=== PATIENT | male | born 1940 | race Caucasian/White ===

== ENCOUNTER 2016-06-24 10:16 | Inpatient (IN) | payer OTHER ==
[~2016-06-24] VITALS: Ht 182.9 cm; Wt 71.4 kg
--- NOTE | 2016-06-24 12:18 | ED ORDER SUMMARY ---
..... Patient: BELEM ALONSO OrderSheet [facility] VisitID: [id number] [place] [address] 75y, M Registration Date/Time: 06/24/2016 ORDER SHEET Weight: 72.5 kg (stated) Allergies: None GENERAL ORDERS: CBC w Diff Urgent (10:06/24/2016 Guadalupe SCHWARTZ) (Ack 10:32 Harriet) (10:42 KWilliams R.N.) CMP Urgent (:06/24/2016 Guadalupe SCHWARTZ) (Ack 10:32 Harriet) (10:42 KWilliams R.N.) UA-Culture if indicated Urgent (:06/24/2016 Guadalupe SCHWARTZ) (Ack 10:32 Harriet) Amylase Urgent (:06/24/2016 Guadalupe SCHWARTZ) (Ack 10:32 Harriet) (10:42 KWilliams R.N.) Lipase Urgent (:06/24/2016 Guadalupe SCHWARTZ) (Ack 10:32 Harriet) (10:42 KWilliams R.N.) Urine Drug Screen Urgent (:06/24/2016 Guadalupe SCHWARTZ) (Ack 10:32 Harriet) Ethyl Alcohol Urgent (:06/24/2016 Guadalupe SCHWARTZ) (Ack 10:32 Harriet) (10:42 KWilliams R.N.) MEDICATION ORDERS: IV FLUIDS: Multivitamin IVF with Normal Saline 1 Liter, Folic Acid 1 mg/mL, Multivitamin Concentrate Intravenous 1 amp/L, Thiamine HCl 100 mg/L: initial bolus 500 mL (1000 mL/hr), then 125 mL/hr (NOW); Urgent (10:06/24/2016 Guadalupe SCHWARTZ) (10:59 MWinterer R.N.) Ativan IV 1 mg (HIGH ALERT MEDICATION, NOW) (11:26 06/24/2016 Guadalupe SCHWARTZ) (11:33 DBeyer R.N.) Ativan IV 0.5 mg (HIGH ALERT MEDICATION, NOW) (12:15 06/24/2016 DBeyer R.N. verbal order read back to Guadalupe SCHWARTZ) (12:28 DBeyer R.N.) Ativan IV 0.5 mg (HIGH ALERT MEDICATION, NOW) (13:43 06/24/2016 Yovanny Franco verbal order read back to Guadalupe SCHWARTZ) (13:44 Yovanny Franco) ORDER SHEET NOTES: [Electronically signed by Keegan Siddiqui MD (20:39 06/24/2016)] [Electronically signed by January Brar R.N. (08:53 06/25/2016)] [Electronically locked/signed by January Brar R.N. (08:53 06/25/2016)]
--- NOTE | 2016-06-24 12:18 | ED CLINICAL REPORT ---
Clinical Report - Physicians/Mid Levels [facility] [address] [place] [address] 06/24/2016 10:16 Patient: BELEM ALONSO Time Seen: 10:25. Arrived- By ambulance. Historian- patient and EMS personnel. History limited by vague historian. HISTORY OF PRESENT ILLNESS Chief Complaint: "GOT THE SHAKES" and TREMORS. Substances abused: (several days ago). The patient has had tremors and been depressed. No suicidal thoughts. The symptoms are described as severe. Location of injuries- right shoulder. REVIEW OF SYSTEMS The patient has had depression. He has not had suicidal ideation. All systems otherwise negative, except as recorded above. SOCIAL HISTORY Current every day light tobacco smoker (cigarette)- less than 1/2 a pack per day. Regular alcohol use; consumes a large amount of beer daily. FAMILY HISTORY Denies family medical history. ADDITIONAL NOTES The nursing notes have been reviewed. PHYSICAL EXAM Vital Signs: 06/24/2016 10:20 BP: 172/88. HR: 128. RR: 18. O2 saturation: 98%. Temp: 98.2 F. Have been reviewed. Appearance: Alert. He appears uncomfortable, is restless and appears depressed. He appears frail, elderly and unkempt. Eyes: Pupils equal, round and reactive to light. ENT: Airway intact. Pharynx normal. Neck: Normal inspection. Neck supple. CVS: Normal heart rate and rhythm. Heart sounds normal. Respiratory: No respiratory distress. Decreased air movement. Abdomen: Soft and nontender. No organomegaly. Back: Normal inspection. Skin: Skin warm and dry. No rash. He has a medium-sized bruise (several days old - starting to heal - on the R shoulder). Extremities: Extremities exhibit normal ROM. No calf tenderness. No lower extremity edema. Neuro: Alert. Cranial nerves normal (as tested). (tremulous). LABS, X-RAYS, AND EKG Laboratory Tests: UA-Culture if indicated: (CHAVA: 06/24/2016 11:56) ( MsgRcvd 06/24/2016 12:01) IP Test Result Flag Units (Reference) URINE COLOR YELLOW URINE APPEARANCE CLEAR URINE GLUCOSE NEGATIVE (NEGATIVE) URINE BILIRUBIN NEGATIVE (NEGATIVE) URINE KETONE 2+ (NEGATIVE) URINE SPECIFIC GRAVITY 1.025 (1.010-1.030) URINE PH 6.0 (5.0-8.0) URINE PROTEIN 1+ (NEGATIVE) URINE UROBILINOGEN 0.2 EU/dL (0.2-1.0) URINE NITRITE NEGATIVE (NEGATIVE) URINE BLOOD 2+ (NEGATIVE) URINE LEUK ESTERASE NEGATIVE (NEGATIVE) CBC w Diff: (CHAVA: 06/24/2016 10:26) ( [facility] [place] 11:28) Final results Test Result Flag Units (Reference) WHITE BLOOD COUNT 9.9 K/uL (4.5-11.5) RED BLOOD COUNT 4.58 M/uL (4.50-5.90) HEMOGLOBIN 12.1 L gm/dL (13.5-17.5) HEMATOCRIT 37.1 L % (41.0-53.0) MEAN CELL VOLUME 81 fL (80-100) MEAN CORPUSCULAR HGB 26 pg (26-34) MEAN CORPUSCULAR HGB CONC 33 g/dL (31-37) RED CELL DISTRIBUTION WIDTH 20.5 H % (11.6-14.8) PLATELET COUNT 171 K/uL (150-400) NEUTROPHIL % 88.0 H % (50-75) LYMPH % 3.9 L % (25-40) MONO % 8.1 % (3-14) EOSINOPHIL % 0 % (0-4) BASOPHIL % 0 % (0-2) RBC MORPHOLOGY 3+ ANISOCYTOSIS~~1+ SCHISTOCYTES~~PLTS ADQ CMP: (CHAVA: 06/24/2016 10:26) ( [facility] [place] 06/24/[place] 10:55) Final results Test Result Flag Units (Reference) GLUCOSE 119 H mg/dL (70-110) BUN 18 mg/dL (7-18) CREATININE 1.1 mg/dL (0.6-1.3) Estimated GFR >60 mL/min Estimated GFR- >60 mL/min Note: Persistent reduction over 3 months in eGFR<60 mL/min/1.73 m2 defines CKD. Patients with eGFR values>=60 mL/min/1.73 m2 may also have CKD if evidence ofpersistent proteinuria. Additional information may be foundat [email or web address]. SODIUM 139 mmol/L (136-145) POTASSIUM 4.4 mmol/L (3.5-5.1) CHLORIDE 102 mmol/L (98-107) CARBON DIOXIDE 23 mmol/L (21-32) CALCIUM 8.9 mg/dL (8.5-10.1) TOTAL PROTEIN 7.3 g/dL (6.4-8.2) ALBUMIN 3.6 g/dL (3.3-5.0) BILIRUBIN, TOTAL 1.0 mg/dL (0.0-1.0) ALKALINE PHOSPHATASE 138 H U/L (46-116) AST (SGOT) 97 H U/L (15-37) ALT (SGPT) 96 H U/L (12-78) LIPASE 1390 H U/L (73-393) AMYLASE 167 H U/L (25-115) ETHYL ALCOHOL 3 mg/dL (3-10) . PROGRESS AND PROCEDURES Course of Care: Patient is stable. Discussed case with hospitalist, (Victorino). Reviewed test results and need for additional work-up. Agreed upon decision to admit. Health care provider will see patient in ED. Patient/family counseled. Old medical records ordered. Disposition: Admitted. CLINICAL IMPRESSION Pancreatitis. Alcohol withdrawal. Depression. (Electronically signed by Keegan Siddiqui MD 06/24/2016 20:39)
--- NOTE | 2016-06-24 12:18 | ED NURSING NOTES ---
Clinical Report - Nurses [facility] [address] [place] [address] 06/24/2016 10:16 Patient: BELEM ALONSO TRIAGE Triage time 10:20 Jun 24 2016. Acuity: LEVEL 3. Chief Complaint: WEAKNESS. ASHISH COMA SCORE: [place] Coma Scale. (15). --10:25 Jose Angel Parmar R.N. 10:20 06/24/16. BP: 172/88. HR: 128. RR: 18. O2 saturation: 98%. Temp: 98.2 F. Pain level now 0/10. --10:25 Jose Angel Parmar R.N. Weight: 72.5 kg stated. Height/Length: 70 inches Per Patient. BMI: 22.9. --10:23 Jose Angel Parmar R.N. Allergies None. --10:21 Jose Angel Parmar R.N. History Arrived by EMS. ( Pt reports tremor for two weeks worse today.). SOCIAL HX: Never smoker. Alcohol use. (2 drinks a day last drink 3 days ago). No drug use. --10:25 Jose Angel Parmar R.N. PROBLEMS: Asthma. --10:21 Jose Angel Parmar R.N. Interventions ID band on patient. To treatment room. --10:25 Jose Angel Parmar R.N. PHYSICAL ASSESSMENT GENERAL / NEURO / PSYCH: Alert. Oriented X 4. Appears anxious. HEENT: Pupils equal, round and reactive to light. No facial asymmetry noted. Mucous membranes are pink. RESPIRATORY: Respirations not labored. Chest nontender. Breath sounds within normal limits. --10:31 Jose Angel Parmar R.N. NURSING PROGRESS NOTES teletypesetter monitor and pulse oximeter placed on patient; monitor alarms on. Patient gowned. Call light placed in reach. Side rails up x 2. Bed placed in lowest position. Patient placed in chair. --10:33 Jose Angel Parmar R.N. 10:33 06/24/2016 Site #1 started via IV in the left antecubital space with an 20g angiocath, with aseptic technique and good blood return; one attempt. Blood drawn: rainbow set. Labeled in the presence of the patient and sent to the lab. Saline lock flushed with saline. --10:33 Jose Angel Parmar R.N. 10:59 06/24/2016 Started bag #1 1000 mL IV Fluids MULTIVITAMIN (Saline); at 500 mL/hr over 2 hour(s) via site #1 via IV pump. Allergies verified and confirmed 5 rights. IV patency established. IV site checked: no pain, redness, or swelling. IV flushed thoroughly pre- and post-medication administration. --10:59 Rosanna Thompson R.N. 11:33 06/24/2016 Ativan (LORazepam) IVP 1 mg given over 2 minute(s) via site #1. Allergies verified, confirmed 5 rights and sedative warning given. IV patency established. IV site checked: no pain, redness, or swelling. IV flushed thoroughly pre- and post-medication administration. IVP given by RN. --11:33 Jose Angel Parmar R.N. 11:53 06/24/16. HR: 125. RR: 20. O2 saturation: 96%. Pain level now 0/10. --11:54 Jose Angel Parmar R.N. 12:08 06/24/16. BP: 166/105. HR: 130. RR: 18. O2 saturation: 94%. Temp: 98.8 F. Pain level now: 0/10. --12:09 Jose Angel Parmar R.N. ( Pt scores an 8 on alcohol withdrawal guideline). --12:10 Jose Angel Parmar R.N. 12:28 06/24/2016 Ativan (LORazepam) IVP 0.5 mg given over 2 minute(s) via site #1. Allergies verified, confirmed 5 rights and sedative warning given to the patient. IV patency established. IV site checked: no pain, redness, or swelling. IV flushed thoroughly pre- and post-medication administration. IVP given by RN. --12:28 Jose Angel Parmar R.N. 12:28 06/24/16. BP: 155/81. HR: 113. RR: 18. O2 saturation: 97%. Pain level now 0/10. --12:31 Jose Angel Parmar R.N. 12:40 06/24/16. BP: 159/80. HR: 106. RR: 18. O2 saturation: 97%. Pain level now 0/10. --12:41 Jose Angel Parmar R.N. ( Pt states " I can think again." tremor has decreased in severity). --12:41 Jose Angel Parmar R.N. 13:19 06/24/2016 Site #2 started via IV in the right wrist with an 18g angiocath; two attempts. Saline lock flushed with saline (Placed by ANANYA Frank). --13:44 Jose Angel Parmar R.N. 13:20 06/24/2016 IV Fluids MULTIVITAMIN Discontinued: bag #1 infused upon admission. Total amount infused: 1000 mL. IV patency established. IV site checked: no pain, redness, or swelling. IV flushed thoroughly. --13:20 Jose Angel Parmar R.N. 13:44 06/24/2016 Ativan (LORazepam) IVP 0.5 mg given over 2 minute(s) via site #1. Allergies verified, confirmed 5 rights and sedative warning given to the patient. IV patency established. IV site checked: no pain, redness, or swelling. IV flushed thoroughly pre- and post-medication administration. IVP given by RN. --13:44 Jose Angel Parmar R.N. DISPOSITION / DISCHARGE 14:01 06/24/16. BP: 149/72. HR: 96. RR: 18. O2 saturation: 97%. Temp: 98.3 F. Pain level now 0/10. --14:01 Jose Angel Parmar R.N. Patient's personal items include: shirt, pants and wallet; items were placed in belongings bag and given to the patient. --14:02 Jose Angel Parmar R.N. ( attempted to call report RN not available). --14:07 Jose Angel Parmar R.N. Departure time: 1440. --14:42 Jose Angel Parmar R.N. Locked/Released at 06/25/2016 8:53 by January Brar R.N.
--- NOTE | 2016-06-24 12:18 | ED CLINICAL REPORT ---
Clinical Report - Physicians/Mid Levels [facility] [address] [place] [address] 06/24/2016 10:16 Patient: BELEM ALONSO Time Seen: 10:25. Arrived- By ambulance. Historian- patient and EMS personnel. History limited by vague historian. HISTORY OF PRESENT ILLNESS Chief Complaint: "GOT THE SHAKES" and TREMORS. Substances abused: (several days ago). The patient has had tremors and been depressed. No suicidal thoughts. The symptoms are described as severe. Location of injuries- right shoulder. REVIEW OF SYSTEMS The patient has had depression. He has not had suicidal ideation. All systems otherwise negative, except as recorded above. SOCIAL HISTORY Current every day light tobacco smoker (cigarette)- less than 1/2 a pack per day. Regular alcohol use; consumes a large amount of beer daily. FAMILY HISTORY Denies family medical history. ADDITIONAL NOTES The nursing notes have been reviewed. PHYSICAL EXAM Vital Signs: 06/24/2016 10:20 BP: 172/88. HR: 128. RR: 18. O2 saturation: 98%. Temp: 98.2 F. Have been reviewed. Appearance: Alert. He appears uncomfortable, is restless and appears depressed. He appears frail, elderly and unkempt. Eyes: Pupils equal, round and reactive to light. ENT: Airway intact. Pharynx normal. Neck: Normal inspection. Neck supple. CVS: Normal heart rate and rhythm. Heart sounds normal. Respiratory: No respiratory distress. Decreased air movement. Abdomen: Soft and nontender. No organomegaly. Back: Normal inspection. Skin: Skin warm and dry. No rash. He has a medium-sized bruise (several days old - starting to heal - on the R shoulder). Extremities: Extremities exhibit normal ROM. No calf tenderness. No lower extremity edema. Neuro: Alert. Cranial nerves normal (as tested). (tremulous). LABS, X-RAYS, AND EKG Laboratory Tests: UA-Culture if indicated: (CHAVA: 06/24/2016 11:56) ( MsgRcvd 06/24/2016 12:01) IP Test Result Flag Units (Reference) URINE COLOR YELLOW URINE APPEARANCE CLEAR URINE GLUCOSE NEGATIVE (NEGATIVE) URINE BILIRUBIN NEGATIVE (NEGATIVE) URINE KETONE 2+ (NEGATIVE) URINE SPECIFIC GRAVITY 1.025 (1.010-1.030) URINE PH 6.0 (5.0-8.0) URINE PROTEIN 1+ (NEGATIVE) URINE UROBILINOGEN 0.2 EU/dL (0.2-1.0) URINE NITRITE NEGATIVE (NEGATIVE) URINE BLOOD 2+ (NEGATIVE) URINE LEUK ESTERASE NEGATIVE (NEGATIVE) CBC w Diff: (CHAVA: 06/24/2016 10:26) ( [facility] [place] 06/[place] 11:28) Final results Test Result Flag Units (Reference) WHITE BLOOD COUNT 9.9 K/uL (4.5-11.5) RED BLOOD COUNT 4.58 M/uL (4.50-5.90) HEMOGLOBIN 12.1 L gm/dL (13.5-17.5) HEMATOCRIT 37.1 L % (41.0-53.0) MEAN CELL VOLUME 81 fL (80-100) MEAN CORPUSCULAR HGB 26 pg (26-34) MEAN CORPUSCULAR HGB CONC 33 g/dL (31-37) RED CELL DISTRIBUTION WIDTH 20.5 H % (11.6-14.8) PLATELET COUNT 171 K/uL (150-400) NEUTROPHIL % 88.0 H % (50-75) LYMPH % 3.9 L % (25-40) MONO % 8.1 % (3-14) EOSINOPHIL % 0 % (0-4) BASOPHIL % 0 % (0-2) RBC MORPHOLOGY 3+ ANISOCYTOSIS~~1+ SCHISTOCYTES~~PLTS ADQ CMP: (CHAVA: 06/24/2016 10:26) ( [facility] [place] 06/24/2016 10:55) Final results Test Result Flag Units (Reference) GLUCOSE 119 H mg/dL (70-110) BUN 18 mg/dL (7-18) CREATININE 1.1 mg/dL (0.6-1.3) Estimated GFR >60 mL/min Estimated GFR- >60 mL/min Note: Persistent reduction over 3 months in eGFR<60 mL/min/1.73 m2 defines CKD. Patients with eGFR values>=60 mL/min/1.73 m2 may also have CKD if evidence ofpersistent proteinuria. Additional information may be foundat [email or web address].org. SODIUM 139 mmol/L (136-145) POTASSIUM 4.4 mmol/L (3.5-5.1) CHLORIDE 102 mmol/L (98-107) CARBON DIOXIDE 23 mmol/L (21-32) CALCIUM 8.9 mg/dL (8.5-10.1) TOTAL PROTEIN 7.3 g/dL (6.4-8.2) ALBUMIN 3.6 g/dL (3.3-5.0) BILIRUBIN, TOTAL 1.0 mg/dL (0.0-1.0) ALKALINE PHOSPHATASE 138 H U/L (46-116) AST (SGOT) 97 H U/L (15-37) ALT (SGPT) 96 H U/L (12-78) LIPASE 1390 H U/L (73-393) AMYLASE 167 H U/L (25-115) ETHYL ALCOHOL 3 mg/dL (3-10) . PROGRESS AND PROCEDURES Course of Care: Patient is stable. Discussed case with hospitalist, (Victorino). Reviewed test results and need for additional work-up. Agreed upon decision to admit. Health care provider will see patient in ED. Patient/family counseled. Old medical records ordered. Disposition: Admitted. CLINICAL IMPRESSION Pancreatitis. Alcohol withdrawal. Depression. (Electronically signed by Keegan Siddiqui MD 06/24/2016 20:39)
--- NOTE | 2016-06-24 12:18 | ED ORDER SUMMARY ---
..... Patient: BELEM ALONSO OrderSheet [facility] VisitID: [id number] [place] [address] 75y, M Registration Date/Time: 06/24/2016 ORDER SHEET Weight: 72.5 kg (stated) Allergies: None GENERAL ORDERS: CBC w Diff Urgent (10:06/24/2016 Guadalupe SCHWARTZ) (Ack 10:32 Harriet) (10:42 KWilliams R.N.) CMP Urgent (:06/24/2016 Guadalupe SCHWARTZ) (Ack 10:32 Harriet) (10:42 KWilliams R.N.) UA-Culture if indicated Urgent (:06/24/2016 Guadalupe SCHWARTZ) (Ack 10:32 Harriet) Amylase Urgent (:06/24/2016 Guadalupe SCHWARTZ) (Ack 10:32 Harriet) (10:42 KWilliams R.N.) Lipase Urgent (:06/24/2016 Guadalupe SCHWARTZ) (Ack 10:32 Harriet) (10:42 KWilliams R.N.) Urine Drug Screen Urgent (:06/24/2016 Guadalupe SCHWARTZ) (Ack 10:32 Harriet) Ethyl Alcohol Urgent (:06/24/2016 Guadalupe SCHWARTZ) (Ack 10:32 Harriet) (10:42 KWilliams R.N.) MEDICATION ORDERS: IV FLUIDS: Multivitamin IVF with Normal Saline 1 Liter, Folic Acid 1 mg/mL, Multivitamin Concentrate Intravenous 1 amp/L, Thiamine HCl 100 mg/L: initial bolus 500 mL (1000 mL/hr), then 125 mL/hr (NOW); Urgent (10:06/24/2016 Guadalupe SCHWARTZ) (10:59 MWinterer R.N.) Ativan IV 1 mg (HIGH ALERT MEDICATION, NOW) (11:26 06/24/2016 Guadalupe SCHWARTZ) (11:33 DBeyer R.N.) Ativan IV 0.5 mg (HIGH ALERT MEDICATION, NOW) (12:15 06/24/2016 DBeyer R.N. verbal order read back to Guadalupe SCHWARTZ) (12:28 DBeyer R.N.) Ativan IV 0.5 mg (HIGH ALERT MEDICATION, NOW) (13:43 06/24/2016 Yovanny Franco verbal order read back to Guadalupe SCHWARTZ) (13:44 Yovanny Franco) ORDER SHEET NOTES: [Electronically signed by Keegan Siddiqui MD (20:39 06/24/2016)] [Electronically signed by January Brar R.N. (08:53 06/25/2016)] [Electronically locked/signed by January Brar R.N. (08:53 06/25/2016)]
--- NOTE | 2016-06-24 12:18 | ED NURSING NOTES ---
Clinical Report - Nurses [facility] [address] [place] [address] 06/24/2016 10:16 Patient: BELEM ALONSO TRIAGE Triage time 10:20 Jun 24 2016. Acuity: LEVEL 3. Chief Complaint: WEAKNESS. ASHISH COMA SCORE: [place] Coma Scale. (15). --10:25 Jose Angel Parmar R.N. 10:20 06/24/16. BP: 172/88. HR: 128. RR: 18. O2 saturation: 98%. Temp: 98.2 F. Pain level now 0/10. --10:25 Jose Angel Parmar R.N. Weight: 72.5 kg stated. Height/Length: 70 inches Per Patient. BMI: 22.9. --10:23 Jose Angel Parmar R.N. Allergies None. --10:21 Jose Angel Parmar R.N. History Arrived by EMS. ( Pt reports tremor for two weeks worse today.). SOCIAL HX: Never smoker. Alcohol use. (2 drinks a day last drink 3 days ago). No drug use. --10:25 Jose Angel Parmar R.N. PROBLEMS: Asthma. --10:21 Jose Angel Parmar R.N. Interventions ID band on patient. To treatment room. --10:25 Jose Angel Parmar R.N. PHYSICAL ASSESSMENT GENERAL / NEURO / PSYCH: Alert. Oriented X 4. Appears anxious. HEENT: Pupils equal, round and reactive to light. No facial asymmetry noted. Mucous membranes are pink. RESPIRATORY: Respirations not labored. Chest nontender. Breath sounds within normal limits. --10:31 Jose Angel Parmar R.N. NURSING PROGRESS NOTES traffic monitor specialist and pulse oximeter placed on patient; monitor alarms on. Patient gowned. Call light placed in reach. Side rails up x 2. Bed placed in lowest position. Patient placed in chair. --10:33 Jose Angel Parmar R.N. 10:33 06/24/2016 Site #1 started via IV in the left antecubital space with an 20g angiocath, with aseptic technique and good blood return; one attempt. Blood drawn: rainbow set. Labeled in the presence of the patient and sent to the lab. Saline lock flushed with saline. --10:33 Jose Angel Parmar R.N. 10:59 06/24/2016 Started bag #1 1000 mL IV Fluids MULTIVITAMIN (Saline); at 500 mL/hr over 2 hour(s) via site #1 via IV pump. Allergies verified and confirmed 5 rights. IV patency established. IV site checked: no pain, redness, or swelling. IV flushed thoroughly pre- and post-medication administration. --10:59 Rosanna Thompson R.N. 11:33 06/24/2016 Ativan (LORazepam) IVP 1 mg given over 2 minute(s) via site #1. Allergies verified, confirmed 5 rights and sedative warning given. IV patency established. IV site checked: no pain, redness, or swelling. IV flushed thoroughly pre- and post-medication administration. IVP given by RN. --11:33 Jose Angel Parmar R.N. 11:53 06/24/16. HR: 125. RR: 20. O2 saturation: 96%. Pain level now 0/10. --11:54 Jose Angel Parmar R.N. 12:08 06/24/16. BP: 166/105. HR: 130. RR: 18. O2 saturation: 94%. Temp: 98.8 F. Pain level now: 0/10. --12:09 Jose Angel Parmar R.N. ( Pt scores an 8 on alcohol withdrawal guideline). --12:10 Jose Angel Parmar R.N. 12:28 06/24/2016 Ativan (LORazepam) IVP 0.5 mg given over 2 minute(s) via site #1. Allergies verified, confirmed 5 rights and sedative warning given to the patient. IV patency established. IV site checked: no pain, redness, or swelling. IV flushed thoroughly pre- and post-medication administration. IVP given by RN. --12:28 Jose Angel Parmar R.N. 12:28 06/24/16. BP: 155/81. HR: 113. RR: 18. O2 saturation: 97%. Pain level now 0/10. --12:31 Jose Angel Parmar R.N. 12:40 06/24/16. BP: 159/80. HR: 106. RR: 18. O2 saturation: 97%. Pain level now 0/10. --12:41 Jose Angel Parmar R.N. ( Pt states " I can think again." tremor has decreased in severity). --12:41 Jose Angel Parmar R.N. 13:19 06/24/2016 Site #2 started via IV in the right wrist with an 18g angiocath; two attempts. Saline lock flushed with saline (Placed by ANANYA Frank). --13:44 Jose Angel Parmar R.N. 13:20 06/24/2016 IV Fluids MULTIVITAMIN Discontinued: bag #1 infused upon admission. Total amount infused: 1000 mL. IV patency established. IV site checked: no pain, redness, or swelling. IV flushed thoroughly. --13:20 Jose Angel Parmar R.N. 13:44 06/24/2016 Ativan (LORazepam) IVP 0.5 mg given over 2 minute(s) via site #1. Allergies verified, confirmed 5 rights and sedative warning given to the patient. IV patency established. IV site checked: no pain, redness, or swelling. IV flushed thoroughly pre- and post-medication administration. IVP given by RN. --13:44 Jose Angel Parmar R.N. DISPOSITION / DISCHARGE 14:01 06/24/16. BP: 149/72. HR: 96. RR: 18. O2 saturation: 97%. Temp: 98.3 F. Pain level now 0/10. --14:01 Jose Angel Parmar R.N. Patient's personal items include: shirt, pants and wallet; items were placed in belongings bag and given to the patient. --14:02 Jose Angel Parmar R.N. ( attempted to call report RN not available). --14:07 Jose Angel Parmar R.N. Departure time: 1440. --14:42 Jose Angel Parmar R.N. Locked/Released at 06/25/2016 8:53 by January Brra R.N.
--- NOTE | 2016-06-24 13:13 | History & Physical Report ---
Admission Admit Date 06/24/16 Information Source Information Source: Self, ED Record History Chief Complaint Shaking History of Present Illness 75yoM w/ hx of etoh dependence, asthma, who presented because he "does not well. " He states that he stopped drinking about 3 days ago, and would not answer my question directly about why. He says that he became shaky about 2 days ago but it has worsened to the point where he couldn't even hold a cup. He denies fevers, chills, SOB, chest pain, abdominal pain, nausea, vomiting, diarrhea. He denies any history of alcohol withdrawal, and has never had seizures. He says that he drinks every day, but is adamant that it is only 2 "cans of lager" each day. He drinks with buddies who drink a "ton" more than him. Patient History 1. Alcohol dependence 2. Asthma Social History Etoh as above, smokes "occasionally" and denies illicit drug use. Medications and Allergies Medications Current Medications Sig/Diana Start time Last Medication Dose Route Stop Time Status Admin Enoxaparin Sodium 40 MG QAM 06/25 899 UNV SC Folic Acid 1 MG DAILY 06/25 0900 UNV PO Multivit/ 1 TAB DAILY 06/25 09 UNV Folic Acid/Iron PO Thiamine HCl 100 MG DAILY 06/25 0900 UNV PO Al Hydrox/Mg Hydrox/ 15 ML Q1H PRN 06/24 1300 UNV Simethicone PO Albuterol/Ipratropium 3 ML RTQ6H PRN 06/24 1300 UNV IN Clonidine HCl 0.1 MG BID PRN 06/24 1300 UNV PO Diazepam 5 MG PRN PRN 06/24 1300 UNV IV Docusate Sodium 250 MG BID PRN 06/24 1300 UNV PO Haloperidol Lactate 2 MG Q1H PRN 06/24 1300 UNV IV Lactated Ringer's 1,000 ML ASDIRECTED 06/24 1300 UNV IV Magnesium Hydroxide 10 ML DAILY PRN 06/24 1300 UNV PO Morphine Sulfate 1 MG Q30MIN PRN 06/24 1300 UNV IV Ondansetron HCl 4 MG Q6H PRN 06/24 1300 UNV IV Allergies Coded Allergies: NKA (06/24/16) Review of Systems Other As per HPI, rest of 10-point ROS unremarkable. Physical Exam General Appearance Alert, Oriented X3, Cooperative, Generally tremulous HEENT Atraumatic, Moist mucous membranes Lungs End expiratory squeak heard throughout. Neck Supple Cardiovascular Normal S1 and S2, No murmurs, gallops, rubs, Tachycardic Abdomen Normal bowel sounds, Soft, No tenderness Extremities No cyanosis, No clubbing, No edema Skin No Rashes Neurological Sensation intact, Cranial nerves intact, Strength 5/5 x4 ext's, No lateralizing signs Psych/Mental Status Mental status normal LAB Results Laboratory Tests 06/24 06/24 1156 1026 Chemistry Plasma Sodium (136 - 145 mmol/L) 139 Plasma Potassium (3.5 - 5.1 mmol/L) 4.4 Plasma Chloride (98 - 107 mmol/L) 102 CO2 (Enzymatic) (21 - 32 mmol/L) 23 BUN (7 - 18 mg/dL) 18 Creatinine (0.6 - 1.3 mg/dL) 1.1 Est GFR ( Amer) (mL/min) >60 Est GFR (Non-Af Amer) (mL/min) >60 Glucose (70 - 110 mg/dL) 119 Plasma Calcium (8.5 - 10.1 mg/dL) 8.9 Total Bilirubin (0.0 - 1.0 mg/dL) 1.0 AST (15 - 37 U/L) 97 ALT (12 - 78 U/L) 96 Alkaline Phosphatase (46 - 116 U/L) 138 Total Protein (6.4 - 8.2 g/dL) 7.3 Albumin (3.3 - 5.0 g/dL) 3.6 Amylase (25 - 115 U/L) 167 Lipase (73 - 393 U/L) 1390 Hematology WBC (4.5 - 11.5 K/uL) 9.9 RBC (4.50 - 5.90 M/uL) 4.58 Hgb (13.5 - 17.5 gm/dL) 12.1 Hct (41.0 - 53.0 %) 37.1 MCV (80 - 100 fL) 81 MCH (26 - 34 pg) 26 RDW (11.6 - 14.8 %) 20.5 Neut % (Auto) (50 - 75 %) 88.0 Lymph % (Auto) (25 - 40 %) 3.9 [place] % (Auto) (3 - 14 %) 8.1 Eos % (Auto) (0 - 4 %) 0 Baso % (Auto) (0 - 2 %) 0 Plt Count, EDTA (150 - 400 K/uL) 171 RBC Morphology (3574 A) PLTS ADQ PUBS MCHC (31 - 37 g/dL) 33 Toxicology Urine Opiates Screen (NEGATIVE) NEGATIVE Urine Methadone Screen (NEGATIVE) NEGATIVE Ur Barbiturates Screen (NEGATIVE) NEGATIVE U Amphetamin/Meth Scrn (NEGATIVE) NEGATIVE MDMA (Ecstasy) Screen (NEGATIVE) NEGATIVE U Benzodiazepines Scrn (NEGATIVE) NEGATIVE Urine Cocaine Screen (NEGATIVE) NEGATIVE U Cannabinoids Screen (NEGATIVE) NEGATIVE Plasma/Serum Ethyl Alc (3 - 10 mg/dL) 3 Urines Urine Color YELLOW Urine Appearance CLEAR Urine pH (5.0 - 8.0) 6.0 Ur Specific [place] (1.010 - 1.030) 1.025 Urine Protein (NEGATIVE) 1+ Urine Ketones (NEGATIVE) 2+ Urine Blood (NEGATIVE) 2+ Urine Nitrite (NEGATIVE) NEGATIVE Urine Bilirubin (NEGATIVE) NEGATIVE Urine Urobilinogen (0.2 - 1.0 EU/dL) 0.2 Ur Leukocyte Esterase (NEGATIVE) NEGATIVE Urine RBC (0 - 1 rbc/hpf) 3-5 Urine WBC (0 - 1 wbc/hpf) 3-5 Ur Epithelial Cells (0 - 5 EPI/hpf) 0-1 Urine Bacteria (NONE SEEN) NONE SEEN Urine Glucose (NEGATIVE) NEGATIVE Urine Comment CULT NOT INDICATED Assessment and Plan Problem List 1. Alcohol withdrawal Plan Appears to be in active withdrawal. Will place on withdrawal protocol, as well as monitor for seizures. His HR and BP are elevated, but likely from the withdrawal itself. Will place an order for prn clonidine for BP>180/100. Given a banana bag in ED, and will continue on thiamine, folic, and mvi. He has a mild transaminitis and elevated lipase, but his abdominal exam is benign and he has no symptoms of pancreatitis. Will trend labs for now, and continue on IVF. 2. Asthma Plan Not in acute exacerbation. Will put on prn neb. FEN: clears, ADAT PPx: lovenox Code: DNR/DNI, as per discussion w/ patient in ED Dispo: Inpatient for close monitoring during withdrawal, as will likely require >2MN hospital stay. E&M Codes Admission: Inpt-Moderate/94921
[2016-06-24 14:43] VITALS: BP 164/81
[2016-06-24] MEDS ORDERED: PROAIR HFA IN (16:24)
[2016-06-24] MEDS ORDERED: FLOVENT HFA110 MCG IN (16:24)
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
[2016-06-24 18:41] VITALS: BP 137/65
[2016-06-24 22:42] VITALS: BP 131/72
[2016-06-25 02:23] VITALS: BP 132/75
[2016-06-25 06:55] VITALS: BP 142/61
--- NOTE | 2016-06-25 08:53 | ED DISCHARGE INSTRUCTIONS ---
Patient: BELEM ALONSO General Instructions [facility] VisitID: [id number] [address] [place] [address] 75y, M Registration Date/Time: 06/24/2016 Pancreatitis. Alcohol withdrawal. Depression. (Electronically signed by Keegan Siddiqui MD 06/24/2016 20:39)
--- NOTE | 2016-06-25 08:53 | ED DISCHARGE INSTRUCTIONS ---
Patient: BELEM ALONSO General Instructions [facility] VisitID: [id number] [address] [place] [address] 75y, M Registration Date/Time: 06/24/2016 Pancreatitis. Alcohol withdrawal. Depression. (Electronically signed by Keegan Siddiqui MD 06/24/2016 20:39)
--- NOTE | 2016-06-25 08:53 | ED MED RECONCILIATION SUMMARY ---
Patient: BELEM ALONSO Medication Reconciliation Report [facility] VisitID: [id number] [address] [place] [address] 75y, M Registration Date/Time: 06/24/2016 Weight: 72.5 kg Height/Length: 70 in. BMI: 22.9 ALLERGIES: None The patient's Home Medications are listed below: Not obtained. The source(s) of the original Home Medication information: Not obtained. The following Medications were given to the patient in the Emergency Department: MULTIVITAMIN [IVF] IV Fluids bolus 0, then 500 mL/hr, administered: 06/24/2016 10:59:00 AM Ativan [IVP] IVP 1 mg, administered: 06/24/2016 11:33:00 AM Ativan [IVP] IVP 0.5 mg, administered: 06/24/2016 12:28:00 PM Ativan [IVP] IVP 0.5 mg, administered: 06/24/2016 1:44:00 PM The following Medications were prescribed to the patient: None.
--- NOTE | 2016-06-25 08:53 | ED MAR SUMMARY ---
..... Medication Administration Record [facility] [address] [facility] [place] [address] Patient: BELEM ALONSO Visit ID: [id number] 75y, M Weight: 72.5 kg Height/Length: 70 in BMI: 22.9 ALLERGIES: None Start 10:59 06/24/2016 Rosanna hTompson R.N., Stop 13:20 06/24/2016 Jose Angel Parmar R.N. Medication Administered: MULTIVITAMIN [IVF] (SALINE), Dose: IV Fluids over 2 hour(s), Rate: 500 mL/hr, Dispensed: 1000 mL bag, Site: #1 left AC. Medication Ordered: Multivitamin IVF with Normal Saline 1 Liter, Folic Acid 1 mg/mL, Multivitamin Concentrate Intravenous 1 amp/L, Thiamine HCl 100 mg/L: initial bolus 500 mL (1000 mL/hr), then 125 mL/hr (NOW); Urgent. Given 11:33 06/24/2016 Jose Angel Parmar R.N. Medication Administered: ATIVAN [IVP] (LORAZEPAM), Dose: 1 mg IVP over 2 minute(s), Site: #1 left AC. Medication Ordered: Ativan IV 1 mg (HIGH ALERT MEDICATION, NOW). Given 12:28 06/24/2016 Jose Angel Parmar R.N. Medication Administered: ATIVAN [IVP] (LORAZEPAM), Dose: 0.5 mg IVP over 2 minute(s), Site: #1 left AC. Medication Ordered: Ativan IV 0.5 mg (HIGH ALERT MEDICATION, NOW). Given 13:44 06/24/2016 Jose Angel Parmar R.N. Medication Administered: ATIVAN [IVP] (LORAZEPAM), Dose: 0.5 mg IVP over 2 minute(s), Site: #1 left AC. Medication Ordered: Ativan IV 0.5 mg (HIGH ALERT MEDICATION, NOW).
--- NOTE | 2016-06-25 08:53 | ED MED RECONCILIATION SUMMARY ---
Patient: BELEM ALONSO Medication Reconciliation Report [facility] VisitID: [id number] [address] [place] [address] 75y, M Registration Date/Time: 06/24/2016 Weight: 72.5 kg Height/Length: 70 in. BMI: 22.9 ALLERGIES: None The patient's Home Medications are listed below: Not obtained. The source(s) of the original Home Medication information: Not obtained. The following Medications were given to the patient in the Emergency Department: MULTIVITAMIN [IVF] IV Fluids bolus 0, then 500 mL/hr, administered: 06/24/2016 10:59:00 AM Ativan [IVP] IVP 1 mg, administered: 06/24/2016 11:33:00 AM Ativan [IVP] IVP 0.5 mg, administered: 06/24/2016 12:28:00 PM Ativan [IVP] IVP 0.5 mg, administered: 06/24/2016 1:44:00 PM The following Medications were prescribed to the patient: None.
--- NOTE | 2016-06-25 08:53 | ED MAR SUMMARY ---
..... Medication Administration Record [facility] [address] [facility] [address] Patient: BELEM ALONSO Visit ID: [id number] 75y, M Weight: 72.5 kg Height/Length: 70 in BMI: 22.9 ALLERGIES: None Start 10:59 06/24/2016 Rosanna Thompson R.N., Stop 13:20 06/24/2016 Jose Angel Parmar R.N. Medication Administered: MULTIVITAMIN [IVF] (SALINE), Dose: IV Fluids over 2 hour(s), Rate: 500 mL/hr, Dispensed: 1000 mL bag, Site: #1 left AC. Medication Ordered: Multivitamin IVF with Normal Saline 1 Liter, Folic Acid 1 mg/mL, Multivitamin Concentrate Intravenous 1 amp/L, Thiamine HCl 100 mg/L: initial bolus 500 mL (1000 mL/hr), then 125 mL/hr (NOW); Urgent. Given 11:33 06/24/2016 Jose Angel Parmar R.N. Medication Administered: ATIVAN [IVP] (LORAZEPAM), Dose: 1 mg IVP over 2 minute(s), Site: #1 left AC. Medication Ordered: Ativan IV 1 mg (HIGH ALERT MEDICATION, NOW). Given 12:28 06/24/2016 Jose Angel Parmar R.N. Medication Administered: ATIVAN [IVP] (LORAZEPAM), Dose: 0.5 mg IVP over 2 minute(s), Site: #1 left AC. Medication Ordered: Ativan IV 0.5 mg (HIGH ALERT MEDICATION, NOW). Given 13:44 06/24/2016 Jose Angel Parmar R.N. Medication Administered: ATIVAN [IVP] (LORAZEPAM), Dose: 0.5 mg IVP over 2 minute(s), Site: #1 left AC. Medication Ordered: Ativan IV 0.5 mg (HIGH ALERT MEDICATION, NOW).
--- NOTE | 2016-06-25 09:03 | Progress Note ---
Subjective General Note Date: June 25, 2016 Admission Date: June 24, 2016 Hospital Day: 2 PCP: Bernabe Nagy M.D. Status: Inpatient Advanced Directive: NO CODE Room: 305 Brief History: The patient is a 75-year-old white male with a significant past medical history of alcohol abuse/dependence, asthma/COPD who presented to [facility] emergency department on the day of admission secondary to not feeling well, "shakes". [facility] ER evaluation was consistent with alcohol withdrawal syndrome/alcohol abuse- dependence, asthma/COPD, pancreatitis, and elevated LFTs. Secondary to the above, the patient was admitted by Raquel Gleason M.D. for further evaluation and treatment. For other history present illness, past medical history, family history, social history, review of systems, and admission physical examination please see the patient's history and physical examination and ER visit note in the patient's medical record. Subjective: The patient remains confused at this time. Less agitated over the past 24 hours. Oriented only to self. Patient requests: None Medications and Allergies Medications Current Medications Sig/Diana Start time Last Medication Dose Route Stop Time Status Admin Lorazepam 1 MG Q6H 06/27 1600 AC PO 06/28 1100 Lorazepam 1 MG Q6H 06/27 1600 AC IV 06/28 1100 Lorazepam 1 MG Q6H 06/26 1600 AC PO 06/27 1100 Lorazepam 1 MG Q6H 06/26 1600 AC IV 06/27 1100 Lorazepam 1 MG Q4H 06/25 1600 AC PO 06/26 1300 Lorazepam 1 MG Q4H 06/25 1600 AC IV 06/26 1300 Enoxaparin Sodium 40 MG QAM 06/25 0900 AC SC Folic Acid 1 MG DAILY 06/25 0900 AC PO Multivit/ 1 TAB DAILY 06/25 0900 AC Folic Acid/Iron PO Thiamine HCl 100 MG DAILY 06/25 0900 AC PO Lorazepam 2 MG Q6H 06/24 1600 AC PO 06/25 1100 Lorazepam 2 MG Q6H 06/24 1600 AC 06/25 IV 06/25 1100 0454 Lorazepam 0.5 MG Q30MIN PRN 06/24 1600 AC PO Lorazepam 0.5 MG Q30MIN PRN 06/24 1600 AC 06/24 IV 1959 Nicotine 14 MG QAM 06/24 1600 AC 06/24 TOP 1615 Al Hydrox/Mg Hydrox/ 15 ML Q1H PRN 06/24 1300 AC Simethicone PO Albuterol/Ipratropium 3 ML Q6H PRN 06/24 1300 AC IN Clonidine HCl 0.1 MG BID PRN 06/24 1300 AC PO Diazepam 5 MG PRN PRN 06/24 1300 AC IV Docusate Sodium 250 MG BID PRN 06/24 1300 AC PO Haloperidol Lactate 2 MG Q1H PRN 06/24 1300 AC IV Lactated Ringer's 1,000 ML ASDIRECTED 06/24 1300 AC 06/25 IV 0054 Magnesium Hydroxide 10 ML DAILY PRN 06/24 1300 AC PO Morphine Sulfate 1 MG Q30MIN PRN 06/24 1300 AC IV Ondansetron HCl 4 MG Q6H PRN 06/24 1300 AC IV Allergies Coded Allergies: NKA (06/24/16) Physical Exam Vital Signs / I&Os Vital Signs Date Time Temp Pulse Resp B/P Pulse O2 O2 Flow FiO2 Ox Delivery Rate 06/25 0800 Room Air 06/25 0655 96.6 86 18 142/61 99 Room Air 06/25 0223 97.7 85 21 132/75 97 Room Air 06/24 2242 97.9 80 21 131/72 99 Room Air 06/24 2000 Room Air 06/24 1841 98.6 93 23 137/65 98 Room Air 06/24 1443 98.2 114 27 164/81 97 Room Air I&O 06/25 0000 06/24 1600 06/24 0800 Intake Total 120 Output Total 526 Balance -406 General Appearance Alert, Cooperative, No acute distress Lungs Scattered rhonchi. No wheezes. No rales. Cardiovascular Regular rate and rhythm, Normal S1 and S2 Abdomen Normal bowel sounds, Soft, No tenderness Extremities No cyanosis, No clubbing Neurological Cranial nerves intact, No lateralizing signs, confused Psych/Mental Status Confused LAB Results Laboratory Tests 06/25 06/24 0515 1156 Chemistry Plasma Sodium (136 - 145 mmol/L) 139 Plasma Potassium (3.5 - 5.1 mmol/L) 3.4 Plasma Chloride (98 - 107 mmol/L) 103 CO2 (Enzymatic) (21 - 32 mmol/L) 27 BUN (7 - 18 mg/dL) 14 Creatinine (0.6 - 1.3 mg/dL) 0.8 Est GFR ( Amer) (mL/min) >60 Est GFR (Non-Af Amer) (mL/min) >60 Glucose (70 - 110 mg/dL) 83 Plasma Calcium (8.5 - 10.1 mg/dL) 7.7 Plasma Magnesium (1.8 - 2.4 mg/dL) 1.6 Total Bilirubin (0.0 - 1.0 mg/dL) 1.3 AST (15 - 37 U/L) 68 ALT (12 - 78 U/L) 64 Alkaline Phosphatase (46 - 116 U/L) 101 Total Protein (6.4 - 8.2 g/dL) 4.9 Albumin (3.3 - 5.0 g/dL) 2.6 Lipase (73 - 393 U/L) 1271 Hematology WBC (4.5 - 11.5 K/uL) 6.2 RBC (4.50 - 5.90 M/uL) 3.83 Hgb (13.5 - 17.5 gm/dL) 10.0 Hct (41.0 - 53.0 %) 30.9 MCV (80 - 100 fL) 81 MCH (26 - 34 pg) 26 RDW (11.6 - 14.8 %) 20.2 Neut % (Auto) (50 - 75 %) 70.2 Lymph % (Auto) (25 - 40 %) 16.8 [place] % (Auto) (3 - 14 %) 10.9 Eos % (Auto) (0 - 4 %) 2.0 Baso % (Auto) (0 - 2 %) 0.1 Plt Count, EDTA (150 - 400 K/uL) 130 RBC Morphology (97565 A) 1+ HYPOCHROMIA PUBS MCHC (31 - 37 g/dL) 32 Toxicology Urine Opiates Screen (NEGATIVE) NEGATIVE Urine Methadone Screen (NEGATIVE) NEGATIVE Ur Barbiturates Screen (NEGATIVE) NEGATIVE U Amphetamin/Meth Scrn (NEGATIVE) NEGATIVE MDMA (Ecstasy) Screen (NEGATIVE) NEGATIVE U Benzodiazepines Scrn (NEGATIVE) NEGATIVE Urine Cocaine Screen (NEGATIVE) NEGATIVE U Cannabinoids Screen (NEGATIVE) NEGATIVE Urines Urine Color YELLOW Urine Appearance CLEAR Urine pH (5.0 - 8.0) 6.0 Ur Specific [place] (1.010 - 1.030) 1.025 Urine Protein (NEGATIVE) 1+ Urine Ketones (NEGATIVE) 2+ Urine Blood (NEGATIVE) 2+ Urine Nitrite (NEGATIVE) NEGATIVE Urine Bilirubin (NEGATIVE) NEGATIVE Urine Urobilinogen (0.2 - 1.0 EU/dL) 0.2 Ur Leukocyte Esterase (NEGATIVE) NEGATIVE Urine RBC (0 - 1 rbc/hpf) 3-5 Urine WBC (0 - 1 wbc/hpf) 3-5 Ur Epithelial Cells (0 - 5 EPI/hpf) 0-1 Urine Bacteria (NONE SEEN) NONE SEEN Urine Glucose (NEGATIVE) NEGATIVE Urine Comment CULT NOT INDICATED 06/24 1026 Chemistry Plasma Sodium (136 - 145 mmol/L) 139 Plasma Potassium (3.5 - 5.1 mmol/L) 4.4 Plasma Chloride (98 - 107 mmol/L) 102 CO2 (Enzymatic) (21 - 32 mmol/L) 23 BUN (7 - 18 mg/dL) 18 Creatinine (0.6 - 1.3 mg/dL) 1.1 Est GFR ( Amer) (mL/min) >60 Est GFR (Non-Af Amer) (mL/min) >60 Glucose (70 - 110 mg/dL) 119 Plasma Calcium (8.5 - 10.1 mg/dL) 8.9 Total Bilirubin (0.0 - 1.0 mg/dL) 1.0 AST (15 - 37 U/L) 97 ALT (12 - 78 U/L) 96 Alkaline Phosphatase (46 - 116 U/L) 138 Total Protein (6.4 - 8.2 g/dL) 7.3 Albumin (3.3 - 5.0 g/dL) 3.6 Amylase (25 - 115 U/L) 167 Lipase (73 - 393 U/L) 1390 Hematology WBC (4.5 - 11.5 K/uL) 9.9 RBC (4.50 - 5.90 M/uL) 4.58 Hgb (13.5 - 17.5 gm/dL) 12.1 Hct (41.0 - 53.0 %) 37.1 MCV (80 - 100 fL) 81 MCH (26 - 34 pg) 26 RDW (11.6 - 14.8 %) 20.5 Neut % (Auto) (50 - 75 %) 88.0 Lymph % (Auto) (25 - 40 %) 3.9 [place] % (Auto) (3 - 14 %) 8.1 Eos % (Auto) (0 - 4 %) 0 Baso % (Auto) (0 - 2 %) 0 Plt Count, EDTA (150 - 400 K/uL) 171 RBC Morphology (3574 A) PLTS ADQ PUBS MCHC (31 - 37 g/dL) 33 Toxicology Plasma/Serum Ethyl Alc (3 - 10 mg/dL) 3 Microbiology Date/Time Procedure - Status Source Growth 06/24 1700 MRSA Screen - RECD NOSE Imaging Abdominal Ultrasound IMPRESSION: 1. Cholelithiasis with borderline gallbladder wall thickening and negative Figueroa's sign suggestive of chronic changes. No evidence of biliary obstruction. 2. Pancreas is grossly normal 3. Results discussed with Dr. Hopkins Dictated by: ARGELIA AGUIRRE MD D: WILLIAM;06/25/16 1231 Assessment and Plan Problem List 1. Alcohol dependence Plan -Patient presents with findings of alcohol dependence/abuse -Encourage alcohol abstinence post discharge -Encourage enrollment in alcohol treatment program post discharge 2. Alcohol withdrawal Plan -Patient manifests alcohol withdrawal syndrome -Status slightly improved today -Alcohol withdrawal protocol -Monitor -Mental status changes associated with alcohol withdrawal syndrome 3. Pancreatitis, acute Status Acute Onset Date Unknown Plan -Patient with findings of pancreatitis -Elevation of lipase/amylase -No significant abdominal pain but patient's mental status abnormal -Nothing by mouth at this time -Monitor -Ultrasound unremarkable other than gallstones 4. Cholelithiasis Status Chronic Onset Date Unknown Plan -See above -Pancreatitis most likely secondary to alcohol abuse -Monitor -No evidence of cholecystitis/biliary obstruction at this time 5. Hypomagnesemia Status Acute Onset Date Unknown Plan -Patient with findings of hypomagnesemia -Magnesium level I.6 -IV supplementation -Monitor 6. Hypokalemia Status Acute Onset Date Unknown Plan -Patient with findings of mild hypokalemia -IV supplementation -Monitor 7. Asthma Plan -Not problematic at this time. -Monitor -DuoNeb/albuterol when necessary Current status: Unstable fair Anticipated discharge date: Anticipated discharge in 2-3 days Anticipated discharge placement: Home Patient care time: Time spent in chart review, patient interview, physical exam, CPOE, and care documentation: 35 minutes Visit to patient today: 2 Complexity of care: Moderate-high E&M Codes Rounding: Inpt-High/[id number]
[2016-06-25 10:53] VITALS: BP 139/78
--- NOTE | 2016-06-25 12:32 | DIAGNOSTIC IMAGING REPORT ---
PROCEDURE: US ABDOMEN ULTRASOUND-COMPLETE INDICATION: PANCREATITIS, LFT ABNORMAL TECHNIQUE: Neal scale and color Doppler sonographic images of the abdomen were obtained. COMPARISON: None. FINDINGS: Multiple mobile gallstones, largest 9 mm. The gallbladder wall measures 3 mm, upper limits of normal. Normal CBD measures 5.4 mm. Negative Figueroa's sign. Liver measures 13.7 cm with normal echo structure. Pancreas is grossly normal as visualized. Normal spleen. Visualized aorta and IVC are unremarkable. Normal hepatopetal flow. Normal kidneys. Right kidney measures 9.9 cm and left kidney 10.2 cm. IMPRESSION: 1. Cholelithiasis with borderline gallbladder wall thickening and negative Figueroa's sign suggestive of chronic changes. No evidence of biliary obstruction. 2. Pancreas is grossly normal 3. Results discussed with Dr. Hopkins
[2016-06-25 14:58] VITALS: BP 155/81
[2016-06-25 18:56] VITALS: BP 144/64
[2016-06-25 22:26] VITALS: BP 152/79
[2016-06-26 02:37] VITALS: BP 147/80
[2016-06-26 06:18] VITALS: BP 153/83
[2016-06-26 10:25] VITALS: BP 152/79
[2016-06-26 14:42] VITALS: BP 146/69
[2016-06-26 18:23] VITALS: BP 128/68
--- NOTE | 2016-06-26 18:34 | Progress Note ---
Subjective General Note Date: June 26, 2016 Admission Date: June 24, 2016 Hospital Day: 3 PCP: Bernabe Nagy M.D. Status: Inpatient Advanced Directive: NO CODE Room: 305 Brief History: The patient is a 75-year-old white male with a significant past medical history of alcohol abuse/dependence, asthma/COPD who presented to [facility] emergency department on the day of admission secondary to not feeling well, "shakes". [facility] ER evaluation was consistent with alcohol withdrawal syndrome/alcohol abuse- dependence, asthma/COPD, pancreatitis, and elevated LFTs. Secondary to the above, the patient was admitted by Raquel Gleason M.D. for further evaluation and treatment. For other history present illness, past medical history, family history, social history, review of systems, and admission physical examination please see the patient's history and physical examination and ER visit note in the patient's medical record. Subjective: The patient remains confused at this time. Mental status appears slightly improved since yesterday. Less agitated over the past 24 hours. Oriented only to self. Patient requests: None Medications and Allergies Medications Current Medications Sig/Diana Start time Last Medication Dose Route Stop Time Status Admin Lorazepam 1 MG Q6H 06/27 1600 AC PO 06/28 1100 Lorazepam 1 MG Q6H 06/27 1600 AC IV 06/28 1100 Metoprolol Tartrate 25 MG Q8HR 06/26 1800 AC PO Lorazepam 1 MG Q6H 06/26 1600 AC 06/26 PO 06/27 1100 1614 Lorazepam 1 MG Q6H 06/26 1600 AC IV 06/27 1100 Clarify Med Order See Dose ASDIRECTED 06/25 1545 AC Insts (1) PO Enoxaparin Sodium 40 MG QAM 06/25 0900 AC 06/26 SC 1050 Folic Acid 1 MG DAILY 06/25 0900 AC 06/26 PO 1119 Multivit/ 1 TAB DAILY 06/25 09 AC 06/26 Folic Acid/Iron PO 1119 Thiamine HCl 100 MG DAILY 06/25 09 AC 06/26 PO 1119 Lorazepam 0.5 MG Q30MIN PRN 06/24 1600 AC PO Lorazepam 0.5 MG Q30MIN PRN 06/24 1600 AC 06/25 IV 1515 Nicotine 14 MG QAM 06/24 1600 AC 06/26 TOP 1050 Al Hydrox/Mg Hydrox/ 15 ML Q1H PRN 06/24 1300 AC Simethicone PO Albuterol/Ipratropium 3 ML Q6H PRN 06/24 1300 AC IN Clonidine HCl 0.1 MG BID PRN 06/24 1300 AC PO Diazepam 5 MG PRN PRN 06/24 1300 AC IV Docusate Sodium 250 MG BID PRN 06/24 1300 AC PO Haloperidol Lactate 2 MG Q1H PRN 06/24 1300 AC IV Magnesium Hydroxide 10 ML DAILY PRN 06/24 1300 AC PO Morphine Sulfate 1 MG Q30MIN PRN 06/24 1300 AC IV Ondansetron HCl 4 MG Q6H PRN 06/24 1300 AC IV Dose Instructions: (1)Clarify Med Order: PT MEDS IN PHARMACY Allergies Coded Allergies: NKA (06/24/16) Physical Exam Vital Signs / I&Os Vital Signs Date Time Temp Pulse Resp B/P Pulse O2 O2 Flow FiO2 Ox Delivery Rate 06/26 182 98.6 102 25 128/68 99 06/26 1442 97.7 101 17 146/69 99 06/26 1025 98.4 92 18 152/79 99 Room Air 06/26 0618 98.8 92 20 153/83 97 Room Air 06/26 0237 98.4 95 16 147/80 96 Room Air 06/25 2226 97.5 86 18 152/79 100 Room Air 06/25 2043 Room Air 06/25 1856 98.4 94 21 144/64 97 Nasal Cannula I&O 06/26 0000 06/25 1600 06/25 0800 Intake Total 0 2387 Output Total 1667 2149 640 Balance -1667 -2149 1747 General Appearance Alert, Cooperative, No acute distress Lungs Scattered rhonchi otherwise clear to auscultation Cardiovascular Regular rate and rhythm, Normal S1 and S2, mild tachycardia. Abdomen Normal bowel sounds, Soft, No tenderness Extremities No cyanosis, No clubbing Neurological Cranial nerves intact, No lateralizing signs Psych/Mental Status Mood normal, Confused, slight lethargy LAB Results Laboratory Tests 06/26 0510 Chemistry Plasma Sodium (136 - 145 mmol/L) 141 Plasma Potassium (3.5 - 5.1 mmol/L) 3.8 Plasma Chloride (98 - 107 mmol/L) 104 CO2 (Enzymatic) (21 - 32 mmol/L) 26 BUN (7 - 18 mg/dL) 14 Creatinine (0.6 - 1.3 mg/dL) 0.8 Est GFR ( Amer) (mL/min) >60 Est GFR (Non-Af Amer) (mL/min) >60 Glucose (70 - 110 mg/dL) 59 Plasma Calcium (8.5 - 10.1 mg/dL) 7.5 Plasma Magnesium (1.8 - 2.4 mg/dL) 1.8 Total Bilirubin (0.0 - 1.0 mg/dL) 1.1 AST (15 - 37 U/L) 69 ALT (12 - 78 U/L) 55 Alkaline Phosphatase (46 - 116 U/L) 109 Total Protein (6.4 - 8.2 g/dL) 4.8 Albumin (3.3 - 5.0 g/dL) 2.6 Amylase (25 - 115 U/L) 70 Hematology WBC (4.5 - 11.5 K/uL) 6.1 RBC (4.50 - 5.90 M/uL) 4.26 Hgb (13.5 - 17.5 gm/dL) 11.1 Hct (41.0 - 53.0 %) 35.2 MCV (80 - 100 fL) 83 MCH (26 - 34 pg) 26 RDW (11.6 - 14.8 %) 20.7 Neut % (Auto) (50 - 75 %) 73.6 Lymph % (Auto) (25 - 40 %) 11.3 [place] % (Auto) (3 - 14 %) 11.6 Eos % (Auto) (0 - 4 %) 3.0 Baso % (Auto) (0 - 2 %) 0.5 Plt Count, EDTA (150 - 400 K/uL) 158 RBC Morphology 1+ ANISOCYTOSIS PUBS MCHC (31 - 37 g/dL) 32 Assessment and Plan Problem List 1. Alcohol withdrawal Plan -Status improved -Remains confused with altered mental status. Overall symptoms improving. -Continue alcohol withdrawal protocol. -Encourage enrollment in alcohol treatment program post discharge 2. Hypokalemia Status Acute Onset Date Unknown Plan -Resolved -Potassium 3.8 -Recheck in a.m. 3. Hypomagnesemia Status Acute Onset Date Unknown Plan -Resolved -Magnesium 1.8 -Recheck in a.m. 4. Asthma Plan -Stable -Albuterol/DuoNeb when necessary -Monitor 5. Hypoglycemia Status Acute Plan -Patient with hypoglycemia this a.m. -No associated symptoms -IV fluids with dextrose -Monitor 6. Tachycardia Status Acute Onset Date Unknown Plan -Patient with mild tachycardia -Check thyroid function tests in a.m. -Lopressor 25 mg by mouth every 8 hours -Monitor 7. Pancreatitis, acute Status Acute Onset Date Unknown Plan -Resolved -Amylase normalized -No abdominal pain -Begin oral feeds Current status: Fair, improved, persistent altered mental status with alcohol withdrawal syndrome Anticipated discharge date: Anticipated discharge in 2-3 days Anticipated discharge placement: Home Patient care time: Time spent in chart review, patient interview, physical exam, CPOE, and care documentation: 35 minutes Visit to patient today: 2 Complexity of care: Moderate-High E&M Codes Rounding: Inpt-High/[id number]
[2016-06-26 22:37] VITALS: BP 126/100
[2016-06-27 02:18] VITALS: BP 142/72
[2016-06-27 06:26] VITALS: BP 149/81
[2016-06-27 10:20] VITALS: BP 114/61
[2016-06-27 14:28] VITALS: BP 121/66
[2016-06-27 18:08] VITALS: BP 136/64
--- NOTE | 2016-06-27 18:26 | Progress Note ---
Subjective General Note Date: June 27, 2016 Admission Date: June 24, 2016 Hospital Day: 4 PCP: Bernabe Nagy M.D. Status: Inpatient Advanced Directive: NO CODE Room: 305 Brief History: The patient is a 75-year-old white male with a significant past medical history of alcohol abuse/dependence, asthma/COPD who presented to [facility] emergency department on the day of admission secondary to not feeling well, "shakes". [facility] ER evaluation was consistent with alcohol withdrawal syndrome/alcohol abuse- dependence, asthma/COPD, pancreatitis, and elevated LFTs. Secondary to the above, the patient was admitted by Raquel Gleason M.D. for further evaluation and treatment. For other history present illness, past medical history, family history, social history, review of systems, and admission physical examination please see the patient's history and physical examination and ER visit note in the patient's medical record. Subjective: The patient remains confused at this time. Mental status slightly improved since yesterday. Less agitated over the past 24 hours. Remains weak. Difficulty feeding self. Ambulating with walker only. Patient requests: None Medications and Allergies Medications Current Medications Sig/Diana Start time Last Medication Dose Route Stop Time Status Admin Lorazepam 1 MG Q6H 06/27 1600 AC PO 06/28 1100 Lorazepam 1 MG Q6H 06/27 1600 AC IV 06/28 1100 Metoprolol Tartrate 25 MG Q8HR 06/26 1800 AC 06/27 PO 1436 Clarify Med Order See Dose ASDIRECTED 06/25 1545 AC Insts (1) PO Enoxaparin Sodium 40 MG QAM 06/25 0900 AC 06/27 SC 0811 Folic Acid 1 MG DAILY 06/25 0900 AC 06/27 PO 0811 Multivit/ 1 TAB DAILY 06/25 0900 AC 06/27 Folic Acid/Iron PO 0811 Thiamine HCl 100 MG DAILY 06/25 0900 AC 06/27 PO 0811 Lorazepam 0.5 MG Q30MIN PRN 06/24 1600 AC 06/26 PO 1949 Lorazepam 0.5 MG Q30MIN PRN 06/24 1600 AC 06/27 IV 0103 Nicotine 14 MG QAM 06/24 1600 AC 06/27 TOP 0811 Al Hydrox/Mg Hydrox/ 15 ML Q1H PRN 06/24 1300 AC Simethicone PO Albuterol/Ipratropium 3 ML Q6H PRN 06/24 1300 AC IN Clonidine HCl 0.1 MG BID PRN 06/24 1300 AC PO Diazepam 5 MG PRN PRN 06/24 1300 AC IV Docusate Sodium 250 MG BID PRN 06/24 1300 AC PO Haloperidol Lactate 2 MG Q1H PRN 06/24 1300 AC IV Magnesium Hydroxide 10 ML DAILY PRN 06/24 1300 AC PO Morphine Sulfate 1 MG Q30MIN PRN 06/24 1300 AC IV Ondansetron HCl 4 MG Q6H PRN 06/24 1300 AC IV Dose Instructions: (1)Clarify Med Order: PT MEDS IN PHARMACY Allergies Coded Allergies: NKA (06/24/16) Physical Exam Vital Signs / I&Os Vital Signs Date Time Temp Pulse Resp B/P Pulse O2 O2 Flow FiO2 Ox Delivery Rate 06/27 1808 97.5 88 19 136/64 100 Room Air 06/27 1428 98.8 77 18 121/66 97 Room Air 06/27 1020 98.1 63 20 114/61 97 Room Air 06/27 0626 97.9 95 22 149/81 98 Room Air 06/27 0218 97.9 91 17 142/72 98 Room Air 06/26 2237 98.1 81 18 126/100 100 Room Air I&O 06/27 0000 06/26 1600 06/26 0800 Intake Total 1714 2147 1919 Output Total 1722 1347 576 Balance -8 800 1343 General Appearance Alert, Cooperative, No acute distress Lungs Scattered rhonchi. No wheezes. Cardiovascular Regular rate and rhythm, Normal S1 and S2, No murmurs, gallops, rubs Abdomen Normal bowel sounds, Soft, No tenderness Extremities No cyanosis, No clubbing Neurological Cranial nerves intact, No lateralizing signs Psych/Mental Status Mood normal, Confused LAB Results Laboratory Tests 06/27 414 Chemistry Plasma Sodium (136 - 145 mmol/L) 141 Plasma Potassium (3.5 - 5.1 mmol/L) 3.6 Plasma Chloride (98 - 107 mmol/L) 103 CO2 (Enzymatic) (21 - 32 mmol/L) 30 BUN (7 - 18 mg/dL) 8 Creatinine (0.6 - 1.3 mg/dL) 0.9 Est GFR ( Amer) (mL/min) >60 Est GFR (Non-Af Amer) (mL/min) >60 Glucose (70 - 110 mg/dL) 185 Plasma Calcium (8.5 - 10.1 mg/dL) 8.1 Total Bilirubin (0.0 - 1.0 mg/dL) 1.1 AST (15 - 37 U/L) 62 ALT (12 - 78 U/L) 57 Alkaline Phosphatase (46 - 116 U/L) 125 Total Protein (6.4 - 8.2 g/dL) 5.7 Albumin (3.3 - 5.0 g/dL) 3.0 Amylase (25 - 115 U/L) 65 Hematology WBC (4.5 - 11.5 K/uL) 6.4 RBC (4.50 - 5.90 M/uL) 4.73 Hgb (13.5 - 17.5 gm/dL) 12.3 Hct (41.0 - 53.0 %) 39.0 MCV (80 - 100 fL) 83 MCH (26 - 34 pg) 26 RDW (11.6 - 14.8 %) 21.5 Neut % (Auto) (50 - 75 %) 77 Lymph % (Auto) (25 - 40 %) 11 [place] % (Auto) (3 - 14 %) 5 Eos % (Auto) (0 - 4 %) 5 Baso % (Auto) (0 - 2 %) 0 Band Neutrophils % (0 - 8 %) 2 Metamyelocytes % (0 - 1 %) 0 Myelocytes (0 - 1 %) 0 Other Cell Type 0 Plt Count, EDTA (150 - 400 K/uL) 191 PUBS MCHC (31 - 37 g/dL) 32 Assessment and Plan Problem List 1. Alcohol withdrawal Plan -patient with findings of all call withdrawal syndrome -Status improved today -Mental status remains abnormal but improved, less agitation -Patient ambulating with assistance -Possible discharge 1-2 days with continued improvement, will most likely require [facility] placement. 2. Alcohol dependence Plan -see above -Patient with history of alcohol abuse/dependence -Recommend follow-up in alcohol treatment program posthospitalization 3. Asthma Plan -stable -No significant bronchospasm -When necessary bronchodilators 4. Hypokalemia Status Acute Onset Date Unknown Plan -resolved -Monitor 5. Hypoglycemia Status Acute Plan -resolved -Monitor 6. Tachycardia Status Acute Onset Date Unknown Plan -improved -Continue Lopressor 25 mg by mouth 3 times a day 7. Hypomagnesemia Status Acute Onset Date Unknown Plan -resolved -Monitor 8. Pancreatitis, acute Status Acute Onset Date Unknown Plan -Resolved -Amylase within normal limits -Asymptomatic, no abdominal pain -Taken orally well without problems Current status: Fair, improved. Ongoing mental status changes Anticipated discharge date: Anticipated discharge in 1-2 days to [facility] Anticipated discharge placement: [facility] facility Patient care time: Time spent in chart review, patient interview, physical exam, CPOE, and care documentation: 25 minutes Visit to patient today: 1 Complexity of care: Moderate
[2016-06-27 22:21] VITALS: BP 139/67
[2016-06-28 01:55] VITALS: BP 130/60
[2016-06-28 07:23] VITALS: BP 123/70
--- NOTE | 2016-06-28 07:57 | Progress Note ---
Subjective General Note Date: June 28, 2016 Admission Date: June 24, 2016 Hospital Day: 5 PCP: Bernabe Nagy M.D. Status: Inpatient Advanced Directive: NO CODE Room: 305 Brief History: The patient is a 75-year-old white male with a significant past medical history of alcohol abuse/dependence, asthma/COPD who presented to [facility] emergency department on the day of admission secondary to not feeling well, "shakes". [facility] ER evaluation was consistent with alcohol withdrawal syndrome/alcohol abuse- dependence, asthma/COPD, pancreatitis, and elevated LFTs. Secondary to the above, the patient was admitted by Raquel Gleason M.D. for further evaluation and treatment. For other history present illness, past medical history, family history, social history, review of systems, and admission physical examination please see the patient's history and physical examination and ER visit note in the patient's medical record. Subjective: The patient status continues to improve. He remains confused. Significant difficulty with ambulation. Unable to perform majority of ADLs. Patient requests: None Medications and Allergies Medications Current Medications Sig/Diana Start time Last Medication Dose Route Stop Time Status Admin Nicotine 7 MG QAM 06/28 09 AC TOP Lorazepam 1 MG Q6H 06/27 1600 AC 06/28 PO 06/28 1100 0530 Lorazepam 1 MG Q6H 06/27 1600 AC 06/27 IV 06/28 1100 2140 Metoprolol Tartrate 25 MG Q8HR 06/26 1800 AC 06/28 PO 0530 Clarify Med Order See Dose ASDIRECTED 06/25 1545 AC Insts (1) PO Enoxaparin Sodium 40 MG QAM 06/25 0900 AC 06/27 SC 0811 Folic Acid 1 MG DAILY 06/25 0900 AC 06/27 PO 0811 Multivit/ 1 TAB DAILY 06/25 0900 AC 06/27 Folic Acid/Iron PO 0811 Thiamine HCl 100 MG DAILY 06/25 0900 AC 06/27 PO 0811 Lorazepam 0.5 MG Q30MIN PRN 06/24 1600 AC 06/26 PO 1949 Lorazepam 0.5 MG Q30MIN PRN 06/24 1600 AC 06/28 IV 0150 Al Hydrox/Mg Hydrox/ 15 ML Q1H PRN 06/24 1300 AC Simethicone PO Albuterol/Ipratropium 3 ML Q6H PRN 06/24 1300 AC 06/28 IN 0610 Clonidine HCl 0.1 MG BID PRN 06/24 1300 AC PO Diazepam 5 MG PRN PRN 06/24 1300 AC IV Docusate Sodium 250 MG BID PRN 06/24 1300 AC PO Haloperidol Lactate 2 MG Q1H PRN 06/24 1300 AC IV Magnesium Hydroxide 10 ML DAILY PRN 06/24 1300 AC PO Morphine Sulfate 1 MG Q30MIN PRN 06/24 1300 AC IV Ondansetron HCl 4 MG Q6H PRN 06/24 1300 AC IV Dose Instructions: (1)Clarify Med Order: PT MEDS IN PHARMACY Allergies Coded Allergies: NKA (06/24/16) Physical Exam Vital Signs / I&Os Vital Signs Date Time Temp Pulse Resp B/P Pulse O2 O2 Flow FiO2 Ox Delivery Rate 06/28 0723 98.1 64 19 123/70 100 Room Air 06/28 0155 98.1 74 17 130/60 100 Room Air 06/27 2221 98.2 82 18 139/67 99 Room Air 06/27 1808 97.5 88 19 136/64 100 Room Air 06/27 1428 98.8 77 18 121/66 97 Room Air 06/27 1020 98.1 63 20 114/61 97 Room Air I&O 06/28 0000 06/27 1600 06/27 0800 Intake Total 360 1440 1410 Output Total 648 401 4820 Balance 160 503 -223 General Appearance Alert, Cooperative, No acute distress Lungs Clear to auscultation, Normal air movement Cardiovascular Regular rate and rhythm, Normal S1 and S2 Abdomen Normal bowel sounds, Soft, No tenderness Extremities No cyanosis, No clubbing, No edema Neurological Cranial nerves intact, No lateralizing signs Psych/Mental Status Mood normal, Confused Assessment and Plan Problem List 1. Alcohol withdrawal Plan -Alcohol withdrawal symptoms improved -Possible discharge to [facility] facility in a.m. 2. Alcohol dependence Plan -Patient with history of alcohol abuse/dependence -Patient status post alcohol withdrawal syndrome -Patient encouraged to follow up with alcohol treatment post hospitalization. 3. Asthma Plan -not problematic during hospitalization -Monitor 4. Hypomagnesemia Status Acute Onset Date Unknown Plan -Patient with findings of hypomagnesemia -Recheck this a.m. -By mouth [id number] one by mouth 3 times a day 5. Hypokalemia Status Acute Onset Date Unknown Plan -Resolved -Recheck this a.m. -Monitor 6. Tachycardia Status Acute Onset Date Unknown Plan -Resolved -Change to Lopressor 25 mg by mouth twice a day -Monitor 7. Hyperglycemia Status Acute Onset Date Unknown Plan -Patient with mild hyperglycemia -Check hemoglobin A1c -Accu-Chek before meals and at bedtime -Therapy based on above findings 8. Pancreatitis, acute Status Acute Onset Date Unknown Plan -Resolved -Monitor 9. Cholelithiasis Status Chronic Onset Date Unknown Plan -Asymptomatic -Outpatient follow-up Current status: Fair, improved Anticipated discharge date: Anticipated discharge in a.m. [facility] Patient care time: Time spent in chart review, patient interview, physical exam, CPOE, and care documentation: 25 minutes Visit to patient today: 1 Complexity of care: Moderate E&M Codes Rounding: Inpt-Moderate/18996
--- NOTE | 2016-06-28 07:57 | Progress Note ---
Subjective General Note Date: June 28, 2016 Admission Date: June 24, 2016 Hospital Day: 5 PCP: Bernabe Nagy M.D. Status: Inpatient Advanced Directive: NO CODE Room: 305 Brief History: The patient is a 75-year-old white male with a significant past medical history of alcohol abuse/dependence, asthma/COPD who presented to [facility] emergency department on the day of admission secondary to not feeling well, "shakes". [facility] ER evaluation was consistent with alcohol withdrawal syndrome/alcohol abuse- dependence, asthma/COPD, pancreatitis, and elevated LFTs. Secondary to the above, the patient was admitted by Raquel Gleason M.D. for further evaluation and treatment. For other history present illness, past medical history, family history, social history, review of systems, and admission physical examination please see the patient's history and physical examination and ER visit note in the patient's medical record. Subjective: The patient status continues to improve. He remains confused. Significant difficulty with ambulation. Unable to perform majority of ADLs. Patient requests: None Medications and Allergies Medications Current Medications Sig/Diana Start time Last Medication Dose Route Stop Time Status Admin Nicotine 7 MG QAM 06/28 09 AC TOP Lorazepam 1 MG Q6H 06/27 1600 AC 06/28 PO 06/28 1100 0530 Lorazepam 1 MG Q6H 06/27 1600 AC 06/27 IV 06/28 1100 2140 Metoprolol Tartrate 25 MG Q8HR 06/26 1800 AC 06/28 PO 0530 Clarify Med Order See Dose ASDIRECTED 06/25 1545 AC Insts (1) PO Enoxaparin Sodium 40 MG QAM 06/25 0900 AC 06/27 SC 0811 Folic Acid 1 MG DAILY 06/25 0900 AC 06/27 PO 0811 Multivit/ 1 TAB DAILY 06/25 0900 AC 06/27 Folic Acid/Iron PO 0811 Thiamine HCl 100 MG DAILY 06/25 0900 AC 06/27 PO 0811 Lorazepam 0.5 MG Q30MIN PRN 06/24 1600 AC 06/26 PO 1949 Lorazepam 0.5 MG Q30MIN PRN 06/24 1600 AC 06/28 IV 0150 Al Hydrox/Mg Hydrox/ 15 ML Q1H PRN 06/24 1300 AC Simethicone PO Albuterol/Ipratropium 3 ML Q6H PRN 06/24 1300 AC 06/28 IN 0610 Clonidine HCl 0.1 MG BID PRN 06/24 1300 AC PO Diazepam 5 MG PRN PRN 06/24 1300 AC IV Docusate Sodium 250 MG BID PRN 06/24 1300 AC PO Haloperidol Lactate 2 MG Q1H PRN 06/24 1300 AC IV Magnesium Hydroxide 10 ML DAILY PRN 06/24 1300 AC PO Morphine Sulfate 1 MG Q30MIN PRN 06/24 1300 AC IV Ondansetron HCl 4 MG Q6H PRN 06/24 1300 AC IV Dose Instructions: (1)Clarify Med Order: PT MEDS IN PHARMACY Allergies Coded Allergies: NKA (06/24/16) Physical Exam Vital Signs / I&Os Vital Signs Date Time Temp Pulse Resp B/P Pulse O2 O2 Flow FiO2 Ox Delivery Rate 06/28 0723 98.1 64 19 123/70 100 Room Air 06/28 0155 98.1 74 17 130/60 100 Room Air 06/27 2221 98.2 82 18 139/67 99 Room Air 06/27 1808 97.5 88 19 136/64 100 Room Air 06/27 1428 98.8 77 18 121/66 97 Room Air 06/27 1020 98.1 63 20 114/61 97 Room Air I&O 06/28 0000 06/27 1600 06/27 0800 Intake Total 360 1440 1410 Output Total 944 721 0121 Balance 160 503 -223 General Appearance Alert, Cooperative, No acute distress Lungs Clear to auscultation, Normal air movement Cardiovascular Regular rate and rhythm, Normal S1 and S2 Abdomen Normal bowel sounds, Soft, No tenderness Extremities No cyanosis, No clubbing, No edema Neurological Cranial nerves intact, No lateralizing signs Psych/Mental Status Mood normal, Confused Assessment and Plan Problem List 1. Alcohol withdrawal Plan -Alcohol withdrawal symptoms improved -Possible discharge to [facility] facility in a.m. 2. Alcohol dependence Plan -Patient with history of alcohol abuse/dependence -Patient status post alcohol withdrawal syndrome -Patient encouraged to follow up with alcohol treatment post hospitalization. 3. Asthma Plan -not problematic during hospitalization -Monitor 4. Hypomagnesemia Status Acute Onset Date Unknown Plan -Patient with findings of hypomagnesemia -Recheck this a.m. -By mouth [id number] one by mouth 3 times a day 5. Hypokalemia Status Acute Onset Date Unknown Plan -Resolved -Recheck this a.m. -Monitor 6. Tachycardia Status Acute Onset Date Unknown Plan -Resolved -Change to Lopressor 25 mg by mouth twice a day -Monitor 7. Hyperglycemia Status Acute Onset Date Unknown Plan -Patient with mild hyperglycemia -Check hemoglobin A1c -Accu-Chek before meals and at bedtime -Therapy based on above findings 8. Pancreatitis, acute Status Acute Onset Date Unknown Plan -Resolved -Monitor 9. Cholelithiasis Status Chronic Onset Date Unknown Plan -Asymptomatic -Outpatient follow-up Current status: Fair, improved Anticipated discharge date: Anticipated discharge in a.m. Anticipated discharge placement: [facility] facility Patient care time: Time spent in chart review, patient interview, physical exam, CPOE, and care documentation: 25 minutes Visit to patient today: 1 Complexity of care: Moderate E&M Codes Rounding: Inpt-Moderate/[id number]
[2016-06-28 11:14] VITALS: BP 149/85
[2016-06-28 14:17] VITALS: BP 124/59
[2016-06-28 18:22] VITALS: BP 114/62
[2016-06-28 22:07] VITALS: BP 156/73
[2016-06-29 02:31] VITALS: BP 126/70
[2016-06-29 07:35] VITALS: BP 151/81
--- NOTE | 2016-06-29 08:46 | Progress Note ---
Subjective General Note Date: June 29, 2016 Admission Date: June 24, 2016 Hospital Day: 6 PCP: Bernabe Nagy M.D. Status: Inpatient Advanced Directive: NO CODE Room: 305 Brief History: The patient is a 75-year-old white male with a significant past medical history of alcohol abuse/dependence, asthma/COPD who presented to [facility] emergency department on the day of admission secondary to not feeling well, "shakes". [facility] ER evaluation was consistent with alcohol withdrawal syndrome/alcohol abuse- dependence, asthma/COPD, pancreatitis, and elevated LFTs. Secondary to the above, the patient was admitted by Raquel Gleason M.D. for further evaluation and treatment. For other history present illness, past medical history, family history, social history, review of systems, and admission physical examination please see the patient's history and physical examination and ER visit note in the patient's medical record. Subjective: The patient states he is doing well today. No specific complaints. Eating well. Slow in responses. Continues to require help with ambulation Patient requests: None Medications and Allergies Medications Current Medications Sig/Diana Start time Last Medication Dose Route Stop Time Status Admin Metoprolol Tartrate 25 MG BID 06/28 2100 AC 06/29 PO 0828 Magnesium Chloride 535 MG TID 06/28 1400 AC 06/29 PO 1428 Nicotine 7 MG QAM 06/28 09 AC 06/29 TOP 0828 Clarify Med Order See Dose ASDIRECTED 06/25 1545 AC Insts (1) PO Enoxaparin Sodium 40 MG QAM 06/25 0900 AC 06/29 SC 0828 Folic Acid 1 MG DAILY 06/25 09 AC 06/29 PO 0828 Multivit/ 1 TAB DAILY 06/25 0900 AC 06/29 Folic Acid/Iron PO 0828 Thiamine HCl 100 MG DAILY 06/25 0900 AC 06/29 PO 0828 Lorazepam 0.5 MG Q30MIN PRN 06/24 1600 AC 06/29 PO 0555 Lorazepam 0.5 MG Q30MIN PRN 06/24 1600 AC 06/29 IV 0152 Al Hydrox/Mg Hydrox/ 15 ML Q1H PRN 06/24 1300 AC Simethicone PO Albuterol/Ipratropium 3 ML Q6H PRN 06/24 1300 AC 06/29 IN 0240 Diazepam 5 MG PRN PRN 06/24 1300 AC IV Docusate Sodium 250 MG BID PRN 06/24 1300 AC PO Haloperidol Lactate 2 MG Q1H PRN 06/24 1300 AC IV Magnesium Hydroxide 10 ML DAILY PRN 06/24 1300 AC PO Morphine Sulfate 1 MG Q30MIN PRN 06/24 1300 AC IV Ondansetron HCl 4 MG Q6H PRN 06/24 1300 AC IV Dose Instructions: (1)Clarify Med Order: PT MEDS IN PHARMACY Allergies Coded Allergies: NKA (06/24/16) Physical Exam Vital Signs / I&Os Vital Signs Date Time Temp Pulse Resp B/P Pulse O2 O2 Flow FiO2 Ox Delivery Rate 06/29 0809 Room Air 06/29 0735 98.0 80 21 151/81 98 Room Air 06/29 0231 97.9 76 17 126/70 97 Room Air 06/28 2207 98.2 95 20 156/73 97 Room Air 06/28 1822 97.3 76 26 114/62 99 Room Air 06/28 1417 97.3 70 20 124/59 98 Room Air 06/28 1114 98.1 64 17 149/85 98 Room Air I&O 06/29 0000 06/28 1600 06/28 0800 Intake Total 820 2020 700 Output Total 816 470 615 Balance 4 1550 85 General Appearance Alert, Cooperative, No acute distress Lungs Clear to auscultation Cardiovascular Regular rate and rhythm, Normal S1 and S2 Abdomen Normal bowel sounds, Soft, No tenderness Extremities No cyanosis, No clubbing Neurological Cranial nerves intact, No lateralizing signs Psych/Mental Status Mood normal, Confused Assessment and Plan Problem List 1. Alcohol withdrawal Plan -Resolved -Encourage alcohol abstinence post discharge 2. Alcohol dependence Plan -Patient with history of alcohol dependence/abuse -Status post alcohol withdrawal syndrome -Encourage enrollment in alcohol treatment program post discharge -Plan placement in penitentiary facility 3. Asthma Plan -Stable -No bronchospasm -No requirement of oxygen -Monitor 4. Pancreatitis, acute Status Acute Onset Date Unknown Plan -Resolved -[place] secondary to alcohol abuse, alcoholic pancreatitis 5. Cholelithiasis Status Chronic Onset Date Unknown Plan -Findings of cholelithiasis -No further intervention at this time. -Asymptomatic -Outpatient follow-up with PCP 6. Hypomagnesemia Status Acute Onset Date Unknown Plan -Resolved -Magnesium this a.m. 1.8 -Monitor 7. Hypokalemia Status Acute Onset Date Unknown Plan -Resolved -Magnesium this a.m. 3.6 -Monitor 8. Tachycardia Status Acute Onset Date Unknown Plan -Resolved -Continue beta addi Lopressor 25 mg by mouth twice a day -Monitor 9. Iron deficiency anemia Status Acute Onset Date Unknown Plan -Patient with findings of iron deficiency anemia -Iron percent saturation-8% -Ferrous sulfate 325 mg by mouth twice a day -Outpatient GI workup with colonoscopy if not performed in last 10 years 10. Tobacco abuse Status Chronic Onset Date Unknown Plan -Patient with history of nicotine dependence-smoking/tobacco abuse -Smoking cessation education -NicoDerm patch -Encourage smoking abstinence post discharge 11. Hyperglycemia Status Acute Onset Date Unknown Plan -Improved. Mild persistent hyperglycemia -Hemoglobin A1c within normal limits -Monitor -Outpatient follow up with PCP Current status: Fair, improved Anticipated discharge date: Patient ready for discharge awaiting placement by discharge planning Anticipated discharge placement: snf facility Patient care time: Time spent in chart review, patient interview, physical exam, CPOE, and care documentation: 25 minutes Visit to patient today: 1 Complexity of care: Moderate E&M Codes Rounding: Inpt-Moderate/37015
--- NOTE | 2016-06-29 08:46 | Progress Note ---
Subjective General Note Date: June 29, 2016 Admission Date: June 24, 2016 Hospital Day: 6 PCP: Bernabe Nagy M.D. Status: Inpatient Advanced Directive: NO CODE Room: 305 Brief History: The patient is a 75-year-old white male with a significant past medical history of alcohol abuse/dependence, asthma/COPD who presented to [facility] emergency department on the day of admission secondary to not feeling well, "shakes". [facility] ER evaluation was consistent with alcohol withdrawal syndrome/alcohol abuse- dependence, asthma/COPD, pancreatitis, and elevated LFTs. Secondary to the above, the patient was admitted by Raquel Gleason M.D. for further evaluation and treatment. For other history present illness, past medical history, family history, social history, review of systems, and admission physical examination please see the patient's history and physical examination and ER visit note in the patient's medical record. Subjective: The patient states he is doing well today. No specific complaints. Eating well. Slow in responses. Continues to require help with ambulation Patient requests: None Medications and Allergies Medications Current Medications Sig/Diana Start time Last Medication Dose Route Stop Time Status Admin Metoprolol Tartrate 25 MG BID 06/28 2100 AC 06/29 PO 0828 Magnesium Chloride 535 MG TID 06/28 1400 AC 06/29 PO 1428 Nicotine 7 MG QAM 06/28 09 AC 06/29 TOP 0828 Clarify Med Order See Dose ASDIRECTED 06/25 1545 AC Insts (1) PO Enoxaparin Sodium 40 MG QAM 06/25 0900 AC 06/29 SC 0828 Folic Acid 1 MG DAILY 06/25 09 AC 06/29 PO 0828 Multivit/ 1 TAB DAILY 06/25 0900 AC 06/29 Folic Acid/Iron PO 0828 Thiamine HCl 100 MG DAILY 06/25 0900 AC 06/29 PO 0828 Lorazepam 0.5 MG Q30MIN PRN 06/24 1600 AC 06/29 PO 0555 Lorazepam 0.5 MG Q30MIN PRN 06/24 1600 AC 06/29 IV 0152 Al Hydrox/Mg Hydrox/ 15 ML Q1H PRN 06/24 1300 AC Simethicone PO Albuterol/Ipratropium 3 ML Q6H PRN 06/24 1300 AC 06/29 IN 0240 Diazepam 5 MG PRN PRN 06/24 1300 AC IV Docusate Sodium 250 MG BID PRN 06/24 1300 AC PO Haloperidol Lactate 2 MG Q1H PRN 06/24 1300 AC IV Magnesium Hydroxide 10 ML DAILY PRN 06/24 1300 AC PO Morphine Sulfate 1 MG Q30MIN PRN 06/24 1300 AC IV Ondansetron HCl 4 MG Q6H PRN 06/24 1300 AC IV Dose Instructions: (1)Clarify Med Order: PT MEDS IN PHARMACY Allergies Coded Allergies: NKA (06/24/16) Physical Exam Vital Signs / I&Os Vital Signs Date Time Temp Pulse Resp B/P Pulse O2 O2 Flow FiO2 Ox Delivery Rate 06/29 0809 Room Air 06/29 0735 98.0 80 21 151/81 98 Room Air 06/29 0231 97.9 76 17 126/70 97 Room Air 06/28 2207 98.2 95 20 156/73 97 Room Air 06/28 1822 97.3 76 26 114/62 99 Room Air 06/28 1417 97.3 70 20 124/59 98 Room Air 06/28 1114 98.1 64 17 149/85 98 Room Air I&O 06/29 0000 06/28 1600 06/28 0800 Intake Total 820 2020 700 Output Total 816 470 615 Balance 4 1550 85 General Appearance Alert, Cooperative, No acute distress Lungs Clear to auscultation Cardiovascular Regular rate and rhythm, Normal S1 and S2 Abdomen Normal bowel sounds, Soft, No tenderness Extremities No cyanosis, No clubbing Neurological Cranial nerves intact, No lateralizing signs Psych/Mental Status Mood normal, Confused Assessment and Plan Problem List 1. Alcohol withdrawal Plan -Resolved -Encourage alcohol abstinence post discharge 2. Alcohol dependence Plan -Patient with history of alcohol dependence/abuse -Status post alcohol withdrawal syndrome -Encourage enrollment in alcohol treatment program post discharge -Plan placement in care home facility 3. Asthma Plan -Stable -No bronchospasm -No requirement of oxygen -Monitor 4. Pancreatitis, acute Status Acute Onset Date Unknown Plan -Resolved -[place] secondary to alcohol abuse, alcoholic pancreatitis 5. Cholelithiasis Status Chronic Onset Date Unknown Plan -Findings of cholelithiasis -No further intervention at this time. -Asymptomatic -Outpatient follow-up with PCP 6. Hypomagnesemia Status Acute Onset Date Unknown Plan -Resolved -Magnesium this a.m. 1.8 -Monitor 7. Hypokalemia Status Acute Onset Date Unknown Plan -Resolved -Magnesium this a.m. 3.6 -Monitor 8. Tachycardia Status Acute Onset Date Unknown Plan -Resolved -Continue beta addi Lopressor 25 mg by mouth twice a day -Monitor 9. Iron deficiency anemia Status Acute Onset Date Unknown Plan -Patient with findings of iron deficiency anemia -Iron percent saturation-8% -Ferrous sulfate 325 mg by mouth twice a day -Outpatient GI workup with colonoscopy if not performed in last 10 years 10. Tobacco abuse Status Chronic Onset Date Unknown Plan -Patient with history of nicotine dependence-smoking/tobacco abuse -Smoking cessation education -NicoDerm patch -Encourage smoking abstinence post discharge 11. Hyperglycemia Status Acute Onset Date Unknown Plan -Improved. Mild persistent hyperglycemia -Hemoglobin A1c within normal limits -Monitor -Outpatient follow up with PCP Current status: Fair, improved Anticipated discharge date: Patient ready for discharge awaiting placement by discharge planning Anticipated discharge placement: intermediate facility Patient care time: Time spent in chart review, patient interview, physical exam, CPOE, and care documentation: 25 minutes Visit to patient today: 1 Complexity of care: Moderate E&M Codes Rounding: Inpt-Moderate/78045
[2016-06-29 11:48] VITALS: BP 141/69
[2016-06-29 15:04] VITALS: BP 135/74
[2016-06-29 18:15] VITALS: BP 122/60
[2016-06-29 22:32] VITALS: BP 154/78
[2016-06-30 01:56] VITALS: BP 102/86
[2016-06-30 06:25] VITALS: BP 150/66
[2016-06-30 12:34] VITALS: BP 142/65
--- NOTE | 2016-06-30 12:48 | Progress Note ---
Subjective General Note Date: June 30, 2016 Admission Date: June 24, 2016 Hospital Day: 7 PCP: Bernabe Nagy M.D. Status: Inpatient Advanced Directive: NO CODE Room: 305 Brief History: The patient is a 75-year-old white male with a significant past medical history of alcohol abuse/dependence, asthma/COPD who presented to [facility] emergency department on the day of admission secondary to not feeling well, "shakes". [facility] ER evaluation was consistent with alcohol withdrawal syndrome/alcohol abuse- dependence, asthma/COPD, pancreatitis, and elevated LFTs. Secondary to the above, the patient was admitted by Raquel Gleason M.D. for further evaluation and treatment. For other history present illness, past medical history, family history, social history, review of systems, and admission physical examination please see the patient's history and physical examination and ER visit note in the patient's medical record. Subjective: The patient states he is doing well today. No specific complaints. Eating well. Slow in responses. Continues to require help with ambulation. Patient's friends feel he is unsafe for discharge at this time to home. Recommend halfway facility/rehabilitation Patient requests: None Medications and Allergies Medications Current Medications Sig/Diana Start time Last Medication Dose Route Stop Time Status Admin Metoprolol Tartrate 25 MG BID 06/28 2100 AC 06/30 PO 0814 Magnesium Chloride 535 MG TID 06/28 1400 AC 06/30 PO 0814 Nicotine 7 MG QAM 06/28 0900 AC 06/30 TOP 0814 Clarify Med Order See Dose ASDIRECTED 06/25 1545 AC Insts (1) PO Enoxaparin Sodium 40 MG QAM 06/25 0900 AC 06/30 SC 0814 Folic Acid 1 MG DAILY 06/25 0900 AC 06/30 PO 0814 Multivit/ 1 TAB DAILY 06/25 09 AC 06/29 Folic Acid/Iron PO 0828 Thiamine HCl 100 MG DAILY 06/25 0900 AC 06/30 PO 0814 Lorazepam 0.5 MG Q30MIN PRN 06/24 1600 AC 06/29 PO 2251 Lorazepam 0.5 MG Q30MIN PRN 06/24 1600 AC 06/29 IV 0152 Al Hydrox/Mg Hydrox/ 15 ML Q1H PRN 06/24 1300 AC Simethicone PO Albuterol/Ipratropium 3 ML Q6H PRN 06/24 1300 AC 06/29 IN 0240 Diazepam 5 MG PRN PRN 06/24 1300 AC IV Docusate Sodium 250 MG BID PRN 06/24 1300 AC 06/30 PO 0814 Haloperidol Lactate 2 MG Q1H PRN 06/24 1300 AC 06/30 IV 0106 Magnesium Hydroxide 10 ML DAILY PRN 06/24 1300 AC PO Morphine Sulfate 1 MG Q30MIN PRN 06/24 1300 AC IV Ondansetron HCl 4 MG Q6H PRN 06/24 1300 AC IV Dose Instructions: (1)Clarify Med Order: PT MEDS IN PHARMACY Allergies Coded Allergies: NKA (06/24/16) Physical Exam Vital Signs / I&Os Vital Signs Date Time Temp Pulse Resp B/P Pulse O2 O2 Flow FiO2 Ox Delivery Rate 06/30 0625 98.1 88 21 150/66 96 Room Air 06/30 0156 98.4 79 17 102/86 98 / 2232 98.6 86 17 154/78 99 Room Air / 1815 98.6 88 16 122/60 98 Room Air / 1504 98.1 / 1504 74 16 135/74 98 Room Air / 1148 98.1 81 21 141/69 98 Room Air I&O 03/05 0000 03/04 1600 03/04 0800 Intake Total 1750 540 400 Output Total 550 568 301 Balance 1200 -28 99 General Appearance Alert, Cooperative, No acute distress, oriented only to person Lungs Clear to auscultation Cardiovascular Regular rate and rhythm, Normal S1 and S2 Abdomen Normal bowel sounds, Soft, No tenderness, No guarding Extremities No cyanosis, No clubbing Neurological Cranial nerves intact, No lateralizing signs Psych/Mental Status Mood normal, Confused Assessment and Plan Problem List 1. Alcohol withdrawal Plan -Resolved -Mental status remains somewhat abnormal -Admission CT unremarkable -Stop all psychoactive drugs, DC Ativan and Haldol -Patient ready for discharge but unsafe for home placement at this time -Discharge planning consulted for placement in halfway facility/ rehabilitation center -Discharge delayed 2 days 2. Alcohol dependence Plan -Patient with history of alcohol dependence/abuse -Status post alcohol withdrawal syndrome -Encourage enrollment in AA post discharge -Patient aware of need to pursue a alcohol abstinence program post discharge 3. Asthma Plan -Not problematic -DuoNeb when necessary every 6 hours -Encourage smoking abstinence program -No oxygen requirements or bronchospasm noted. 4. Pancreatitis, acute Status Acute Onset Date Unknown Plan -Resolved -[place] secondary to alcohol consumption -Outpatient follow-up 5. Cholelithiasis Status Chronic Onset Date Unknown Plan -Stable -Asymptomatic -Outpatient follow-up 6. Hypomagnesemia Status Acute Onset Date Unknown Plan -Resolved -Continue Slow-Mag one by mouth 3 times a day 7. Hypokalemia Status Acute Onset Date Unknown Plan -Resolved 8. Tachycardia Status Acute Onset Date Unknown Plan -Patient with history of mild tachycardia, heart rate 88 this a.m. -Toprol-XL 25 mg by mouth daily -Check TSH -Monitor 9. Hyperglycemia Status Acute Onset Date Unknown Plan -Glucose mildly elevated -Hemoglobin A1c within normal limits -Monitor -Outpatient follow-up with PCP, no medical therapy at this time 10. Iron deficiency anemia Status Acute Onset Date Unknown Plan -Patient with findings of iron deficiency anemia -H&H 10.8/33.7 -Ferrous sulfate 325 mg by mouth twice a day -Monitor -Outpatient follow-up with GI evaluation due to iron deficiency anemia -Schedule colonoscopy prior to discharge with Dr. Cedillo/Jeovanny 11. Tobacco abuse Status Chronic Onset Date Unknown Plan -Patient with history of tobacco abuse/smoking -Smoking cessation education -Nicotine patch on discharge -Encourage smoking abstinence post discharge Current status: Fair, improved Anticipated discharge date: Patient ready for discharge, awaiting placement by discharge planning Anticipated [facility] placement: prison facility Patient care time: Time spent in chart review, patient interview, physical exam, CPOE, and care documentation: 25 minutes Visit to patient today: 1 Complexity of care: Moderate Delayed discharge days: 2
--- NOTE | 2016-06-30 12:48 | Progress Note ---
Subjective General Note Date: June 30, 2016 Admission Date: June 24, 2016 Hospital Day: 7 PCP: Bernabe Nagy M.D. Status: Inpatient Advanced Directive: NO CODE Room: 305 Brief History: The patient is a 75-year-old white male with a significant past medical history of alcohol abuse/dependence, asthma/COPD who presented to [facility] emergency department on the day of admission secondary to not feeling well, "shakes". [facility] ER evaluation was consistent with alcohol withdrawal syndrome/alcohol abuse- dependence, asthma/COPD, pancreatitis, and elevated LFTs. Secondary to the above, the patient was admitted by Raquel Gleason M.D. for further evaluation and treatment. For other history present illness, past medical history, family history, social history, review of systems, and admission physical examination please see the patient's history and physical examination and ER visit note in the patient's medical record. Subjective: The patient states he is doing well today. No specific complaints. Eating well. Slow in responses. Continues to require help with ambulation. Patient's friends feel he is unsafe for discharge at this time to home. Recommend senior living facility/rehabilitation Patient requests: None Medications and Allergies Medications Current Medications Sig/Diana Start time Last Medication Dose Route Stop Time Status Admin Metoprolol Tartrate 25 MG BID 06/28 2100 AC 06/30 PO 0814 Magnesium Chloride 535 MG TID 06/28 1400 AC 06/30 PO 0814 Nicotine 7 MG QAM 06/28 0900 AC 06/30 TOP 0814 Clarify Med Order See Dose ASDIRECTED 06/25 1545 AC Insts (1) PO Enoxaparin Sodium 40 MG QAM 06/25 0900 AC 06/30 SC 0814 Folic Acid 1 MG DAILY 06/25 0900 AC 06/30 PO 0814 Multivit/ 1 TAB DAILY 06/25 09 AC 06/29 Folic Acid/Iron PO 0828 Thiamine HCl 100 MG DAILY 06/25 0900 AC 06/30 PO 0814 Lorazepam 0.5 MG Q30MIN PRN 06/24 1600 AC 06/29 PO 2251 Lorazepam 0.5 MG Q30MIN PRN 06/24 1600 AC 06/29 IV 0152 Al Hydrox/Mg Hydrox/ 15 ML Q1H PRN 06/24 1300 AC Simethicone PO Albuterol/Ipratropium 3 ML Q6H PRN 06/24 1300 AC 06/29 IN 0240 Diazepam 5 MG PRN PRN 06/24 1300 AC IV Docusate Sodium 250 MG BID PRN 06/24 1300 AC 06/30 PO 0814 Haloperidol Lactate 2 MG Q1H PRN 06/24 1300 AC 06/30 IV 0106 Magnesium Hydroxide 10 ML DAILY PRN 06/24 1300 AC PO Morphine Sulfate 1 MG Q30MIN PRN 06/24 1300 AC IV Ondansetron HCl 4 MG Q6H PRN 06/24 1300 AC IV Dose Instructions: (1)Clarify Med Order: PT MEDS IN PHARMACY Allergies Coded Allergies: NKA (06/24/16) Physical Exam Vital Signs / I&Os Vital Signs Date Time Temp Pulse Resp B/P Pulse O2 O2 Flow FiO2 Ox Delivery Rate 06/30 0625 98.1 88 21 150/66 96 Room Air 06/30 0156 98.4 79 17 102/86 98 / 2232 98.6 86 17 154/78 99 Room Air / 1815 98.6 88 16 122/60 98 Room Air / 1504 98.1 / 1504 74 16 135/74 98 Room Air / 1148 98.1 81 21 141/69 98 Room Air I&O 03/05 0000 03/04 1600 03/04 0800 Intake Total 1750 540 400 Output Total 550 568 301 Balance 1200 -28 99 General Appearance Alert, Cooperative, No acute distress, oriented only to person Lungs Clear to auscultation Cardiovascular Regular rate and rhythm, Normal S1 and S2 Abdomen Normal bowel sounds, Soft, No tenderness, No guarding Extremities No cyanosis, No clubbing Neurological Cranial nerves intact, No lateralizing signs Psych/Mental Status Mood normal, Confused Assessment and Plan Problem List 1. Alcohol withdrawal Plan -Resolved -Mental status remains somewhat abnormal -Admission CT unremarkable -Stop all psychoactive drugs, DC Ativan and Haldol -Patient ready for discharge but unsafe for home placement at this time -Discharge planning consulted for placement in senior living facility/ rehabilitation center -Discharge delayed 2 days 2. Alcohol dependence Plan -Patient with history of alcohol dependence/abuse -Status post alcohol withdrawal syndrome -Encourage enrollment in AA post discharge -Patient aware of need to pursue a alcohol abstinence program post discharge 3. Asthma Plan -Not problematic -DuoNeb when necessary every 6 hours -Encourage smoking abstinence program -No oxygen requirements or bronchospasm noted. 4. Pancreatitis, acute Status Acute Onset Date Unknown Plan -Resolved -[place] secondary to alcohol consumption -Outpatient follow-up 5. Cholelithiasis Status Chronic Onset Date Unknown Plan -Stable -Asymptomatic -Outpatient follow-up 6. Hypomagnesemia Status Acute Onset Date Unknown Plan -Resolved -Continue Slow-Mag one by mouth 3 times a day 7. Hypokalemia Status Acute Onset Date Unknown Plan -Resolved 8. Tachycardia Status Acute Onset Date Unknown Plan -Patient with history of mild tachycardia, heart rate 88 this a.m. -Toprol-XL 25 mg by mouth daily -Check TSH -Monitor 9. Hyperglycemia Status Acute Onset Date Unknown Plan -Glucose mildly elevated -Hemoglobin A1c within normal limits -Monitor -Outpatient follow-up with PCP, no medical therapy at this time 10. Iron deficiency anemia Status Acute Onset Date Unknown Plan -Patient with findings of iron deficiency anemia -H&H 10.8/33.7 -Ferrous sulfate 325 mg by mouth twice a day -Monitor -Outpatient follow-up with GI evaluation due to iron deficiency anemia -Schedule colonoscopy prior to discharge with Dr. Cedillo/Jeovanny 11. Tobacco abuse Status Chronic Onset Date Unknown Plan -Patient with history of tobacco abuse/smoking -Smoking cessation education -Nicotine patch on discharge -Encourage smoking abstinence post discharge Current status: Fair, improved Anticipated discharge date: Patient ready for discharge, awaiting placement by discharge planning Anticipated discharge placement: correction facility Patient care time: Time spent in chart review, patient interview, physical exam, CPOE, and care documentation: 25 minutes Visit to patient today: 1 Complexity of care: Moderate Delayed discharge days: 2
[2016-06-30 17:30] VITALS: BP 162/72
[2016-06-30 22:05] VITALS: BP 129/82
[2016-07-01 02:29] VITALS: BP 162/67
[2016-07-01 06:18] VITALS: BP 93/63
[2016-07-01 10:02] VITALS: BP 138/69
[2016-07-01 14:15] VITALS: BP 150/89
[2016-07-01 18:50] VITALS: BP 152/87
--- NOTE | 2016-07-01 19:00 | Progress Note ---
Subjective General Note Date: July 01, 2016 Admission Date: June 24, 2016 Hospital Day: 8 PCP: Bernabe Nagy M.D. Status: Inpatient Advanced Directive: NO CODE Room: 305 The patient is a 75-year-old white male with a significant past medical history of alcohol abuse/dependence, asthma/COPD who presented to [facility] emergency department on the day of admission secondary to not feeling well, "shakes". [facility] ER evaluation was consistent with alcohol withdrawal syndrome/alcohol abuse- dependence, asthma/COPD, pancreatitis, and elevated LFTs. Secondary to the above, the patient was admitted by Raquel Gleason M.D. for further evaluation and treatment. The patient states he is doing well today. No specific complaints. Eating well. Slow in responses. Continues to require help with ambulation. As per patients representatives patient would rather than go to an assisted living facility. Will have PT evaluate the patient tomorrow. . Constitutional Denies: Fever, Chills, Sweats, Weakness, Malaise, Other. Eyes Denies: Pain, Vision Change, Conjunctival Inflammation, Eyelid Inflammation, Redness, Other. ENT Denies: Ear Pain, Ear Discharge, Nose Pain, Nasal Discharge, Nasal Congestion, Mouth Pain, Mouth Swelling, Throat Pain, Throat Swelling, Other. Respiratory Denies: Cough, Dry, SOB w/exertion, Wheezing, Hemoptysis, Pleuritic Pain, Sputum , Other. Cardiovascular Denies: Chest Pain, Palpitations, Orthopnea, PND, Edema, Light-headedness, Other. Gastrointestinal Denies: Nausea, Vomiting, Abdominal Pain, Diarrhea, Constipation, Melena, Hematochezia, Other. Genitourinary Denies: Dysuria, Frequency, Incontinence, Hematuria, Retention, Other. Musculoskeletal Denies: Neck Pain, Shoulder Pain, Arm Pain, Back Pain, Hand Pain, Leg Pain, Foot Pain, Other. Skin Denies: Rash, Lesions, Jaundice, Bruising, Other. Neurological Other (anxious ). Physical Exam Vital Signs / I&Os Vital Signs Date Time Temp Pulse Resp B/P Pulse O2 O2 Flow FiO2 Ox Delivery Rate 07/01 1850 98.1 95 18 152/87 96 Room Air 07/01 1546 Room Air 07/01 1415 98.2 95 20 150/89 98 Room Air 07/01 1002 98.1 90 18 138/69 96 Room Air 07/01 0733 Room Air 07/01 0618 98.2 110 16 93/63 98 Room Air 07/01 0229 98.2 79 17 162/67 99 Room Air 06/30 2205 98.1 84 17 129/82 98 Room Air I&O 06/30 0800 06/30 1600 03/06 0000 Intake Total 750 360 480 Output Total 300 Balance 750 60 480 General Appearance Alert, Oriented X3, No acute distress HEENT PERRLA, EOMI, Moist mucous membranes Lungs Clear to auscultation, Normal air movement Cardiovascular Regular rate and rhythm, Normal S1 and S2, No murmurs, gallops, rubs Abdomen Soft, No tenderness, No guarding, No rebound Extremities No cyanosis, No clubbing, Normal pulses, No tenderness, Strength = upper ext's, Strength = lower ext's Skin No Rashes, No Breakdown, No Significant Lesions Neurological Normal speech, Normal tone, Sensation intact, Reflexes 2+ and equal , Cranial nerves intact, Strength 5/5 x4 ext's, No lateralizing signs Psych/Mental Status Mental status normal, Mood normal Assessment and Plan Problem List 1. Alcohol withdrawal Plan - mental status is improved - pt is able to ambulate without difficulty - looking to discharge patient tomorrow 2. Pancreatitis, acute Status Acute Onset Date Unknown Plan -stable - resolved 3. Cholelithiasis Status Chronic Onset Date Unknown Plan - stable resolved 4. Tachycardia Status Acute Onset Date Unknown Plan - pt has been having normal sinus rhytm - no further tele monitoring 5. Hyperglycemia Status Acute Onset Date Unknown Plan - stable
--- NOTE | 2016-07-01 19:00 | Progress Note ---
Subjective General Note Date: July 01, 2016 Admission Date: June 24, 2016 Hospital Day: 8 PCP: Bernabe Nagy M.D. Status: Inpatient Advanced Directive: NO CODE Room: 305 The patient is a 75-year-old white male with a significant past medical history of alcohol abuse/dependence, asthma/COPD who presented to [facility] emergency department on the day of admission secondary to not feeling well, "shakes". [facility] ER evaluation was consistent with alcohol withdrawal syndrome/alcohol abuse- dependence, asthma/COPD, pancreatitis, and elevated LFTs. Secondary to the above, the patient was admitted by Raquel Gleason M.D. for further evaluation and treatment. The patient states he is doing well today. No specific complaints. Eating well. Slow in responses. Continues to require help with ambulation. As per patients representatives patient would rather than go to an assisted living facility. Will have PT evaluate the patient tomorrow. . Constitutional Denies: Fever, Chills, Sweats, Weakness, Malaise, Other. Eyes Denies: Pain, Vision Change, Conjunctival Inflammation, Eyelid Inflammation, Redness, Other. ENT Denies: Ear Pain, Ear Discharge, Nose Pain, Nasal Discharge, Nasal Congestion, Mouth Pain, Mouth Swelling, Throat Pain, Throat Swelling, Other. Respiratory Denies: Cough, Dry, SOB w/exertion, Wheezing, Hemoptysis, Pleuritic Pain, Sputum , Other. Cardiovascular Denies: Chest Pain, Palpitations, Orthopnea, PND, Edema, Light-headedness, Other. Gastrointestinal Denies: Nausea, Vomiting, Abdominal Pain, Diarrhea, Constipation, Melena, Hematochezia, Other. Genitourinary Denies: Dysuria, Frequency, Incontinence, Hematuria, Retention, Other. Musculoskeletal Denies: Neck Pain, Shoulder Pain, Arm Pain, Back Pain, Hand Pain, Leg Pain, Foot Pain, Other. Skin Denies: Rash, Lesions, Jaundice, Bruising, Other. Neurological Other (anxious ). Physical Exam Vital Signs / I&Os Vital Signs Date Time Temp Pulse Resp B/P Pulse O2 O2 Flow FiO2 Ox Delivery Rate 07/01 1850 98.1 95 18 152/87 96 Room Air 07/01 1546 Room Air 07/01 1415 98.2 95 20 150/89 98 Room Air 07/01 1002 98.1 90 18 138/69 96 Room Air 07/01 0733 Room Air 07/01 0618 98.2 110 16 93/63 98 Room Air 07/01 0229 98.2 79 17 162/67 99 Room Air 06/30 2205 98.1 84 17 129/82 98 Room Air I&O 06/30 0800 06/30 1600 03/06 0000 Intake Total 750 360 480 Output Total 300 Balance 750 60 480 General Appearance Alert, Oriented X3, No acute distress HEENT PERRLA, EOMI, Moist mucous membranes Lungs Clear to auscultation, Normal air movement Cardiovascular Regular rate and rhythm, Normal S1 and S2, No murmurs, gallops, rubs Abdomen Soft, No tenderness, No guarding, No rebound Extremities No cyanosis, No clubbing, Normal pulses, No tenderness, Strength = upper ext's, Strength = lower ext's Skin No Rashes, No Breakdown, No Significant Lesions Neurological Normal speech, Normal tone, Sensation intact, Reflexes 2+ and equal , Cranial nerves intact, Strength 5/5 x4 ext's, No lateralizing signs Psych/Mental Status Mental status normal, Mood normal Assessment and Plan Problem List 1. Alcohol withdrawal Plan - mental status is improved - pt is able to ambulate without difficulty - looking to discharge patient tomorrow 2. Pancreatitis, acute Status Acute Onset Date Unknown Plan -stable - resolved 3. Cholelithiasis Status Chronic Onset Date Unknown Plan - stable resolved 4. Tachycardia Status Acute Onset Date Unknown Plan - pt has been having normal sinus rhytm - no further tele monitoring 5. Hyperglycemia Status Acute Onset Date Unknown Plan - stable
[2016-07-01 22:36] VITALS: BP 151/82
[2016-07-02 01:47] VITALS: BP 150/69
[2016-07-02 06:11] VITALS: BP 158/77
[2016-07-02 11:17] VITALS: BP 118/72
[2016-07-02] MEDS ORDERED: LORAZEPAM1 MG PO (16:09)
--- NOTE | 2016-07-02 16:11 | Provider's Discharge Care Plan ---
Problem, Goal, Plan Problem List 1. Alcohol withdrawal Instructions: - avoid alcohol - take medications as prescribed 2. Asthma Instructions: Take meds as directed 3. Tobacco abuse Instructions: Stop smoking 4. Anxiety Instructions: - you will need to follow up with a psychiatrist as an out patient, please follow up with your pmd first
--- NOTE | 2016-07-02 18:09 | Discharge Summary ---
Discharge Summary Report Admit Date 06/24/16 Discharge Date 07/02/16 Admission Diagnosis alcohol withdrawal Discharge Diagnosis alcohol withdrawal, anxiety, pancreatitis Brief History The patient is a 75-year-old white male with a significant past medical history of alcohol abuse/dependence, asthma/COPD who presented to [facility] emergency department on the day of admission secondary to not feeling well, "shakes". [facility] ER evaluation was consistent with alcohol withdrawal syndrome/alcohol abuse- dependence, asthma/COPD, pancreatitis, and elevated LFTs. Secondary to the above, the patient was admitted by Raquel Gleason M.D. for further evaluation and treatment. Hospital Course Patient was admitted for altered mental status secondary to alcohol withdrawal and pancreatitis. Patient was treated for alcohol withdrawal, found to have mild pancreatitis. Patient was subsequently treated and he retured to baseline in terms of his mental status and mobilty. At first the patient was so tremulous and unsteady on his feet. Patient was seen by physical therapy to evaluat whether he would be able to move around freely while at home. Patient was deemed stable by physical therapy and appropriate for home discharge. Lastly patient was seen to be continually anxious during his hospital admission. Patient was told that he would need to follow up with his pmd and to recieve psychiatric counseling for his anxiety. Patient was amenable to the decision and claimed he would do so. General Appearance Alert, Cooperative, No acute distress HEENT EOMI Lungs Clear to auscultation, Normal air movement Cardiovascular Normal S1, Normal S2, Gallops Abdomen Soft, No tenderness Neurological Normal speech, Normal tone, Sensation intact, Cranial nerves 3-12 NL Discharge Instructions/Meds - follow up with pmd - take medications as prescribed - avoid alcohol
--- NOTE | 2016-07-02 18:09 | Discharge Summary ---
Discharge Summary Report Admit Date 06/24/16 Discharge Date 07/02/16 Admission Diagnosis alcohol withdrawal Discharge Diagnosis alcohol withdrawal, anxiety, pancreatitis Brief History The patient is a 75-year-old white male with a significant past medical history of alcohol abuse/dependence, asthma/COPD who presented to [facility] emergency department on the day of admission secondary to not feeling well, "shakes". [facility] ER evaluation was consistent with alcohol withdrawal syndrome/alcohol abuse- dependence, asthma/COPD, pancreatitis, and elevated LFTs. Secondary to the above, the patient was admitted by Raquel Gleason M.D. for further evaluation and treatment. Hospital Course Patient was admitted for altered mental status secondary to alcohol withdrawal and pancreatitis. Patient was treated for alcohol withdrawal, found to have mild pancreatitis. Patient was subsequently treated and he retured to baseline in terms of his mental status and mobilty. At first the patient was so tremulous and unsteady on his feet. Patient was seen by physical therapy to evaluat whether he would be able to move around freely while at home. Patient was deemed stable by physical therapy and appropriate for home discharge. Lastly patient was seen to be continually anxious during his hospital admission. Patient was told that he would need to follow up with his pmd and to recieve psychiatric counseling for his anxiety. Patient was amenable to the decision and claimed he would do so. General Appearance Alert, Cooperative, No acute distress HEENT EOMI Lungs Clear to auscultation, Normal air movement Cardiovascular Normal S1, Normal S2, Gallops Abdomen Soft, No tenderness Neurological Normal speech, Normal tone, Sensation intact, Cranial nerves 3-12 NL Discharge Instructions/Meds - follow up with pmd - take medications as prescribed - avoid alcohol
== END 2016-07-02 17:00 | disposition home or self-care (01) | DRG 896 ==
LOC: ED SRH 10:16 → TRANS SRH 12:45 → CC SRH 12:57
PROVIDERS: ADMIT Emergency Medicine
DX: F10.230 Alcohol dependence with withdrawal, uncomplicated (principal); K85.20 Alcohol induced acute pancreatitis without necrosis or infection; K80.20 Calculus of gallbladder without cholecystitis without obstruction; E83.42 Hypomagnesemia; E87.6 Hypokalemia; E16.2 Hypoglycemia, unspecified; F41.9 Anxiety disorder, unspecified; J44.9 Chronic obstructive pulmonary disease, unspecified; F17.200 Nicotine dependence, unspecified, uncomplicated
CPT/HCPCS: 83921; 85241; 90004; 90074; 90098; 90100; 91286; 91295; 91504; 91505; 91643; 92010; 92132; 92235; 92530; 92668; 92670; 92690; 92720; 92760; 92761; 92762; 92763; 92764; 92765; 92766; 92767; 93140; 95059; 95061

== ENCOUNTER 2016-07-28 09:31 | Emergency (ER) | payer OTHER ==
[~2016-07-28 09:31] MED LIST: FLOVENT HFA110 MCG IN; LORAZEPAM1 MG PO; PROAIR HFA IN
--- NOTE | 2016-07-28 12:10 | ED NURSING NOTES ---
Clinical Report - Nurses [facility] [address] [place] [address] 07/28/2016 9:33 Patient: BELEM ALONSO TRIAGE Triage time 09:48 Jul 28 2016. Acuity: LEVEL 4. Chief Complaint: (Patient shaky and SOB, went to clinic last night but after a beer last night he still hasnt gotten better, she ususally drinks 3-5 drinks). SEPSIS SCREEN: Sepsis Screen. Negative (no infection suspected/documented). ASHISH COMA SCORE: Dickens Coma Scale: 15- eyes open spontaneously (4); best verbal response- oriented x 4 (5); best motor response- obeys commands (6). --09:59 Loreto Duke R.N. 09:49 07/28/16. BP: 146/73 (regular adult cuff) taken on the left arm, while sitting. HR: 95. RR: 18. O2 saturation: 99% on room air. Temp: 98.3 F (temporal). Pain level now: 0/10. --09:59 Loreto Duke R.N. Weight: 72.5 kg stated. Height/Length: 71 inches Per Patient. BMI: 22.3. --09:58 Loreto Duke R.N. Medications None. --09:51 Loreto Duke R.N. Allergies None. --09:51 Loreto Duke R.N. History Arrived by private vehicle. Historian: friend and patient. Accompanied by family. Primary physician ([facility], [facility]). Onset. (last night 16oz beer). He has had difficulty breathing. ( Patient SOB right now with wheezes). Treatment [employer]: (beer last night). PAST MEDICAL HX: ( Alcoholism, asthma). SURGERY HX: No history of previous surgery. SOCIAL HX: Current every day heavy tobacco smoker- less than 1 pack per day. Heavy alcohol use; consumes beer. Patient smells of ETOH in the emergency department. No infectious disease exposure. ABUSE ASSESSMENT: No report of abuse. --09:59 Loreto Duke R.N. PROBLEMS: Depression. Pancreatitis. Alcohol Withdrawal. Asthma. --09:51 Loreto Duke R.N. ADDITIONAL SURGERIES: no known surgeries. Interventions ID band on patient. To treatment room. --09:59 Loreto Duke R.N. PHYSICAL ASSESSMENT Ambulatory to room. GENERAL / NEURO / PSYCH: Alert. Oriented X 4. HEENT: Pupils equal, round and reactive to light. No facial asymmetry noted. Mucous membranes are pink. RESPIRATORY: The patient can speak in full sentences. Chest nontender. Wheezing present. CVS: Capillary refill less than 2 seconds. Pulses within normal limits. GI / : Abdomen soft and nontender and normal bowel sounds. SKIN: Skin intact. Skin is warm. --10:00 Loreto Duke R.N. NURSING PROGRESS NOTES The plan of care for this patient has been created. Head of bed elevated. Reassurance given. Two patient identifiers checked. Call light placed in reach. Side rails up x 1. Bed placed in lowest position. Brakes of bed on. Patient ready for evaluation- chart flagged and ED physician notified. --10:00 Loreto Duke R.N. 10:18 07/28/2016 Site #1 started via IV in the right antecubital space with an 20g angiocath, with aseptic technique and good blood return; one attempt. Blood drawn: rainbow set. Labeled in the presence of the patient and sent to the lab. Saline lock flushed with 10 mL saline. --10:18 Loreto Duke R.N. 10:18 07/28/2016 Valium (Diazepam) IVP 5 mg given over 2 minute(s) via site #1. Allergies verified, confirmed 5 rights and sedative warning given to the patient. IV patency established. IV site checked: no pain, redness, or swelling. IV flushed thoroughly pre- and post-medication administration. IVP given by RN. --10:18 Loreto Duke R.N. 10:22 07/28/2016 Duoneb (Ipratropium-Albuterol) Neb TX Nebulizer 1 unit dose given. --10: Benjamín Gibson 10:52 07/28/2016 Started bag #1 1000 mL IV Fluids IV NS (Saline); at 1000 mL/hr over 1 hour(s) via site #1 via IV pump. Allergies verified and confirmed 5 rights. IV patency established. IV site checked: no pain, redness, or swelling. IV flushed thoroughly pre- and post-medication administration. --10:52 Loreto Duke R.N. 10:51 07/28/16. BP: 130/71 (regular adult cuff) taken on the left arm, while sitting. HR: 87. RR: 18 (regular). O2 saturation: 98% on room air. Pain level now: 010. --10:52 Loreto Duke R.N. ( patient visiting with friend who is at bedside keeping [employer] company). --10:52 Loreto Duke R.N. 10:54 07/28/2016 Valium IVP Response: no adverse reaction pain is improving. Symptoms have improved the patient feels better. --11:09 Loreto Duke R.N. 10:55 07/28/2016 Duoneb Neb TX Response: no adverse reaction pain is improving. Symptoms have improved the patient feels better. --11:10 Loreto Duke R.N. 11:08 07/28/16. Patient ID band checked for patient name and birthdate: patient confirmed. Clean catch urine collected; sample sent to lab. Specimen labeled in the presence of the patient. --11:08 Jazmín Pitts R.N. 11:45 07/28/16. BP: 152/85 (regular adult cuff) taken on the left arm, while sitting. HR: 80. RR: 18. O2 saturation: 99% on room air. Pain level now: 0/10. --11:46 Loreto Duke R.N. ( Patient up to use the restroom). --11:46 Loreto Duke R.N. 11:59 07/28/16. BP: 143/80 (regular adult cuff) taken on the left arm, while sitting. HR: 98. RR: 20 (regular). O2 saturation: 100% on room air. Pain level now: 0/10. --11:59 Loreto Duke R.N. 12:03 07/28/2016 IV Fluids IV NS Discontinued: bag #1 completed. Total amount infused: 1000 mL. IV patency established. IV site checked: no pain, redness, or swelling. IV flushed thoroughly. --12:03 Loreto Duke R.N. 12:22 07/28/2016 Prednisone PO Tablets 60 mg given. Allergies verified and confirmed 5 rights. --12:22 Loreto Duke R.N. DISPOSITION / DISCHARGE 12:31 07/28/2016 Site #1 removed upon discharge. Bandaid applied. --12:31 Loreto Duke R.N. Departure time: 12:35 Jul 28 2016. Condition at departure: improved. No learning barriers present. Discharge instructions provided and reviewed with the patient. Reviewed medication(s) side effects, precautions and dosing information. Prescription(s) given to the patient. Patient verbalized understanding. Written instructions provided in Hebrew. The patient was discharged by the physician. He was discharged home and accompanied by friend. He left the Emergency Department ambulatory and via private vehicle. Driving (friend). ( Patient has no further questions, he will be WC'd out because he still has some side effects from the Valium). --12:35 Loreto Duke R.N. 12:30 07/28/16. BP: 147/78 (regular adult cuff) taken on the right arm, while sitting. HR: 85. RR: 20 (regular). O2 saturation: 98% on room air. Temp: 98.2 F (temporal). Pain level now: 0/10. --12:35 Loreto Duke R.N. Locked/Released at 07/28/2016 18:43 by Loreto Duke R.N.
--- NOTE | 2016-07-28 12:10 | ED CLINICAL REPORT ---
Clinical Report - Physicians/Mid Levels [facility] [address] [place] [place] [address] 07/28/2016 9:33 Patient: BELEM ALONSO Time Seen: 0950. Arrived- By private vehicle. Historian- patient (neighbor). HISTORY OF PRESENT ILLNESS Chief Complaint: "GOT THE SHAKES". Symptoms started today. Duration of substance abuse- years. Substances abused: Alcohol. (yesterday). No vomiting, diarrhea, hallucinations or suicidal thoughts. Not confused. Has not been depressed. The symptoms are described as moderate. No injuries noted. Similar symptoms previously: Many times. Recent medical care: The patient was seen recently and hospitalized. ( for pancreatitis). REVIEW OF SYSTEMS No skin abscess. All systems otherwise negative, except as recorded above. PAST HISTORY See nurses notes. SOCIAL HISTORY Never smoker. Alcohol use. No drug use. Has social support. Has place to stay. ADDITIONAL NOTES The nursing notes have been reviewed. PHYSICAL EXAM Vital Signs: 07/28/2016 09:49 BP: 146/73. HR: 95. RR: 18. O2 saturation: 99%. Temp: 98.3 F. Pain level now: 0/10. Blood pressure normal. Oxygen saturation normal. Appearance: Alert. Oriented X3. No acute distress. Head: Head atraumatic. Eyes: Pupils equal, round and reactive to light. ENT: Normal ENT inspection. Airway intact. Moist mucous membranes. Pharynx normal. Neck: Normal inspection. Neck supple. No meningeal signs. CVS: Normal heart rate and rhythm. Heart sounds normal. Pulses normal. Respiratory: No respiratory distress. Expiratory mild bilateral wheezes diffusely. Abdomen: Soft and nontender. No organomegaly. Back: Normal inspection. Skin: Skin warm and dry. Normal skin color. No rash. Normal skin turgor. Extremities: Extremities exhibit normal ROM. No lower extremity edema. Neuro: Alert. Oriented X 3. Mood/affect normal. Speech normal. Cranial nerves normal (as tested). No cerebellar findings. No motor deficit. No sensory deficit. Reflexes normal. (mild resting tremor. no tongue fasiculations. is NOT pill rolling. No cogwheel rigidity.). LABS, X-RAYS, AND EKG Laboratory Tests: UA-Culture if indicated: (CHAVA: 07/28/2016 11:04) ( Mscvd 07/28/2016 11:27) Final results Test Result Flag Units (Reference) URINE COLOR YELLOW URINE APPEARANCE CLEAR URINE GLUCOSE NEGATIVE (NEGATIVE) URINE BILIRUBIN NEGATIVE (NEGATIVE) URINE KETONE NEGATIVE (NEGATIVE) URINE SPECIFIC GRAVITY <= 1.005 L (1.010-1.030) URINE PH 6.5 (5.0-8.0) URINE PROTEIN NEGATIVE (NEGATIVE) URINE UROBILINOGEN 0.2 EU/dL (0.2-1.0) URINE NITRITE NEGATIVE (NEGATIVE) URINE BLOOD NEGATIVE (NEGATIVE) URINE LEUK ESTERASE NEGATIVE (NEGATIVE) URINE RBC NONE SEEN rbc/hpf (0-1) URINE WBC RARE wbc/hpf (0-1) URINE EPITHELIAL CELLS RARE EPI/hpf (0-5) URINE BACTERIA NONE SEEN (NONE SEEN) URINE COMMENT CULT NOT INDICATED URINE CULTURES ARE SET-UP BASED ON THE FOLLOWING CRITERIA:POSITIVE NITRITEPOSITIVE LEUKOCYTE ESTERASEGREATER THAN 10 WHITE BLOOD CELLSMODERATE (2+) OR GREATER BACTERIA CBC w Diff: (CHAVA: 07/28/2016 10:20) ( Mscvd 07/28/2016 10:46) Final results Test Result Flag Units (Reference) WHITE BLOOD COUNT 6.9 K/uL (4.5-11.5) RED BLOOD COUNT 5.02 M/uL (4.50-5.90) HEMOGLOBIN 13.3 L gm/dL (13.5-17.5) HEMATOCRIT 41.7 % (41.0-53.0) MEAN CELL VOLUME 83 fL (80-100) MEAN CORPUSCULAR HGB 26 pg (26-34) MEAN CORPUSCULAR HGB CONC 32 g/dL (31-37) RED CELL DISTRIBUTION WIDTH 22.3 H % (11.6-14.8) PLATELET COUNT 305 K/uL (150-400) NEUTROPHIL % 75.0 % (50-75) LYMPH % 11.3 L % (25-40) MONO % 9.3 % (3-14) EOSINOPHIL % 4.4 H % (0-4) BASOPHIL % 0 % (0-2) RBC MORPHOLOGY 2+ ANISOCYTOSIS CMP: (CHAVA: 07/28/2016 10:20) ( MsgRcvd 07/28/2016 10:48) Final results Test Result Flag Units (Reference) GLUCOSE 145 H mg/dL (70-110) BUN 7 mg/dL (7-18) CREATININE 1.0 mg/dL (0.6-1.3) Estimated GFR >60 mL/min Estimated GFR- >60 mL/min Note: Persistent reduction over 3 months in eGFR<60 mL/min/1.73 m2 defines CKD. Patients with eGFR values>=60 mL/min/1.73 m2 may also have CKD if evidence ofpersistent proteinuria. Additional information may be foundat www.kidney.org. SODIUM 138 mmol/L (136-145) POTASSIUM 4.3 mmol/L (3.5-5.1) CHLORIDE 99 mmol/L (98-107) CARBON DIOXIDE 30 mmol/L (21-32) CALCIUM 9.2 mg/dL (8.5-10.1) TOTAL PROTEIN 6.8 g/dL (6.4-8.2) ALBUMIN 3.6 g/dL (3.3-5.0) BILIRUBIN, TOTAL 0.6 mg/dL (0.0-1.0) ALKALINE PHOSPHATASE 99 U/L (46-116) AST (SGOT) 18 U/L (15-37) ALT (SGPT) 23 U/L (12-78) LIPASE 461 H U/L (73-393) . PROGRESS AND PROCEDURES Course of Care: The patient is a pleasant 75-year-old male with past medical history significant for alcohol abuse, recent admission for pancreatic pedis, and asthma presenting for evaluation of tremors. The patient appears to have slight symptoms Obetrol. Patient will be treated with Valium. Also order laboratory studies for any metabolic derangements as a result of the patient's alcohol withdrawal and alcohol abuse. Patient is also noted to be wheezing on examination which appears to be unrelated. Patient be given a breathing treatment and reevaluated. Breathing treatment was provided. Patient reports significant improvement with his symptoms. No wheezing wards. Patient also had resolution of his tremors with the single dose of Valium. Patient's laboratory studies are noted to be unremarkable. Patient reports feeling significantly improved. Because the patient's negative workup here in the emergency department and improved lipase levels from his previous admission, do not feel patient needs be admitted to the hospital require further emergency department workup/evaluation. Patient is not having any pain on examination or reportedly today. Do not feel patient needs to be admitted for acute pancreatitis at this time. Patient is able to tolerate by mouth here in the emergency department. Patient is a good outpatient candidate. Recommended patient to become clean and sober. Medication refill for the patient's albuterol also provided. Discussed the patient is workup here in the emergency department including home care, follow-up, diagnosis,and return precautions. All questions have been answered. The patient expressed understanding of these instructions and was agreeable to them. CLINICAL IMPRESSION 07/28/2016 09:49 BP: 146/73. HR: 95. RR: 18. O2 saturation: 99%. Temp: 98.3 F. Pain level now: 0/10. Blood pressure normal. Oxygen saturation normal. Mild persistent asthma with an acute exacerbation (acute). Pancreatitis (subacute, resolving). Substance abuse- alcohol with anxiety (withdrawal). (Medication refill for history of asthma). INSTRUCTIONS Warnings: GENERAL WARNINGS: Return or contact your physician immediately if your condition worsens or changes unexpectedly, if not improving as expected, or if other problems arise. Specifically return if pain, vomiting, bleeding, breathing difficulty or fever. Your Current Medications: CONTINUE TAKING THE FOLLOWING MEDICATIONS: None*. Prescription Medications: Albuterol HFA oral inhaler: inhale 1-2 puffs via spacer every 4 hours as needed for wheezing, difficulty breathing or shortness of breath. No refill. Albuterol 0.083% Inhalation Solution: inhale 1 unit dose (3 mL) via nebulizer every 4 hours as needed for wheezing, difficulty breathing or shortness of breath. Dispense fifty (50) units. No refill. Prednisone 50 mg: take 1 orally every day. Dispense five (5). No refills. Follow-up: Return to the emergency department as needed. Follow up with your doctor in three days. Reason for referral: recheck today's concerns. Summary of care provided to patient via paper. Screening today revealed the patient's blood pressure to be in the normal range. The patient should follow up with a primary care provider for blood pressure management. Understanding of the discharge instructions verbalized by patient. (Electronically signed by Belem Estes Dr. 07/30/2016 11:58)
--- NOTE | 2016-07-28 12:10 | ED NURSING NOTES ---
Clinical Report - Nurses [facility] [address] [place] [address] 07/28/2016 9:33 Patient: BELEM ALONSO TRIAGE Triage time 09:48 Jul 28 2016. Acuity: LEVEL 4. Chief Complaint: (Patient shaky and SOB, went to clinic last night but after a beer last night he still hasnt gotten better, she ususally drinks 3-5 drinks). SEPSIS SCREEN: Sepsis Screen. Negative (no infection suspected/documented). ASHISH COMA SCORE: Furman Coma Scale: 15- eyes open spontaneously (4); best verbal response- oriented x 4 (5); best motor response- obeys commands (6). --09:59 Loreto Duke R.N. 09:49 07/28/16. BP: 146/73 (regular adult cuff) taken on the left arm, while sitting. HR: 95. RR: 18. O2 saturation: 99% on room air. Temp: 98.3 F (temporal). Pain level now: 0/10. --09:59 Loreto Duke R.N. Weight: 72.5 kg stated. Height/Length: 71 inches Per Patient. BMI: 22.3. --09:58 Loreto Duke R.N. Medications None. --09:51 Loreto Duke R.N. Allergies None. --09:51 Loreto Duke R.N. History Arrived by private vehicle. Historian: friend and patient. Accompanied by family. Primary physician ([facility]). Onset. (last night 16oz beer). He has had difficulty breathing. ( Patient SOB right now with wheezes). 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 PAST MEDICAL HX: ( Alcoholism, asthma). SURGERY HX: No history of previous surgery. SOCIAL HX: Current every day heavy tobacco smoker- less than 1 pack per day. Heavy alcohol use; consumes beer. Patient smells of ETOH in the emergency department. No infectious disease exposure. ABUSE ASSESSMENT: No report of abuse. --09:59 Loreto Duke R.N. PROBLEMS: Depression. Pancreatitis. Alcohol Withdrawal. Asthma. --09:51 Loreto Duke R.N. ADDITIONAL SURGERIES: no known surgeries. Interventions ID band on patient. To treatment room. --09:59 Loreto Duke R.N. PHYSICAL ASSESSMENT Ambulatory to room. GENERAL / NEURO / PSYCH: Alert. Oriented X 4. HEENT: Pupils equal, round and reactive to light. No facial asymmetry noted. Mucous membranes are pink. RESPIRATORY: The patient can speak in full sentences. Chest nontender. Wheezing present. CVS: Capillary refill less than 2 seconds. Pulses within normal limits. GI / : Abdomen soft and nontender and normal bowel sounds. SKIN: Skin intact. Skin is warm. --10:00 Loreto Duke R.N. NURSING PROGRESS NOTES The plan of care for this patient has been created. Head of bed elevated. Reassurance given. Two patient identifiers checked. Call light placed in reach. Side rails up x 1. Bed placed in lowest position. Brakes of bed on. Patient ready for evaluation- chart flagged and ED physician notified. --10:00 Loreto Duke R.N. 10:18 07/28/2016 Site #1 started via IV in the right antecubital space with an 20g angiocath, with aseptic technique and good blood return; one attempt. Blood drawn: rainbow set. Labeled in the presence of the patient and sent to the lab. Saline lock flushed with 10 mL saline. --10:18 Loreto Duke R.N. 10:18 07/28/2016 Valium (Diazepam) IVP 5 mg given over 2 minute(s) via site #1. Allergies verified, confirmed 5 rights and sedative warning given to the patient. IV patency established. IV site checked: no pain, redness, or swelling. IV flushed thoroughly pre- and post-medication administration. IVP given by RN. --10:18 Loreto Duke R.N. 10:22 07/28/2016 Duoneb (Ipratropium-Albuterol) Neb TX Nebulizer 1 unit dose given. --10: Benjamín Gibson 10:52 07/28/2016 Started bag #1 1000 mL IV Fluids IV NS (Saline); at 1000 mL/hr over 1 hour(s) via site #1 via IV pump. Allergies verified and confirmed 5 rights. IV patency established. IV site checked: no pain, redness, or swelling. IV flushed thoroughly pre- and post-medication administration. --10:52 Loreto Duke R.N. 10:51 07/28/16. BP: 130/71 (regular adult cuff) taken on the left arm, while sitting. HR: 87. RR: 18 (regular). O2 saturation: 98% on room air. Pain level now: 010. --10:52 Loreto Duke R.N. ( patient visiting with friend who is at bedside keeping uchoose company). --10:52 Loreto Duke R.N. 10:54 07/28/2016 Valium IVP Response: no adverse reaction pain is improving. Symptoms have improved the patient feels better. --11:09 Loreto Duke R.N. 10:55 07/28/2016 Duoneb Neb TX Response: no adverse reaction pain is improving. Symptoms have improved the patient feels better. --11:10 Loreto Duke R.N. 11:08 07/28/16. Patient ID band checked for patient name and birthdate: patient confirmed. Clean catch urine collected; sample sent to lab. Specimen labeled in the presence of the patient. --11:08 Jazmín Pitts R.N. 11:45 07/28/16. BP: 152/85 (regular adult cuff) taken on the left arm, while sitting. HR: 80. RR: 18. O2 saturation: 99% on room air. Pain level now: 0/10. --11:46 Loreto Duke R.N. ( Patient up to use the restroom). --11:46 Loreto Duke R.N. 11:59 07/28/16. BP: 143/80 (regular adult cuff) taken on the left arm, while sitting. HR: 98. RR: 20 (regular). O2 saturation: 100% on room air. Pain level now: 0/10. --11:59 Loreto Duke R.N. 12:03 07/28/2016 IV Fluids IV NS Discontinued: bag #1 completed. Total amount infused: 1000 mL. IV patency established. IV site checked: no pain, redness, or swelling. IV flushed thoroughly. --12:03 Loreto Duke R.N. 12:22 07/28/2016 Prednisone PO Tablets 60 mg given. Allergies verified and confirmed 5 rights. --12:22 Loreto Duke R.N. DISPOSITION / DISCHARGE 12:31 07/28/2016 Site #1 removed upon discharge. Bandaid applied. --12:31 Loreto Duke R.N. Departure time: 12:35 Jul 28 2016. Condition at departure: improved. No learning barriers present. Discharge instructions provided and reviewed with the patient. Reviewed medication(s) side effects, precautions and dosing information. Prescription(s) given to the patient. Patient verbalized understanding. Written instructions provided in Slovenian. The patient was discharged by the physician. He was discharged home and accompanied by friend. He left the Emergency Department ambulatory and via private vehicle. Driving (friend). ( Patient has no further questions, he will be WC'd out because he still has some side effects from the Valium). --12:35 Loreto Duke R.N. 12:30 07/28/16. BP: 147/78 (regular adult cuff) taken on the right arm, while sitting. HR: 85. RR: 20 (regular). O2 saturation: 98% on room air. Temp: 98.2 F (temporal). Pain level now: 0/10. --12:35 Loreto Duke R.N. Locked/Released at 07/28/2016 18:43 by Loreto Duke R.N.
--- NOTE | 2016-07-28 12:10 | ED ORDER SUMMARY ---
..... 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) (09:59 07/28/2016 Laura Bolden) (Ack 10:03 KHoerner) (10:04 KHoerner) CBC w Diff Urgent (10:07/28/2016 Laura Bolden) (Ack 10:03 KHoerner) (10:20 JSanders R.N.) CMP Urgent (10:07/28/2016 Laura Bolden) (Ack 10:03 URBANOoerner) (10:20 JSanders R.N.) UA-Culture if indicated Urgent (10:07/28/2016 Laura Bolden) (Ack 10:03 URBANOoerner) (11:05 KHoerner) Lipase Urgent (10:07/28/2016 Laura Bolden) (Ack 10:03 URBANOoerner) (10:20 JSanders R.N.) Pulse oximeter (10:07/28/2016 Laura Bolden) (Ack 10:03 URBANOoerner) (10:04 KHoerner) MEDICATION ORDERS: DuoNeb Neb Tx 1 unit dose (NOW) (10:07/28/2016 Laura Bolden) (10:22 MNance) Prednisone PO 60 mg (NOW) (12:09 07/28/2016 Laura Bolden) (12:22 Beas R.N.) IV FLUIDS: Valium IV 5 mg (HIGH ALERT MEDICATION, NOW) (10:07/28/2016 Laura Bolden) (10:18 JSanders R.N.) IV NS with Multivitamin Concentrate Intravenous 1 amp/L: initial bolus 1000 mL (1000 mL/hr), then none - for X1 (NOW) (10:07/28/2016 Laura Bolden) (10:52 YRISanders R.N.) ORDER SHEET NOTES: [Electronically signed by Loreto Duke R.N. (18:43 07/28/2016)] [Electronically signed by Belem Estes Dr. (11:58 07/30/2016)] [Electronically locked/signed by Loreto Duke R.N. (18:43 07/28/2016)]
--- NOTE | 2016-07-28 12:10 | ED ORDER SUMMARY ---
..... 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) (09:59 07/28/2016 Laura Bolden) (Ack 10:03 KHoerner) (10:04 KHoerner) CBC w Diff Urgent (10:07/28/2016 Laura Bolden) (Ack 10:03 KHoerner) (10:20 JSanders R.N.) CMP Urgent (10:07/28/2016 Laura Bolden) (Ack 10:03 URBANOoerner) (10:20 JSanders R.N.) UA-Culture if indicated Urgent (10:07/28/2016 Laura Bolden) (Ack 10:03 URBANOoerner) (11:05 KHoerner) Lipase Urgent (10:07/28/2016 Laura Bolden) (Ack 10:03 URBANOoerner) (10:20 JSanders R.N.) Pulse oximeter (10:07/28/2016 Laura Bolden) (Ack 10:03 URBANOoerner) (10:04 KHoerner) MEDICATION ORDERS: DuoNeb Neb Tx 1 unit dose (NOW) (10:07/28/2016 Laura Bolden) (10:22 MNance) Prednisone PO 60 mg (NOW) (12:09 07/28/2016 Laura Bolden) (12:22 Beas R.N.) IV FLUIDS: Valium IV 5 mg (HIGH ALERT MEDICATION, NOW) (10:07/28/2016 Laura Bolden) (10:18 JSanders R.N.) IV NS with Multivitamin Concentrate Intravenous 1 amp/L: initial bolus 1000 mL (1000 mL/hr), then none - for X1 (NOW) (10:07/28/2016 Laura Bolden) (10:52 YRISanders R.N.) ORDER SHEET NOTES: [Electronically signed by Loreto Duke R.N. (18:43 07/28/2016)] [Electronically signed by Belem Estes Dr. (11:58 07/30/2016)] [Electronically locked/signed by Loreto Duke R.N. (18:43 07/28/2016)]
--- NOTE | 2016-07-30 11:58 | ED MED RECONCILIATION SUMMARY ---
Patient: BELEM ALONSO Medication Reconciliation Report [facility] VisitID: [id number] [place] [address] 75y, M Registration Date/Time: 07/28/2016 Weight: 72.5 kg Height/Length: 71 in. BMI: 22.3 ALLERGIES: None The patient's Home Medications are listed below: NONE. The source(s) of the original Home Medication information: Not obtained. The following Medications were given to the patient in the Emergency Department: Valium [IVP] IVP 5 mg, administered: 07/28/2016 10:18:00 AM Duoneb [Neb Tx] Neb TX 1 unit dose, administered: 07/28/2016 10:22:00 AM IV NS IV Fluids bolus 0, then 1000 mL/hr, administered: 07/28/2016 10:52:00 AM Prednisone [PO] PO 60 mg, administered: 07/28/2016 12:22:00 PM The following Medications were prescribed to the patient: Albuterol HFA oral inhaler: inhale 1-2 puffs via spacer every 4 hours as needed for wheezing, difficulty breathing or shortness of breath. No refill. -- Belem Estes Dr. Albuterol 0.083% Inhalation Solution: inhale 1 unit dose (3 mL) via nebulizer every 4 hours as needed for wheezing, difficulty breathing or shortness of breath. Dispense fifty (50) units. No refill. -- Belem Estes Dr. Prednisone 50 mg: take 1 orally every day. Dispense five (5). No refills. -- Belem Estes Dr.
--- NOTE | 2016-07-30 11:58 | ED DISCHARGE INSTRUCTIONS ---
Patient: BELEM ALONSO General Instructions [facility] VisitID: [id number] [place] [address] 75y, M Registration Date/Time: 07/28/2016 07/28/2016 09:49 BP: 146/73. HR: 95. RR: 18. O2 saturation: 99%. Temp: 98.3 F. Pain level now: 0/10. Blood pressure normal. Oxygen saturation normal. Mild persistent asthma with an acute exacerbation (acute). Pancreatitis (subacute, resolving). Substance abuse- alcohol with anxiety (withdrawal). (Medication refill for history of asthma). INSTRUCTIONS Warnings: GENERAL WARNINGS: Return or contact your physician immediately if your condition worsens or changes unexpectedly, if not improving as expected, or if other problems arise. Specifically return if pain, vomiting, bleeding, breathing difficulty or fever. Your Current Medications: CONTINUE TAKING THE FOLLOWING MEDICATIONS: None*. Prescription Medications: Albuterol HFA oral inhaler: inhale 1-2 puffs via spacer every 4 hours as needed for wheezing, difficulty breathing or shortness of breath. No refill. Albuterol 0.083% Inhalation Solution: inhale 1 unit dose (3 mL) via nebulizer every 4 hours as needed for wheezing, difficulty breathing or shortness of breath. Dispense fifty (50) units. No refill. Prednisone 50 mg: take 1 orally every day. Dispense five (5). No refills. Follow-up: Return to the emergency department as needed. Follow up with your doctor in three days. Reason for referral: recheck today's concerns. Summary of care provided to patient via paper. Screening today revealed the patient's blood pressure to be in the normal range. The patient should follow up with a primary care provider for blood pressure management. Understanding of the discharge instructions verbalized by patient. ADDITIONAL INFORMATION Alcohol Withdrawal Alcohol withdrawal symptoms occur if you have been drinking steadily for at least several days, and your body gets used to the effect of alcohol. When you suddenly stop drinking (or, even just cut down your daily intake but continue to drink), you may develop alcohol withdrawal, also called the The usual symptoms last 3-4 days and include nervousness, shakiness, nausea, sweating, sleeplessness. In severe cases hallucinations (seeing things that are not there) and seizures can occur. Home Care: You will need plenty of rest and fluids over the next several days. Eat regular meals. Of course, do not drink any more alcohol. During this time, it is best that you stay with family or friends who can help and support you. You can also admit yourself to a residential detox program. Do not drive until all symptoms are gone and you are feeling better. If you were given sedative medication to reduce your symptoms, do not take it more often than prescribed and never take it with alcohol. Follow Up: Once you have gone through the withdrawal symptoms, you have fought half of the luna. To avoid the risk of returning to your previous drinking pattern, it is essential that you get follow-up support and treatment. Alcoholics Anonymous offers support through a self-help fellowship. There are no dues or fees. See the Yellow Pages and call for time and place of meetings. www.aa.org [facility] offers support to families of alcohol users. 332.598.1604 www.al-anon.org [employer] [place] [employer] Alcoholism And Drug Dependence 620-664-9834 www.ncadd.org Residential alcohol detox programs are available. Check the Yellow Pages under Drug Abuse & Treatment Centers. Get Prompt Medical Attention if any of the following occur: Severe shakiness Hallucinations Seizure Fever over 100.5 F (38.0 C) oral Headache, confusion, extreme drowsiness, inability to awaken Increasing upper abdominal pain Repeated vomiting or vomiting blood Asthma [Adult] Asthma is a disease where the small air passages within the lung go into spasm and restrict the flow of air. Inflammation and swelling of the airways cause further restriction. During an acute asthma attack, these factors cause difficulty breathing, wheezing, cough and chest tightness. An asthma attack can be triggered by many things. Common triggers include the common cold, bronchitis, pneumonia, irritants such as smoke or pullutants in the air, emotional upset and heavy exercise. Inmany adults with asthma, allergies todust, mold, pollen and animal dander can cause an asthma attack. Skipping doses of daily asthma medicine can also bring on an asthma attack. Asthma can be controlled with proper medicines and decreased exposure to known allergens. Home Care: Take prescribed medicine exactly at the times advised. If you have a hand-held inhaler or aerosol breathing medicine, do not use it more than once every four hours, unless told to do so. (If you need this medicine more than every four hours, you may need to return to the Emergency Room.) If prescribed an antibiotic or prednisone, take all of the medicine even if you are feeling better after a few days. Do not smoke. Avoid being exposed to the smoke of others. Some persons with asthma have worsening of their symptoms when they take aspirin and non-steroidal medicines like ibuprofen (Motrin, Advil) and naproxen (Aleve, Naprosyn). Talk to your doctor if you think this may apply to you. Acetaminophen (Tylenol)should be safe to use. Follow Up with your doctor, or as advised by our staff. Always bring all of your current medicines with you for your doctor to see. If you do not already have one, talk to your doctor about developing a personalized "Asthma Action Plan." [NOTE: A pneumococcal vaccine and yearly flu shot (every fall) are recommended. Ask your doctor about this.] Get Prompt Medical Attention if any of the following occur: Increased wheezing or shortness of breath Need to use your inhalers more often than usual without relief Fever of 100.4F (38C) or higher, or as directed by your healthcare provider Coughing up lots of dark-colored or bloody sputum (mucus) Chest pain with each breath You do not start to improve within 24 hours Call 911 If Any Of The Following Occur : Trouble walking or talking because of shortness of breath If you use a peak flow meter andyou are still in the red zone (less than 50 percent) 15 minutes after using inhaler medication Lips or fingernails turning godoy or blue Pancreatitis The pancreas is an organ in the left upper abdomen that secretes digestive juices into the stomach. Pancreatitis is an inflammation of the pancreas. This may occur for various causes including heavy alcohol use, gall stone blockage of the outflow duct from the pancreas, certain medicines and viral illness. Sometimes the cause of pancreatitis cannot be found. Moderate to severe illness requires being treated in the hospital. Milder attacks of pancreatitis can be treated at home. Home Care: 1) Absolutely NO ALCOHOL. 2) Rest in bed or sit up in a chair until you feel better. 3) Eat small more frequent meals rather than a few large meals each day. 4) Follow a high protein, high carbohydrate, low fat diet. 5) If you were given medicine for pain or vomiting, take it as prescribed. Follow Up with your doctor or as directed by our staff for further evaluation. Get Prompt Medical Attention if any of the following occur: -- Continued or worsening pain in the abdomen -- Repeated vomiting: unable to keep down liquids -- Dizziness, weakness or fainting -- Vomiting blood or blood in the stool (black or red color) -- Fever over 100.4 F (38.0 C) -- Severe muscle cramps or seizure -- Trouble breathing or fast breathing (over 25 breaths/minute) -- Jaundice (yellow color of the skin or eyes) Albuterol Sulfate Pressurized inhalation, suspension What is this medicine? ALBUTEROL (al BYOO ter ole) is a bronchodilator. It helps open up the airways in your lungs to make it easier to breathe. This medicine is used to treat and to prevent bronchospasm. How should I use this medicine? This medicine is for inhalation through the mouth. Follow the directions on your prescription label. Take your medicine at regular intervals. Do not use more often than directed. Make sure that you are using your inhaler correctly. Ask you doctor or health care provider if you have any questions. Talk to your passenger tire builder regarding the use of this medicine in children. Special care may be needed. What side effects may I notice from receiving this medicine? Side effects that you should report to your doctor or health team primary care physician as soon as possible: allergic reactions like skin rash, itching or hives, swelling of the face, lips, or tongue breathing problems chest pain feeling faint or lightheaded, falls high blood pressure irregular heartbeat fever muscle cramps or weakness pain, tingling, numbness in the hands or feet vomiting Side effects that usually do not require medical attention (report to your doctor or health team primary care physician if they continue or are bothersome): cough difficulty sleeping headache nervousness or trembling stomach upset stuffy or runny nose throat irritation unusual taste What may interact with this medicine? anti-infectives like chloroquine and pentamidine caffeine cisapride diuretics medicines for colds medicines for depression or for emotional or psychotic conditions medicines for weight loss including some herbal products methadone some antibiotics like clarithromycin, erythromycin, levofloxacin, and linezolid some heart medicines steroid hormones like dexamethasone, cortisone, hydrocortisone theophylline thyroid hormones What if I miss a dose? If you miss a dose, use it as soon as you can. If it is almost time for your next dose, use only that dose. Do not use double or extra doses. Where should I keep my medicine? Keep out of the reach of children. Store at room temperature between 15 and 30 degrees C (59 and 86 degrees F). The contents are under pressure and may burst when exposed to heat or flame. Do not freeze. This medicine does not work as well if it is too cold. Throw away any unused medicine after the expiration date. Inhalers need to be thrown away after the labeled number of puffs have been used or by the expiration date; whichever comes first. Ventolin HFA should be thrown away 12 months after removing from foil pouch. Check the instructions that come with your medicine. What should I tell my health care provider before I take this medicine? They need to know if you have any of the following conditions: diabetes heart disease or irregular heartbeat high blood pressure pheochromocytoma seizures thyroid disease an unusual or allergic reaction to albuterol, levalbuterol, sulfites, other medicines, foods, dyes, or preservatives or trying to get breast-feeding What should I watch for while using this medicine? Tell your doctor or health team primary care physician if your symptoms do not improve. Do not use extra albuterol. If your asthma or bronchitis gets worse while you are using this medicine, call your doctor right away. If your mouth gets dry try chewing sugarless gum or sucking hard candy. Drink water as directed. Albuterol Sulfate Nebulizer solution What is this medicine? ALBUTEROL (al BYOO ter ole) is a bronchodilator. It helps to open up the airways in your lungs to make it easier to breathe. This medicine is used to treat and to prevent bronchospasm. How should I use this medicine? This medicine is used in a nebulizer. Nebulizers make a liquid into an aerosol that you breathe in through your mouth or your mouth and nose into your lungs. You will be taught how to use your nebulizer. Follow the directions on your prescription label. Take your medicine at regular intervals. Do not use more often than directed. Talk to your passenger tire builder regarding the use of this medicine in children. Special care may be needed. What side effects may I notice from receiving this medicine? Side effects that you should report to your doctor or health team primary care physician as soon as possible: allergic reactions like skin rash, itching or hives, swelling of the face, lips, or tongue breathing problems chest pain feeling faint or lightheaded, falls high blood pressure irregular heartbeat fever muscle cramps or weakness pain, tingling, numbness in the hands or feet vomiting Side effects that usually do not require medical attention (report to your doctor or health team primary care physician if they continue or are bothersome): cough difficulty sleeping headache nervousness, trembling stomach upset stuffy or runny nose throat irritation unusual taste What may interact with this medicine? anti-infectives like chloroquine and pentamidine caffeine cisapride diuretics medicines for colds medicines for depression or emotional or psychotic conditions medicines for weight loss including some herbal products methadone some antibiotics like clarithromycin, erythromycin, levofloxacin, and linezolid some heart medicines steroid hormones like dexamethasone, cortisone, hydrocortisone theophylline thyroid hormones What if I miss a dose? If you miss a dose, use it as soon as you can. If it is almost time for your next dose, use only that dose. Do not use double or extra doses. Where should I keep my medicine? Keep out of the reach of children. Store between 2 and 25 degrees C (36 and 77 degrees F). Do not freeze. Protect from light. Throw away any unused medicine after the expiration date. Most products are kept in the foil package until time of use. Some products can be used up to 1 week after they are removed from the foil pouch. Check the instructions that come with your medicine. What should I tell my health care provider before I take this medicine? They need to know if you have any of the following conditions: diabetes heart disease or irregular heartbeat high blood pressure pheochromocytoma seizures thyroid disease an unusual or allergic reaction to albuterol, levalbuterol, sulfites, other medicines, foods, dyes, or preservatives or trying to get breast-feeding What should I watch for while using this medicine? Tell your doctor or health team primary care physician if your symptoms do not improve. Do not use extra albuterol. Call your doctor right away if your asthma or bronchitis gets worse while you are using this medicine. If your mouth gets dry try chewing sugarless gum or sucking hard candy. Drink water as directed. Prednisone Oral tablet What is this medicine? PREDNISONE (PRED ni sone) is a corticosteroid. It is commonly used to treat inflammation of the skin, joints, lungs, and other organs. Common conditions treated include asthma, allergies, and arthritis. It is also used for other conditions, such as blood disorders and diseases of the adrenal glands. How should I use this medicine? Take this medicine by mouth with a glass of water. Follow the directions on the prescription label. Take this medicine with food. If you are taking this medicine once a day, take it in the morning. Do not take more medicine than you are told to take. Do not suddenly stop taking your medicine because you may develop a severe reaction. Your doctor will tell you how much medicine to take. If your doctor wants you to stop the medicine, the dose may be slowly lowered over time to avoid any side effects. Talk to your passenger tire builder regarding the use of this medicine in children. Special care may be needed. What side effects may I notice from receiving this medicine? Side effects that you should report to your doctor or health team primary care physician as soon as possible: allergic reactions like skin rash, itching or hives, swelling of the face, lips, or tongue changes in emotions or moods changes in vision depressed mood eye pain fever or chills, cough, sore throat, pain or difficulty passing urine increased thirst swelling of ankles, feet Side effects that usually do not require medical attention (report to your doctor or health team primary care physician if they continue or are bothersome): confusion, excitement, restlessness headache nausea, vomiting skin problems, acne, thin and shiny skin trouble sleeping weight gain What may interact with this medicine? Do not take this medicine with any of the following medications: metyrapone mifepristone This medicine may also interact with the following medications: aminoglutethimide amphotericin B aspirin and aspirin-like medicines barbiturates certain medicines for diabetes, like glipizide or glyburide cholestyramine cholinesterase inhibitors cyclosporine digoxin diuretics ephedrine female hormones, like estrogens and control pills isoniazid ketoconazole NSAIDS, medicines for pain and inflammation, like ibuprofen or naproxen phenytoin rifampin toxoids vaccines warfarin What if I miss a dose? If you miss a dose, take it as soon as you can. If it is almost time for your next dose, talk to your doctor or health team primary care physician. You may need to miss a dose or take an extra dose. Do not take double or extra doses without advice. Where should I keep my medicine? Keep out of the reach of children. Store at room temperature between 15 and 30 degrees C (59 and 86 degrees F). Protect from light. Keep container tightly closed. Throw away any unused medicine after the expiration date. What should I tell my health care provider before I take this medicine? They need to know if you have any of these conditions: Ravin's syndrome diabetes glaucoma heart disease high blood pressure infection (especially a virus infection such as chickenpox, cold sores, or herpes) kidney disease liver disease mental illness myasthenia gravis osteoporosis seizures stomach or intestine problems thyroid disease an unusual or allergic reaction to lactose, prednisone, other medicines, foods, dyes, or preservatives or trying to get breast-feeding What should I watch for while using this medicine? Visit your doctor or health team primary care physician for regular checks on your progress. If you are taking this medicine over a prolonged period, carry an identification card with your name and address, the type and dose of your medicine, and your doctor's name and address. This medicine may increase your risk of getting an infection. Tell your doctor or health team primary care physician if you are around anyone with measles or chickenpox, or if you develop sores or blisters that do not heal properly. If you are going to have surgery, tell your doctor or health team primary care physician that you have taken this medicine within the last twelve months. Ask your doctor or health team primary care physician about your diet. You may need to lower the amount of salt you eat. This medicine may affect blood sugar levels. If you have diabetes, check with your doctor or health team primary care physician before you change your diet or the dose of your diabetic medicine. You have been given the following additional information: Alcohol Withdrawal Asthma, Acute (Adult) Pancreatitis Albuterol Sulfate Pressurized inhalation, suspension Albuterol Sulfate Nebulizer solution Prednisone Oral tablet (Electronically signed by Belem Estes Dr. 07/30/2016 11:58)
--- NOTE | 2016-07-30 11:58 | ED MED RECONCILIATION SUMMARY ---
Patient: BELEM ALONSO Medication Reconciliation Report [facility] VisitID: [id number] [place] [address] 75y, M Registration Date/Time: 07/28/2016 Weight: 72.5 kg Height/Length: 71 in. BMI: 22.3 ALLERGIES: None The patient's Home Medications are listed below: NONE. The source(s) of the original Home Medication information: Not obtained. The following Medications were given to the patient in the Emergency Department: Valium [IVP] IVP 5 mg, administered: 07/28/2016 10:18:00 AM Duoneb [Neb Tx] Neb TX 1 unit dose, administered: 07/28/2016 10:22:00 AM IV NS IV Fluids bolus 0, then 1000 mL/hr, administered: 07/28/2016 10:52:00 AM Prednisone [PO] PO 60 mg, administered: 07/28/2016 12:22:00 PM The following Medications were prescribed to the patient: Albuterol HFA oral inhaler: inhale 1-2 puffs via spacer every 4 hours as needed for wheezing, difficulty breathing or shortness of breath. No refill. -- Belem Estes Dr. Albuterol 0.083% Inhalation Solution: inhale 1 unit dose (3 mL) via nebulizer every 4 hours as needed for wheezing, difficulty breathing or shortness of breath. Dispense fifty (50) units. No refill. -- Belem Estes Dr. Prednisone 50 mg: take 1 orally every day. Dispense five (5). No refills. -- Belem Estes Dr.
--- NOTE | 2016-07-30 11:58 | ED DISCHARGE INSTRUCTIONS ---
Patient: BELEM ALONSO General Instructions [facility] VisitID: [id number] [place] [address] 75y, M Registration Date/Time: 07/28/2016 07/28/2016 09:49 BP: 146/73. HR: 95. RR: 18. O2 saturation: 99%. Temp: 98.3 F. Pain level now: 0/10. Blood pressure normal. Oxygen saturation normal. Mild persistent asthma with an acute exacerbation (acute). Pancreatitis (subacute, resolving). Substance abuse- alcohol with anxiety (withdrawal). (Medication refill for history of asthma). INSTRUCTIONS Warnings: GENERAL WARNINGS: Return or contact your physician immediately if your condition worsens or changes unexpectedly, if not improving as expected, or if other problems arise. Specifically return if pain, vomiting, bleeding, breathing difficulty or fever. Your Current Medications: CONTINUE TAKING THE FOLLOWING MEDICATIONS: None*. Prescription Medications: Albuterol HFA oral inhaler: inhale 1-2 puffs via spacer every 4 hours as needed for wheezing, difficulty breathing or shortness of breath. No refill. Albuterol 0.083% Inhalation Solution: inhale 1 unit dose (3 mL) via nebulizer every 4 hours as needed for wheezing, difficulty breathing or shortness of breath. Dispense fifty (50) units. No refill. Prednisone 50 mg: take 1 orally every day. Dispense five (5). No refills. Follow-up: Return to the emergency department as needed. Follow up with your doctor in three days. Reason for referral: recheck today's concerns. Summary of care provided to patient via paper. Screening today revealed the patient's blood pressure to be in the normal range. The patient should follow up with a primary care provider for blood pressure management. Understanding of the discharge instructions verbalized by patient. ADDITIONAL INFORMATION Alcohol Withdrawal Alcohol withdrawal symptoms occur if you have been drinking steadily for at least several days, and your body gets used to the effect of alcohol. When you suddenly stop drinking (or, even just cut down your daily intake but continue to drink), you may develop alcohol withdrawal, also called the The usual symptoms last 3-4 days and include nervousness, shakiness, nausea, sweating, sleeplessness. In severe cases hallucinations (seeing things that are not there) and seizures can occur. Home Care: You will need plenty of rest and fluids over the next several days. Eat regular meals. Of course, do not drink any more alcohol. During this time, it is best that you stay with family or friends who can help and support you. You can also admit yourself to a residential detox program. Do not drive until all symptoms are gone and you are feeling better. If you were given sedative medication to reduce your symptoms, do not take it more often than prescribed and never take it with alcohol. Follow Up: Once you have gone through the withdrawal symptoms, you have fought half of the luna. To avoid the risk of returning to your previous drinking pattern, it is essential that you get follow-up support and treatment. Alcoholics Anonymous offers support through a self-help fellowship. There are no dues or fees. See the Yellow Pages and call for time and place of meetings. www.aa.org [place] offers support to families of alcohol users. 265.433.2458 www.al-anon.org [employer] [place] On Alcoholism And Drug Dependence 306-504-8784 www.ncadd.org Residential alcohol detox programs are available. Check the Yellow Pages under Drug Abuse & Treatment Centers. Get Prompt Medical Attention if any of the following occur: Severe shakiness Hallucinations Seizure Fever over 100.5 F (38.0 C) oral Headache, confusion, extreme drowsiness, inability to awaken Increasing upper abdominal pain Repeated vomiting or vomiting blood Asthma [Adult] Asthma is a disease where the small air passages within the lung go into spasm and restrict the flow of air. Inflammation and swelling of the airways cause further restriction. During an acute asthma attack, these factors cause difficulty breathing, wheezing, cough and chest tightness. An asthma attack can be triggered by many things. Common triggers include the common cold, bronchitis, pneumonia, irritants such as smoke or pullutants in the air, emotional upset and heavy exercise. Inmany adults with asthma, allergies todust, mold, pollen and animal dander can cause an asthma attack. Skipping doses of daily asthma medicine can also bring on an asthma attack. Asthma can be controlled with proper medicines and decreased exposure to known allergens. Home Care: Take prescribed medicine exactly at the times advised. If you have a hand-held inhaler or aerosol breathing medicine, do not use it more than once every four hours, unless told to do so. (If you need this medicine more than every four hours, you may need to return to the Emergency Room.) If prescribed an antibiotic or prednisone, take all of the medicine even if you are feeling better after a few days. Do not smoke. Avoid being exposed to the smoke of others. Some persons with asthma have worsening of their symptoms when they take aspirin and non-steroidal medicines like ibuprofen (Motrin, Advil) and naproxen (Aleve, Naprosyn). Talk to your doctor if you think this may apply to you. Acetaminophen (Tylenol)should be safe to use. Follow Up with your doctor, or as advised by our staff. Always bring all of your current medicines with you for your doctor to see. If you do not already have one, talk to your doctor about developing a personalized "Asthma Action Plan." [NOTE: A pneumococcal vaccine and yearly flu shot (every fall) are recommended. Ask your doctor about this.] Get Prompt Medical Attention if any of the following occur: Increased wheezing or shortness of breath Need to use your inhalers more often than usual without relief Fever of 100.4F (38C) or higher, or as directed by your healthcare provider Coughing up lots of dark-colored or bloody sputum (mucus) Chest pain with each breath You do not start to improve within 24 hours Call 911 If Any Of The Following Occur : Trouble walking or talking because of shortness of breath If you use a peak flow meter andyou are still in the red zone (less than 50 percent) 15 minutes after using inhaler medication Lips or fingernails turning godoy or blue Pancreatitis The pancreas is an organ in the left upper abdomen that secretes digestive juices into the stomach. Pancreatitis is an inflammation of the pancreas. This may occur for various causes including heavy alcohol use, gall stone blockage of the outflow duct from the pancreas, certain medicines and viral illness. Sometimes the cause of pancreatitis cannot be found. Moderate to severe illness requires being treated in the hospital. Milder attacks of pancreatitis can be treated at home. Home Care: 1) Absolutely NO ALCOHOL. 2) Rest in bed or sit up in a chair until you feel better. 3) Eat small more frequent meals rather than a few large meals each day. 4) Follow a high protein, high carbohydrate, low fat diet. 5) If you were given medicine for pain or vomiting, take it as prescribed. Follow Up with your doctor or as directed by our staff for further evaluation. Get Prompt Medical Attention if any of the following occur: -- Continued or worsening pain in the abdomen -- Repeated vomiting: unable to keep down liquids -- Dizziness, weakness or fainting -- Vomiting blood or blood in the stool (black or red color) -- Fever over 100.4 F (38.0 C) -- Severe muscle cramps or seizure -- Trouble breathing or fast breathing (over 25 breaths/minute) -- Jaundice (yellow color of the skin or eyes) Albuterol Sulfate Pressurized inhalation, suspension What is this medicine? ALBUTEROL (al BYOO ter ole) is a bronchodilator. It helps open up the airways in your lungs to make it easier to breathe. This medicine is used to treat and to prevent bronchospasm. How should I use this medicine? This medicine is for inhalation through the mouth. Follow the directions on your prescription label. Take your medicine at regular intervals. Do not use more often than directed. Make sure that you are using your inhaler correctly. Ask you doctor or health care provider if you have any questions. Talk to your personal fitness manager regarding the use of this medicine in children. Special care may be needed. What side effects may I notice from receiving this medicine? Side effects that you should report to your doctor or health home care giver as soon as possible: allergic reactions like skin rash, itching or hives, swelling of the face, lips, or tongue breathing problems chest pain feeling faint or lightheaded, falls high blood pressure irregular heartbeat fever muscle cramps or weakness pain, tingling, numbness in the hands or feet vomiting Side effects that usually do not require medical attention (report to your doctor or health home care giver if they continue or are bothersome): cough difficulty sleeping headache nervousness or trembling stomach upset stuffy or runny nose throat irritation unusual taste What may interact with this medicine? anti-infectives like chloroquine and pentamidine caffeine cisapride diuretics medicines for colds medicines for depression or for emotional or psychotic conditions medicines for weight loss including some herbal products methadone some antibiotics like clarithromycin, erythromycin, levofloxacin, and linezolid some heart medicines steroid hormones like dexamethasone, cortisone, hydrocortisone theophylline thyroid hormones What if I miss a dose? If you miss a dose, use it as soon as you can. If it is almost time for your next dose, use only that dose. Do not use double or extra doses. Where should I keep my medicine? Keep out of the reach of children. Store at room temperature between 15 and 30 degrees C (59 and 86 degrees F). The contents are under pressure and may burst when exposed to heat or flame. Do not freeze. This medicine does not work as well if it is too cold. Throw away any unused medicine after the expiration date. Inhalers need to be thrown away after the labeled number of puffs have been used or by the expiration date; whichever comes first. Ventolin HFA should be thrown away 12 months after removing from foil pouch. Check the instructions that come with your medicine. What should I tell my health care provider before I take this medicine? They need to know if you have any of the following conditions: diabetes heart disease or irregular heartbeat high blood pressure pheochromocytoma seizures thyroid disease an unusual or allergic reaction to albuterol, levalbuterol, sulfites, other medicines, foods, dyes, or preservatives or trying to get breast-feeding What should I watch for while using this medicine? Tell your doctor or health home care giver if your symptoms do not improve. Do not use extra albuterol. If your asthma or bronchitis gets worse while you are using this medicine, call your doctor right away. If your mouth gets dry try chewing sugarless gum or sucking hard candy. Drink water as directed. Albuterol Sulfate Nebulizer solution What is this medicine? ALBUTEROL (al BYOO ter ole) is a bronchodilator. It helps to open up the airways in your lungs to make it easier to breathe. This medicine is used to treat and to prevent bronchospasm. How should I use this medicine? This medicine is used in a nebulizer. Nebulizers make a liquid into an aerosol that you breathe in through your mouth or your mouth and nose into your lungs. You will be taught how to use your nebulizer. Follow the directions on your prescription label. Take your medicine at regular intervals. Do not use more often than directed. Talk to your personal fitness manager regarding the use of this medicine in children. Special care may be needed. What side effects may I notice from receiving this medicine? Side effects that you should report to your doctor or health home care giver as soon as possible: allergic reactions like skin rash, itching or hives, swelling of the face, lips, or tongue breathing problems chest pain feeling faint or lightheaded, falls high blood pressure irregular heartbeat fever muscle cramps or weakness pain, tingling, numbness in the hands or feet vomiting Side effects that usually do not require medical attention (report to your doctor or health home care giver if they continue or are bothersome): cough difficulty sleeping headache nervousness, trembling stomach upset stuffy or runny nose throat irritation unusual taste What may interact with this medicine? anti-infectives like chloroquine and pentamidine caffeine cisapride diuretics medicines for colds medicines for depression or emotional or psychotic conditions medicines for weight loss including some herbal products methadone some antibiotics like clarithromycin, erythromycin, levofloxacin, and linezolid some heart medicines steroid hormones like dexamethasone, cortisone, hydrocortisone theophylline thyroid hormones What if I miss a dose? If you miss a dose, use it as soon as you can. If it is almost time for your next dose, use only that dose. Do not use double or extra doses. Where should I keep my medicine? Keep out of the reach of children. Store between 2 and 25 degrees C (36 and 77 degrees F). Do not freeze. Protect from light. Throw away any unused medicine after the expiration date. Most products are kept in the foil package until time of use. Some products can be used up to 1 week after they are removed from the foil pouch. Check the instructions that come with your medicine. What should I tell my health care provider before I take this medicine? They need to know if you have any of the following conditions: diabetes heart disease or irregular heartbeat high blood pressure pheochromocytoma seizures thyroid disease an unusual or allergic reaction to albuterol, levalbuterol, sulfites, other medicines, foods, dyes, or preservatives or trying to get breast-feeding What should I watch for while using this medicine? Tell your doctor or health home care giver if your symptoms do not improve. Do not use extra albuterol. Call your doctor right away if your asthma or bronchitis gets worse while you are using this medicine. If your mouth gets dry try chewing sugarless gum or sucking hard candy. Drink water as directed. Prednisone Oral tablet What is this medicine? PREDNISONE (PRED ni sone) is a corticosteroid. It is commonly used to treat inflammation of the skin, joints, lungs, and other organs. Common conditions treated include asthma, allergies, and arthritis. It is also used for other conditions, such as blood disorders and diseases of the adrenal glands. How should I use this medicine? Take this medicine by mouth with a glass of water. Follow the directions on the prescription label. Take this medicine with food. If you are taking this medicine once a day, take it in the morning. Do not take more medicine than you are told to take. Do not suddenly stop taking your medicine because you may develop a severe reaction. Your doctor will tell you how much medicine to take. If your doctor wants you to stop the medicine, the dose may be slowly lowered over time to avoid any side effects. Talk to your personal fitness manager regarding the use of this medicine in children. Special care may be needed. What side effects may I notice from receiving this medicine? Side effects that you should report to your doctor or health home care giver as soon as possible: allergic reactions like skin rash, itching or hives, swelling of the face, lips, or tongue changes in emotions or moods changes in vision depressed mood eye pain fever or chills, cough, sore throat, pain or difficulty passing urine increased thirst swelling of ankles, feet Side effects that usually do not require medical attention (report to your doctor or health home care giver if they continue or are bothersome): confusion, excitement, restlessness headache nausea, vomiting skin problems, acne, thin and shiny skin trouble sleeping weight gain What may interact with this medicine? Do not take this medicine with any of the following medications: metyrapone mifepristone This medicine may also interact with the following medications: aminoglutethimide amphotericin B aspirin and aspirin-like medicines barbiturates certain medicines for diabetes, like glipizide or glyburide cholestyramine cholinesterase inhibitors cyclosporine digoxin diuretics ephedrine female hormones, like estrogens and control pills isoniazid ketoconazole NSAIDS, medicines for pain and inflammation, like ibuprofen or naproxen phenytoin rifampin toxoids vaccines warfarin What if I miss a dose? If you miss a dose, take it as soon as you can. If it is almost time for your next dose, talk to your doctor or health home care giver. You may need to miss a dose or take an extra dose. Do not take double or extra doses without advice. Where should I keep my medicine? Keep out of the reach of children. Store at room temperature between 15 and 30 degrees C (59 and 86 degrees F). Protect from light. Keep container tightly closed. Throw away any unused medicine after the expiration date. What should I tell my health care provider before I take this medicine? They need to know if you have any of these conditions: Ravin's syndrome diabetes glaucoma heart disease high blood pressure infection (especially a virus infection such as chickenpox, cold sores, or herpes) kidney disease liver disease mental illness myasthenia gravis osteoporosis seizures stomach or intestine problems thyroid disease an unusual or allergic reaction to lactose, prednisone, other medicines, foods, dyes, or preservatives or trying to get breast-feeding What should I watch for while using this medicine? Visit your doctor or health home care giver for regular checks on your progress. If you are taking this medicine over a prolonged period, carry an identification card with your name and address, the type and dose of your medicine, and your doctor's name and address. This medicine may increase your risk of getting an infection. Tell your doctor or health home care giver if you are around anyone with measles or chickenpox, or if you develop sores or blisters that do not heal properly. If you are going to have surgery, tell your doctor or health home care giver that you have taken this medicine within the last twelve months. Ask your doctor or health home care giver about your diet. You may need to lower the amount of salt you eat. This medicine may affect blood sugar levels. If you have diabetes, check with your doctor or health home care giver before you change your diet or the dose of your diabetic medicine. You have been given the following additional information: Alcohol Withdrawal Asthma, Acute (Adult) Pancreatitis Albuterol Sulfate Pressurized inhalation, suspension Albuterol Sulfate Nebulizer solution Prednisone Oral tablet (Electronically signed by Belem Estes Dr. 07/30/2016 11:58)
--- NOTE | 2016-07-30 11:58 | ED MAR SUMMARY ---
..... Medication Administration Record [facility] [address] [place] [address] Patient: BELEM ALONSO Visit ID: [id number] 75y, M Weight: 72.5 kg Height/Length: 71 in BMI: 22.3 ALLERGIES: None Given 10:18 07/28/2016 Loreto Duke R.N. Medication Administered: VALIUM [IVP] (DIAZEPAM), Dose: 5 mg IVP over 2 minute(s), Site: #1 right AC. Medication Ordered: Valium IV 5 mg (HIGH ALERT MEDICATION, NOW). Given 10:22 07/28/2016 Benjamín Gibson, Medication Administered: DUONEB [NEB TX] (IPRATROPIUM-ALBUTEROL), Dose: 1 unit dose Nebulizer Neb TX. Medication Ordered: DuoNeb Neb Tx 1 unit dose (NOW). Start 10:52 07/28/2016 Loreto Duke R.N., Stop 12:03 07/28/2016 Loreto Duke R.N. Medication Administered: IV NS (SALINE), Dose: IV Fluids over 1 hour(s), Rate: 1000 mL/hr, Dispensed: 1000 mL bag, Site: #1 right AC. Medication Ordered: IV NS with Multivitamin Concentrate Intravenous 1 amp/L: initial bolus 1000 mL (1000 mL/hr), then none - for X1 (NOW). Given 12:22 07/28/2016 Loreto Duke R.N. Medication Administered: PREDNISONE [PO], Dose: 60 mg Tablets PO. Medication Ordered: Prednisone PO 60 mg (NOW).
--- NOTE | 2016-07-30 11:58 | ED MAR SUMMARY ---
..... Medication Administration Record [facility] [address] [place] [address] Patient: BELEM ALONSO Visit ID: [id number] 75y, M Weight: 72.5 kg Height/Length: 71 in BMI: 22.3 ALLERGIES: None Given 10:18 07/28/2016 Loreto Duke R.N. Medication Administered: VALIUM [IVP] (DIAZEPAM), Dose: 5 mg IVP over 2 minute(s), Site: #1 right AC. Medication Ordered: Valium IV 5 mg (HIGH ALERT MEDICATION, NOW). Given 10:22 07/28/2016 Benjamín Gibson, Medication Administered: DUONEB [NEB TX] (IPRATROPIUM-ALBUTEROL), Dose: 1 unit dose Nebulizer Neb TX. Medication Ordered: DuoNeb Neb Tx 1 unit dose (NOW). Start 10:52 07/28/2016 Loreto Duke R.N., Stop 12:03 07/28/2016 Loreto Duke R.N. Medication Administered: IV NS (SALINE), Dose: IV Fluids over 1 hour(s), Rate: 1000 mL/hr, Dispensed: 1000 mL bag, Site: #1 right AC. Medication Ordered: IV NS with Multivitamin Concentrate Intravenous 1 amp/L: initial bolus 1000 mL (1000 mL/hr), then none - for X1 (NOW). Given 12:22 07/28/2016 Loreto Duke R.N. Medication Administered: PREDNISONE [PO], Dose: 60 mg Tablets PO. Medication Ordered: Prednisone PO 60 mg (NOW).
== END 2016-07-28 12:35 | disposition home or self-care (01) ==
LOC: ED SRH 09:31
DX: F10.280 Alcohol dependence with alcohol-induced anxiety disorder (principal); J45.31 Mild persistent asthma with (acute) exacerbation; K85.90 Acute pancreatitis without necrosis or infection, unspecified
CPT/HCPCS: 90004; 90100; 92235; 95059

== ENCOUNTER 2016-08-14 00:26 | Observation (INO) | payer OTHER ==
[~2016-08-14] VITALS: Ht 177.8 cm; Wt 70.5 kg
--- NOTE | 2016-08-14 01:58 | ED ORDER SUMMARY ---
..... Patient: BELEM ALONSO OrderSheet [facility] VisitID: [id number] [place] [address] 75y, M Registration Date/Time: 08/14/2016 ORDER SHEET Weight: 72.5 kg (stated) Allergies: No Known Drug Allergy GENERAL ORDERS: Broth Mixer (Continuous) (02:36 08/14/2016 Guadalupe SCHWARTZ) (2:45 EInderbitzen R.N.) CBC w Diff Urgent (02:36 08/14/2016 Guadalupe SCHWARTZ) (2:45 EInderbitzen R.N.) CMP Urgent (02:36 08/14/2016 Guadalupe SCHWARTZ) (2:45 EInderbitzen R.N.) Magnesium Urgent (02:36 08/14/2016 Guadalupe SCHWARTZ) (2:45 EInderbitzen R.N.) Chest 1V Urgent (04:21 08/14/2016 Guadalupe SCHWARTZ) (Ack 4:29 Christine) MEDICATION ORDERS: DuoNeb Neb Tx 1 unit dose (NOW) (00:55 08/14/2016 Guadalupe SCHWARTZ) (1:18 JQuivey R.N.) Solu-MEDROL IM 125 mg (NOW) (01:40 08/14/2016 Guadalupe SCHWARTZ) (1:52 EInderbitzen R.N.) Albuterol Neb Tx 1 unit dose (NOW) (01:40 08/14/2016 Guadalupe SCHWARTZ) (1:59 JQuivey R.N.) Albuterol Neb Tx 2.5 mg (NOW) (03:50 08/14/2016 EInderbitzen R.N. verbal order read back to Guadalupe SCHWARTZ) [facility] [employer] [facility] [employer] IV FLUIDS: Magnesium Sulfate IV 2 gm/50mL (over 20 minutes) (02:36 08/14/2016 Guadalupe SCHWARTZ) (2:45 EInderbitzen R.N.) ORDER SHEET NOTES: [Electronically signed by Flory Krueger R.N. (05:27 08/14/2016)] [Electronically signed by Keegan Siddiqui MD (08:30 08/14/2016)] [Electronically locked/signed by Flory Krueger R.N. (05:27 08/14/2016)]
--- NOTE | 2016-08-14 01:58 | ED ORDER SUMMARY ---
..... 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) (02:36 08/14/2016 Guadalupe SCHWARTZ) (2:45 EInderbitzen R.N.) CBC w Diff Urgent (02:36 08/14/2016 Guadalupe SCHWARTZ) (2:45 EInderbitzen R.N.) CMP Urgent (02:36 08/14/2016 Guadalupe SCHWARTZ) (2:45 EInderbitzen R.N.) Magnesium Urgent (02:36 08/14/2016 Guadalupe SCHWARTZ) (2:45 EInderbitzen R.N.) Chest 1V Urgent (04:21 08/14/2016 Guadalupe SCHWARTZ) (Ack 4:29 Christine) MEDICATION ORDERS: DuoNeb Neb Tx 1 unit dose (NOW) (00:55 08/14/2016 Guadalupe SCHWARTZ) (1:18 JQuivey R.N.) Solu-MEDROL IM 125 mg (NOW) (01:40 08/14/2016 Guadalupe SCHWARTZ) (1:52 EInderbitzen R.N.) Albuterol Neb Tx 1 unit dose (NOW) (01:40 08/14/2016 Guadalupe SCHWARTZ) (1:59 JQuivey R.N.) Albuterol Neb Tx 2.5 mg (NOW) (03:50 08/14/2016 EInderbitzen R.N. verbal order read back to Guadalupe SCHWARTZ) [facility] Press [facility] IV FLUIDS: Magnesium Sulfate IV 2 gm/50mL (over 20 minutes) (02:36 08/14/2016 Guadalupe SCHWARTZ) (2:45 EInderbitzen R.N.) ORDER SHEET NOTES: [Electronically signed by Flory Krueger R.N. (05:27 08/14/2016)] [Electronically signed by Keegan Siddiqui MD (08:30 08/14/2016)] [Electronically locked/signed by Flory Krueger R.N. (05:27 08/14/2016)]
--- NOTE | 2016-08-14 01:58 | ED CLINICAL REPORT ---
Clinical Report - Physicians/Mid Levels [facility] [address] [place] [place] [address] 08/14/2016 0:27 Patient: BELEM ALONSO Time Seen: 00:54. Arrived- By private vehicle. Historian- patient. HISTORY OF PRESENT ILLNESS Chief Complaint: HISTORY OF ASTHMA. This started yesterday and is still present and now worse. It was gradual in onset and has been constant. The dyspnea is severe. The patient has had a cough, wheezing and anxiety. No sputum production, fever or chills. Similar symptoms previously: Several times. REVIEW OF SYSTEMS No chills, fever, sweats, calf pain or chest pain. No difficulty breathing, pedal edema, abdominal pain, constipation or diarrhea. No nausea, vomiting or urinary problems. All systems otherwise negative, except as recorded above. PAST HISTORY Problems: Substance Abuse. Depression. Pancreatitis. Alcohol Withdrawal. Asthma. Additional Surgeries: no known surgeries. Medications: Albuterol Sulfate Inhalation (Nebulization Solution (2.5 MG/3ML) 0.083%) 1 unit dose, PRN. ProAir HFA Inhalation. Allergies: No Known Drug Allergy. SOCIAL HISTORY Current every day light tobacco smoker (cigarette). Occasional alcohol use. No drug use. FAMILY HISTORY Denies family medical history. ADDITIONAL NOTES The nursing notes have been reviewed. PHYSICAL EXAM Vital Signs: 08/14/2016 00:35 BP: 145/82. HR: 118. RR: 28. O2 saturation: 92%. Temp: 97.7 F. Pain level now: 0/10. Have been reviewed. Appearance: Alert. Patient in moderate distress. Eyes: Pupils equal, round and reactive to light. ENT: Pharynx normal. Neck: Normal inspection. No jugular venous distention. CVS: Tachycardia. Respiratory: Moderate respiratory distress with accessory muscle use, anxiety and tachypnea. Retractions. Accessory muscle use. Prolonged expirations. Decreased air movement. Wheezing present. Abdomen: Soft and nontender. No organomegaly. Back: Normal inspection. Skin: Skin warm and dry. Extremities: Extremities exhibit normal ROM. No calf tenderness. No lower extremity edema. LABS, X-RAYS, AND EKG Laboratory Tests: CBC w Diff: (CHAVA: 08/14/2016 02:40) ( MsgRcvd 08/14/2016 02:58) Final results Test Result Flag Units (Reference) WHITE BLOOD COUNT 8.7 K/uL (4.5-11.5) RED BLOOD COUNT 4.80 M/uL (4.50-5.90) HEMOGLOBIN 12.8 L gm/dL (13.5-17.5) HEMATOCRIT 39.9 L % (41.0-53.0) MEAN CELL VOLUME 83 fL (80-100) MEAN CORPUSCULAR HGB 27 pg (26-34) MEAN CORPUSCULAR HGB CONC 32 g/dL (31-37) RED CELL DISTRIBUTION WIDTH 21.8 H % (11.6-14.8) PLATELET COUNT 395 K/uL (150-400) NEUTROPHIL % 69.3 % (50-75) LYMPH % 13.5 L % (25-40) MONO % 9.7 % (3-14) EOSINOPHIL % 7.0 H % (0-4) BASOPHIL % 0.5 % (0-2) CMP: (CHAVA: 08/14/2016 02:40) ( MsgRcvd 08/14/2016 03:19) Final results Test Result Flag Units (Reference) GLUCOSE 107 mg/dL (70-110) BUN 8 mg/dL (7-18) CREATININE 1.0 mg/dL (0.6-1.3) Estimated GFR >60 mL/min Estimated GFR- >60 mL/min Note: Persistent reduction over 3 months in eGFR<60 mL/min/1.73 m2 defines CKD. Patients with eGFR values>=60 mL/min/1.73 m2 may also have CKD if evidence ofpersistent proteinuria. Additional information may be foundat [email or web address]. SODIUM 141 mmol/L (136-145) POTASSIUM 4.1 mmol/L (3.5-5.1) CHLORIDE 105 mmol/L (98-107) CARBON DIOXIDE 26 mmol/L (21-32) CALCIUM 9.2 mg/dL (8.5-10.1) TOTAL PROTEIN 7.2 g/dL (6.4-8.2) ALBUMIN 3.7 g/dL (3.3-5.0) BILIRUBIN, TOTAL 0.5 mg/dL (0.0-1.0) ALKALINE PHOSPHATASE 116 U/L (46-116) AST (SGOT) 29 U/L (15-37) ALT (SGPT) 26 U/L (12-78) MAGNESIUM 1.9 mg/dL (1.8-2.4) . PROGRESS AND PROCEDURES Course of Care: Patient is stable. Discussed case with hospitalist, (Kellie). Reviewed test results and need for additional work-up. Agreed upon treatment plan, need for patient follow-up and decision to place in observation. Patient/family counseled. Old medical records reviewed. Disposition: Admitted. Observation. CLINICAL IMPRESSION Asthma with an acute exacerbation. Hypoxia. INSTRUCTIONS Your Current Medications: CONTINUE TAKING THE FOLLOWING MEDICATIONS: Albuterol Sulfate Inhalation : Nebulization Solution (2.5 MG/3ML) 0.083%, 1 unit dose PRN. ProAir HFA Inhalation. (Electronically signed by Keegan Siddiqui MD 08/14/2016 8:30)
--- NOTE | 2016-08-14 01:58 | ED NURSING NOTES ---
Clinical Report - Nurses [facility] [address] [place] [address] 08/14/2016 0:27 Patient: BELEM ALONSO TRIAGE Triage time 00:Aug 14 2016. Acuity: LEVEL 3. Chief Complaint: SHORTNESS OF BREATH. 00:36 08/14/16. SEPSIS SCREEN: Sepsis Screen. Negative (no infection suspected/documented). GAVIOTA COMA SCORE: Gaviota Coma Scale: 15- eyes open spontaneously (4); best verbal response- oriented x 4 (5); best motor response- obeys commands (6). --00:43 Flory Krueger R.N. 00:35 08/14/16. BP: 145/82. HR: 118. RR: 28. O2 saturation: 92%. Temp: 97.7 F. Pain level now: 0/10. --00:43 Flory Krueger R.N. <<STRICKEN ENTRY-- 00:35 08/14/16. HR: 118. RR: 28. O2 saturation: 92%. Temp: 97.7 F. Pain level now: 0/10. --00:43 Flory Krueger R.N. --END STRIKE>> Change to Details. --00:45 Flory Krueger R.N. Weight: 72.5 kg stated. Height/Length: 70 inches Per Patient. BMI: 22.9. --00:35 Flory Krueger R.N. Medications ProAir HFA Inhalation. --00:41 Flory Krueger R.N. Albuterol Sulfate Inhalation (Nebulization Solution (2.5 MG/3ML) 0.083%) 1 unit dose, PRN. --00:41 Flory Krueger R.N. Allergies No Known Drug Allergy. --00:40 Flory Krueger R.N. Medication/allergy information source: the patient. --00:43 Flory Krueger R.N. History Arrived by private vehicle. Historian: patient. Accompanied by friend. Primary physician (Renata in [place]). Onset. (this morning). ( Progressing dyspnea since this morning. Been using rescue inhaler all day. Used nebulizer around 9 p. EMS summoned around 1130pm, they gave him a nebulizer but patient refused transport.). He has had a cough and wheezing. No fever or chills. 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 SOCIAL HX: Current every day light tobacco smoker. Occasional alcohol use. No drug use. No infectious disease exposure. ABUSE ASSESSMENT: No report of abuse. SELF HARM ASSESSMENT: A self harm assessment was performed. The patient answered "no" to the question "Have you recently felt down, depressed, or hopeless?", "Have you noticed less interest or pleasure in doing things?", "Do you have thoughts of harming or killing yourself?", "Are you here because you tried to hurt yourself?", "Have you ever tried to hurt yourself before today?", "Have you recently had thoughts about harming or killing others?" and "Do you have any dangerous items in your possession?". NUTRITIONAL RISK ASSESSMENT: The nutritional risk assessment revealed no deficiencies. FUNCTIONAL ASSESSMENT: Functional assessment: no impairments noted. LEARNING NEEDS ASSESSMENT: The learning needs assessment revealed no barriers. SKIN INTEGRITY ASSESSMENT: Skin integrity risk assessment completed. No skin integrity risk identified. --00:43 Flory Krueger R.N. PROBLEMS: Depression. Pancreatitis. Alcohol Withdrawal. Asthma. --00:42 Flory Krueger R.N. ADDITIONAL SURGERIES: no known surgeries. Interventions ID band on patient. --00:43 Flory Krueger R.N. PHYSICAL ASSESSMENT 00:44 08/14/16. To room via wheelchair. GENERAL / NEURO / PSYCH: Alert. Oriented X 4. HEENT: Mucous membranes are pink. RESPIRATORY: Mild respiratory distress. The patient can speak in full sentences. Accessory muscle use. Wheezing present. CVS: Cardiac rhythm: sinus tachycardia. SKIN: Skin is warm and dry. Normal skin turgor. --00:44 Flory Krueger R.N. NURSING PROGRESS NOTES Cardiac rhythm: sinus tachycardia. The initial plan of care for this patient includes an assessment with efforts to address impairment of the respiratory system. This plan of care was discussed with the patient. antique jewelry repairer, pulse oximeter and NIBP monitor placed on patient; corporate fitness program coordinator- Lead II; monitor alarms on. Patient gowned. Patient identifiers checked. Call light placed in reach. Side rails up x 1. Bed placed in lowest position. Brakes of bed on. Patient ready for evaluation. --00:43 Flory Krueger R.N. 01:08 08/14/2016 Duoneb (Ipratropium-Albuterol) Neb TX 1 unit dose given. Given by the respiratory therapist. Allergies verified and confirmed 5 rights. --01:18 Marco Ruiz R.N. 01:23 08/14/16. BP: 148/75. HR: 98. RR: 24. O2 saturation: 95%. Pain level now 0/10. --01:23 Flory Krueger R.N. 01:23 08/14/16. Cardiac rhythm: normal sinus rhythm. Overall patient status is improved- he states feels better. ( RT completed treatment. Pt tolerated well). --01:23 Flory Krueger R.N. 01:44 08/14/2016 Albuterol Neb TX 1 unit dose given. Given by the respiratory therapist. Allergies verified and confirmed 5 rights. --01:59 Marco Ruiz R.N. 01:47 08/14/2016 Site #1 started via IV in the right antecubital space; one attempt. Saline lock flushed with 5 mL saline. --01:52 Flory Krueger R.N. 01:47 08/14/2016 SOLU-MEDROL (MethylPREDNISolone Sodium Succ) IVP 125 mg given over 2 minute(s) via site #1. Allergies verified and confirmed 5 rights. IV patency established. IV site checked: no pain, redness, or swelling. IV flushed thoroughly pre- and post-medication administration. IVP given by RN (butterfly 25ga in right ac,, okayed to give IV Push per Dr Siddiqui). --01:52 Flory Krueger R.N. 02:03 08/14/16. Cardiac rhythm: sinus tachycardia. --02:03 Flory Krueger R.N. 02:03 08/14/16. BP: 162/79. HR: 110. RR: 22. O2 saturation: 94%. Pain level now 0/10. --02:03 Flory Krueger R.NShade 02:15 08/14/16. ( Attempted to discharge patient. States he is feeling poorly again. he does have accessory muscle use and is wheezing. MD informed. Instructed to watch patient for 15 minutes and reassess.). --02:18 Flory Krueger R.N. 02:45 08/14/2016 Site #2 started via IV in the right hand with an 20g angiocath, with aseptic technique and good blood return; one attempt. Blood drawn: rainbow set. Labeled in the presence of the patient and sent to the lab. Saline lock flushed with 10 mL saline. --02:45 Flory Krueger R.N. 02:45 08/14/2016 Magnesium Sulfate (Magnesium Sulfate in D5W) IVP 2 gm given over 20 minute(s) via site #2. Allergies verified and confirmed 5 rights. IV patency established. IV site checked: no pain, redness, or swelling. IV flushed thoroughly pre- and post-medication administration. IVP given by RN. --02:45 Flory Krueger R.N. Oxygen administered at 2 liters (applied). ( Patient acutely deteriorating. Wheezing, heavy accessory muscle use present. O2 sats 88%. informed orders received). --02:46 Flory Krueger R.N. 02:46 08/14/16. HR: 114. RR: 22. O2 saturation: 93%. Pain level now 0/10. --02:46 Flory Krueger R.N. 02:46 08/14/16. Cardiac rhythm: sinus tachycardia. --02:46 Flory Krueger R.N. 02:55 08/14/16. BP: 139/71. HR: 114. RR: 21. O2 saturation: 97%. Pain level now 0/10. --02:56 Flory Krueger R.NShade 02:55 08/14/16. Reassessment after medication administered. He has had no adverse reaction. --02:56 Flory Krueger R.NShade 03:05 08/14/16. BP: 142/71. HR: 98. RR: 20. O2 saturation: 96%. --03:06 Flory Krueger R.NShade Cardiac rhythm: normal sinus rhythm. --03:06 Flory Krueger R.NShade 03:15 08/14/16. Oxygen discontinued due to patient improvement. --03:22 Flory Krueger R.NShade 03:39 08/14/16. ( Walking trial, around department o2 sats falled to 88% briefly and returned to 91% at rest. Patient appears more relaxed now.). --03:39 Flory Krueger R.NShade 03:55 08/14/16. ( RT here to give another albuterol neb treatment). --04:01 Flory Krueger R.N. 03:59 08/14/2016 Albuterol Neb TX Nebulizer 1 unit dose given. Given by the respiratory therapist. Allergies verified and confirmed 5 rights. --03:59 Xavier Yanes, ER Machine Tester 04:10 08/14/16. BP: 152/68. HR: 112. RR: 22. O2 saturation: 91% on room air. --04:10 Flory Krueger R.N. <<STRICKEN ENTRY-- 04:10 08/14/16. HR: 112. O2 saturation: 93%. --04:10 Flory Krueger R.N. --END STRIKE>> Change to Details. --04:15 Flory Krueger R.N. 04:18 08/14/16. ( To be admitted. Call placed to Dr Kellie. Admission form given to patient for completion). --04:18 Flory Krueger R.N. 04:18 08/14/16. 2 liters reapplied. --04:18 Flory Krueger R.N. DISPOSITION / DISCHARGE 03:08/14/2016 Site #1 removed upon admission. Bandaid applied. --05:25 Flory Krueger R.N. 05:08/14/2016 Site #[address] upon admission; patent; flushes easily. --05:25 Flory Krueger R.N. 05:25 08/14/16. Cardiac rhythm: sinus tachycardia. Condition at departure: improved and stable. The goals identified in the patient's plan of care were met. Disposition: observation in Acute Care. Report was given to a nurse via a phone call. Report included patient's care, treatment, medications, reviewed medication reconcilliation, and condition (including any recent changes or anticipated changes). All questions were answered. (to ANANYA Carmichael). FALL RISK ASSESSMENT: Fall risk assessment completed. No fall risk identified. --05:25 Flory Krueger R.N. 05:18 08/14/16. BP: 157/74. HR: 103. RR: 22. O2 saturation: 94% at 2 liters/minute. 04:10 08/14/16. BP: 152/68. HR: 112. RR: 22. O2 saturation: 91% on room air. 03:05 08/14/16. BP: 142/71. HR: 98. RR: 20. O2 saturation: 96%. 02:55 08/14/16. BP: 139/71. HR: 114. RR: 21. O2 saturation: 97%. Pain level now 0/10. 02:46 08/14/16. HR: 114. RR: 22. O2 saturation: 93%. Pain level now 0/10. 02:03 08/14/16. BP: 162/79. HR: 110. RR: 22. O2 saturation: 94%. Pain level now 0/10. 01:23 08/14/16. BP: 148/75. HR: 98. RR: 24. O2 saturation: 95%. Pain level now 0/10. 00:35 08/14/16. BP: 145/82. HR: 118. RR: 28. O2 saturation: 92%. Temp: 97.7 F. Pain level now: 0/10. --05:25 Flory Krueger R.N. Locked/Released at 08/14/2016 5:27 by Flory Krueger R.N.
[2016-08-14] MEDS ORDERED: ALBUTEROL SUL0.083 % IN (04:51)
--- NOTE | 2016-08-14 05:25 | Progress Note ---
Subjective General Admission History and Physical Examination Patient Name: Garo Walker Admission Date: August 14, 2016 Primary Care Provider: [facility] Attending Physician: Shad Hopkins M.D. Admitting Physician: Shad Hopkins M.D. Code Status: FULL CODE Room: 212 SUBJECTIVE Historian: Patient Reliability: Fair Chief Complaint: Shortness of breath History of Present Illness: The patient is a 75-year-old white male with a significant past make a history of COPD, alcohol abuse/dependence, generalized anxiety disorder, who presented to [facility] emergency room on the day of admission secondary to complaints of shortness of breath. [facility] ER evaluation was consistent with exacerbation of COPD. Secondary to the above, the patient was admitted for further evaluation and treatment by Shad Hopkins M.D. The patient states the history of present was began 3 days prior to admission when he had increasing shortness of breath with exertion and at rest. Despite use of inhalation bronchodilators his symptoms worsen. There was associated cough but no significant sputum production. He denied any history of fever or chills. Secondary to increasing shortness of breath he presented to [facility] emergency department for further evaluation and treatment. [facility] ER evaluation was consistent with exacerbation of COPD. Secondary to the above the patient was admitted for further evaluation and treatment. PAST MEDICAL HISTORY Illnesses: 1. COPD 2. Generalized anxiety disorder 3. Alcohol abuse/dependence-currently nondrinker Allergies: 1. No Known Drug Allergies Medications: 1. Albuterol MDI 2 inhalations 4 times a day 2. Albuterol nebs 2.5 mg every 6 hours when necessary shortness of breath Surgery: 1. None Injuries: 1. No significant Hospitalizations: 1. Alcohol withdrawal syndrome FAMILY HISTORY Parents: 1. Father, , 70, congestive heart failure 2. Mother, , 30, injury Siblings: 1. Male, Nathanael, living, 70, healthy Children: 1. None Other significant family history: None SOCIAL HISTORY 1. Marital Status: Single 2. Caodaism: Rastafarian-Yarsanism 3. Education: High school 4. 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 Occupational health exposures: None HABITS 1. Tobacco: 10 pack years, stopped 1999 2. Drugs: None 3. Alcohol: History of alcohol abuse/dependence, no recent usage 4. Caffeine: 3 coffee per day HEALTH SUPERVISION Item/Test 1. No recent health maintenance IMMUNIZATIONS: 1. Pneumococcal: 2014 2. Influenza: 2017 3. Tetanus: Unknown ADVANCED DIRECTIVES: 1. Living well: Yes 2. POLST: No 3. Code Status: FULL CODE 4. Durable Power Jig Builder Health care: No 5. Donor card: No REVIEW OF SYSTEMS Remarkable for those things stated in the history of present illness and past medical history. Seventeen point review of system completed with the following notable findings: General: Fatigue, weakness Respiratory: Shortness of breath, cough, wheezing, asthma/COPD Psychological: Anxiety/panic attacks Physical Exam Vital Signs / I&Os Blood pressure: 154/87 mmHg Heart rate: 112/minute Respiratory rate: 20/minute Temperature: 97.9 Fahrenheit orally Pulse oximetry: 95% 3 L/m nasal cannula General Appearance Alert, Oriented X3, Cooperative, No acute distress, anxious HEENT Atraumatic, PERRLA, EOMI, Moist mucous membranes Lungs Decreased air movement bilaterally. Mild bilateral expiratory wheezes. Scattered rhonchi. No rales. Neck Supple, No JVD Cardiovascular Regular rate and rhythm, Normal S1 and S2, mild tachycardia Abdomen Normal bowel sounds, Soft, No tenderness, No guarding Extremities No cyanosis, No clubbing, 1+ pedal edema. Neurological Cranial nerves intact, Strength 5/5 x4 ext's, No lateralizing signs Psych/Mental Status Mental status normal, Mood normal, anxious LAB Results Laboratory Tests 08/14 0240 Chemistry Plasma Sodium (136 - 145 mmol/L) 141 Plasma Potassium (3.5 - 5.1 mmol/L) 4.1 Plasma Chloride (98 - 107 mmol/L) 105 CO2 (Enzymatic) (21 - 32 mmol/L) 26 BUN (7 - 18 mg/dL) 8 Creatinine (0.6 - 1.3 mg/dL) 1.0 Est GFR ( Amer) (mL/min) >60 Est GFR (Non-Af Amer) (mL/min) >60 Glucose (70 - 110 mg/dL) 107 Plasma Calcium (8.5 - 10.1 mg/dL) 9.2 Plasma Magnesium (1.8 - 2.4 mg/dL) 1.9 Total Bilirubin (0.0 - 1.0 mg/dL) 0.5 AST (15 - 37 U/L) 29 ALT (12 - 78 U/L) 26 Alkaline Phosphatase (46 - 116 U/L) 116 Total Protein (6.4 - 8.2 g/dL) 7.2 Albumin (3.3 - 5.0 g/dL) 3.7 Hematology WBC (4.5 - 11.5 K/uL) 8.7 RBC (4.50 - 5.90 M/uL) 4.80 Hgb (13.5 - 17.5 gm/dL) 12.8 Hct (41.0 - 53.0 %) 39.9 MCV (80 - 100 fL) 83 MCH (26 - 34 pg) 27 RDW (11.6 - 14.8 %) 21.8 Neut % (Auto) (50 - 75 %) 69.3 Lymph % (Auto) (25 - 40 %) 13.5 [place] % (Auto) (3 - 14 %) 9.7 Eos % (Auto) (0 - 4 %) 7.0 Baso % (Auto) (0 - 2 %) 0.5 Plt Count, EDTA (150 - 400 K/uL) 395 RBC Morphology (5374 A) HYPOCHROMASIA 1+ PUBS MCHC (31 - 37 g/dL) 32 Imaging Chest X-Ray IMPRESSION: 1. Mild to moderate COPD. Dictated by: JULIEN CALLAHAN MD D: SINGH;08/14/16 0406 Assessment and Plan Problem List 1. COPD (chronic obstructive pulmonary disease) Status Chronic Onset Date Unknown Plan -Patient presents with findings of exacerbation of COPD -DuoNeb, albuterol, Solu-Medrol -Supplemental oxygen secondary to persistent hypoxemia -Monitor -Anticipated discharge in a.m. 2. Iron deficiency anemia Status Acute Onset Date Unknown Plan -Patient with history of iron deficiency anemia -Ferrous sulfate 325 mg by mouth twice a day. -Monitor 3. Anxiety Plan -Patient with history of generalized anxiety disorder/panic disorder -Ativan 0.5 mg by mouth every 6 hours when necessary anxiety -Monitor 4. Alcohol dependence Plan -Patient with history of alcohol abuse/dependence -No recent alcohol consumption -Monitor for alcohol withdrawal despite previous history Current status: Fair, unstable Anticipated discharge date: Anticipated discharge this p.m. or in a.m. Anticipated discharge placement: Home Patient care time: Time spent in chart review, patient interview, physical exam, CPOE, and care documentation: 70 minutes Visit to patient today: 2 Complexity of care: Moderate Initial patient evaluation: Emergency department Advance care plan: Full code, advance care plan documented E&M Codes Admission: Obsv-Comp/High/81069
--- NOTE | 2016-08-14 05:25 | Progress Note ---
Subjective General Admission History and Physical Examination Patient Name: Garo Walker Admission Date: August 14, 2016 Primary Care Provider: [facility] Attending Physician: Shad Hopkins M.D. Admitting Physician: Shad Hopkins M.D. Code Status: FULL CODE Room: 212 SUBJECTIVE Historian: Patient Reliability: Fair Chief Complaint: Shortness of breath History of Present Illness: The patient is a 75-year-old white male with a significant past make a history of COPD, alcohol abuse/dependence, generalized anxiety disorder, who presented to [facility] emergency room on the day of admission secondary to complaints of shortness of breath. [facility] ER evaluation was consistent with exacerbation of COPD. Secondary to the above, the patient was admitted for further evaluation and treatment by Shad Hopkins M.D. The patient states the history of present was began 3 days prior to admission when he had increasing shortness of breath with exertion and at rest. Despite use of inhalation bronchodilators his symptoms worsen. There was associated cough but no significant sputum production. He denied any history of fever or chills. Secondary to increasing shortness of breath he presented to [facility] emergency department for further evaluation and treatment. [facility] ER evaluation was consistent with exacerbation of COPD. Secondary to the above the patient was admitted for further evaluation and treatment. PAST MEDICAL HISTORY Illnesses: 1. COPD 2. Generalized anxiety disorder 3. Alcohol abuse/dependence-currently nondrinker Allergies: 1. No Known Drug Allergies Medications: 1. Albuterol MDI 2 inhalations 4 times a day 2. Albuterol nebs 2.5 mg every 6 hours when necessary shortness of breath Surgery: 1. None Injuries: 1. No significant Hospitalizations: 1. Alcohol withdrawal syndrome FAMILY HISTORY Parents: 1. Father, , 70, congestive heart failure 2. Mother, , 30, injury Siblings: 1. Male, Nathanael, living, 70, healthy Children: 1. None Other significant family history: None SOCIAL HISTORY 1. Marital Status: Single 2. Cheondoism: Jewish-Jew 3. Education: High school 4. Employment History: [employer], retired 2009 5. Occupational health exposures: None HABITS 1. Tobacco: 10 pack years, stopped 1999 2. Drugs: None 3. Alcohol: History of alcohol abuse/dependence, no recent usage 4. Caffeine: 3 coffee per day HEALTH SUPERVISION Item/Test 1. No recent health maintenance IMMUNIZATIONS: 1. Pneumococcal: 2014 2. Influenza: 2017 3. Tetanus: Unknown ADVANCED DIRECTIVES: 1. Living well: Yes 2. POLST: No 3. Code Status: FULL CODE 4. 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 Donor card: No REVIEW OF SYSTEMS Remarkable for those things stated in the history of present illness and past medical history. Seventeen point review of system completed with the following notable findings: General: Fatigue, weakness Respiratory: Shortness of breath, cough, wheezing, asthma/COPD Psychological: Anxiety/panic attacks Physical Exam Vital Signs / I&Os Blood pressure: 154/87 mmHg Heart rate: 112/minute Respiratory rate: 20/minute Temperature: 97.9 Fahrenheit orally Pulse oximetry: 95% 3 L/m nasal cannula General Appearance Alert, Oriented X3, Cooperative, No acute distress, anxious HEENT Atraumatic, PERRLA, EOMI, Moist mucous membranes Lungs Decreased air movement bilaterally. Mild bilateral expiratory wheezes. Scattered rhonchi. No rales. Neck Supple, No JVD Cardiovascular Regular rate and rhythm, Normal S1 and S2, mild tachycardia Abdomen Normal bowel sounds, Soft, No tenderness, No guarding Extremities No cyanosis, No clubbing, 1+ pedal edema. Neurological Cranial nerves intact, Strength 5/5 x4 ext's, No lateralizing signs Psych/Mental Status Mental status normal, Mood normal, anxious LAB Results Laboratory Tests 08/14 0240 Chemistry Plasma Sodium (136 - 145 mmol/L) 141 Plasma Potassium (3.5 - 5.1 mmol/L) 4.1 Plasma Chloride (98 - 107 mmol/L) 105 CO2 (Enzymatic) (21 - 32 mmol/L) 26 BUN (7 - 18 mg/dL) 8 Creatinine (0.6 - 1.3 mg/dL) 1.0 Est GFR ( Amer) (mL/min) >60 Est GFR (Non-Af Amer) (mL/min) >60 Glucose (70 - 110 mg/dL) 107 Plasma Calcium (8.5 - 10.1 mg/dL) 9.2 Plasma Magnesium (1.8 - 2.4 mg/dL) 1.9 Total Bilirubin (0.0 - 1.0 mg/dL) 0.5 AST (15 - 37 U/L) 29 ALT (12 - 78 U/L) 26 Alkaline Phosphatase (46 - 116 U/L) 116 Total Protein (6.4 - 8.2 g/dL) 7.2 Albumin (3.3 - 5.0 g/dL) 3.7 Hematology WBC (4.5 - 11.5 K/uL) 8.7 RBC (4.50 - 5.90 M/uL) 4.80 Hgb (13.5 - 17.5 gm/dL) 12.8 Hct (41.0 - 53.0 %) 39.9 MCV (80 - 100 fL) 83 MCH (26 - 34 pg) 27 RDW (11.6 - 14.8 %) 21.8 Neut % (Auto) (50 - 75 %) 69.3 Lymph % (Auto) (25 - 40 %) 13.5 Towns % (Auto) (3 - 14 %) 9.7 Eos % (Auto) (0 - 4 %) 7.0 Baso % (Auto) (0 - 2 %) 0.5 Plt Count, EDTA (150 - 400 K/uL) 395 RBC Morphology (5374 A) HYPOCHROMASIA 1+ PUBS MCHC (31 - 37 g/dL) 32 Imaging Chest X-Ray IMPRESSION: 1. Mild to moderate COPD. Dictated by: JULIEN CALLAHAN MD D: SINGH;08/14/16 2341 Assessment and Plan Problem List 1. COPD (chronic obstructive pulmonary disease) Status Chronic Onset Date Unknown Plan -Patient presents with findings of exacerbation of COPD -DuoNeb, albuterol, Solu-Medrol -Supplemental oxygen secondary to persistent hypoxemia -Monitor -Anticipated discharge in a.m. 2. Iron deficiency anemia Status Acute Onset Date Unknown Plan -Patient with history of iron deficiency anemia -Ferrous sulfate 325 mg by mouth twice a day. -Monitor 3. Anxiety Plan -Patient with history of generalized anxiety disorder/panic disorder -Ativan 0.5 mg by mouth every 6 hours when necessary anxiety -Monitor 4. Alcohol dependence Plan -Patient with history of alcohol abuse/dependence -No recent alcohol consumption -Monitor for alcohol withdrawal despite previous history Current status: Fair, unstable Anticipated discharge date: Anticipated discharge this p.m. or in a.m. Anticipated discharge placement: Home Patient care time: Time spent in chart review, patient interview, physical exam, CPOE, and care documentation: 70 minutes Visit to patient today: 2 Complexity of care: Moderate Initial patient evaluation: Emergency department Advance care plan: Full code, advance care plan documented E&M Codes Admission: Obsv-Comp/High/[id number]
[2016-08-14 05:37] VITALS: BP 154/87
--- NOTE | 2016-08-14 07:50 | DIAGNOSTIC IMAGING REPORT ---
PROCEDURE: XR CHEST 1 VIEW INDICATION: SHORTNESS OF BREATH TECHNIQUE: Single view chest. 05:58 hours COMPARISON: 01/24/2016 FINDINGS: Normal cardiomediastinal contour. Prominent central pulmonary arteries. No central venous congestion. Hyperinflated lungs with mild upper lobe lucency no dense consolidation, effusion, or pneumothorax. Intact osseous structures. IMPRESSION: 1. Mild to moderate COPD.
--- NOTE | 2016-08-14 08:30 | ED MAR SUMMARY ---
..... Medication Administration Record [facility] [address] [place] [address] Patient: BELEM ALONSO Visit ID: [id number] 75y, M Weight: 72.5 kg Height/Length: 70 in BMI: 22.9 ALLERGIES: No Known Drug Allergy Given 01:08 08/14/2016 Marco Ruiz RJose Luis Medication Administered: DUONEB [NEB TX] (IPRATROPIUM-ALBUTEROL), Dose: 1 unit dose Neb TX. Medication Ordered: DuoNeb Neb Tx 1 unit dose (NOW). Given 01:44 08/14/2016 Marco Ruiz R.N. Medication Administered: ALBUTEROL [NEB TX], Dose: 1 unit dose Neb TX. Medication Ordered: Albuterol Neb Tx 1 unit dose (NOW). Given 01:47 08/14/2016 Flory Krueger R.N. Medication Administered: SOLU-MEDROL [IVP] (METHYLPREDNISOLONE SODIUM SUCC), Dose: 125 mg IVP over 2 minute(s), Site: #1 right AC. Medication Ordered: Solu-MEDROL IM 125 mg (NOW). Given 02:45 08/14/2016 Flory Krueger R.N. Medication Administered: MAGNESIUM SULFATE [IVP] (MAGNESIUM SULFATE IN D5W), Dose: 2 gm IVP over 20 minute(s), Site: #2 right hand. Medication Ordered: Magnesium Sulfate IV 2 gm/50mL (over 20 minutes). Given 03:59 08/14/2016 Xavier Yanes, ALISA Label Fuser Tender Medication Administered: ALBUTEROL [NEB TX], Dose: 1 unit dose Nebulizer Neb TX. Medication Ordered: Albuterol Neb Tx 2.5 mg (NOW).
--- NOTE | 2016-08-14 08:30 | ED MED RECONCILIATION SUMMARY ---
Patient: BELEM ALONSO Medication Reconciliation Report [facility] VisitID: [id number] [address] [place] [address] 75y, M Registration Date/Time: 08/14/2016 Weight: 72.5 kg Height/Length: 70 in. BMI: 22.9 ALLERGIES: No Known Drug Allergy The patient's Home Medications are listed below: CONTINUE TAKING THE FOLLOWING MEDICATIONS: Albuterol Sulfate Inhalation ((2.5 MG/3ML) 0.083%) 1 unit dose, PRN ProAir HFA Inhalation The source(s) of the original Home Medication information: patient The following Medications were given to the patient in the Emergency Department: Duoneb [Neb Tx] Neb TX 1 unit dose, administered: 08/14/2016 1:08:00 AM SOLU-MEDROL [IVP] IVP 125 mg, administered: 08/14/2016 1:47:00 AM Albuterol [Neb Tx] Neb TX 1 unit dose, administered: 08/14/2016 1:44:00 AM Magnesium Sulfate [IVP] IVP 2 gm, administered: 08/14/2016 2:45:00 AM Albuterol [Neb Tx] Neb TX 1 unit dose, administered: 08/14/2016 3:59:00 AM The following Medications were prescribed to the patient: None.
--- NOTE | 2016-08-14 08:30 | ED MED RECONCILIATION SUMMARY ---
Patient: BELEM ALONSO Medication Reconciliation Report [facility] VisitID: [id number] [address] [place] [address] 75y, M Registration Date/Time: 08/14/2016 Weight: 72.5 kg Height/Length: 70 in. BMI: 22.9 ALLERGIES: No Known Drug Allergy The patient's Home Medications are listed below: CONTINUE TAKING THE FOLLOWING MEDICATIONS: Albuterol Sulfate Inhalation ((2.5 MG/3ML) 0.083%) 1 unit dose, PRN ProAir HFA Inhalation The source(s) of the original Home Medication information: patient The following Medications were given to the patient in the Emergency Department: Duoneb [Neb Tx] Neb TX 1 unit dose, administered: 08/14/2016 1:08:00 AM SOLU-MEDROL [IVP] IVP 125 mg, administered: 08/14/2016 1:47:00 AM Albuterol [Neb Tx] Neb TX 1 unit dose, administered: 08/14/2016 1:44:00 AM Magnesium Sulfate [IVP] IVP 2 gm, administered: 08/14/2016 2:45:00 AM Albuterol [Neb Tx] Neb TX 1 unit dose, administered: 08/14/2016 3:59:00 AM The following Medications were prescribed to the patient: None.
--- NOTE | 2016-08-14 08:30 | ED DISCHARGE INSTRUCTIONS ---
Patient: BELEM ALONSO General Instructions [facility] VisitID: [id number] [place] [address] 75y, M Registration Date/Time: 08/14/2016 Asthma with an acute exacerbation. Hypoxia. INSTRUCTIONS Your Current Medications: CONTINUE TAKING THE FOLLOWING MEDICATIONS: Albuterol Sulfate Inhalation : Nebulization Solution (2.5 MG/3ML) 0.083%, 1 unit dose PRN. ProAir HFA Inhalation. ADDITIONAL INFORMATION Asthma [Adult] Asthma is a disease where the small air passages within the lung go into spasm and restrict the flow of air. Inflammation and swelling of the airways cause further restriction. During an acute asthma attack, these factors cause difficulty breathing, wheezing, cough and chest tightness. An asthma attack can be triggered by many things. Common triggers include the common cold, bronchitis, pneumonia, irritants such as smoke or pullutants in the air, emotional upset and heavy exercise. Inmany adults with asthma, allergies todust, mold, pollen and animal dander can cause an asthma attack. Skipping doses of daily asthma medicine can also bring on an asthma attack. Asthma can be controlled with proper medicines and decreased exposure to known allergens. Home Care: Take prescribed medicine exactly at the times advised. If you have a hand-held inhaler or aerosol breathing medicine, do not use it more than once every four hours, unless told to do so. (If you need this medicine more than every four hours, you may need to return to the Emergency Room.) If prescribed an antibiotic or prednisone, take all of the medicine even if you are feeling better after a few days. Do not smoke. Avoid being exposed to the smoke of others. Some persons with asthma have worsening of their symptoms when they take aspirin and non-steroidal medicines like ibuprofen (Motrin, Advil) and naproxen (Aleve, Naprosyn). Talk to your doctor if you think this may apply to you. Acetaminophen (Tylenol)should be safe to use. Follow Up with your doctor, or as advised by our staff. Always bring all of your current medicines with you for your doctor to see. If you do not already have one, talk to your doctor about developing a personalized "Asthma Action Plan." [NOTE: A pneumococcal vaccine and yearly flu shot (every fall) are recommended. Ask your doctor about this.] Get Prompt Medical Attention if any of the following occur: Increased wheezing or shortness of breath Need to use your inhalers more often than usual without relief Fever of 100.4F (38C) or higher, or as directed by your healthcare provider Coughing up lots of dark-colored or bloody sputum (mucus) Chest pain with each breath You do not start to improve within 24 hours Call 911 If Any Of The Following Occur : Trouble walking or talking because of shortness of breath If you use a peak flow meter andyou are still in the red zone (less than 50 percent) 15 minutes after using inhaler medication Lips or fingernails turning godoy or blue You have been given the following additional information: Asthma, Acute (Adult) (Electronically signed by Keegan Siddiqui MD 08/14/2016 8:30)
--- NOTE | 2016-08-14 08:30 | ED MAR SUMMARY ---
..... Medication Administration Record [facility] [address] [place] [address] Patient: BELEM ALONSO Visit ID: [id number] 75y, M Weight: 72.5 kg Height/Length: 70 in BMI: 22.9 ALLERGIES: No Known Drug Allergy Given 01:08 08/14/2016 Marco Ruiz RJose Luis Medication Administered: DUONEB [NEB TX] (IPRATROPIUM-ALBUTEROL), Dose: 1 unit dose Neb TX. Medication Ordered: DuoNeb Neb Tx 1 unit dose (NOW). Given 01:44 08/14/2016 Marco Ruiz R.N. Medication Administered: ALBUTEROL [NEB TX], Dose: 1 unit dose Neb TX. Medication Ordered: Albuterol Neb Tx 1 unit dose (NOW). Given 01:47 08/14/2016 Flory Krueger R.N. Medication Administered: SOLU-MEDROL [IVP] (METHYLPREDNISOLONE SODIUM SUCC), Dose: 125 mg IVP over 2 minute(s), Site: #1 right AC. Medication Ordered: Solu-MEDROL IM 125 mg (NOW). Given 02:45 08/14/2016 Flory Krueger R.N. Medication Administered: MAGNESIUM SULFATE [IVP] (MAGNESIUM SULFATE IN D5W), Dose: 2 gm IVP over 20 minute(s), Site: #2 right hand. Medication Ordered: Magnesium Sulfate IV 2 gm/50mL (over 20 minutes). Given 03:59 08/14/2016 Xavier Yanes, ALISA [employer] Medication Administered: ALBUTEROL [NEB TX], Dose: 1 unit dose Nebulizer Neb TX. Medication Ordered: Albuterol Neb Tx 2.5 mg (NOW).
[2016-08-14 10:34] VITALS: BP 145/84
[2016-08-14 14:32] VITALS: BP 150/73
[2016-08-14 18:27] VITALS: BP 123/63
--- NOTE | 2016-08-14 20:04 | Progress Note ---
Subjective General ADVANCED CARE PLAN History of Present Illness The patient is a 75-year-old white male with a significant past make a history of COPD, alcohol abuse/dependence, generalized anxiety disorder, who presented to [facility] emergency room on the day of admission secondary to complaints of shortness of breath. [facility] ER evaluation was consistent with exacerbation of COPD. Secondary to the above, the patient was admitted for further evaluation and treatment by Shad Hopkins M.D. For other history present illness, past medical history, family history, social history, review of systems, and admission physical examination please see the patient's history and physical examination and ER visit note in the patient's medical record. A discussion was undertaken with the patient regarding previous advance care arrangements/decisions. The following advanced directives were noted by the patient and discussed with me at the time of admission. ADVANCED DIRECTIVES: 1. Living well: Yes 2. POLST: No 3. Code Status: FULL CODE 4. 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 Donor card: No The patient has expressed interest for resuscitative efforts at the time of cardiopulmonary arrest. The patient's wishes were documented in the chart and orders regarding the patient's wishes entered into the [employer] CPOE system. The "Advance Care Plan Document" was not distributed to patient to discuss with his family. Less than 30 minutes was spent in performing the above tasks and documentation of the patient's advanced care plan.
--- NOTE | 2016-08-14 20:04 | Progress Note ---
Subjective General ADVANCED CARE PLAN History of Present Illness The patient is a 75-year-old white male with a significant past make a history of COPD, alcohol abuse/dependence, generalized anxiety disorder, who presented to [facility] emergency room on the day of admission secondary to complaints of shortness of breath. [facility] ER evaluation was consistent with exacerbation of COPD. Secondary to the above, the patient was admitted for further evaluation and treatment by Shad Hopkins M.D. For other history present illness, past medical history, family history, social history, review of systems, and admission physical examination please see the patient's history and physical examination and ER visit note in the patient's medical record. A discussion was undertaken with the patient regarding previous advance care arrangements/decisions. The following advanced directives were noted by the patient and discussed with me at the time of admission. ADVANCED DIRECTIVES: 1. Living well: Yes 2. POLST: No 3. Code Status: FULL CODE 4. 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 Donor card: No The patient has expressed interest for resuscitative efforts at the time of cardiopulmonary arrest. The patient's wishes were documented in the chart and orders regarding the patient's wishes entered into the [employer] CPOE system. The "Advance Care Plan Document" was not distributed to patient to discuss with his family. Less than 30 minutes was spent in performing the above tasks and documentation of the patient's advanced care plan.
[2016-08-14 22:48] VITALS: BP 132/67
[2016-08-15 02:39] VITALS: BP 123/64
[2016-08-15 06:33] VITALS: BP 149/85
--- NOTE | 2016-08-15 07:26 | Discharge Summary ---
Discharge Summary Report Admit Date 08/14/16 Discharge Date 08/15/16 Admission Diagnosis 1. Exacerbation of COPD 2. Iron deficiency anemia 3. Alcohol abuse Discharge Diagnosis 1. Exacerbation of COPD 2. Iron deficiency anemia 3. Alcohol abuse Brief History The patient is a 75-year-old white male with a significant past make a history of COPD, alcohol abuse/dependence, generalized anxiety disorder, who presented to [facility] emergency room on the day of admission secondary to complaints of shortness of breath. [facility] ER evaluation was consistent with exacerbation of COPD. Secondary to the above, the patient was admitted for further evaluation and treatment by Shad Hopkins M.D. For other history present illness, past medical history, family history, social history, review of systems, and admission physical examination please see the patient's history and physical examination and ER visit note in the patient's medical record. Hospital Course The following problems and their management were noted during the patient's hospitalization: 1. Exacerbation of COPD The patient presented with findings of exacerbation of COPD. His symptoms rapidly improved following admission. At the time of discharge his O2 sats were normal on room air. He was discharged on DuoNeb, albuterol, Flovent, and prednisone taper. He will follow-up with his PCP in 1 week. 2. Iron deficiency anemia The patient has a history of iron deficiency anemia. He was discharged on ferrous sulfate 325 mg by mouth twice a day. Patient should consider outpatient endoscopy per his PCP. This was discussed with him at the time of discharge. 3. Alcohol abuse The patient has a history of alcohol abuse/dependence. Denies recent alcohol usage. Encourage the patient to pursue a alcohol absence program post discharge. General Appearance Alert, Oriented X3, Cooperative, No acute distress Lungs Clear to auscultation, Normal air movement Cardiovascular Regular Rate, Normal S1, Normal S2 Abdomen Normal bowel sounds, Soft Neurological Normal gait, Strength at 5/5 X4 ext, Cranial nerves 3-12 NL Psych/Mental Status Mental status NL, Mood NL Discharge Instructions/Meds For other recommendations regarding discharge diet, activity, followup, and discharge medications please see the patient's discharge instructions. Discharge condition: Fair, improved Greater than 30 min. was spent in the patient's discharge preparation including discharge interview and physical examination, progress note, discharge instructions, and discharge summary The patient was interviewed and examined on the day of discharge. E&M Codes Discharge: Observation - All/[id number]
[2016-08-15] MEDS ORDERED: FLOVENT HFA110 MCG IN (08:56)
[2016-08-15] MEDS ORDERED: PREDNISONE20 MG PO (08:56)
[2016-08-15] MEDS ORDERED: IPRATROPIUM BROMIDE/ IN (08:56)
[2016-08-15] MEDS ORDERED: TOPROL XL25 MG PO (09:01)
--- NOTE | 2016-08-15 09:06 | Provider's Discharge Care Plan ---
Problem, Goal, Plan Problem List 1. COPD (chronic obstructive pulmonary disease) Goals: Improve disease control, Prevent disease progress Instructions: Follow up as directed, Take meds as directed 2. Iron deficiency anemia Goals: Improve disease control, Prevent disease progress Instructions: Follow up as directed, Take meds as directed 3. Tachycardia Goals: Improve disease control, Prevent disease progress Instructions: Follow up as directed, Take meds as directed
[2016-08-15] MEDS ORDERED: FERROUS SULFAT325 M1 PO (09:07)
== END 2016-08-15 10:00 | disposition home or self-care (01) ==
LOC: ED SRH 00:26 → ACUTE2 SRH 04:27 → TRANS SRH 04:27 → ACUTE2 SRH 05:47
PROVIDERS: ADMIT Internal Medicine
DX: J44.1 Chronic obstructive pulmonary disease with (acute) exacerbation (principal); D50.9 Iron deficiency anemia, unspecified; F41.1 Generalized anxiety disorder; F10.20 Alcohol dependence, uncomplicated; F17.210 Nicotine dependence, cigarettes, uncomplicated
CPT/HCPCS: 29230; 29247; 29251; 29263; 29264; 90100; 92720; 94001; 94060; 95059

== ENCOUNTER 2016-09-07 16:40 | Observation (INO) | payer OTHER ==
[~2016-09-07] VITALS: Ht 152.4 cm; Wt 70.0 kg
[~2016-09-07 16:40] MED LIST changes: +ALBUTEROL SUL0.083 % IN; +FERROUS SULFAT325 M1 PO; +IPRATROPIUM BROMIDE/ IN; +PREDNISONE20 MG PO; +TOPROL XL25 MG PO
--- NOTE | 2016-09-07 17:51 | ED NURSING NOTES ---
Clinical Report - Nurses [facility] [address] [place] [address] 09/07/2016 16:41 Patient: BELEM ALONSO TRIAGE Triage time 1635. Acuity: LEVEL 3. Chief Complaint: DIFFICULTY BREATHING. 16:35. --16:46 Rita Thurston R.N. 16:35 09/07/16. BP: 157/86. HR: 115. RR: 24. O2 saturation: 96% on nasal cannula at 3 liters/minute. Temp: 98.4 F. Pain level now: 010. --16:46 Rita Thurston R.N. Weight: 72.5 kg stated. Height/Length: 70 inches Per Patient. BMI: 22.9. --16:38 Rita Thurston R.N. Medications Albuterol Sulfate Inhalation (Nebulization Solution (2.5 MG/3ML) 0.083%) 1 unit dose, PRN. ProAir HFA Inhalation. --16:44 Rita Thurston R.N. Allergies No Known Drug Allergy. --16:44 Rita Thurston R.N. History Arrived by private vehicle. Historian: patient. Unaccompanied. Primary physician ([facility]). This started yesterday. ( pt was at [facility] 08/14 for similar presentation and was admitted at that time). He has had wheezing. PAST MEDICAL HX: Chronic obstructive pulmonary disease. SURGERY HX: No history of previous surgery. SOCIAL HX: Smoker- current status unknown (pt quit 15 years ago- was less than 1/2 ppd for 10 years). Alcohol use; consumes three beers a week. No drug use. --16:46 Rita Thurston R.N. SOCIAL HX: Alcohol use. (states 1 16oz beer a night). --18:40 Rita Thurston R.N. PROBLEMS: Hypoxia. Substance Abuse. Depression. Pancreatitis. Alcohol Withdrawal. Asthma. --16:46 Rita Thurston R.N. Interventions ID band on patient. To treatment room. --16:46 Rita Thurston R.N. PHYSICAL ASSESSMENT 16:42. To room via stretcher. Patient gowned. GENERAL / NEURO / PSYCH: Alert. Oriented X 4. Appears in no acute distress. RESPIRATORY: Mild respiratory distress. The patient can speak in full sentences. Wheezing present. CVS: Capillary refill less than 2 seconds. GI / : Abdomen soft. SKIN: Skin is warm and dry. --16:43 Rita Thurston R.N. NURSING PROGRESS NOTES 16:40. Oxygen administered. Monitoring of patient in place. Patient gowned. Head of bed elevated. Reassurance given. Patient identifiers checked. Call light placed in reach. Side rails up. Bed placed in lowest position. Patient ready for evaluation- chart flagged. --16:42 Rita Thurston R.N. 16:42 09/07/2016 Site #1 started via IV in the right antecubital space with an 20g angiocath, with aseptic technique and good blood return; one attempt. Blood drawn: rainbow set. Labeled in the presence of the patient and sent to the lab. Saline lock flushed with 10 mL saline (done by COSTA Vickers). --16:43 Rita Thurston R.N. 16:48 09/07/2016 Started bag #1 1000 mL IV Fluids IV NS (Saline); bolus of 500 mL over 30 minute(s) then at 250 mL/hr over 2 hour(s) via site #1 --16:48 Rita Thurston R.N. 16:59 09/07/2016 Duoneb (Ipratropium-Albuterol) Neb TX Nebulizer 1 unit dose given. Given by the nurse. (RT notified, but unavailable, tx started by EDRN). --17:04 Rita Thurston R.N. 17:05 09/07/16. BP: 150/100. HR: 107. RR: 23. O2 saturation: 100% on nasal cannula. Temp: deferred. Pain level now: 0/10. Additional comments: Pt doing douneb tx . --17:07 Rita Thurston R.N. EKG time: (9776). EKG was ordered, performed by a tech and shown to the ED physician. --17:12 Melvi Angeles 17:16 09/07/16. ( Pt given h&p form, unable to fill out, will have family member assist when available.). --17:16 Nisha Rivero 17:18 09/07/16. ( ABG drawn by RT and taken to lab). --17:18 Rita Thurston R.N. 17:30. Patient transported to radiology by stretcher with tech. --17:45 Rita Thurston R.N. 17:40. Patient returned from radiology by stretcher with tech. --17:45 Rita Thurston R.N. 17:48 09/07/16. Patient ID band checked for patient name and birthdate: patient confirmed. Clean catch urine collected with return of yellow-colored clear urine; sample sent to lab for urinalysis, culture and drug screen. Specimen labeled in the presence of the patient. ( Pt sitting on side of bed to void - 300cc urine out). --18:06 Rita Thurston R.N. 17:52 09/07/2016 SOLU-MEDROL (MethylPREDNISolone Sodium Succ) IVP 125 mg given over 1 minute(s) via site #1. IV patency established. IV site checked: no pain, redness, or swelling. IV flushed thoroughly pre- and post-medication administration. IVP given by RN. --18:07 Rita Thurston R.N. 18:04 09/07/2016 Albuterol Neb TX Nebulizer 1 unit dose given. Given by the respiratory therapist. --18:08 Rita Thurston R.N. 18:00 RT here to give 2nd breathing tx. Pt asking for something to "calm my nerves". --18:08 Rita Thurston R.N. 18:17 09/07/2016 Ativan (LORazepam) IVP 0.5 mg given over 1 minute(s) via site #1. IV patency established. IV site checked: no pain, redness, or swelling. IV flushed thoroughly pre- and post-medication administration. IVP given by RN. --18:22 Rita Thurston R.N. 18:35 09/07/2016 Diazepam * IVP 2.5mg --18:54 Rita Thurston R.N. late entry -17:40 Kellie H&P form given to pt. --18:58 Rita Thurston R.N. 18:12. ( Dr Hutchinson in doing exam on p t). --18:32 Rita Thurston R.N. 18:35 09/07/2016 Site #[address] upon admission; patent. --19:00 Rita Thurston R.N. 18:40 09/07/2016 IV Fluids IV NS Continued: upon admission at the rate of 250 mL/hr. 125 mL remaining bag #1. IV patency established. IV site checked: no pain, redness, or swelling. IV flushed thoroughly. --18:59 Rita Thurston R.N. DISPOSITION / DISCHARGE 18:39 09/07/16. Condition at departure: improved and stable. Admitted to Acute Care. Transported via stretcher by [employer]. Report was given. ( staff nurse). --18:39 Rita Thurston R.N. 18:32 09/07/16. BP: 149/75. HR: 120. RR: 28. O2 saturation: 95% on nasal cannula at 2 liters/minute. Temp: deferred. Pain level now: 0/10. --18:39 Rita Thurston R.N. Locked/Released at 09/07/2016 19:35 by Rita Thurston R.N.
--- NOTE | 2016-09-07 17:51 | ED ORDER SUMMARY ---
..... Patient: BELEM ALONSO OrderSheet [facility] VisitID: [id number] [address] [place] [address] 76y, M Registration Date/Time: 09/07/2016 ORDER SHEET Weight: 72.5 kg (stated) Allergies: No Known Drug Allergy GENERAL ORDERS: Chest 2V Urgent (16:45 [facility]07/2016 [facility] (Ack 16:54 TBergley) (17:46 DDean R.N.) [employer] Principal (Continuous) (16:45 09/07/2016 [facility] DO) (16:47 DDean R.N.) UA-Culture if indicated Urgent (:09/07/2016 [facility] ) (Ack 16:54 TBergley) (18:06 DDean R.N.) Cardiac Panel Stat (:09/07/2016 [facility] DO) (Ack 16:54 TBergley) (16:56 DDean R.N.) BNP Urgent (16:45 [facility]2016 [facility] (Ack 16:54 TBergley) (16:56 DDean R.N.) D-Dimer Urgent (16:45 09/07/2016 [facility]) (Ack 16:54 TBergley) (16:56 DDean R.N.) Amylase Urgent (16:45 09/07/2016 [facility]) (Ack 16:54 TBergley) (16:56 DDean R.N.) TSH Urgent (16:45 09/07/2016 [facility]) (Ack 16:54 TBergley) (16:56 DDean R.N.) Ethyl Alcohol Urgent (16:45 09/07/2016 [facility]) (Ack 16:54 TBergley) (16:56 DDean R.N.) Lipase Urgent (16:09/07/2016 [facility]) (Ack 16:54 TBergley) (16:56 DDean R.N.) PT with INR Urgent (16:45 09/07/2016 [facility]) (Ack 16:54 TBergley) (16:56 DDean R.N.) Urine Drug Screen Urgent (16:45 09/07/2016 [facility]) (Ack 16:54 TBergley) (18:06 DDean R.N.) ABG (G) Urgent (16:45 09/07/2016 [facility]) (Ack 16:54 TBergley) (17:46 DDean R.N.) Oxygen (2 L/min) (NC) (16:45 09/07/2016 [facility]) (16:47 DDean R.N.) Pulse oximeter (16:45 09/07/2016 [facility] ) (16:47 DDean R.N.) EKG - ER Stat (16:45 09/07/2016 [facility]) (Ack 16:54 TBergley) (16:57 TBergley) Vitals (16:45 09/07/2016 [facility] ) (16:47 DDean R.N.) Old Records (old ECG) (17:01 09/07/2016 [facility] ) (17:02 TBergley) MEDICATION ORDERS: DuoNeb Neb Tx 1 unit dose (NOW) (16:45 09/07/2016 [facility]) (17:04 DDean R.N.) Albuterol Neb Tx 1 unit dose (NOW, HHN) (17:50 09/07/2016 [facility]) (18:08 DDean R.N.) IV FLUIDS: IV NS : initial bolus 500 mL (1000 mL/hr), then 250 mL/hr for X2 (NOW) (16:45 09/07/2016 [facility] DO) (16:48 DDean R.N.) Solu-MEDROL IV 125 mg (NOW) (17:50 09/07/2016 [facility]) (18:07 DDean R.N.) Ativan IV 0.5 mg (HIGH ALERT MEDICATION, NOW) (18:09 09/07/2016 [facility] ) (18:22 DDean R.N.) Diazepam IV 2.5mg (HIGH ALERT MEDICATION, NOW) (18:50 09/07/2016 Anita Franco verbal order read back to Lincoln MALHOTRA) (18:54 Anita Franco) per Dr Hutchinson ORDER SHEET NOTES: [Electronically signed by Rita Thurston R.N. (19:35 09/07/2016)] [Electronically signed by Baldemar Guy DO (21:41 09/07/2016)] [Electronically locked/signed by Rita Thurston R.N. (19:35 09/07/2016)]
--- NOTE | 2016-09-07 17:51 | ED CLINICAL REPORT ---
Clinical Report - Physicians/Mid Levels [facility] [address] [place] [address] 09/07/2016 16:41 Patient: BELEM ALONSO Time Seen: 16:44. Arrived- By ambulance. Historian- patient and EMS personnel. HISTORY OF PRESENT ILLNESS Chief Complaint: DYSPNEA and HISTORY OF ASTHMA. This started yesterday and is still present. It was gradual in onset and has been waxing/waning. The dyspnea is described as moderate and is worsened by walking and exertion, is improved by rest and is improved with oxygen. The patient has had sputum production, a cough, wheezing and dyspnea on exertion. No calf pain or foot swelling. (ADVANCED DIRECTIVES: 1. Living well: Yes 2. POLST: No 3. Code Status: FULL CODE 4. 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 Donor card: No). Similar symptoms previously: Recent medical care: The patient was seen recently at this facility in the emergency department. Seen for similar symptoms. Diagnosis: asthma. ( Admitted). REVIEW OF SYSTEMS The patient has had a nasal discharge, sinus drainage, muscle aches and joint pain. No sore throat, nausea, vomiting, abdominal pain or diarrhea. No black stools, bloody stools, headache, fainting episodes or difficulty with urination. No skin rash. All systems otherwise negative, except as recorded above. PAST HISTORY Problems: Substance Abuse. Depression. Pancreatitis. Alcohol Withdrawal. Asthma. COPD Iron deficiency anemia Surgeries: no known surgeries. No history of deep venous thrombosis or pulmonary embolism. SOCIAL HISTORY Former smoker, end date 2001. Alcohol use; consumes three beers a week. No drug use. ADDITIONAL NOTES The nursing notes have been reviewed. PHYSICAL EXAM Vital Signs: 09/07/2016 16:35 BP: 157/86. HR: 115. RR: 24. O2 saturation: 96%. Temp: 98.4 F. Pain level now: 0/10. Appearance: Alert. Patient in moderate distress. Distress appears respiratory. Eyes: Eyes normal inspection. No pale conjunctivae or scleral icterus. ENT: Pharynx normal. Uvula midline. No pharyngeal erythema. The mucous membranes are not dry. Neck: Normal inspection. No jugular venous distention. Neck supple. CVS: Normal heart rate and rhythm. Respiratory: Moderate respiratory distress with accessory muscle use, anxiety and tachypnea. Prolonged expirations. Moderately decreased air movement bilaterally. Expiratory moderate bilateral wheezes present. Moderate rhonchi present bilaterally. No rales. Abdomen: Soft and nontender. Back: Normal inspection. Skin: Skin warm and dry. Extremities: Extremities exhibit normal ROM. No calf tenderness. Neuro: Oriented X 3. No motor deficit. LABS, X-RAYS, AND EKG EKG: EKG time: (16:57). Frequent unifocal ectopic beats (quadrageminy pattern). Premature ventricular contractions. Right atrial enlargement. Normal axis. Non-specific ST segment / T wave abnormalities. Non-specific T wave flattening in lead I. Non-specific T wave inversion in lead aVL. Changes present when compared to prior EKG. (decreased T's now across precordium and QRS more narrow - ?hyperkalemia on [id number]). The study has been interpreted contemporaneously by me. The EKG appears to be a good tracing. Artifact present. Rhythm Strip #1: quadrigeminy. Non-specific ST segment / T-wave abnormalities. Chest X-ray: No acute disease. (COPD with LLL bleb). Views: PA and lateral. Technique: good. The X-rays were interpreted contemporaneously by me. A comparison with prior films reveals that the findings are unchanged. Laboratory Tests: UA-Culture if indicated: (CHAVA: 09/07/2016 17:45) ( MsgRcvd 09/07/2016 18:20) Final results Test Result Flag Units (Reference) URINE COLOR YELLOW URINE APPEARANCE CLEAR URINE GLUCOSE NEGATIVE (NEGATIVE) URINE BILIRUBIN NEGATIVE (NEGATIVE) URINE KETONE NEGATIVE (NEGATIVE) URINE SPECIFIC GRAVITY 1.010 (1.010-1.030) URINE PH 6.0 (5.0-8.0) URINE PROTEIN NEGATIVE (NEGATIVE) URINE UROBILINOGEN 0.2 EU/dL (0.2-1.0) URINE NITRITE NEGATIVE (NEGATIVE) URINE BLOOD NEGATIVE (NEGATIVE) URINE LEUK ESTERASE NEGATIVE (NEGATIVE) URINE RBC NONE SEEN rbc/hpf (0-1) URINE WBC RARE wbc/hpf (0-1) URINE EPITHELIAL CELLS NONE SEEN EPI/hpf (0-5) URINE BACTERIA NONE SEEN (NONE SEEN) URINE COMMENT CULT NOT INDICATED URINE CULTURES ARE SET-UP BASED ON THE FOLLOWING CRITERIA:POSITIVE NITRITEPOSITIVE LEUKOCYTE ESTERASEGREATER THAN 10 WHITE BLOOD CELLSMODERATE (2+) OR GREATER BACTERIA CBC w Diff: (CHAVA: 09/07/2016 16:45) ( [facility] 09/07/2016 17:27) Final results Test Result Flag Units (Reference) WHITE BLOOD COUNT 6.3 K/uL (4.5-11.5) RED BLOOD COUNT 4.78 M/uL (4.50-5.90) HEMOGLOBIN 13.2 L gm/dL (13.5-17.5) HEMATOCRIT 41.2 % (41.0-53.0) MEAN CELL VOLUME 86 fL (80-100) MEAN CORPUSCULAR HGB 28 pg (26-34) MEAN CORPUSCULAR HGB CONC 32 g/dL (31-37) RED CELL DISTRIBUTION WIDTH 24.1 H % (11.6-14.8) PLATELET COUNT 327 K/uL (150-400) NEUTROPHIL % 64.1 % (50-75) LYMPH % 16.2 L % (25-40) MONO % 12.6 % (3-14) EOSINOPHIL % 6.9 H % (0-4) BASOPHIL % 0.2 % (0-2) PT with INR: (CHAVA: 09/07/2016 16:45) ( [facility] 09/07/2016 17:53) Final results Test Result Flag Units (Reference) INR 0.9 (0.8-1.2) Low Intensity Therapy: INR 1.5-2.0 PT range 18.5-23.1Mod.Intensity Therapy: INR 2.0-3.0 PT range 23.1-31.5High Intensity Therapy: INR 2.5-3.5 PT range 27.4-35.5High Intensity Therapy 2: INR 3.0-4.0 PT range 31.5-39.3 D-DIMER QUANTITATIVE < 0.27 L ug/mLFEU (0.27-0.52) The primary value of this quantitative assay relates toits negative predictive value (i.e. exclusion) of pulmonaryembolism/deep vein thrombosis/DIC.Elevated levels of d-dimer may also occur with:, age, cancer, inflammation, liver disease,post-op, infection, hematoma, coronary disease, peripheralarteriopathy, bleeding disorders and thrombolytic treatment.Results should be correlated with other clinical andradiological data.Testing Methodology: Latex Immunoassay Urine Drug Screen: (CHAVA: 09/07/2016 17:45) ( [facility] 09/07/2016 18:25) Final results Test Result Flag Units (Reference) AMPHETAMINE/METHAMPHETAMINE NEGATIVE (NEGATIVE) BARBITURATE NEGATIVE (NEGATIVE) BENZODIAZEPINE NEGATIVE (NEGATIVE) CANNABINOID NEGATIVE (NEGATIVE) COCAINE NEGATIVE (NEGATIVE) ECSTASY NEGATIVE (NEGATIVE) METHADONE NEGATIVE (NEGATIVE) OPIATE NEGATIVE (NEGATIVE) The urine drug screen is a qualitative screening test fordrug overdose and abuse. All screen results should beconsidered as presumptive.Drugs screened for are as follows:BenzodiazepinesCocaineAmphetamines/MetamphetaminesTHC (Tetrahydrocannabinol)OpiatesBarbituratesEcstasyMethadonePositive results are unconfirmed. For confirmation, notifythe lab for the specimen to be sent to the reference lab.All confirmations must be performed by a differentmethodology.The ingestion of natural herbal and plant productscontaining Ephedra/Ephedra metabolites can produce in urineone or more substances capable of cross reacting withamphetamine/methamphetamine immunoassays. These testsprovide a preliminary result only. A more specificalternative chemical method must be used to obtain aconfirmed analytical result. BNP: (CHAVA: 09/07/2016 16:45) ( [facility] 09/07/2016 18:04) Final results Test Result Flag Units (Reference) B-TYPE NATRIURETIC PEPTIDE 102 H pg/ml (5-100) Lipase: (CHAVA: 09/07/2016 16:45) ( [facility] 09/07/2016 17:42) Final results Test Result Flag Units (Reference) LIPASE 226 U/L (73-393) AMYLASE 49 U/L (25-115) ETHYL ALCOHOL 32 H mg/dL (3-10) THYROID STIMULATING HORMONE 1.278 uIU/mL (0.30-3.74) CHEM 13 PANEL: (CHAVA: 09/07/2016 16:45) ( MsgRcvd 09/07/2016 17:38) Final results Test Result Flag Units (Reference) GLUCOSE 97 mg/dL (70-110) BUN 7 mg/dL (7-18) CREATININE 1.0 mg/dL (0.6-1.3) Estimated GFR >60 mL/min Estimated GFR- >60 mL/min Note: Persistent reduction over 3 months in eGFR<60 mL/min/1.73 m2 defines CKD. Patients with eGFR values>=60 mL/min/1.73 m2 may also have CKD if evidence ofpersistent proteinuria. Additional information may be foundat www.kidney.org. SODIUM 146 H mmol/L (136-145) POTASSIUM 4.0 mmol/L (3.5-5.1) CHLORIDE 107 mmol/L (98-107) CARBON DIOXIDE 26 mmol/L (21-32) CALCIUM 8.5 mg/dL (8.5-10.1) TOTAL PROTEIN 6.7 g/dL (6.4-8.2) ALBUMIN 3.3 g/dL (3.3-5.0) BILIRUBIN, TOTAL 0.3 mg/dL (0.0-1.0) ALKALINE PHOSPHATASE 113 U/L (46-116) AST (SGOT) 20 U/L (15-37) ALT (SGPT) 23 U/L (12-78) MAGNESIUM 1.9 mg/dL (1.8-2.4) CPK 48 U/L (24-260) TROPONIN I 0.05 ng/mL (0.00-1.5) TROPONIN REFERENCE RANGE:<0.1 NEGATIVE0.1-1.5 INDETERMINANT>1.5 POSITIVE . Pulse Oximetry: 09/07/2016 16:35 O2 saturation: 96%. (FIO2-4 liter/min nasal cannula). Interpretation: hypoxemia. PROGRESS AND PROCEDURES Course of Care: Normal Saline 1 liter IVPB given. Ativan 0.5mg IVP given. Solu-Medrol 125 mg IVP given. DuoNeb nebulizer treatment (1 unit dose) given. Patient is stable. Physical exam findings are improved. Symptoms better. 09/07/2016 18:32 BP: 149/75. HR: 120. RR: 28. O2 saturation: 95%. Pain level now: 0/10. Discussed case with hospitalist, (Jasper). Reviewed test results. Agreed upon treatment plan and decision to place in observation. Health care provider will see patient in ED. Patient/family counseled. Old ED records reviewed. Transition orders written. Disposition: Observation in Acute Care. Condition: stable, guarded and improved. CLINICAL IMPRESSION Acute exacerbation of COPD. Frequent PVC's (with quadrqgeminy). History of alcoholism. (Electronically signed by Baldemar Guy DO 09/07/2016 21:41)
--- NOTE | 2016-09-07 17:51 | ED ORDER SUMMARY ---
..... Patient: BELEM ALONSO OrderSheet [facility] VisitID: [id number] [address] [place] [address] 76y, M Registration Date/Time: 09/07/2016 ORDER SHEET Weight: 72.5 kg (stated) Allergies: No Known Drug Allergy GENERAL ORDERS: Chest 2V Urgent (16:45 09/07/2016 [facility] (Ack 16:54 TBergley) (17:46 DDean R.N.) Systems Specialist (Continuous) (16:45 09/07/2016 [facility] DO) (16:47 DDean R.N.) UA-Culture if indicated Urgent (:09/07/2016 [facility] ) (Ack 16:54 TBergley) (18:06 DDean R.N.) Cardiac Panel Stat (:09/07/2016 [facility] DO) (Ack 16:54 TBergley) (16:56 DDean R.N.) BNP Urgent (16:45 [facility]/07/2016 [facility] (Ack 16:54 TBergley) (16:56 DDean R.N.) D-Dimer Urgent (16:45 09/07/2016 [facility]) (Ack 16:54 TBergley) (16:56 DDean R.N.) Amylase Urgent (16:45 09/07/2016 [facility]) (Ack 16:54 TBergley) (16:56 DDean R.N.) TSH Urgent (16:45 09/07/2016 [facility]) (Ack 16:54 TBergley) (16:56 DDean R.N.) Ethyl Alcohol Urgent (16:45 09/07/2016 [facility]) (Ack 16:54 TBergley) (16:56 DDean R.N.) Lipase Urgent (16:09/07/2016 [facility]) (Ack 16:54 TBergley) (16:56 DDean R.N.) PT with INR Urgent (16:45 09/07/2016 [facility]) (Ack 16:54 TBergley) (16:56 DDean R.N.) Urine Drug Screen Urgent (16:45 09/07/2016 [facility]) (Ack 16:54 TBergley) (18:06 DDean R.N.) ABG (G) Urgent (16:45 09/07/2016 [facility]) (Ack 16:54 TBergley) (17:46 DDean R.N.) Oxygen (2 L/min) (NC) (16:45 09/07/2016 [facility]) (16:47 DDean R.N.) Pulse oximeter (16:45 09/07/2016 [facility] ) (16:47 DDean R.N.) EKG - ER Stat (16:45 09/07/2016 [facility]) (Ack 16:54 TBergley) (16:57 TBergley) Vitals (16:45 09/07/2016 [facility] ) (16:47 DDean R.N.) Old Records (old ECG) (17:01 09/07/2016 [facility] ) (17:02 TBergley) MEDICATION ORDERS: DuoNeb Neb Tx 1 unit dose (NOW) (16:45 09/07/2016 [facility]) (17:04 DDean R.N.) Albuterol Neb Tx 1 unit dose (NOW, HHN) (17:50 09/07/2016 [facility]) (18:08 DDean R.N.) IV FLUIDS: IV NS : initial bolus 500 mL (1000 mL/hr), then 250 mL/hr for X2 (NOW) (16:45 09/07/2016 [facility] DO) (16:48 DDean R.N.) Solu-MEDROL IV 125 mg (NOW) (17:50 09/07/2016 [facility]) (18:07 DDean R.N.) Ativan IV 0.5 mg (HIGH ALERT MEDICATION, NOW) (18:09 09/07/2016 [facility] ) (18:22 DDean R.N.) Diazepam IV 2.5mg (HIGH ALERT MEDICATION, NOW) (18:50 09/07/2016 Anita Franco verbal order read back to Lincoln MALHOTRA) (18:54 Anita Franco) per Dr Hutchinson ORDER SHEET NOTES: [Electronically signed by Rita Thurston R.N. (19:35 09/07/2016)] [Electronically signed by Baldemar Guy DO (21:41 09/07/2016)] [Electronically locked/signed by Rita Thurston R.N. (19:35 09/07/2016)]
--- NOTE | 2016-09-07 17:51 | ED NURSING NOTES ---
Clinical Report - Nurses [facility] [address] [place] [address] 09/07/2016 16:41 Patient: BELEM ALONSO TRIAGE Triage time 1635. Acuity: LEVEL 3. Chief Complaint: DIFFICULTY BREATHING. 16:35. --16:46 Rita Thurston R.N. 16:35 09/07/16. BP: 157/86. HR: 115. RR: 24. O2 saturation: 96% on nasal cannula at 3 liters/minute. Temp: 98.4 F. Pain level now: 010. --16:46 Rita Thurston R.N. Weight: 72.5 kg stated. Height/Length: 70 inches Per Patient. BMI: 22.9. --16:38 Rita Thurston R.N. Medications Albuterol Sulfate Inhalation (Nebulization Solution (2.5 MG/3ML) 0.083%) 1 unit dose, PRN. ProAir HFA Inhalation. --16:44 Rita Thurston R.N. Allergies No Known Drug Allergy. --16:44 Rita Thurston R.N. History Arrived by private vehicle. Historian: patient. Unaccompanied. Primary physician ([facility], [place] by [facility]). This started yesterday. ( pt was at [facility] 08/14 for similar presentation and was admitted at that time). He has had wheezing. PAST MEDICAL HX: Chronic obstructive pulmonary disease. SURGERY HX: No history of previous surgery. SOCIAL HX: Smoker- current status unknown (pt quit 15 years ago- was less than 1/2 ppd for 10 years). Alcohol use; consumes three beers a week. No drug use. --16:46 Rita Thurston R.N. SOCIAL HX: Alcohol use. (states 1 16oz beer a night). --18:40 Rita Thurston R.N. PROBLEMS: Hypoxia. Substance Abuse. Depression. Pancreatitis. Alcohol Withdrawal. Asthma. --16:46 Rita Thurston R.N. Interventions ID band on patient. To treatment room. --16:46 Rita Thurston R.N. PHYSICAL ASSESSMENT 16:42. To room via stretcher. Patient gowned. GENERAL / NEURO / PSYCH: Alert. Oriented X 4. Appears in no acute distress. RESPIRATORY: Mild respiratory distress. The patient can speak in full sentences. Wheezing present. CVS: Capillary refill less than 2 seconds. GI / : Abdomen soft. SKIN: Skin is warm and dry. --16:43 Rita Thurston R.N. NURSING PROGRESS NOTES 16:40. Oxygen administered. Monitoring of patient in place. Patient gowned. Head of bed elevated. Reassurance given. Patient identifiers checked. Call light placed in reach. Side rails up. Bed placed in lowest position. Patient ready for evaluation- chart flagged. --16:42 Rita Thurston R.N. 16:42 09/07/2016 Site #1 started via IV in the right antecubital space with an 20g angiocath, with aseptic technique and good blood return; one attempt. Blood drawn: rainbow set. Labeled in the presence of the patient and sent to the lab. Saline lock flushed with 10 mL saline (done by COSTA Vickers). --16:43 Rita Thurston R.N. 16:48 09/07/2016 Started bag #1 1000 mL IV Fluids IV NS (Saline); bolus of 500 mL over 30 minute(s) then at 250 mL/hr over 2 hour(s) via site #1 --16:48 Rita Thurston R.N. 16:59 09/07/2016 Duoneb (Ipratropium-Albuterol) Neb TX Nebulizer 1 unit dose given. Given by the nurse. (RT notified, but unavailable, tx started by EDRN). --17:04 Rita Thurston R.N. 17:05 09/07/16. BP: 150/100. HR: 107. RR: 23. O2 saturation: 100% on nasal cannula. Temp: deferred. Pain level now: 0/10. Additional comments: Pt doing douneb tx . --17:07 Rita Thurston R.N. EKG time: (0896). EKG was ordered, performed by a tech and shown to the ED physician. --17:12 Melvi Angeles 17:16 09/07/16. ( Pt given h&p form, unable to fill out, will have family member assist when available.). --17:16 Nisha Rivero 17:18 09/07/16. ( ABG drawn by RT and taken to lab). --17:18 Rita Thurston R.N. 17:30. Patient transported to radiology by stretcher with tech. --17:45 Rita Thurston R.N. 17:40. Patient returned from radiology by stretcher with tech. --17:45 Rita Thurston R.N. 17:48 09/07/16. Patient ID band checked for patient name and birthdate: patient confirmed. Clean catch urine collected with return of yellow-colored clear urine; sample sent to lab for urinalysis, culture and drug screen. Specimen labeled in the presence of the patient. ( Pt sitting on side of bed to void - 300cc urine out). --18:06 Rita Thurston R.N. 17:52 09/07/2016 SOLU-MEDROL (MethylPREDNISolone Sodium Succ) IVP 125 mg given over 1 minute(s) via site #1. IV patency established. IV site checked: no pain, redness, or swelling. IV flushed thoroughly pre- and post-medication administration. IVP given by RN. --18:07 Rita Thurston R.N. 18:04 09/07/2016 Albuterol Neb TX Nebulizer 1 unit dose given. Given by the respiratory therapist. --18:08 Rita Thurston R.N. 18:00 RT here to give 2nd breathing tx. Pt asking for something to "calm my nerves". --18:08 Rita Thurston R.N. 18:17 09/07/2016 Ativan (LORazepam) IVP 0.5 mg given over 1 minute(s) via site #1. IV patency established. IV site checked: no pain, redness, or swelling. IV flushed thoroughly pre- and post-medication administration. IVP given by RN. --18:22 Rita Thurston R.N. 18:35 09/07/2016 Diazepam * IVP 2.5mg --18:54 Rita Thurston R.N. late entry -17:40 Kellie H&P form given to pt. --18:58 Rita Thurston R.N. 18:12. ( Dr Hutchinson in doing exam on p t). --18:32 Rita Thurston R.N. 18:35 09/07/2016 Site #[address] upon admission; patent. --19:00 Rita Thurston R.N. 18:40 09/07/2016 IV Fluids IV NS Continued: upon admission at the rate of 250 mL/hr. 125 mL remaining bag #1. IV patency established. IV site checked: no pain, redness, or swelling. IV flushed thoroughly. --18:59 Rita Thurston R.N. DISPOSITION / DISCHARGE 18:39 09/07/16. Condition at departure: improved and stable. Admitted to Acute Care. Transported via stretcher by [employer]. Report was given. ( staff nurse). --18:39 Rita Thurston R.N. 18:32 09/07/16. BP: 149/75. HR: 120. RR: 28. O2 saturation: 95% on nasal cannula at 2 liters/minute. Temp: deferred. Pain level now: 0/10. --18:39 Rita Thurston R.N. Locked/Released at 09/07/2016 19:35 by Rita Thurston R.N.
[2016-09-07 19:10] VITALS: BP 141/75
--- NOTE | 2016-09-07 19:19 | Progress Note ---
Subjective General Admission History and Physical Examination Patient Name: Garo Walker Admission Date: September 07, 2016 Primary Care Provider: [facility] Attending Physician: Shad Hopkins M.D. Admitting Physician: Pradip Hutchinson M.D. Code Status: FULL CODE Room: SUBJECTIVE Historian: Patient Reliability: Fair Chief Complaint: Shortness of breath History of Present Illness: The patient is a 75-year-old white male with a significant past make a history of COPD, alcohol abuse/dependence, generalized anxiety disorder, who presented to [facility] emergency room on the day of admission secondary to complaints of shortness of breath. [facility] ER evaluation was consistent with exacerbation of COPD. Secondary to the above, the patient was admitted for further evaluation and treatment by Pradip Hutchinson M.D. The patient states the history of present was began 2 days prior to admission when he had increasing shortness of breath with exertion and at rest. Despite use of inhalation bronchodilators his symptoms worsen. There was associated cough but no significant sputum production. He denied any history of fever or chills. Secondary to increasing shortness of breath he presented to [facility] emergency department for further evaluation and treatment. [facility] ER evaluation was consistent with exacerbation of COPD. Secondary to the above the patient was admitted for further evaluation and treatment. PAST MEDICAL HISTORY Illnesses: 1. COPD 2. Generalized anxiety disorder 3. Alcohol abuse/dependence-currently nondrinker Allergies: 1. No Known Drug Allergies Medications: 1. Albuterol MDI 2 inhalations 4 times a day 2. Albuterol nebs 2.5 mg every 6 hours when necessary shortness of breath Surgery: 1. None Injuries: 1. No significant Hospitalizations: 1. Alcohol withdrawal syndrome FAMILY HISTORY Parents: 1. Father, , 70, congestive heart failure 2. Mother, , 30, injury Siblings: 1. Male, Nathanael, living, 70, healthy Children: 1. None Other significant family history: None SOCIAL HISTORY 1. Marital Status: Single 2. Jewish: [employer] 3. Education: High school 4. 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 Occupational health exposures: None HABITS 1. Tobacco: 10 pack years, stopped 1999 2. Drugs: None 3. Alcohol: History of alcohol abuse/dependence, no recent usage 4. Caffeine: 3 coffee per day HEALTH SUPERVISION Item/Test 1. No recent health maintenance IMMUNIZATIONS: 1. Pneumococcal: 2014 2. Influenza: 2017 3. Tetanus: Unknown ADVANCED DIRECTIVES: 1. Living well: Yes 2. POLST: No 3. Code Status: FULL CODE 4. Durable Power [employer] Health care: No 5. Donor card: No REVIEW OF SYSTEMS Remarkable for those things stated in the history of present illness and past medical history. Seventeen point review of system completed with the following notable findings: General: Fatigue, weakness Respiratory: Shortness of breath, cough, wheezing, asthma/COPD Psychological: Anxiety/panic attacks Constitutional Denies: Chills, Sweats. Eyes Denies: Vision Change. ENT Denies: Nasal Discharge. Respiratory Wheezing. Denies: Hemoptysis. Gastrointestinal Denies: Diarrhea. Skin Denies: Jaundice. Physical Exam Vital Signs / I&Os Vital Signs Date Time Temp Pulse Resp B/P Pulse O2 O2 Flow FiO2 Ox Delivery Rate 09/07 2234 98.4 120 20 137/73 90 Nasal Cannula 09/07 194 Nasal Cannula 09/07 191 98.1 120 20 141/75 90 Room Air 09/07 1804 3.0 09/07 1705 2.0 General Appearance Oriented X3, Cooperative HEENT Atraumatic, PERRLA Lungs wheezing, shortness of breath, coughing Neck No JVD Abdomen Soft, No tenderness Extremities No edema Psych/Mental Status Mood normal, anxious LAB Results Laboratory Tests 09/07 09/07 09/07 1645 1645 1645 Chemistry Plasma Sodium (136 - 145 mmol/L) 146 Plasma Potassium (3.5 - 5.1 mmol/L) 4.0 Plasma Chloride (98 - 107 mmol/L) 107 CO2 (Enzymatic) (21 - 32 mmol/L) 26 BUN (7 - 18 mg/dL) 7 Creatinine (0.6 - 1.3 mg/dL) 1.0 Est GFR ( Amer) (mL/min) >60 Est GFR (Non-Af Amer) (mL/min) >60 Glucose (70 - 110 mg/dL) 97 Plasma Calcium (8.5 - 10.1 mg/dL) 8.5 Plasma Magnesium (1.8 - 2.4 mg/dL) 1.9 Total Bilirubin (0.0 - 1.0 mg/dL) 0.3 AST (15 - 37 U/L) 20 ALT (12 - 78 U/L) 23 Alkaline Phosphatase (46 - 116 U/L) 113 Creatine Kinase (24 - 260 U/L) 48 Troponin (0.00 - 1.5 ng/mL) 0.05 B-Natriuretic Peptide (5 - 100 pg/ml) 102 Total Protein (6.4 - 8.2 g/dL) 6.7 Albumin (3.3 - 5.0 g/dL) 3.3 Amylase (25 - 115 U/L) 49 Lipase (73 - 393 U/L) 226 TSH 3rd Generation (0.30 - 3.74 uIU/mL) 1.278 Coagulation INR (0.8 - 1.2) 0.9 D-Dimer, Quantitative (0.27 - 0.52 ug/mLFEU) < 0.27 Hematology WBC (4.5 - 11.5 K/uL) 6.3 RBC (4.50 - 5.90 M/uL) 4.78 Hgb (13.5 - 17.5 gm/dL) 13.2 Hct (41.0 - 53.0 %) 41.2 MCV (80 - 100 fL) 86 MCH (26 - 34 pg) 28 RDW (11.6 - 14.8 %) 24.1 Neut % (Auto) (50 - 75 %) 64.1 Lymph % (Auto) (25 - 40 %) 16.2 [place] % (Auto) (3 - 14 %) 12.6 Eos % (Auto) (0 - 4 %) 6.9 Baso % (Auto) (0 - 2 %) 0.2 Plt Count, EDTA (150 - 400 K/uL) 327 RBC Morphology (9290 A) PLTS ADQ PUBS MCHC (31 - 37 g/dL) 32 Toxicology Plasma/Serum Ethyl Alc (3 - 10 mg/dL) 32 09/07 1745 Toxicology Urine Opiates Screen (NEGATIVE) NEGATIVE Urine Methadone Screen (NEGATIVE) NEGATIVE Ur Barbiturates Screen (NEGATIVE) NEGATIVE U Amphetamin/Meth Scrn (NEGATIVE) NEGATIVE MDMA (Ecstasy) Screen (NEGATIVE) NEGATIVE U Benzodiazepines Scrn (NEGATIVE) NEGATIVE Urine Cocaine Screen (NEGATIVE) NEGATIVE U Cannabinoids Screen (NEGATIVE) NEGATIVE Urines Urine Color YELLOW Urine Appearance CLEAR Urine pH (5.0 - 8.0) 6.0 Ur Specific [place] (1.010 - 1.030) 1.010 Urine Protein (NEGATIVE) NEGATIVE Urine Ketones (NEGATIVE) NEGATIVE Urine Blood (NEGATIVE) NEGATIVE Urine Nitrite (NEGATIVE) NEGATIVE Urine Bilirubin (NEGATIVE) NEGATIVE Urine Urobilinogen (0.2 - 1.0 EU/dL) 0.2 Ur Leukocyte Esterase (NEGATIVE) NEGATIVE Urine RBC (0 - 1 rbc/hpf) NONE SEEN Urine WBC (0 - 1 wbc/hpf) RARE Ur Epithelial Cells (0 - 5 EPI/hpf) NONE SEEN Urine Bacteria (NONE SEEN) NONE SEEN Urine Glucose (NEGATIVE) NEGATIVE Urine Comment CULT NOT INDICATED Assessment and Plan Problem List 1. COPD (chronic obstructive pulmonary disease) Status Chronic Onset Date Unknown Plan Admission to optimize. Stabilize lung field sure that she is taking medication appropriately. Starting IV vancomycin and ciprofloxacin. Sulfasalazine spelled this time due to lack of pharmacological individually Maintain sats between 90-95%. CPAP provided. [employer] pH role and Solu-Medrol 2. Iron deficiency anemia Status Acute Onset Date Unknown Plan Iron deficiency anemia. Continue with the current 325mg ferrous sulfate.. 3. Anxiety Plan Anxiety Behavioral therapies. Review of 2.5 mg Valium now. Watch overnight Maintenance for golf course Current status: Fair, unstable Anticipated discharge date: Anticipated discharge 1. CKs Anticipated discharge placement: Home Patient care time: Time spent in chart review, patient interview, physical exam, CPOE, and care documentation: 70 minutes Visit to patient today: 1 Complexity of care: Moderate Initial patient evaluation: Emergency department Advance care plan: Full code, advance care plan documented E&M Codes Rounding: Inpt-High/[id number]
--- NOTE | 2016-09-07 19:19 | Progress Note ---
Subjective General Admission History and Physical Examination Patient Name: Garo Walker Admission Date: September 07, 2016 Primary Care Provider: [facility] Attending Physician: Shad Hopkins M.D. Admitting Physician: Pradip Hutchinson M.D. Code Status: FULL CODE Room: SUBJECTIVE Historian: Patient Reliability: Fair Chief Complaint: Shortness of breath History of Present Illness: The patient is a 75-year-old white male with a significant past make a history of COPD, alcohol abuse/dependence, generalized anxiety disorder, who presented to [facility] emergency room on the day of admission secondary to complaints of shortness of breath. [facility] ER evaluation was consistent with exacerbation of COPD. Secondary to the above, the patient was admitted for further evaluation and treatment by Pradip Hutchinson M.D. The patient states the history of present was began 2 days prior to admission when he had increasing shortness of breath with exertion and at rest. Despite use of inhalation bronchodilators his symptoms worsen. There was associated cough but no significant sputum production. He denied any history of fever or chills. Secondary to increasing shortness of breath he presented to [facility] emergency department for further evaluation and treatment. [facility] ER evaluation was consistent with exacerbation of COPD. Secondary to the above the patient was admitted for further evaluation and treatment. PAST MEDICAL HISTORY Illnesses: 1. COPD 2. Generalized anxiety disorder 3. Alcohol abuse/dependence-currently nondrinker Allergies: 1. No Known Drug Allergies Medications: 1. Albuterol MDI 2 inhalations 4 times a day 2. Albuterol nebs 2.5 mg every 6 hours when necessary shortness of breath Surgery: 1. None Injuries: 1. No significant Hospitalizations: 1. Alcohol withdrawal syndrome FAMILY HISTORY Parents: 1. Father, , 70, congestive heart failure 2. Mother, , 30, injury Siblings: 1. Male, Nathanael, living, 70, healthy Children: 1. None Other significant family history: None SOCIAL HISTORY 1. Marital Status: Single 2. Denominational: Judaism-Zoroastrianism 3. Education: High school 4. 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 Occupational health exposures: None HABITS 1. Tobacco: 10 pack years, stopped 1999 2. Drugs: None 3. Alcohol: History of alcohol abuse/dependence, no recent usage 4. Caffeine: 3 coffee per day HEALTH SUPERVISION Item/Test 1. No recent health maintenance IMMUNIZATIONS: 1. Pneumococcal: 2014 2. Influenza: 2017 3. Tetanus: Unknown ADVANCED DIRECTIVES: 1. Living well: Yes 2. POLST: No 3. Code Status: FULL CODE 4. Durable Power [employer] Health care: No 5. Donor card: No REVIEW OF SYSTEMS Remarkable for those things stated in the history of present illness and past medical history. Seventeen point review of system completed with the following notable findings: General: Fatigue, weakness Respiratory: Shortness of breath, cough, wheezing, asthma/COPD Psychological: Anxiety/panic attacks Constitutional Denies: Chills, Sweats. Eyes Denies: Vision Change. ENT Denies: Nasal Discharge. Respiratory Wheezing. Denies: Hemoptysis. Gastrointestinal Denies: Diarrhea. Skin Denies: Jaundice. Physical Exam Vital Signs / I&Os Vital Signs Date Time Temp Pulse Resp B/P Pulse O2 O2 Flow FiO2 Ox Delivery Rate 09/07 2234 98.4 120 20 137/73 90 Nasal Cannula 09/07 194 Nasal Cannula 09/07 191 98.1 120 20 141/75 90 Room Air 09/07 1804 3.0 09/07 1705 2.0 General Appearance Oriented X3, Cooperative HEENT Atraumatic, PERRLA Lungs wheezing, shortness of breath, coughing Neck No JVD Abdomen Soft, No tenderness Extremities No edema Psych/Mental Status Mood normal, anxious LAB Results Laboratory Tests 09/07 09/07 09/07 1645 1645 1645 Chemistry Plasma Sodium (136 - 145 mmol/L) 146 Plasma Potassium (3.5 - 5.1 mmol/L) 4.0 Plasma Chloride (98 - 107 mmol/L) 107 CO2 (Enzymatic) (21 - 32 mmol/L) 26 BUN (7 - 18 mg/dL) 7 Creatinine (0.6 - 1.3 mg/dL) 1.0 Est GFR ( Amer) (mL/min) >60 Est GFR (Non-Af Amer) (mL/min) >60 Glucose (70 - 110 mg/dL) 97 Plasma Calcium (8.5 - 10.1 mg/dL) 8.5 Plasma Magnesium (1.8 - 2.4 mg/dL) 1.9 Total Bilirubin (0.0 - 1.0 mg/dL) 0.3 AST (15 - 37 U/L) 20 ALT (12 - 78 U/L) 23 Alkaline Phosphatase (46 - 116 U/L) 113 Creatine Kinase (24 - 260 U/L) 48 Troponin (0.00 - 1.5 ng/mL) 0.05 B-Natriuretic Peptide (5 - 100 pg/ml) 102 Total Protein (6.4 - 8.2 g/dL) 6.7 Albumin (3.3 - 5.0 g/dL) 3.3 Amylase (25 - 115 U/L) 49 Lipase (73 - 393 U/L) 226 TSH 3rd Generation (0.30 - 3.74 uIU/mL) 1.278 Coagulation INR (0.8 - 1.2) 0.9 D-Dimer, Quantitative (0.27 - 0.52 ug/mLFEU) < 0.27 Hematology WBC (4.5 - 11.5 K/uL) 6.3 RBC (4.50 - 5.90 M/uL) 4.78 Hgb (13.5 - 17.5 gm/dL) 13.2 Hct (41.0 - 53.0 %) 41.2 MCV (80 - 100 fL) 86 MCH (26 - 34 pg) 28 RDW (11.6 - 14.8 %) 24.1 Neut % (Auto) (50 - 75 %) 64.1 Lymph % (Auto) (25 - 40 %) 16.2 [place] % (Auto) (3 - 14 %) 12.6 Eos % (Auto) (0 - 4 %) 6.9 Baso % (Auto) (0 - 2 %) 0.2 Plt Count, EDTA (150 - 400 K/uL) 327 RBC Morphology (9290 A) PLTS ADQ PUBS MCHC (31 - 37 g/dL) 32 Toxicology Plasma/Serum Ethyl Alc (3 - 10 mg/dL) 32 09/07 1745 Toxicology Urine Opiates Screen (NEGATIVE) NEGATIVE Urine Methadone Screen (NEGATIVE) NEGATIVE Ur Barbiturates Screen (NEGATIVE) NEGATIVE U Amphetamin/Meth Scrn (NEGATIVE) NEGATIVE MDMA (Ecstasy) Screen (NEGATIVE) NEGATIVE U Benzodiazepines Scrn (NEGATIVE) NEGATIVE Urine Cocaine Screen (NEGATIVE) NEGATIVE U Cannabinoids Screen (NEGATIVE) NEGATIVE Urines Urine Color YELLOW Urine Appearance CLEAR Urine pH (5.0 - 8.0) 6.0 Ur Specific [place] (1.010 - 1.030) 1.010 Urine Protein (NEGATIVE) NEGATIVE Urine Ketones (NEGATIVE) NEGATIVE Urine Blood (NEGATIVE) NEGATIVE Urine Nitrite (NEGATIVE) NEGATIVE Urine Bilirubin (NEGATIVE) NEGATIVE Urine Urobilinogen (0.2 - 1.0 EU/dL) 0.2 Ur Leukocyte Esterase (NEGATIVE) NEGATIVE Urine RBC (0 - 1 rbc/hpf) NONE SEEN Urine WBC (0 - 1 wbc/hpf) RARE Ur Epithelial Cells (0 - 5 EPI/hpf) NONE SEEN Urine Bacteria (NONE SEEN) NONE SEEN Urine Glucose (NEGATIVE) NEGATIVE Urine Comment CULT NOT INDICATED Assessment and Plan Problem List 1. COPD (chronic obstructive pulmonary disease) Status Chronic Onset Date Unknown Plan Admission to optimize. Stabilize lung field sure that she is taking medication appropriately. Starting IV vancomycin and ciprofloxacin. Sulfasalazine spelled this time due to lack of pharmacological individually Maintain sats between 90-95%. CPAP provided. [employer] pH role and Solu-Medrol 2. Iron deficiency anemia Status Acute Onset Date Unknown Plan Iron deficiency anemia. Continue with the current 325mg ferrous sulfate.. 3. Anxiety Plan Anxiety Behavioral therapies. Review of 2.5 mg Valium now. Watch overnight Maintenance for golf course Current status: Fair, unstable Anticipated discharge date: Anticipated discharge 1. CKs Anticipated discharge placement: Home Patient care time: Time spent in chart review, patient interview, physical exam, CPOE, and care documentation: 70 minutes Visit to patient today: 1 Complexity of care: Moderate Initial patient evaluation: Emergency department Advance care plan: Full code, advance care plan documented E&M Codes Rounding: Inpt-High/[id number]
--- NOTE | 2016-09-07 19:20 | DIAGNOSTIC IMAGING REPORT ---
PROCEDURE: XR CHEST 2 VIEW INDICATION: SHORTNESS OF BREATH TECHNIQUE: PA and lateral view. COMPARISON: Chest x-ray 08/14/2016 FINDINGS: Hyperinflation. Lungs are clear. Cardiovascular structures are normal. Bony thorax is unremarkable. No significant interval change. IMPRESSION: 1. COPD.
--- NOTE | 2016-09-07 21:42 | ED MED RECONCILIATION SUMMARY ---
Patient: BELEM ALONSO Medication Reconciliation Report [facility] VisitID: [id number] [address] [place] [address] 76y, M Registration Date/Time: 09/07/2016 Weight: 72.5 kg Height/Length: 70 in. BMI: 22.9 ALLERGIES: No Known Drug Allergy The patient's Home Medications are listed below: THE FOLLOWING MEDICATIONS NEED TO BE RECONCILED: Albuterol Sulfate Inhalation ((2.5 MG/3ML) 0.083%) 1 unit dose, PRN ProAir HFA Inhalation The source(s) of the original Home Medication information: Not obtained. The following Medications were given to the patient in the Emergency Department: IV NS IV Fluids bolus 500 mL over 30 minute(s), then 250 mL/hr, administered: 09/07/2016 4:48:00 PM Duoneb [Neb Tx] Neb TX 1 unit dose, administered: 09/07/2016 4:59:00 PM SOLU-MEDROL [IVP] IVP 125 mg, administered: 09/07/2016 5:52:00 PM Albuterol [Neb Tx] Neb TX 1 unit dose, administered: 09/07/2016 6:04:00 PM Ativan [IVP] IVP 0.5 mg, administered: 09/07/2016 6:17:00 PM Diazepam IVP 2.5mg, administered: 09/07/2016 6:35:00 PM The following Medications were prescribed to the patient: None.
--- NOTE | 2016-09-07 21:42 | ED MAR SUMMARY ---
..... Medication Administration Record [facility] [address] [place] [place] [address] Patient: BELEM ALONSO Visit ID: [id number] 76y, M Weight: 72.5 kg Height/Length: 70 in BMI: 22.9 ALLERGIES: No Known Drug Allergy Start 16:48 09/07/2016 Rita Thurston R.N., Continued Upon Admission 18:40 09/07/2016 Rita Thurston R.N. Medication Administered: IV NS (SALINE), Dose: IV Fluids over 2 hour(s), Rate: 250 mL/hr, Bolus: 500 mL over 30 minute(s), Dispensed: 1000 mL bag, Site: #1 right AC. Medication Ordered: IV NS : initial bolus 500 mL (1000 mL/hr), then 250 mL/hr for X2 (NOW). Given 16:59 09/07/2016 Rita Thurston R.N. Medication Administered: DUONEB [NEB TX] (IPRATROPIUM-ALBUTEROL), Dose: 1 unit dose Nebulizer Neb TX. Medication Ordered: DuoNeb Neb Tx 1 unit dose (NOW). Given 17:52 09/07/2016 Rita Thurston R.N. Medication Administered: SOLU-MEDROL [IVP] (METHYLPREDNISOLONE SODIUM SUCC), Dose: 125 mg IVP over 1 minute(s), Site: #1 right AC. Medication Ordered: Solu-MEDROL IV 125 mg (NOW). Given 18:04 09/07/2016 Rita Thurston R.N. Medication Administered: ALBUTEROL [NEB TX], Dose: 1 unit dose Nebulizer Neb TX. Medication Ordered: Albuterol Neb Tx 1 unit dose (NOW, HHN). Given 18:17 09/07/2016 Rita Thurston R.N. Medication Administered: ATIVAN [IVP] (LORAZEPAM), Dose: 0.5 mg IVP over 1 minute(s), Site: #1 right AC. Medication Ordered: Ativan IV 0.5 mg (HIGH ALERT MEDICATION, NOW). Given 18:35 09/07/2016 Rita Thurston R.N. Medication Administered: Diazepam *, Dose: 2.5mg * IVP. Medication Ordered: Diazepam IV 2.5mg (HIGH ALERT MEDICATION, NOW).
--- NOTE | 2016-09-07 21:42 | ED MAR SUMMARY ---
..... Medication Administration Record [facility] [address] [place] [address] Patient: BELEM ALONSO Visit ID: [id number] 76y, M Weight: 72.5 kg Height/Length: 70 in BMI: 22.9 ALLERGIES: No Known Drug Allergy Start 16:48 09/07/2016 Rita Thurston R.N., Continued Upon Admission 18:40 09/07/2016 Rita Thurston R.N. Medication Administered: IV NS (SALINE), Dose: IV Fluids over 2 hour(s), Rate: 250 mL/hr, Bolus: 500 mL over 30 minute(s), Dispensed: 1000 mL bag, Site: #1 right AC. Medication Ordered: IV NS : initial bolus 500 mL (1000 mL/hr), then 250 mL/hr for X2 (NOW). Given 16:59 09/07/2016 Rita Thurston R.N. Medication Administered: DUONEB [NEB TX] (IPRATROPIUM-ALBUTEROL), Dose: 1 unit dose Nebulizer Neb TX. Medication Ordered: DuoNeb Neb Tx 1 unit dose (NOW). Given 17:52 09/07/2016 Rita Thurston R.N. Medication Administered: SOLU-MEDROL [IVP] (METHYLPREDNISOLONE SODIUM SUCC), Dose: 125 mg IVP over 1 minute(s), Site: #1 right AC. Medication Ordered: Solu-MEDROL IV 125 mg (NOW). Given 18:04 09/07/2016 Rita Thurston R.N. Medication Administered: ALBUTEROL [NEB TX], Dose: 1 unit dose Nebulizer Neb TX. Medication Ordered: Albuterol Neb Tx 1 unit dose (NOW, HHN). Given 18:17 09/07/2016 Rita Thurston R.N. Medication Administered: ATIVAN [IVP] (LORAZEPAM), Dose: 0.5 mg IVP over 1 minute(s), Site: #1 right AC. Medication Ordered: Ativan IV 0.5 mg (HIGH ALERT MEDICATION, NOW). Given 18:35 09/07/2016 Rita Thurston R.N. Medication Administered: Diazepam *, Dose: 2.5mg * IVP. Medication Ordered: Diazepam IV 2.5mg (HIGH ALERT MEDICATION, NOW).
--- NOTE | 2016-09-07 21:42 | ED MED RECONCILIATION SUMMARY ---
Patient: BELEM LAONSO Medication Reconciliation Report [facility] VisitID: [id number] [address] [place] [address] 76y, M Registration Date/Time: 09/07/2016 Weight: 72.5 kg Height/Length: 70 in. BMI: 22.9 ALLERGIES: No Known Drug Allergy The patient's Home Medications are listed below: THE FOLLOWING MEDICATIONS NEED TO BE RECONCILED: Albuterol Sulfate Inhalation ((2.5 MG/3ML) 0.083%) 1 unit dose, PRN ProAir HFA Inhalation The source(s) of the original Home Medication information: Not obtained. The following Medications were given to the patient in the Emergency Department: IV NS IV Fluids bolus 500 mL over 30 minute(s), then 250 mL/hr, administered: 09/07/2016 4:48:00 PM Duoneb [Neb Tx] Neb TX 1 unit dose, administered: 09/07/2016 4:59:00 PM SOLU-MEDROL [IVP] IVP 125 mg, administered: 09/07/2016 5:52:00 PM Albuterol [Neb Tx] Neb TX 1 unit dose, administered: 09/07/2016 6:04:00 PM Ativan [IVP] IVP 0.5 mg, administered: 09/07/2016 6:17:00 PM Diazepam IVP 2.5mg, administered: 09/07/2016 6:35:00 PM The following Medications were prescribed to the patient: None.
--- NOTE | 2016-09-07 21:42 | ED DISCHARGE INSTRUCTIONS ---
Patient: BELEM ALONSO General Instructions [facility] VisitID: [id number] [address] [place] [address] 76y, M Registration Date/Time: 09/07/2016 Acute exacerbation of COPD. Frequent PVC's (with quadrqgeminy). History of alcoholism. (Electronically signed by Baldemar Guy DO 09/07/2016 21:41)
--- NOTE | 2016-09-07 21:42 | ED DISCHARGE INSTRUCTIONS ---
Patient: BELEM ALONSO General Instructions [facility] VisitID: [id number] [address] [place] [address] 76y, M Registration Date/Time: 09/07/2016 Acute exacerbation of COPD. Frequent PVC's (with quadrqgeminy). History of alcoholism. (Electronically signed by Baldemar Guy DO 09/07/2016 21:41)
[2016-09-07 22:35] VITALS: BP 137/73
[2016-09-08 02:34] VITALS: BP 120/63
--- NOTE | 2016-09-08 02:58 | Progress Note ---
Subjective General History of Present Illness The patient is a 76-year-old white male with a significant past make a history of COPD, alcohol abuse/dependence, generalized anxiety disorder, who presented to [facility] emergency room on the day of admission secondary to complaints of shortness of breath. [facility] ER evaluation was consistent with exacerbation of COPD. Secondary to the above, the patient was admitted for further evaluation and treatment by Pradip Hutchinson M.D. For other history present illness, past medical history, family history, social history, review of systems, and admission physical examination please see the patient's history and physical examination and ER visit note in the patient's medical record. A discussion was undertaken with the patient regarding previous advance care arrangements/decisions. The following advanced directives were noted by the patient and discussed with me at the time of admission. ADVANCED DIRECTIVES: 1. Living well: Yes 2. POLST: No 3. Code Status: FULL CODE 4. 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 Donor card: No The patient has expressed interest for resuscitative efforts at the time of cardiopulmonary arrest. The patient's wishes were documented in the chart and orders regarding the patient's wishes entered into the [employer] CPOE system. The "Advance Care Plan Document" was not distributed to patient to discuss with his family. Less than 30 minutes was spent in performing the above tasks and documentation of the patient's advanced care plan.
--- NOTE | 2016-09-08 02:58 | Progress Note ---
Subjective General History of Present Illness The patient is a 76-year-old white male with a significant past make a history of COPD, alcohol abuse/dependence, generalized anxiety disorder, who presented to [facility] emergency room on the day of admission secondary to complaints of shortness of breath. [facility] ER evaluation was consistent with exacerbation of COPD. Secondary to the above, the patient was admitted for further evaluation and treatment by Pradip Hutchinson M.D. For other history present illness, past medical history, family history, social history, review of systems, and admission physical examination please see the patient's history and physical examination and ER visit note in the patient's medical record. A discussion was undertaken with the patient regarding previous advance care arrangements/decisions. The following advanced directives were noted by the patient and discussed with me at the time of admission. ADVANCED DIRECTIVES: 1. Living well: Yes 2. POLST: No 3. Code Status: FULL CODE 4. 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 Donor card: No The patient has expressed interest for resuscitative efforts at the time of cardiopulmonary arrest. The patient's wishes were documented in the chart and orders regarding the patient's wishes entered into the [employer] CPOE system. The "Advance Care Plan Document" was not distributed to patient to discuss with his family. Less than 30 minutes was spent in performing the above tasks and documentation of the patient's advanced care plan.
[2016-09-08 07:07] VITALS: BP 136/80
--- NOTE | 2016-09-08 07:59 | Progress Note ---
Subjective General Note Date: September 08, 2016 Admission Date: September 07, 2016 Hospital Day: 2 PCP: Senthil menendez Status: Inpatient, ACU Advanced Directive: FULL CODE Room: 210-A Brief History: he patient is a 75-year-old white male with a significant past make a history of COPD, alcohol abuse/dependence, generalized anxiety disorder, who presented to [facility] emergency room on the day of admission secondary to complaints of shortness of breath. [facility] ER evaluation was consistent with exacerbation of COPD. Secondary to the above, the patient was admitted for further evaluation and treatment by Pradip Hutchinson M.D. For other history present illness, past medical history, family history, social history, review of systems, and admission physical examination please see the patient's history and physical examination and ER visit note in the patient's medical record. Subjective: The patient states he is doing well at this time. Shortness of breath much improved. States ready for discharge Patient requests: None Medications and Allergies Medications Current Medications Sig/Diana Start time Last Medication Dose Route Stop Time Status Admin Pantoprazole Sodium 40 MG DAILY@0600 09/08 0600 AC 09/08 Sesquihydrate PO 0528 Metoprolol Tartrate 5 MG ONCE PRN 09/08 0515 AC 09/08 IV 0519 Albuterol/Ipratropium 3 ML RTQID 09/07 2199 AC 09/07 IN 2130 Methylprednisolone 125 MG Q8HR 09/07 220 AC 09/08 Sodium Succinate IV 0529 Diazepam 5 MG TID PRN 09/07 1900 AC PO Acetaminophen 650 MG Q6H PRN 09/07 184 AC PO Docusate Sodium 250 MG BID PRN 09/07 184 AC PO Ondansetron HCl 4 MG Q6H PRN 09/07 184 AC PO Ondansetron HCl 4 MG Q4H PRN 09/07 1845 AC IV Sodium Chloride 1,000 ML ASDIRECTED 09/07 184 AC 09/07 IV 2122 Sodium Chloride 1,000 ML ASDIRECTED 09/07 184 AC IV Zolpidem Tartrate 5 MG QHS PRN 09/07 184 AC 09/07 PO 2349 Allergies Coded Allergies: NKA (08/14/16) Physical Exam Vital Signs / I&Os Vital Signs Date Time Temp Pulse Resp B/P Pulse O2 O2 Flow FiO2 Ox Delivery Rate 09/08 0707 98.4 102 20 136/80 95 Nasal 3.0 Cannula 09/08 0234 98.2 112 20 120/63 95 Nasal 3.0 Cannula 09/07 2235 98.4 120 20 137/73 90 Nasal Cannula 09/07 2130 Nasal 3.0 Cannula 09/07 1941 Nasal Cannula 09/07 1910 98.1 120 20 141/75 90 Room Air 09/07 1804 3.0 09/07 1705 2.0 I&O 09/08 0000 09/07 1600 09/07 0800 Intake Total 250 Output Total 0 Balance 250 General Appearance Alert, Oriented X3, Cooperative, No acute distress Lungs Scattered rhonchi, minimal expiratory wheezes. No rales. Cardiovascular Regular rate and rhythm, Normal S1 and S2, mild tachycardia Abdomen Normal bowel sounds, Soft, No tenderness Extremities No cyanosis, No clubbing Neurological Cranial nerves intact, No lateralizing signs Psych/Mental Status Mental status normal, Mood normal LAB Results Laboratory Tests 09/08 09/07 09/07 09/07 0606 1745 1645 1645 Chemistry Plasma Sodium (136 - 145 mmol/L) 142 Plasma Potassium (3.5 - 5.1 mmol/L) 4.2 Plasma Chloride (98 - 107 mmol/L) 107 CO2 (Enzymatic) (21 - 32 mmol/L) 24 BUN (7 - 18 mg/dL) 13 Creatinine (0.6 - 1.3 mg/dL) 1.1 Est GFR ( Amer) (mL/min) >60 Est GFR (Non-Af Amer) (mL/min) >60 Glucose (70 - 110 mg/dL) 203 Plasma Calcium (8.5 - 10.1 mg/dL) 8.3 Plasma Magnesium (1.8 - 2.4 mg/dL) 1.9 B-Natriuretic Peptide (5 - 100 pg/ml) 102 Amylase (25 - 115 U/L) 34 49 Lipase (73 - 393 U/L) 121 226 TSH 3rd Generation (0.30 - 3.74 uIU/mL) 1.278 Coagulation INR (0.8 - 1.2) 1.0 Hematology WBC (4.5 - 11.5 K/uL) 6.9 RBC (4.50 - 5.90 M/uL) 4.41 Hgb (13.5 - 17.5 gm/dL) 12.3 Hct (41.0 - 53.0 %) 38.0 MCV (80 - 100 fL) 86 MCH (26 - 34 pg) 28 RDW (11.6 - 14.8 %) 22.7 Neut % (Auto) (50 - 75 %) 94.8 Lymph % (Auto) (25 - 40 %) 4.7 [place] % (Auto) (3 - 14 %) 0.5 Eos % (Auto) (0 - 4 %) 0 Baso % (Auto) (0 - 2 %) 0 Plt Count, EDTA (150 - 400 K/uL) 291 PUBS MCHC (31 - 37 g/dL) 32 Toxicology Urine Opiates Screen (NEGATIVE) NEGATIVE Urine Methadone Screen (NEGATIVE) NEGATIVE Ur Barbiturates Screen (NEGATIVE) NEGATIVE U Amphetamin/Meth Scrn (NEGATIVE) NEGATIVE MDMA (Ecstasy) Screen (NEGATIVE) NEGATIVE U Benzodiazepines Scrn (NEGATIVE) NEGATIVE Urine Cocaine Screen (NEGATIVE) NEGATIVE U Cannabinoids Screen (NEGATIVE) NEGATIVE Urines Urine Color YELLOW Urine Appearance CLEAR Urine pH (5.0 - 8.0) 6.0 Ur Specific [place] (1.010 - 1.030) 1.010 Urine Protein (NEGATIVE) NEGATIVE Urine Ketones (NEGATIVE) NEGATIVE Urine Blood (NEGATIVE) NEGATIVE Urine Nitrite (NEGATIVE) NEGATIVE Urine Bilirubin (NEGATIVE) NEGATIVE Urine Urobilinogen (0.2 - 1.0 EU/dL) 0.2 Ur Leukocyte Esterase (NEGATIVE) NEGATIVE Urine RBC (0 - 1 rbc/hpf) NONE SEEN Urine WBC (0 - 1 wbc/hpf) RARE Ur Epithelial Cells (0 - 5 EPI/hpf) NONE SEEN Urine Bacteria (NONE SEEN) NONE SEEN Urine Glucose (NEGATIVE) NEGATIVE Urine Comment CULT NOT INDICATED 09/07 1645 Chemistry Plasma Sodium (136 - 145 mmol/L) 146 Plasma Potassium (3.5 - 5.1 mmol/L) 4.0 Plasma Chloride (98 - 107 mmol/L) 107 CO2 (Enzymatic) (21 - 32 mmol/L) 26 BUN (7 - 18 mg/dL) 7 Creatinine (0.6 - 1.3 mg/dL) 1.0 Est GFR ( Amer) (mL/min) >60 Est GFR (Non-Af Amer) (mL/min) >60 Glucose (70 - 110 mg/dL) 97 Plasma Calcium (8.5 - 10.1 mg/dL) 8.5 Plasma Magnesium (1.8 - 2.4 mg/dL) 1.9 Total Bilirubin (0.0 - 1.0 mg/dL) 0.3 AST (15 - 37 U/L) 20 ALT (12 - 78 U/L) 23 Alkaline Phosphatase (46 - 116 U/L) 113 Creatine Kinase (24 - 260 U/L) 48 Troponin (0.00 - 1.5 ng/mL) 0.05 Total Protein (6.4 - 8.2 g/dL) 6.7 Albumin (3.3 - 5.0 g/dL) 3.3 Coagulation INR (0.8 - 1.2) 0.9 D-Dimer, Quantitative (0.27 - 0.52 ug/mLFEU) < 0.27 Hematology WBC (4.5 - 11.5 K/uL) 6.3 RBC (4.50 - 5.90 M/uL) 4.78 Hgb (13.5 - 17.5 gm/dL) 13.2 Hct (41.0 - 53.0 %) 41.2 MCV (80 - 100 fL) 86 MCH (26 - 34 pg) 28 RDW (11.6 - 14.8 %) 24.1 Neut % (Auto) (50 - 75 %) 64.1 Lymph % (Auto) (25 - 40 %) 16.2 [place] % (Auto) (3 - 14 %) 12.6 Eos % (Auto) (0 - 4 %) 6.9 Baso % (Auto) (0 - 2 %) 0.2 Plt Count, EDTA (150 - 400 K/uL) 327 RBC Morphology (9290 A) PLTS ADQ PUBS MCHC (31 - 37 g/dL) 32 Toxicology Plasma/Serum Ethyl Alc (3 - 10 mg/dL) 32 Assessment and Plan Problem List 1. COPD with acute exacerbation Plan -Status post much improved -O2 sats normal on room air -Plan discharge today up ambulating well off oxygen with normal O2 sats 2. Iron deficiency anemia Status Acute Onset Date Unknown Plan -Patient with history of iron deficiency anemia -Ferrous Sulfate 325 mg by mouth twice a day 3. Hyperglycemia Status Acute Onset Date Unknown Plan -Patient with findings of hyperglycemia -Probable stress/steroid related -Hemoglobin A1c normal -Outpatient follow per PCP 4. Anxiety Plan -Stable -Significant issue patient's presentation to the hospital -Anti-anxiety agent on discharge Current status: Fair, improved Anticipated discharge date: Today Anticipated discharge placement: Home Patient care time: Time spent in chart review, patient interview, physical exam, CPOE, and care documentation: Greater than 30 minutes Visit to patient today: 2 Complexity of care: Moderate For other recommendations regarding discharge diet, activity, followup, and discharge medications please see the patient's discharge instructions. Greater than 30 min. was spent in the patient's discharge preparation including discharge interview and physical examination, progress note, discharge instructions, and discharge summary E&M Codes Discharge: Inpt >30 min spent/[id number]
[2016-09-08 11:22] VITALS: BP 146/67
[2016-09-08 14:43] VITALS: BP 130/79
--- NOTE | 2016-09-08 14:53 | Discharge Summary ---
Discharge Summary Report Admit Date 09/07/16 Discharge Date 09/08/16 Admission Diagnosis 1. Exacerbation of COPD 2. Generalized anxiety disorder 3. Iron deficiency anemia Discharge Diagnosis 1. Exacerbation of COPD 2. Generalized anxiety disorder 3. Iron deficiency anemia Brief History The patient is a 75-year-old white male with a significant past make a history of COPD, alcohol abuse/dependence, generalized anxiety disorder, who presented to [facility] emergency room on the day of admission secondary to complaints of shortness of breath. [facility] ER evaluation was consistent with exacerbation of COPD. Secondary to the above, the patient was admitted for further evaluation and treatment by Pradip Hutchinson M.D. For other history present illness, past medical history, family history, social history, review of systems, and admission physical examination please see the patient's history and physical examination and ER visit note in the patient's medical record. Hospital Course The following problems and their management were noted during the patient's hospitalization: 1. Exacerbation of COPD The patient was admitted with findings of COPD. The patient was treated with IV corticosteroids, DuoNeb, and albuterol. His symptoms improved rapidly. At the time of discharge the patient required no further O2 supplementation. He was ambulating with O2 saturation of 91-92% on room air. He was discharged on combination therapy of DuoNeb one via nebulizer every 6 hours, albuterol via nebulizer or HFA every 3 hours when necessary, Flovent HFA 110 g 1 puff twice a day. He was discharged on a prednisone taper. He will follow-up with his PCP this week. 2. Generalized anxiety disorder The patient has a history of generalized anxiety disorder. He was discharged on Ativan 0.5 mg by mouth 3 times a day when necessary anxiety. 3. Iron deficiency anemia The patient has a history of iron deficiency anemia.H&H was 12.3/38.0 on discharge. The patient was discharged on ferrous sulfate 325 mg by mouth twice a day. Lab/Imaging Laboratory Tests 09/08 09/08 0606 0606 Chemistry Plasma Sodium (136 - 145 mmol/L) 142 Plasma Potassium (3.5 - 5.1 mmol/L) 4.2 Plasma Chloride (98 - 107 mmol/L) 107 CO2 (Enzymatic) (21 - 32 mmol/L) 24 BUN (7 - 18 mg/dL) 13 Creatinine (0.6 - 1.3 mg/dL) 1.1 Est GFR ( Amer) (mL/min) >60 Est GFR (Non-Af Amer) (mL/min) >60 Glucose (70 - 110 mg/dL) 203 Hemoglobin A1c % (4.5 - 6.2 %) 5.8 Plasma Calcium (8.5 - 10.1 mg/dL) 8.3 Plasma Magnesium (1.8 - 2.4 mg/dL) 1.9 Amylase (25 - 115 U/L) 34 Lipase (73 - 393 U/L) 121 Coagulation INR (0.8 - 1.2) 1.0 Hematology WBC (4.5 - 11.5 K/uL) 6.9 RBC (4.50 - 5.90 M/uL) 4.41 Hgb (13.5 - 17.5 gm/dL) 12.3 Hct (41.0 - 53.0 %) 38.0 MCV (80 - 100 fL) 86 MCH (26 - 34 pg) 28 RDW (11.6 - 14.8 %) 22.7 Neut % (Auto) (50 - 75 %) 94.8 Lymph % (Auto) (25 - 40 %) 4.7 [place] % (Auto) (3 - 14 %) 0.5 Eos % (Auto) (0 - 4 %) 0 Baso % (Auto) (0 - 2 %) 0 Plt Count, EDTA (150 - 400 K/uL) 291 RBC Morphology (32994 A) 1+ HYPOCHROMIA PUBS MCHC (31 - 37 g/dL) 32 09/07 09/07 09/07 1745 1645 1645 Chemistry B-Natriuretic Peptide (5 - 100 pg/ml) 102 Amylase (25 - 115 U/L) 49 Lipase (73 - 393 U/L) 226 TSH 3rd Generation (0.30 - 3.74 uIU/mL) 1.278 Toxicology Urine Opiates Screen (NEGATIVE) NEGATIVE Urine Methadone Screen (NEGATIVE) NEGATIVE Ur Barbiturates Screen (NEGATIVE) NEGATIVE U Amphetamin/Meth Scrn (NEGATIVE) NEGATIVE MDMA (Ecstasy) Screen (NEGATIVE) NEGATIVE U Benzodiazepines Scrn (NEGATIVE) NEGATIVE Urine Cocaine Screen (NEGATIVE) NEGATIVE U Cannabinoids Screen (NEGATIVE) NEGATIVE Urines Urine Color YELLOW Urine Appearance CLEAR Urine pH (5.0 - 8.0) 6.0 Ur Specific [place] (1.010 - 1.030) 1.010 Urine Protein (NEGATIVE) NEGATIVE Urine Ketones (NEGATIVE) NEGATIVE Urine Blood (NEGATIVE) NEGATIVE Urine Nitrite (NEGATIVE) NEGATIVE Urine Bilirubin (NEGATIVE) NEGATIVE Urine Urobilinogen (0.2 - 1.0 EU/dL) 0.2 Ur Leukocyte Esterase (NEGATIVE) NEGATIVE Urine RBC (0 - 1 rbc/hpf) NONE SEEN Urine WBC (0 - 1 wbc/hpf) RARE Ur Epithelial Cells (0 - 5 EPI/hpf) NONE SEEN Urine Bacteria (NONE SEEN) NONE SEEN Urine Glucose (NEGATIVE) NEGATIVE Urine Comment CULT NOT INDICATED 09/07 1645 Chemistry Plasma Sodium (136 - 145 mmol/L) 146 Plasma Potassium (3.5 - 5.1 mmol/L) 4.0 Plasma Chloride (98 - 107 mmol/L) 107 CO2 (Enzymatic) (21 - 32 mmol/L) 26 BUN (7 - 18 mg/dL) 7 Creatinine (0.6 - 1.3 mg/dL) 1.0 Est GFR ( Amer) (mL/min) >60 Est GFR (Non-Af Amer) (mL/min) >60 Glucose (70 - 110 mg/dL) 97 Plasma Calcium (8.5 - 10.1 mg/dL) 8.5 Plasma Magnesium (1.8 - 2.4 mg/dL) 1.9 Total Bilirubin (0.0 - 1.0 mg/dL) 0.3 AST (15 - 37 U/L) 20 ALT (12 - 78 U/L) 23 Alkaline Phosphatase (46 - 116 U/L) 113 Creatine Kinase (24 - 260 U/L) 48 Troponin (0.00 - 1.5 ng/mL) 0.05 Total Protein (6.4 - 8.2 g/dL) 6.7 Albumin (3.3 - 5.0 g/dL) 3.3 Coagulation INR (0.8 - 1.2) 0.9 D-Dimer, Quantitative (0.27 - 0.52 ug/mLFEU) < 0.27 Hematology WBC (4.5 - 11.5 K/uL) 6.3 RBC (4.50 - 5.90 M/uL) 4.78 Hgb (13.5 - 17.5 gm/dL) 13.2 Hct (41.0 - 53.0 %) 41.2 MCV (80 - 100 fL) 86 MCH (26 - 34 pg) 28 RDW (11.6 - 14.8 %) 24.1 Neut % (Auto) (50 - 75 %) 64.1 Lymph % (Auto) (25 - 40 %) 16.2 [place] % (Auto) (3 - 14 %) 12.6 Eos % (Auto) (0 - 4 %) 6.9 Baso % (Auto) (0 - 2 %) 0.2 Plt Count, EDTA (150 - 400 K/uL) 327 RBC Morphology (9290 A) PLTS ADQ PUBS MCHC (31 - 37 g/dL) 32 Toxicology Plasma/Serum Ethyl Alc (3 - 10 mg/dL) 32 Discharge Instructions/Meds For other recommendations regarding discharge diet, activity, followup, and discharge medications please see the patient's discharge instructions. Discharge condition: Fair, improved Greater than 30 min. was spent in the patient's discharge preparation including discharge interview and physical examination, progress note, discharge instructions, and discharge summary The patient was interviewed and examined on the day of discharge. E&M Codes Discharge: Observation - All/[id number]
[2016-09-08] MEDS ORDERED: ATIVAN0.5 MG PO (14:54)
--- NOTE | 2016-09-08 14:56 | Provider's Discharge Care Plan ---
Problem, Goal, Plan Problem List 1. COPD with acute exacerbation Goals: Improve disease control, Prevent disease progress Instructions: Follow up as directed, Take meds as directed 2. Anxiety Goals: Improve disease control, Prevent disease progress Instructions: Follow up as directed, Take meds as directed, do not use alcohol 3. Iron deficiency anemia Goals: Improve disease control, Prevent disease progress Instructions: Follow up as directed, Take meds as directed
== END 2016-09-08 15:30 | disposition home or self-care (01) ==
LOC: ED SRH 16:40 → TRANS SRH 18:03 → ACUTE2 SRH 19:08
PROVIDERS: ADMIT Emergency Medicine
DX: J44.1 Chronic obstructive pulmonary disease with (acute) exacerbation (principal); R73.9 Hyperglycemia, unspecified; D50.9 Iron deficiency anemia, unspecified; F10.20 Alcohol dependence, uncomplicated
CPT/HCPCS: 29230; 29247; 29251; 29263; 29264; 87115; 90004; 90047; 90074; 90100; 90616; 91286; 91320; 91556; 92010; 92235; 92530; 92610; 92720; 92760; 92761; 92762; 92763; 92764; 92765; 92766; 92767; 93140; 94060; 95059

== ENCOUNTER 2016-09-28 22:08 | Emergency (ER) | payer OTHER ==
[~2016-09-28 22:08] MED LIST changes: +ATIVAN0.5 MG PO
--- NOTE | 2016-09-29 00:11 | ED CLINICAL REPORT ---
Clinical Report - Physicians/Mid Levels [facility] [address] [place] [address] 09/28/2016 22:09 Patient: BELEM ALONSO Time Seen: 22:12; initial patient contact. Arrived- By private vehicle. Historian- patient. HISTORY OF PRESENT ILLNESS Chief Complaint: DYSPNEA and HISTORY OF CHRONIC OBSTRUCTIVE PULMONARY DISEASE. This started today and is still present. It was gradual in onset and has been constant. The dyspnea is described as moderate. The patient has had a cough and wheezing. No sputum production, fever, chills or chest pain or discomfort. No calf pain, foot swelling, anxiety or palpitations. Similar symptoms previously: Many times. Recent medical care: Not recently seen/assessed. REVIEW OF SYSTEMS No nasal discharge, sinus drainage, nausea or vomiting. All systems otherwise negative, except as recorded above. PAST HISTORY PVC - Premature Venticular Complex(s). Hypoxia. Substance Abuse. Depression. Pancreatitis. Alcohol Withdrawal. Surgeries: No history of previous surgery. SOCIAL HISTORY Current every day smoker. Regular alcohol use. No drug use. ADDITIONAL NOTES The nursing notes have been reviewed. PHYSICAL EXAM Vital Signs: 09/28/2016 22:13 BP: 159/87. HR: 59. RR: 20. O2 saturation: 91%. Temp: 97.9 F. Pain level now: 0/10. Have been reviewed. Hypertensive. Bradycardic. Respiratory rate normal. Temperature normal. Oxygen saturation low. Appearance: Alert. No acute distress. Eyes: Eyes normal inspection. ENT: Pharynx normal. Neck: Normal inspection. No jugular venous distention. CVS: Normal heart rate and rhythm. Heart sounds normal. Respiratory: Mild respiratory distress with accessory muscle use. Mildly prolonged expirations. Expiratory mild bilateral wheezes diffusely. Skin: Skin warm and dry. Normal skin color. Extremities: No calf tenderness. No lower extremity edema. Neuro: Oriented X 3. LABS, X-RAYS, AND EKG Chest X-ray: No acute disease. Mild hyperinflation present on the right and left with flattening of the diaphragm. Consistent with COPD. Normal heart size. Views: AP. Technique: good. The X-rays were independently viewed by me and interpreted contemporaneously by me. A comparison with prior films reveals that the findings are unchanged. Laboratory Tests: CBC w Diff: (CHAVA: 09/28/2016 22:14) ( MsgRcvd 09/29/2016 00:06) Final results Test Result Flag Units (Reference) WHITE BLOOD COUNT 8.8 K/uL (4.5-11.5) RED BLOOD COUNT 5.78 M/uL (4.50-5.90) HEMOGLOBIN 16.4 gm/dL (13.5-17.5) HEMATOCRIT 50.3 % (41.0-53.0) MEAN CELL VOLUME 87 fL (80-100) MEAN CORPUSCULAR HGB 28 pg (26-34) MEAN CORPUSCULAR HGB CONC 33 g/dL (31-37) RED CELL DISTRIBUTION WIDTH 22.0 H % (11.6-14.8) PLATELET COUNT 294 K/uL (150-400) NEUTROPHIL % 80.2 H % (50-75) LYMPH % 11.1 L % (25-40) MONO % 7.1 % (3-14) EOSINOPHIL % 1.4 % (0-4) BASOPHIL % 0.2 % (0-2) RBC MORPHOLOGY 1+ANISOCYTOSIS CMP: (CHAVA: 09/28/2016 22:14) ( MsgRcvd 09/28/2016 22:52) Final results Test Result Flag Units (Reference) GLUCOSE 130 H mg/dL (70-110) BUN 13 mg/dL (7-18) CREATININE 1.2 mg/dL (0.6-1.3) Estimated GFR >60 mL/min Estimated GFR- >60 mL/min Note: Persistent reduction over 3 months in eGFR<60 mL/min/1.73 m2 defines CKD. Patients with eGFR values>=60 mL/min/1.73 m2 may also have CKD if evidence ofpersistent proteinuria. Additional information may be foundat www.kidney.org. SODIUM 139 mmol/L (136-145) POTASSIUM 4.5 mmol/L (3.5-5.1) CHLORIDE 100 mmol/L (98-107) CARBON DIOXIDE 29 mmol/L (21-32) CALCIUM 9.2 mg/dL (8.5-10.1) TOTAL PROTEIN 7.7 g/dL (6.4-8.2) ALBUMIN 3.6 g/dL (3.3-5.0) BILIRUBIN, TOTAL 0.8 mg/dL (0.0-1.0) ALKALINE PHOSPHATASE 120 H U/L (46-116) AST (SGOT) 31 U/L (15-37) ALT (SGPT) 29 U/L (12-78) . PROGRESS AND PROCEDURES Course of Care: Prednisone 40 mg PO given. DuoNeb nebulizer treatment #2 given. Physical exam findings are improved. Symptoms much better. Disposition: Discharged home in good and improved condition. Condition: good. CLINICAL IMPRESSION Acute exacerbation of COPD (emphysematous) INSTRUCTIONS Do not smoke. Seek medical help to quit smoking. No alcohol. Your Current Medications: CONTINUE TAKING THE FOLLOWING MEDICATIONS: Albuterol Sulfate Inhalation : Nebulization Solution (2.5 MG/3ML) 0.083%, 1 unit dose PRN. LORazepam Oral. ProAir HFA Inhalation. Prescription Medications: Levofloxacin 500 mg: take 1 tab orally every day for 4 days. No refills. Lorazepam 1 mg: take 1 orally every 8 hours as needed for anxiety. Dispense fifteen (15). No refill. Prednisone 20 mg: take 2 orally every day for 4 days. Dispense sufficient quantity. No refills. Follow-up: Screening today revealed the patient's blood pressure to be in the hypertensive range. The patient should follow up with a primary care provider for blood pressure management. Follow-up with: [facility], , [address] [place] [address], [id number] [id number] Follow up in about two days. Call for an appointment. (Electronically signed by Mumtaz Llamas Dr. 09/29/2016 0:20)
--- NOTE | 2016-09-29 00:11 | ED ORDER SUMMARY ---
..... Patient: BELEM ALONSO OrderSheet [facility] VisitID: [id number] [place] [address] 76y, M Registration Date/Time: 09/28/2016 ORDER SHEET Weight: 77.1 kg (stated) Allergies: No Known Drug Allergy GENERAL ORDERS: Chest 1V Urgent (22:26 09/28/2016 Severino Bolden) (Ack 22:28 RKaruga) (22:53 RFay) CBC w Diff Urgent (22:26 09/28/2016 Severino Bolden) (22:27 JSanders R.N.) CMP Urgent (22:09/28/2016 Severino Bolden) (22:27 JSanders R.N.) MEDICATION ORDERS: DuoNeb Neb Tx 1 unit dose (NOW) (22:25 09/28/2016 Severino Bolden) (Ack 22:27 JSanders R.N.) (23:22 JSanders R.N.) Prednisone PO 40 mg (NOW) (22:25 09/28/2016 Severino Bolden) (Ack 22:27 JSanders R.N.) (22:35 JSanders R.N.) Levofloxacin PO 500 mg (NOW) (23:13 09/28/2016 Seveirno Bolden) (Ack 23:20 JSanders R.N.) (23:24 JSanders R.N.) LORazepam PO 1 mg (HIGH ALERT MEDICATION, NOW) (23:38 09/28/2016 Severino Bolden) (Ack 23:42 HSoule) (23:46 HSoule) IV FLUIDS: ORDER SHEET NOTES: [Electronically signed by Mumtaz Llamas Dr. (00:20 09/29/2016)] [Electronically signed by Loreto Duke R.N. (00:39 09/29/2016)] [Electronically locked/signed by Loreto Duke R.N. (00:39 09/29/2016)]
--- NOTE | 2016-09-29 00:11 | ED CLINICAL REPORT ---
Clinical Report - Physicians/Mid Levels [facility] [address] [place] [address] 09/28/2016 22:09 Patient: BELEM ALONSO Time Seen: 22:12; initial patient contact. Arrived- By private vehicle. Historian- patient. HISTORY OF PRESENT ILLNESS Chief Complaint: DYSPNEA and HISTORY OF CHRONIC OBSTRUCTIVE PULMONARY DISEASE. This started today and is still present. It was gradual in onset and has been constant. The dyspnea is described as moderate. The patient has had a cough and wheezing. No sputum production, fever, chills or chest pain or discomfort. No calf pain, foot swelling, anxiety or palpitations. Similar symptoms previously: Many times. Recent medical care: Not recently seen/assessed. REVIEW OF SYSTEMS No nasal discharge, sinus drainage, nausea or vomiting. All systems otherwise negative, except as recorded above. PAST HISTORY PVC - Premature Venticular Complex(s). Hypoxia. Substance Abuse. Depression. Pancreatitis. Alcohol Withdrawal. Surgeries: No history of previous surgery. SOCIAL HISTORY Current every day smoker. Regular alcohol use. No drug use. ADDITIONAL NOTES The nursing notes have been reviewed. PHYSICAL EXAM Vital Signs: 09/28/2016 22:13 BP: 159/87. HR: 59. RR: 20. O2 saturation: 91%. Temp: 97.9 F. Pain level now: 0/10. Have been reviewed. Hypertensive. Bradycardic. Respiratory rate normal. Temperature normal. Oxygen saturation low. Appearance: Alert. No acute distress. Eyes: Eyes normal inspection. ENT: Pharynx normal. Neck: Normal inspection. No jugular venous distention. CVS: Normal heart rate and rhythm. Heart sounds normal. Respiratory: Mild respiratory distress with accessory muscle use. Mildly prolonged expirations. Expiratory mild bilateral wheezes diffusely. Skin: Skin warm and dry. Normal skin color. Extremities: No calf tenderness. No lower extremity edema. Neuro: Oriented X 3. LABS, X-RAYS, AND EKG Chest X-ray: No acute disease. Mild hyperinflation present on the right and left with flattening of the diaphragm. Consistent with COPD. Normal heart size. Views: AP. Technique: good. The X-rays were independently viewed by me and interpreted contemporaneously by me. A comparison with prior films reveals that the findings are unchanged. Laboratory Tests: CBC w Diff: (CHAVA: 09/28/2016 22:14) ( MsgRcvd 09/29/2016 00:06) Final results Test Result Flag Units (Reference) WHITE BLOOD COUNT 8.8 K/uL (4.5-11.5) RED BLOOD COUNT 5.78 M/uL (4.50-5.90) HEMOGLOBIN 16.4 gm/dL (13.5-17.5) HEMATOCRIT 50.3 % (41.0-53.0) MEAN CELL VOLUME 87 fL (80-100) MEAN CORPUSCULAR HGB 28 pg (26-34) MEAN CORPUSCULAR HGB CONC 33 g/dL (31-37) RED CELL DISTRIBUTION WIDTH 22.0 H % (11.6-14.8) PLATELET COUNT 294 K/uL (150-400) NEUTROPHIL % 80.2 H % (50-75) LYMPH % 11.1 L % (25-40) MONO % 7.1 % (3-14) EOSINOPHIL % 1.4 % (0-4) BASOPHIL % 0.2 % (0-2) RBC MORPHOLOGY 1+ANISOCYTOSIS CMP: (CHAVA: 09/28/2016 22:14) ( MsgRcvd 09/28/2016 22:52) Final results Test Result Flag Units (Reference) GLUCOSE 130 H mg/dL (70-110) BUN 13 mg/dL (7-18) CREATININE 1.2 mg/dL (0.6-1.3) Estimated GFR >60 mL/min Estimated GFR- >60 mL/min Note: Persistent reduction over 3 months in eGFR<60 mL/min/1.73 m2 defines CKD. Patients with eGFR values>=60 mL/min/1.73 m2 may also have CKD if evidence ofpersistent proteinuria. Additional information may be foundat www.kidney.org. SODIUM 139 mmol/L (136-145) POTASSIUM 4.5 mmol/L (3.5-5.1) CHLORIDE 100 mmol/L (98-107) CARBON DIOXIDE 29 mmol/L (21-32) CALCIUM 9.2 mg/dL (8.5-10.1) TOTAL PROTEIN 7.7 g/dL (6.4-8.2) ALBUMIN 3.6 g/dL (3.3-5.0) BILIRUBIN, TOTAL 0.8 mg/dL (0.0-1.0) ALKALINE PHOSPHATASE 120 H U/L (46-116) AST (SGOT) 31 U/L (15-37) ALT (SGPT) 29 U/L (12-78) . PROGRESS AND PROCEDURES Course of Care: Prednisone 40 mg PO given. DuoNeb nebulizer treatment #2 given. Physical exam findings are improved. Symptoms much better. Disposition: Discharged home in good and improved condition. Condition: good. CLINICAL IMPRESSION Acute exacerbation of COPD (emphysematous) INSTRUCTIONS Do not smoke. Seek medical help to quit smoking. No alcohol. Your Current Medications: CONTINUE TAKING THE FOLLOWING MEDICATIONS: Albuterol Sulfate Inhalation : Nebulization Solution (2.5 MG/3ML) 0.083%, 1 unit dose PRN. LORazepam Oral. ProAir HFA Inhalation. Prescription Medications: Levofloxacin 500 mg: take 1 tab orally every day for 4 days. No refills. Lorazepam 1 mg: take 1 orally every 8 hours as needed for anxiety. Dispense fifteen (15). No refill. Prednisone 20 mg: take 2 orally every day for 4 days. Dispense sufficient quantity. No refills. Follow-up: Screening today revealed the patient's blood pressure to be in the hypertensive range. The patient should follow up with a primary care provider for blood pressure management. Follow-up with: [facility], , [address] [place] [address], [id number] [id number] Follow up in about two days. Call for an appointment. (Electronically signed by Mumtaz Llamas Dr. 09/29/2016 0:20)
--- NOTE | 2016-09-29 00:11 | ED ORDER SUMMARY ---
..... Patient: BELEM ALONSO OrderSheet [facility] VisitID: [id number] [place] [address] 76y, M Registration Date/Time: 09/28/2016 ORDER SHEET Weight: 77.1 kg (stated) Allergies: No Known Drug Allergy GENERAL ORDERS: Chest 1V Urgent (22:26 09/28/2016 Severino Bolden) (Ack 22:28 RKaruga) (22:53 RFay) CBC w Diff Urgent (22:26 09/28/2016 Severino Bolden) (22:27 JSanders R.N.) CMP Urgent (22:09/28/2016 Severino Bolden) (22:27 JSanders R.N.) MEDICATION ORDERS: DuoNeb Neb Tx 1 unit dose (NOW) (22:25 09/28/2016 Severino Bolden) (Ack 22:27 JSanders R.N.) (23:22 JSanders R.N.) Prednisone PO 40 mg (NOW) (22:25 09/28/2016 Severino Bolden) (Ack 22:27 JSanders R.N.) (22:35 JSanders R.N.) Levofloxacin PO 500 mg (NOW) (23:13 09/28/2016 Severino Bolden) (Ack 23:20 JSanders R.N.) (23:24 JSanders R.N.) LORazepam PO 1 mg (HIGH ALERT MEDICATION, NOW) (23:38 09/28/2016 Severino Bolden) (Ack 23:42 HSoule) (23:46 HSoule) IV FLUIDS: ORDER SHEET NOTES: [Electronically signed by Mumtaz Llamas Dr. (00:20 09/29/2016)] [Electronically signed by Loreto Duke R.N. (00:39 09/29/2016)] [Electronically locked/signed by Loreto Duke R.N. (00:39 09/29/2016)]
--- NOTE | 2016-09-29 00:11 | ED NURSING NOTES ---
Clinical Report - Nurses [facility] [address] [place] [address] 09/28/2016 22:09 Patient: BELEM ALONSO TRIAGE Triage time 22:Sep 28 2016. Acuity: LEVEL 3. Chief Complaint: SHORTNESS OF BREATH. 22:21 09/28/16. SEPSIS SCREEN: Sepsis Screen. Negative (no infection suspected/documented). GAVIOTA COMA SCORE: Gav[place] Coma Scale: 14- eyes open spontaneously (4); best verbal response- disoriented (4); best motor response- obeys commands (6). --22:21 Loreto Duke R.N. 22:13 09/28/16. BP: 159/87 (regular adult cuff) taken on the left arm. HR: 59. RR: 20. O2 saturation: 91% on room air. Temp: 97.9 F (oral). Pain level now: 0/10. --22:21 Loreto Duke R.N. Weight: 77.1 kg stated. Height/Length: 70 inches Per Patient. BMI: 24.4. --22:20 Loreto Duke R.N. Medications Albuterol Sulfate Inhalation (Nebulization Solution (2.5 MG/3ML) 0.083%) 1 unit dose, PRN. ProAir HFA Inhalation. --22:15 Loreto Duke R.N. LORazepam Oral. --22:15 Loreto Duke R.N. Allergies No Known Drug Allergy. --22:15 Loreto Duke R.N. History Arrived by private vehicle, and accompanied by family. ( RT called). This started today. ( Nebulizer at 2100). He has had a cough and wheezing. 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 PAST MEDICAL HX: Asthma. Chronic obstructive pulmonary disease. SOCIAL HX: Light tobacco smoker (cigarette)- less than 1/2 a pack per day. Alcohol use; consumes one beer a day. No drug use. No infectious disease exposure. ABUSE ASSESSMENT: No report of abuse. --22:21 Loreto Duke R.N. PROBLEMS: PVC - Premature Venticular Complex(s). Hypoxia. Substance Abuse. Depression. Pancreatitis. Alcohol Withdrawal. --22:15 Loreto Duke R.N. The following entry was modified by Loreto Duke R.N., 22:15 <<STRICKEN ENTRY-- COPD - Chronic Obstructive Pulmonary Disease. --16:38 Loreto Duke R.N. --END STRIKE>> The following entry was modified by Loreto Duke R.N., 22:15 <<STRICKEN ENTRY-- Asthma. --13:09 Loreto Duke R.N. --END STRIKE>>. ADDITIONAL SURGERIES: no known surgeries. Interventions ID band on patient. To treatment room. --22:21 Loreto Duke R.N. PHYSICAL ASSESSMENT 22:22 09/28/16. Ambulatory to room. Patient gowned. GENERAL / NEURO / PSYCH: Alert. Appears in no acute distress. ( not sure of month). HEENT: Mucous membranes are pink. RESPIRATORY: Mild respiratory distress. Nasal flaring present. Chest nontender. Expiratory and inspiratory wheezes present. CVS: Normal sinus rhythm noted. Capillary refill less than 2 seconds. GI / : Abdomen soft and nontender. Bowel sounds within normal limits. SKIN: Skin is warm. Normal skin turgor. --22:22 Loreto Duke R.N. NURSING PROGRESS NOTES 22:22 09/28/16. The plan of care for this patient has been created. Monitoring of patient in place. Patient gowned. Head of bed elevated. Reassurance given. Two patient identifiers checked. Call light placed in reach. Side rails up x 1. Bed placed in lowest position. Brakes of bed on. Patient ready for evaluation- chart flagged and ED physician notified. --22:22 Loreto Duke R.N. ( RT with patient). --22:22 Loreto Duke R.N. 22:30 09/28/2016 Prednisone PO Tablets 40 mg given. Allergies verified and confirmed 5 rights. --22:35 Loreto Duke R.N. 22:37 09/28/16. ( Friend left, patient lives next door to friend, friend informed me he was going to leave, he is leaving with his tomorrow. He is not sure how he will get home. He says patient drinks "a lot" but he ran out today, per friend.). --22:37 Loreto Duke R.N. 23:03 09/28/16. ( Patients friend asking for plan, informed him patient will get another Duoneb then doctor will evaluate again. He states his understanding). --23:03 Loreto Duke R.N. 23:17 09/28/2016 Duoneb (Ipratropium-Albuterol) Neb TX Nebulizer 2 unit dose given. Given by the respiratory therapist. Allergies verified and confirmed 5 rights. --23:22 Loreto Duke R.N. 23:24 09/28/2016 Levofloxacin PO Tablets 500 mg given. Allergies verified and confirmed 5 rights. --23:24 Loreto Duke R.N. 23:25 09/28/16. ( Patients friend at bedside, laughing and joking with patient. Patient offered blanket, he declined). --23:25 Loreto Duke R.N. 23:27 09/28/16. BP: 126/67 (regular adult cuff) taken on the left arm. HR: 118. RR: 20. O2 saturation: 91% on room air. Pain level now: 0/10. --23:28 Loreto Duke R.N. 23:45 09/28/16. BP: 146/68. HR: 119. RR: 20. O2 saturation: 93% on room air. --23:46 Beth Ardon 23:46 09/28/2016 Lorazepam PO Tablets 1 mg given. Allergies verified, confirmed 5 rights and sedative warning given to the patient and patient's family. --23:46 Beth Ardon 00:01 09/29/16. ( Friend continues to sit at bedside talking with patient, patient inquires "what's next"). --00:01 Loreto Duke R.N. 23:58 09/28/16. BP: 130/98 (regular adult cuff) taken on the left arm. HR: 117. RR: 20. O2 saturation: 94% on room air. Pain level now: 0/10. --00:01 Loreto Duke R.N. DISPOSITION / DISCHARGE late entry - 00:20 09/29/16. Departure time: 00:Sep 29 2016. Condition at departure: improved. No learning barriers present. Discharge instructions provided and reviewed with the patient. Reviewed medication(s) side effects, precautions, dosing and course information. Prescription(s) given to the patient. Reviewed need to stop smoking- provided smoking cessation materials. Patient verbalized understanding. Written instructions provided in Maori. The patient was discharged by the physician. He was discharged home and accompanied by exceptional children teacher. He left the Emergency Department ambulatory and via private vehicle. Evaluator Transfer [employer] driving. --00:38 Loreto Duke R.N. 00:36 09/29/16. BP: 144/74 (regular adult cuff) taken on the left arm. HR: 120. RR: 18. O2 saturation: 94% on room air. Temp: 98.2 F (oral). Pain level now: 0/10. Additional comments: Physician notifed of HR and ok to DC. --00:38 Loreto Duke R.N. Locked/Released at 09/29/2016 0:39 by Loreto Duke R.N.
--- NOTE | 2016-09-29 00:11 | ED NURSING NOTES ---
Clinical Report - Nurses [facility] [address] [place] [address] 09/28/2016 22:09 Patient: BELEM ALONSO TRIAGE Triage time 22:Sep 28 2016. Acuity: LEVEL 3. Chief Complaint: SHORTNESS OF BREATH. 22:21 09/28/16. SEPSIS SCREEN: Sepsis Screen. Negative (no infection suspected/documented). GAVIOTA COMA SCORE: Gav[place] Coma Scale: 14- eyes open spontaneously (4); best verbal response- disoriented (4); best motor response- obeys commands (6). --22:21 Loreto Duke R.N. 22:13 09/28/16. BP: 159/87 (regular adult cuff) taken on the left arm. HR: 59. RR: 20. O2 saturation: 91% on room air. Temp: 97.9 F (oral). Pain level now: 0/10. --22:21 Loreto Duke R.N. Weight: 77.1 kg stated. Height/Length: 70 inches Per Patient. BMI: 24.4. --22:20 Loreto Duke R.N. Medications Albuterol Sulfate Inhalation (Nebulization Solution (2.5 MG/3ML) 0.083%) 1 unit dose, PRN. ProAir HFA Inhalation. --22:15 Loreto Duke R.N. LORazepam Oral. --22:15 Loreto Duke R.N. Allergies No Known Drug Allergy. --22:15 Loreto Duke R.N. History Arrived by private vehicle, and accompanied by family. ( RT called). This started today. ( Nebulizer at 2100). He has had a cough and wheezing. 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 PAST MEDICAL HX: Asthma. Chronic obstructive pulmonary disease. SOCIAL HX: Light tobacco smoker (cigarette)- less than 1/2 a pack per day. Alcohol use; consumes one beer a day. No drug use. No infectious disease exposure. ABUSE ASSESSMENT: No report of abuse. --22:21 Loreto Duke R.N. PROBLEMS: PVC - Premature Venticular Complex(s). Hypoxia. Substance Abuse. Depression. Pancreatitis. Alcohol Withdrawal. --22:15 Loreto Duke R.N. The following entry was modified by Loreto Duke R.N., 22:15 <<STRICKEN ENTRY-- COPD - Chronic Obstructive Pulmonary Disease. --16:38 Loreto Duke R.N. --END STRIKE>> The following entry was modified by Loreto Duke R.N., 22:15 <<STRICKEN ENTRY-- Asthma. --13:09 Loreto Duke R.N. --END STRIKE>>. ADDITIONAL SURGERIES: no known surgeries. Interventions ID band on patient. To treatment room. --22:21 Loreto Duke R.N. PHYSICAL ASSESSMENT 22:22 09/28/16. Ambulatory to room. Patient gowned. GENERAL / NEURO / PSYCH: Alert. Appears in no acute distress. ( not sure of month). HEENT: Mucous membranes are pink. RESPIRATORY: Mild respiratory distress. Nasal flaring present. Chest nontender. Expiratory and inspiratory wheezes present. CVS: Normal sinus rhythm noted. Capillary refill less than 2 seconds. GI / : Abdomen soft and nontender. Bowel sounds within normal limits. SKIN: Skin is warm. Normal skin turgor. --22:22 Loreto Duke R.N. NURSING PROGRESS NOTES 22:22 09/28/16. The plan of care for this patient has been created. Monitoring of patient in place. Patient gowned. Head of bed elevated. Reassurance given. Two patient identifiers checked. Call light placed in reach. Side rails up x 1. Bed placed in lowest position. Brakes of bed on. Patient ready for evaluation- chart flagged and ED physician notified. --22:22 Loreto Duke R.N. ( RT with patient). --22:22 Loreto Duke R.N. 22:30 09/28/2016 Prednisone PO Tablets 40 mg given. Allergies verified and confirmed 5 rights. --22:35 Loreto Duke R.N. 22:37 09/28/16. ( Friend left, patient lives next door to friend, friend informed me he was going to leave, he is leaving with his tomorrow. He is not sure how he will get home. He says patient drinks "a lot" but he ran out today, per friend.). --22:37 Loreto Duke R.N. 23:03 09/28/16. ( Patients friend asking for plan, informed him patient will get another Duoneb then doctor will evaluate again. He states his understanding). --23:03 Loreto Duke R.N. 23:17 09/28/2016 Duoneb (Ipratropium-Albuterol) Neb TX Nebulizer 2 unit dose given. Given by the respiratory therapist. Allergies verified and confirmed 5 rights. --23:22 Loreto Duke R.N. 23:24 09/28/2016 Levofloxacin PO Tablets 500 mg given. Allergies verified and confirmed 5 rights. --23:24 Loreto Duke R.N. 23:25 09/28/16. ( Patients friend at bedside, laughing and joking with patient. Patient offered blanket, he declined). --23:25 Loreto Duke R.N. 23:27 09/28/16. BP: 126/67 (regular adult cuff) taken on the left arm. HR: 118. RR: 20. O2 saturation: 91% on room air. Pain level now: 0/10. --23:28 Loreto Duke R.N. 23:45 09/28/16. BP: 146/68. HR: 119. RR: 20. O2 saturation: 93% on room air. --23:46 Beth Ardon 23:46 09/28/2016 Lorazepam PO Tablets 1 mg given. Allergies verified, confirmed 5 rights and sedative warning given to the patient and patient's family. --23:46 Beth Ardon 00:01 09/29/16. ( Friend continues to sit at bedside talking with patient, patient inquires "what's next"). --00:01 Loreto Duke R.N. 23:58 09/28/16. BP: 130/98 (regular adult cuff) taken on the left arm. HR: 117. RR: 20. O2 saturation: 94% on room air. Pain level now: 0/10. --00:01 Loreto Duke R.N. DISPOSITION / DISCHARGE late entry - 00:20 09/29/16. Departure time: 00:Sep 29 2016. Condition at departure: improved. No learning barriers present. Discharge instructions provided and reviewed with the patient. Reviewed medication(s) side effects, precautions, dosing and course information. Prescription(s) given to the patient. Reviewed need to stop smoking- provided smoking cessation materials. Patient verbalized understanding. Written instructions provided in Luxembourgish. The patient was discharged by the physician. He was discharged home and accompanied by circle cutting saw operator. He left the Emergency Department ambulatory and via private vehicle. Assistant Fitness Manager driving. --00:38 Loreto Duke R.N. 00:36 09/29/16. BP: 144/74 (regular adult cuff) taken on the left arm. HR: 120. RR: 18. O2 saturation: 94% on room air. Temp: 98.2 F (oral). Pain level now: 0/10. Additional comments: Physician notifed of HR and ok to DC. --00:38 Loreto Duke R.N. Locked/Released at 09/29/2016 0:39 by Loreto Duke R.N.
--- NOTE | 2016-09-29 00:40 | ED DISCHARGE INSTRUCTIONS ---
Patient: BELEM ALONSO General Instructions [facility] VisitID: [id number] [address] [place] [id number] 76y, M Registration Date/Time: 09/28/2016 Acute exacerbation of COPD (emphysematous) INSTRUCTIONS Do not smoke. Seek medical help to quit smoking. No alcohol. Your Current Medications: CONTINUE TAKING THE FOLLOWING MEDICATIONS: Albuterol Sulfate Inhalation : Nebulization Solution (2.5 MG/3ML) 0.083%, 1 unit dose PRN. LORazepam Oral. ProAir HFA Inhalation. Prescription Medications: Levofloxacin 500 mg: take 1 tab orally every day for 4 days. No refills. Lorazepam 1 mg: take 1 orally every 8 hours as needed for anxiety. Dispense fifteen (15). No refill. Prednisone 20 mg: take 2 orally every day for 4 days. Dispense sufficient quantity. No refills. Follow-up: Screening today revealed the patient's blood pressure to be in the hypertensive range. The patient should follow up with a primary care provider for blood pressure management. Follow-up with: [facility], [facility], , [address] [place] [address], [address], [place] [id number] Follow up in about two days. Call for an appointment. ADDITIONAL INFORMATION COPD Flare Both emphysema and chronic bronchitis are forms of chronic obstructive pulmonary disease (COPD). It is most often caused by many years of smoking tobacco. Many things can make your lung disease suddenly get worse. These causes include the common cold, pneumonia, acute bronchitis, missing doses of your regular breathing medicines, or being around smoke, dust, or other air pollutants. A COPD flare may last 7 to 14 days. Your doctor may prescribe medicineto relax your airways and prevent wheezing. Your doctor may also prescribe antibiotics if he or she thinks you havea bacterial infection. Prednisone can helpease inflammation in a severe attack. Home care Here are things you can do at home: Drink lots of water or other fluids (at least 10 glasses a day) during an attack. This will loosen lung secretions and make it easier to breathe. If you have heart or kidney disease, check with your doctor before you drink extra amounts of fluids. Take prescribed medicine exactly at the times advised. If you have a hand-held inhaler or aerosol breathing medicine, don't use it more than once every 4 hours, unless your doctor tells you to. If you were givenan antibiotic or prednisone, take all of the medicine even if you are feeling better after a few days. Don't smoke. Avoid being aroundthe smoke of others. If you were given an inhaler, use it exactly as directed. If you need to use it more often than prescribed, your condition may be getting worse. Call your doctor. Follow-up care Follow up with your health care provider.If you are 65 or older or have chronic asthma or COPD, you should get a single dose of the pneumococcal vaccine and aflu shot each year. You may need a second dose of the pneumococcal vaccine if you had the first dose at a younger age. Your health care provider will let you know if you need a second dose. For all other people, the usual dose for the pneumococcal vaccine is 1 or 2 shots. Yourprovider can discuss this with you. When to seek medical care Get prompt medical attention ifany of these occur: Increased wheezing or shortness of breath Need to use your inhalers more often than usual without relief Fever of 100.4F(38C) or higher, or as directed by your health care provider Coughing up lots of dark-colored or bloody sputum (mucus) Chest pain with each breath You do not start to improve within 24 hours How To Quit Smoking Smoking is one of the hardest habits to break. About half of all those who have ever smoked have been able to quit, and most of those (about 70%) who still smoke want to quit. Here are some of the best ways to stop smoking. Keep Trying: It takes most smokers about 8 tries before they are finally able to fully quit. So, the more often you try and fail, the better your chance of quitting the next time! So, don't give up! Go Cold Gantt: Most ex-smokers quit cold turkey. Trying to cut back gradually doesn't seem to work as well, perhaps because it continues the smoking habit. Also, it is possible to fool yourself by inhaling more while smoking fewer cigarettes. This results in the same amount of nicotine in your body! Get Support: Support programs can make an important difference, especially for the heavy smoker. These groups offer lectures, methods to change your behavior and peer support. Call the free national Quitline for more information. 761-RDRS-HSO (224-343-6726). Low-cost or free programs are offered by many hospitals, local chapters of the [place] [employer] (553-474-6361) and the [place] [employer] (181-947-5430). Support at home is important too. Non-smokers can help by offering praise and encouragement. If the smoker fails to quit, encourage them to try again! Vevt-Euj-Whfbpxg Medicines: For those who can't quit on their own, Nicotine Replacement Therapy (NRT) may make quitting much easier. Certain aids such as the nicotine patch, gum and lozenge are available without a prescription. However, it is best to use these under the guidance of your doctor. The skin patch provides a steady supply of nicotine to the body. Nicotine gum and lozenge gives temporary bursts of low levels of nicotine. Both methods take the edge off the craving for cigarettes. WARNING: If you feel symptoms of nicotine overdose, such as nausea, vomiting, dizziness, weakness, or fast heartbeat, stop using these and see your doctor. Prescription Medicines: After evaluating your smoking patterns and prior attempts at quitting, your doctor may offer a prescription medicine such as bupropion (Zyban, Wellbutrin), varenicline (Chantix, Champix), a niocotine inhaler or nasal spray. Each has its unique advantage and side effects which your doctor can review with you. Health Benefits Of Quitting: The benefits of quitting start right away and keep improving the longer you go without smokin minutes: blood pressure and pulse return to normal 8 hours: oxygen levels return to normal 2 days: ability to smell and taste begins to improve as damaged nerves start to regrow 2-3 weeks: circulation and lung function improves 1-9 months: decreased cough, congestion and shortness of breath; less tired 1 year: risk of heart attack decreases by half 5 years: risk of lung cancer decreases by half; risk of stroke becomes the same as a non-smoker For information about how to quit smoking, visit the following links: National Cancer [place] , Clearing the Air, Quit Smoking Today - an online booklet. http://www.smokefree.gov/pubs/clearing_the_air.pdf Smokefree.gov http://smokefree.gov/ QuitNet http://www.quitnet.com/ Levofloxacin Oral tablet What is this medicine? LEVOFLOXACIN (byron silveira ALISE pilar anthony) is a quinolone antibiotic. It is used to treat certain kinds of bacterial infections. It will not work for colds, flu, or other viral infections. How should I use this medicine? Take this medicine by mouth with a full glass of water. Follow the directions on the prescription label. This medicine can be taken with or without food. Take your medicine at regular intervals. Do not take your medicine more often than directed. Do not skip doses or stop your medicine early even if you feel better. Do not stop taking except on your doctor's advice. A special MedGuide will be given to you by the pharmacist with each prescription and refill. Be sure to read this information carefully each time. Talk to your amusement park entertainer regarding the use of this medicine in children. While this drug may be prescribed for children as young as 6 months for selected conditions, precautions do apply. What side effects may I notice from receiving this medicine? Side effects that you should report to your doctor or health nurse healthcare manager as soon as possible: -allergic reactions like skin rash or hives, swelling of the face, lips, or tongue -changes in vision -confusion, nightmares or hallucinations -difficulty breathing -irregular heartbeat, chest pain -joint, muscle or tendon pain -pain or difficulty passing urine -persistent headache with or without blurred vision -redness, blistering, peeling or loosening of the skin, including inside the mouth -seizures -unusual pain, numbness, tingling, or weakness -vaginal irritation, discharge Side effects that usually do not require medical attention (report to your doctor or health nurse healthcare manager if they continue or are bothersome): -diarrhea -dry mouth -headache -stomach upset, nausea -trouble sleeping What may interact with this medicine? Do not take this medicine with any of the following medications: - arsenic trioxide - chloroquine - droperidol - medicines for irregular heart rhythm like amiodarone, disopyramide, dofetilide, flecainide, quinidine, procainamide, sotalol - some medicines for depression or mental problems like phenothiazines, pimozide, and ziprasidone This medicine may also interact with the following medications: - amoxapine -antacids - cisapride - dairy products - didanosine (ddI) buffered tablets or powder - haloperidol - multivitamins -NSAIDS, medicines for pain and inflammation, like ibuprofen or naproxen - retinoid products like tretinoin or isotretinoin - risperidone - some other antibiotics like clarithromycin or erythromycin - sucralfate - theophylline - warfarin What if I miss a dose? If you miss a dose, take it as soon as you remember. If it is almost time for your next dose, take only that dose. Do not take double or extra doses. Where should I keep my medicine? Keep out of the reach of children. Store at room temperature between 15 and 30 degrees C (59 and 86 degrees F). Keep in a tightly closed container. Throw away any unused medicine after the expiration date. What should I tell my health care provider before I take this medicine? They need to know if you have any of these conditions: cerebral disease irregular heartbeat kidney disease seizure disorder an unusual or allergic reaction to levofloxacin, other antibiotics or medicines, foods, dyes, or preservatives or trying to get breast-feeding What should I watch for while using this medicine? Tell your doctor or health nurse healthcare manager if your symptoms do not improve or if they get worse. Drink several glasses of water a day and cut down on drinks that contain caffeine. You must not get dehydrated while taking this medicine. You may get drowsy or dizzy. Do not drive, use machinery, or do anything that needs mental alertness until you know how this medicine affects you. Do not sit or stand up quickly, especially if you are an older patient. This reduces the risk of dizzy or fainting spells. This medicine can make you more sensitive to the sun. Keep out of the sun. If you cannot avoid being in the sun, wear protective clothing and use a sunscreen. Do not use sun lamps or tanning beds/booths. Contact your doctor if you get a sunburn. If you are a diabetic monitor your blood glucose carefully. If you get an unusual reading stop taking this medicine and call your doctor right away. Do not treat diarrhea with [id number]-[id number] products. Contact your doctor if you have diarrhea that lasts more than 2 days or if the diarrhea is severe and watery. Avoid antacids, calcium, iron, and zinc products for 2 hours before and 2 hours after taking a dose of this medicine. Lorazepam Oral tablet What is this medicine? LORAZEPAM (jonn A ze bucky) is a benzodiazepine. It is used to treat anxiety. How should I use this medicine? Take this medicine by mouth with a glass of water. Follow the directions on the prescription label. If it upsets your stomach, take it with food or milk. Take your medicine at regular intervals. Do not take it more often than directed. Do not stop taking except on the advice of your doctor or health nurse healthcare manager. Talk to your amusement park entertainer regarding the use of this medicine in children. Special care may be needed. What side effects may I notice from receiving this medicine? Side effects that you should report to your doctor or health nurse healthcare manager as soon as possible: changes in vision confusion depression mood changes, excitability or aggressive behavior movement difficulty, staggering or jerky movements muscle cramps restlessness weakness or tiredness Side effects that usually do not require medical attention (report to your doctor or health nurse healthcare manager if they continue or are bothersome): constipation or diarrhea difficulty sleeping, nightmares dizziness, drowsiness headache nausea, vomiting What may interact with this medicine? barbiturate medicines for inducing sleep or treating seizures, like phenobarbital clozapine medicines for depression, mental problems or psychiatric disturbances medicines for sleep phenytoin probenecid theophylline valproic acid What if I miss a dose? If you miss a dose, take it as soon as you can. If it is almost time for your next dose, take only that dose. Do not take double or extra doses. Where should I keep my medicine? Keep out of the reach of children. This medicine can be abused. Keep your medicine in a safe place to protect it from theft. Do not share this medicine with anyone. Selling or giving away this medicine is dangerous and against the law. Store at room temperature between 20 and 25 degrees C (68 and 77 degrees F). Protect from light. Keep container tightly closed. Throw away any unused medicine after the expiration date. What should I tell my health care provider before I take this medicine? They need to know if you have any of these conditions: alcohol or drug abuse problem bipolar disorder, depression, psychosis or other mental health condition glaucoma kidney or liver disease lung disease or breathing difficulties myasthenia gravis Parkinson's disease seizures or a history of seizures suicidal thoughts an unusual or allergic reaction to lorazepam, other benzodiazepines, foods, dyes, or preservatives or trying to get breast-feeding What should I watch for while using this medicine? Visit your doctor or health nurse healthcare manager for regular checks on your progress. Your body may become dependent on this medicine, ask your doctor or health nurse healthcare manager if you still need to take it. However, if you have been taking this medicine regularly for some time, do not suddenly stop taking it. You must gradually reduce the dose or you may get severe side effects. Ask your doctor or health nurse healthcare manager for advice before increasing or decreasing the dose. Even after you stop taking this medicine it can still affect your body for several days. You may get drowsy or dizzy. Do not drive, use machinery, or do anything that needs mental alertness until you know how this medicine affects you. To reduce the risk of dizzy and fainting spells, do not stand or sit up quickly, especially if you are an older patient. Alcohol may increase dizziness and drowsiness. Avoid alcoholic drinks. Do not treat yourself for coughs, colds or allergies without asking your doctor or health nurse healthcare manager for advice. Some ingredients can increase possible side effects. Prednisone Oral tablet What is this medicine? PREDNISONE (PRED ni sone) is a corticosteroid. It is commonly used to treat inflammation of the skin, joints, lungs, and other organs. Common conditions treated include asthma, allergies, and arthritis. It is also used for other conditions, such as blood disorders and diseases of the adrenal glands. How should I use this medicine? Take this medicine by mouth with a glass of water. Follow the directions on the prescription label. Take this medicine with food. If you are taking this medicine once a day, take it in the morning. Do not take more medicine than you are told to take. Do not suddenly stop taking your medicine because you may develop a severe reaction. Your doctor will tell you how much medicine to take. If your doctor wants you to stop the medicine, the dose may be slowly lowered over time to avoid any side effects. Talk to your amusement park entertainer regarding the use of this medicine in children. Special care may be needed. What side effects may I notice from receiving this medicine? Side effects that you should report to your doctor or health nurse healthcare manager as soon as possible: allergic reactions like skin rash, itching or hives, swelling of the face, lips, or tongue changes in emotions or moods changes in vision depressed mood eye pain fever or chills, cough, sore throat, pain or difficulty passing urine increased thirst swelling of ankles, feet Side effects that usually do not require medical attention (report to your doctor or health nurse healthcare manager if they continue or are bothersome): confusion, excitement, restlessness headache nausea, vomiting skin problems, acne, thin and shiny skin trouble sleeping weight gain What may interact with this medicine? Do not take this medicine with any of the following medications: metyrapone mifepristone This medicine may also interact with the following medications: aminoglutethimide amphotericin B aspirin and aspirin-like medicines barbiturates certain medicines for diabetes, like glipizide or glyburide cholestyramine cholinesterase inhibitors cyclosporine digoxin diuretics ephedrine female hormones, like estrogens and control pills isoniazid ketoconazole NSAIDS, medicines for pain and inflammation, like ibuprofen or naproxen phenytoin rifampin toxoids vaccines warfarin What if I miss a dose? If you miss a dose, take it as soon as you can. If it is almost time for your next dose, talk to your doctor or health nurse healthcare manager. You may need to miss a dose or take an extra dose. Do not take double or extra doses without advice. Where should I keep my medicine? Keep out of the reach of children. Store at room temperature between 15 and 30 degrees C (59 and 86 degrees F). Protect from light. Keep container tightly closed. Throw away any unused medicine after the expiration date. What should I tell my health care provider before I take this medicine? They need to know if you have any of these conditions: Florence's syndrome diabetes glaucoma heart disease high blood pressure infection (especially a virus infection such as chickenpox, cold sores, or herpes) kidney disease liver disease mental illness myasthenia gravis osteoporosis seizures stomach or intestine problems thyroid disease an unusual or allergic reaction to lactose, prednisone, other medicines, foods, dyes, or preservatives or trying to get breast-feeding What should I watch for while using this medicine? Visit your doctor or health nurse healthcare manager for regular checks on your progress. If you are taking this medicine over a prolonged period, carry an identification card with your name and address, the type and dose of your medicine, and your doctor's name and address. This medicine may increase your risk of getting an infection. Tell your doctor or health nurse healthcare manager if you are around anyone with measles or chickenpox, or if you develop sores or blisters that do not heal properly. If you are going to have surgery, tell your doctor or health nurse healthcare manager that you have taken this medicine within the last twelve months. Ask your doctor or health nurse healthcare manager about your diet. You may need to lower the amount of salt you eat. This medicine may affect blood sugar levels. If you have diabetes, check with your doctor or health nurse healthcare manager before you change your diet or the dose of your diabetic medicine. You have been given the following additional information: COPD Flare Smoking Cessation Levofloxacin Oral tablet Lorazepam Oral tablet Prednisone Oral tablet (Electronically signed by Mumtaz Llamas Dr. 09/29/2016 0:20)
--- NOTE | 2016-09-29 00:40 | ED MED RECONCILIATION SUMMARY ---
Patient: BELEM ALONSO Medication Reconciliation Report Merged With [facility] VisitID: [id number] [place] [address] 76y, M Registration Date/Time: 09/28/2016 Weight: 77.1 kg Height/Length: 70 in. BMI: 24.4 ALLERGIES: No Known Drug Allergy The patient's Home Medications are listed below: CONTINUE TAKING THE FOLLOWING MEDICATIONS: Albuterol Sulfate Inhalation ((2.5 MG/3ML) 0.083%) 1 unit dose, PRN LORazepam Oral ProAir HFA Inhalation The source(s) of the original Home Medication information: Not obtained. The following Medications were given to the patient in the Emergency Department: Prednisone [PO] PO 40 mg, administered: 09/28/2016 10:30:00 PM Duoneb [Neb Tx] Neb TX 2 unit dose, administered: 09/28/2016 11:17:00 PM Levofloxacin [PO] PO 500 mg, administered: 09/28/2016 11:24:00 PM Lorazepam [PO] PO 1 mg, administered: 09/28/2016 11:46:00 PM The following Medications were prescribed to the patient: Levofloxacin 500 mg: take 1 tab orally every day for 4 days. No refills. -- Mumtaz Llamas Dr. Lorazepam 1 mg: take 1 orally every 8 hours as needed for anxiety. Dispense fifteen (15). No refill. -- Mumtaz Llamas Dr. Prednisone 20 mg: take 2 orally every day for 4 days. Dispense sufficient quantity. No refills. -- Mumtaz Llamas Dr.
--- NOTE | 2016-09-29 00:40 | ED MED RECONCILIATION SUMMARY ---
Patient: BELEM ALONSO Medication Reconciliation Report [facility] VisitID: [id number] [place] [address] 76y, M Registration Date/Time: 09/28/2016 Weight: 77.1 kg Height/Length: 70 in. BMI: 24.4 ALLERGIES: No Known Drug Allergy The patient's Home Medications are listed below: CONTINUE TAKING THE FOLLOWING MEDICATIONS: Albuterol Sulfate Inhalation ((2.5 MG/3ML) 0.083%) 1 unit dose, PRN LORazepam Oral ProAir HFA Inhalation The source(s) of the original Home Medication information: Not obtained. The following Medications were given to the patient in the Emergency Department: Prednisone [PO] PO 40 mg, administered: 09/28/2016 10:30:00 PM Duoneb [Neb Tx] Neb TX 2 unit dose, administered: 09/28/2016 11:17:00 PM Levofloxacin [PO] PO 500 mg, administered: 09/28/2016 11:24:00 PM Lorazepam [PO] PO 1 mg, administered: 09/28/2016 11:46:00 PM The following Medications were prescribed to the patient: Levofloxacin 500 mg: take 1 tab orally every day for 4 days. No refills. -- Mumtaz Llamas Dr. Lorazepam 1 mg: take 1 orally every 8 hours as needed for anxiety. Dispense fifteen (15). No refill. -- Mumtaz Llamas Dr. Prednisone 20 mg: take 2 orally every day for 4 days. Dispense sufficient quantity. No refills. -- Mumtaz Llamas Dr.
--- NOTE | 2016-09-29 00:40 | ED DISCHARGE INSTRUCTIONS ---
Patient: BELEM ALONSO General Instructions [facility] VisitID: [id number] [address] [id number] 76y, M Registration Date/Time: 09/28/2016 Acute exacerbation of COPD (emphysematous) INSTRUCTIONS Do not smoke. Seek medical help to quit smoking. No alcohol. Your Current Medications: CONTINUE TAKING THE FOLLOWING MEDICATIONS: Albuterol Sulfate Inhalation : Nebulization Solution (2.5 MG/3ML) 0.083%, 1 unit dose PRN. LORazepam Oral. ProAir HFA Inhalation. Prescription Medications: Levofloxacin 500 mg: take 1 tab orally every day for 4 days. No refills. Lorazepam 1 mg: take 1 orally every 8 hours as needed for anxiety. Dispense fifteen (15). No refill. Prednisone 20 mg: take 2 orally every day for 4 days. Dispense sufficient quantity. No refills. Follow-up: Screening today revealed the patient's blood pressure to be in the hypertensive range. The patient should follow up with a primary care provider for blood pressure management. Follow-up with: [facility], [facility][1], , [address] [place] [address], [address], [place] [id number] Follow up in about two days. Call for an appointment. ADDITIONAL INFORMATION COPD Flare Both emphysema and chronic bronchitis are forms of chronic obstructive pulmonary disease (COPD). It is most often caused by many years of smoking tobacco. Many things can make your lung disease suddenly get worse. These causes include the common cold, pneumonia, acute bronchitis, missing doses of your regular breathing medicines, or being around smoke, dust, or other air pollutants. A COPD flare may last 7 to 14 days. Your doctor may prescribe medicineto relax your airways and prevent wheezing. Your doctor may also prescribe antibiotics if he or she thinks you havea bacterial infection. Prednisone can helpease inflammation in a severe attack. Home care Here are things you can do at home: Drink lots of water or other fluids (at least 10 glasses a day) during an attack. This will loosen lung secretions and make it easier to breathe. If you have heart or kidney disease, check with your doctor before you drink extra amounts of fluids. Take prescribed medicine exactly at the times advised. If you have a hand-held inhaler or aerosol breathing medicine, don't use it more than once every 4 hours, unless your doctor tells you to. If you were givenan antibiotic or prednisone, take all of the medicine even if you are feeling better after a few days. Don't smoke. Avoid being aroundthe smoke of others. If you were given an inhaler, use it exactly as directed. If you need to use it more often than prescribed, your condition may be getting worse. Call your doctor. Follow-up care Follow up with your health care provider.If you are 65 or older or have chronic asthma or COPD, you should get a single dose of the pneumococcal vaccine and aflu shot each year. You may need a second dose of the pneumococcal vaccine if you had the first dose at a younger age. Your health care provider will let you know if you need a second dose. For all other people, the usual dose for the pneumococcal vaccine is 1 or 2 shots. Yourprovider can discuss this with you. When to seek medical care Get prompt medical attention ifany of these occur: Increased wheezing or shortness of breath Need to use your inhalers more often than usual without relief Fever of 100.4F(38C) or higher, or as directed by your health care provider Coughing up lots of dark-colored or bloody sputum (mucus) Chest pain with each breath You do not start to improve within 24 hours How To Quit Smoking Smoking is one of the hardest habits to break. About half of all those who have ever smoked have been able to quit, and most of those (about 70%) who still smoke want to quit. Here are some of the best ways to stop smoking. Keep Trying: It takes most smokers about 8 tries before they are finally able to fully quit. So, the more often you try and fail, the better your chance of quitting the next time! So, don't give up! Go Cold [place]: Most ex-smokers quit cold turkey. Trying to cut back gradually doesn't seem to work as well, perhaps because it continues the smoking habit. Also, it is possible to fool yourself by inhaling more while smoking fewer cigarettes. This results in the same amount of nicotine in your body! Get Support: Support programs can make an important difference, especially for the heavy smoker. These groups offer lectures, methods to change your behavior and peer support. Call the free national Quitline for more information. 063-GHPG-IAI (405-634-2860). Low-cost or free programs are offered by many hospitals, local chapters of the [employer] (977-830-5751) and the [employer] (921-198-8677). Support at home is important too. Non-smokers can help by offering praise and encouragement. If the smoker fails to quit, encourage them to try again! Zbtn-Ppv-[id number] Medicines: For those who can't quit on their own, Nicotine Replacement Therapy (NRT) may make quitting much easier. Certain aids such as the nicotine patch, gum and lozenge are available without a prescription. However, it is best to use these under the guidance of your doctor. The skin patch provides a steady supply of nicotine to the body. Nicotine gum and lozenge gives temporary bursts of low levels of nicotine. Both methods take the edge off the craving for cigarettes. WARNING: If you feel symptoms of nicotine overdose, such as nausea, vomiting, dizziness, weakness, or fast heartbeat, stop using these and see your doctor. Prescription Medicines: After evaluating your smoking patterns and prior attempts at quitting, your doctor may offer a prescription medicine such as bupropion (Zyban, Wellbutrin), varenicline (Chantix, Champix), a niocotine inhaler or nasal spray. Each has its unique advantage and side effects which your doctor can review with you. Health Benefits Of Quitting: The benefits of quitting start right away and keep improving the longer you go without smokin minutes: blood pressure and pulse return to normal 8 hours: oxygen levels return to normal 2 days: ability to smell and taste begins to improve as damaged nerves start to regrow 2-3 weeks: circulation and lung function improves 1-9 months: decreased cough, congestion and shortness of breath; less tired 1 year: risk of heart attack decreases by half 5 years: risk of lung cancer decreases by half; risk of stroke becomes the same as a non-smoker For information about how to quit smoking, visit the following links: National [employer] [place] , Clearing the Air, Quit Smoking Today - an online booklet. http://www.smokefree.gov/pubs/clearing_the_air.pdf Smokefree.gov http://smokefree.gov/ QuitNet http://www.quitnet.com/ Levofloxacin Oral tablet What is this medicine? LEVOFLOXACIN (byron silveira ALISE pilar anthony) is a quinolone antibiotic. It is used to treat certain kinds of bacterial infections. It will not work for colds, flu, or other viral infections. How should I use this medicine? Take this medicine by mouth with a full glass of water. Follow the directions on the prescription label. This medicine can be taken with or without food. Take your medicine at regular intervals. Do not take your medicine more often than directed. Do not skip doses or stop your medicine early even if you feel better. Do not stop taking except on your doctor's advice. A special MedGuide will be given to you by the pharmacist with each prescription and refill. Be sure to read this information carefully each time. Talk to your fishing floats assembler regarding the use of this medicine in children. While this drug may be prescribed for children as young as 6 months for selected conditions, precautions do apply. What side effects may I notice from receiving this medicine? Side effects that you should report to your doctor or health caregiver services home as soon as possible: -allergic reactions like skin rash or hives, swelling of the face, lips, or tongue -changes in vision -confusion, nightmares or hallucinations -difficulty breathing -irregular heartbeat, chest pain -joint, muscle or tendon pain -pain or difficulty passing urine -persistent headache with or without blurred vision -redness, blistering, peeling or loosening of the skin, including inside the mouth -seizures -unusual pain, numbness, tingling, or weakness -vaginal irritation, discharge Side effects that usually do not require medical attention (report to your doctor or health caregiver services home if they continue or are bothersome): -diarrhea -dry mouth -headache -stomach upset, nausea -trouble sleeping What may interact with this medicine? Do not take this medicine with any of the following medications: - arsenic trioxide - chloroquine - droperidol - medicines for irregular heart rhythm like amiodarone, disopyramide, dofetilide, flecainide, quinidine, procainamide, sotalol - some medicines for depression or mental problems like phenothiazines, pimozide, and ziprasidone This medicine may also interact with the following medications: - amoxapine -antacids - cisapride - dairy products - didanosine (ddI) buffered tablets or powder - haloperidol - multivitamins -NSAIDS, medicines for pain and inflammation, like ibuprofen or naproxen - retinoid products like tretinoin or isotretinoin - risperidone - some other antibiotics like clarithromycin or erythromycin - sucralfate - theophylline - warfarin What if I miss a dose? If you miss a dose, take it as soon as you remember. If it is almost time for your next dose, take only that dose. Do not take double or extra doses. Where should I keep my medicine? Keep out of the reach of children. Store at room temperature between 15 and 30 degrees C (59 and 86 degrees F). Keep in a tightly closed container. Throw away any unused medicine after the expiration date. What should I tell my health care provider before I take this medicine? They need to know if you have any of these conditions: cerebral disease irregular heartbeat kidney disease seizure disorder an unusual or allergic reaction to levofloxacin, other antibiotics or medicines, foods, dyes, or preservatives or trying to get breast-feeding What should I watch for while using this medicine? Tell your doctor or health caregiver services home if your symptoms do not improve or if they get worse. Drink several glasses of water a day and cut down on drinks that contain caffeine. You must not get dehydrated while taking this medicine. You may get drowsy or dizzy. Do not drive, use machinery, or do anything that needs mental alertness until you know how this medicine affects you. Do not sit or stand up quickly, especially if you are an older patient. This reduces the risk of dizzy or fainting spells. This medicine can make you more sensitive to the sun. Keep out of the sun. If you cannot avoid being in the sun, wear protective clothing and use a sunscreen. Do not use sun lamps or tanning beds/booths. Contact your doctor if you get a sunburn. If you are a diabetic monitor your blood glucose carefully. If you get an unusual reading stop taking this medicine and call your doctor right away. Do not treat diarrhea with uvta-lcr-[id number] products. Contact your doctor if you have diarrhea that lasts more than 2 days or if the diarrhea is severe and watery. Avoid antacids, calcium, iron, and zinc products for 2 hours before and 2 hours after taking a dose of this medicine. Lorazepam Oral tablet What is this medicine? LORAZEPAM (jonn A ze bucky) is a benzodiazepine. It is used to treat anxiety. How should I use this medicine? Take this medicine by mouth with a glass of water. Follow the directions on the prescription label. If it upsets your stomach, take it with food or milk. Take your medicine at regular intervals. Do not take it more often than directed. Do not stop taking except on the advice of your doctor or health caregiver services home. Talk to your fishing floats assembler regarding the use of this medicine in children. Special care may be needed. What side effects may I notice from receiving this medicine? Side effects that you should report to your doctor or health caregiver services home as soon as possible: changes in vision confusion depression mood changes, excitability or aggressive behavior movement difficulty, staggering or jerky movements muscle cramps restlessness weakness or tiredness Side effects that usually do not require medical attention (report to your doctor or health caregiver services home if they continue or are bothersome): constipation or diarrhea difficulty sleeping, nightmares dizziness, drowsiness headache nausea, vomiting What may interact with this medicine? barbiturate medicines for inducing sleep or treating seizures, like phenobarbital clozapine medicines for depression, mental problems or psychiatric disturbances medicines for sleep phenytoin probenecid theophylline valproic acid What if I miss a dose? If you miss a dose, take it as soon as you can. If it is almost time for your next dose, take only that dose. Do not take double or extra doses. Where should I keep my medicine? Keep out of the reach of children. This medicine can be abused. Keep your medicine in a safe place to protect it from theft. Do not share this medicine with anyone. Selling or giving away this medicine is dangerous and against the law. Store at room temperature between 20 and 25 degrees C (68 and 77 degrees F). Protect from light. Keep container tightly closed. Throw away any unused medicine after the expiration date. What should I tell my health care provider before I take this medicine? They need to know if you have any of these conditions: alcohol or drug abuse problem bipolar disorder, depression, psychosis or other mental health condition glaucoma kidney or liver disease lung disease or breathing difficulties myasthenia gravis Parkinson's disease seizures or a history of seizures suicidal thoughts an unusual or allergic reaction to lorazepam, other benzodiazepines, foods, dyes, or preservatives or trying to get breast-feeding What should I watch for while using this medicine? Visit your doctor or health caregiver services home for regular checks on your progress. Your body may become dependent on this medicine, ask your doctor or health caregiver services home if you still need to take it. However, if you have been taking this medicine regularly for some time, do not suddenly stop taking it. You must gradually reduce the dose or you may get severe side effects. Ask your doctor or health caregiver services home for advice before increasing or decreasing the dose. Even after you stop taking this medicine it can still affect your body for several days. You may get drowsy or dizzy. Do not drive, use machinery, or do anything that needs mental alertness until you know how this medicine affects you. To reduce the risk of dizzy and fainting spells, do not stand or sit up quickly, especially if you are an older patient. Alcohol may increase dizziness and drowsiness. Avoid alcoholic drinks. Do not treat yourself for coughs, colds or allergies without asking your doctor or health caregiver services home for advice. Some ingredients can increase possible side effects. Prednisone Oral tablet What is this medicine? PREDNISONE (PRED ni sone) is a corticosteroid. It is commonly used to treat inflammation of the skin, joints, lungs, and other organs. Common conditions treated include asthma, allergies, and arthritis. It is also used for other conditions, such as blood disorders and diseases of the adrenal glands. How should I use this medicine? Take this medicine by mouth with a glass of water. Follow the directions on the prescription label. Take this medicine with food. If you are taking this medicine once a day, take it in the morning. Do not take more medicine than you are told to take. Do not suddenly stop taking your medicine because you may develop a severe reaction. Your doctor will tell you how much medicine to take. If your doctor wants you to stop the medicine, the dose may be slowly lowered over time to avoid any side effects. Talk to your fishing floats assembler regarding the use of this medicine in children. Special care may be needed. What side effects may I notice from receiving this medicine? Side effects that you should report to your doctor or health caregiver services home as soon as possible: allergic reactions like skin rash, itching or hives, swelling of the face, lips, or tongue changes in emotions or moods changes in vision depressed mood eye pain fever or chills, cough, sore throat, pain or difficulty passing urine increased thirst swelling of ankles, feet Side effects that usually do not require medical attention (report to your doctor or health caregiver services home if they continue or are bothersome): confusion, excitement, restlessness headache nausea, vomiting skin problems, acne, thin and shiny skin trouble sleeping weight gain What may interact with this medicine? Do not take this medicine with any of the following medications: metyrapone mifepristone This medicine may also interact with the following medications: aminoglutethimide amphotericin B aspirin and aspirin-like medicines barbiturates certain medicines for diabetes, like glipizide or glyburide cholestyramine cholinesterase inhibitors cyclosporine digoxin diuretics ephedrine female hormones, like estrogens and control pills isoniazid ketoconazole NSAIDS, medicines for pain and inflammation, like ibuprofen or naproxen phenytoin rifampin toxoids vaccines warfarin What if I miss a dose? If you miss a dose, take it as soon as you can. If it is almost time for your next dose, talk to your doctor or health caregiver services home. You may need to miss a dose or take an extra dose. Do not take double or extra doses without advice. Where should I keep my medicine? Keep out of the reach of children. Store at room temperature between 15 and 30 degrees C (59 and 86 degrees F). Protect from light. Keep container tightly closed. Throw away any unused medicine after the expiration date. What should I tell my health care provider before I take this medicine? They need to know if you have any of these conditions: [place]'s syndrome diabetes glaucoma heart disease high blood pressure infection (especially a virus infection such as chickenpox, cold sores, or herpes) kidney disease liver disease mental illness myasthenia gravis osteoporosis seizures stomach or intestine problems thyroid disease an unusual or allergic reaction to lactose, prednisone, other medicines, foods, dyes, or preservatives or trying to get breast-feeding What should I watch for while using this medicine? Visit your doctor or health caregiver services home for regular checks on your progress. If you are taking this medicine over a prolonged period, carry an identification card with your name and address, the type and dose of your medicine, and your doctor's name and address. This medicine may increase your risk of getting an infection. Tell your doctor or health caregiver services home if you are around anyone with measles or chickenpox, or if you develop sores or blisters that do not heal properly. If you are going to have surgery, tell your doctor or health caregiver services home that you have taken this medicine within the last twelve months. Ask your doctor or health caregiver services home about your diet. You may need to lower the amount of salt you eat. This medicine may affect blood sugar levels. If you have diabetes, check with your doctor or health caregiver services home before you change your diet or the dose of your diabetic medicine. You have been given the following additional information: COPD Flare Smoking Cessation Levofloxacin Oral tablet Lorazepam Oral tablet Prednisone Oral tablet (Electronically signed by Mumtaz Llamas Dr. 09/29/2016 0:20)
--- NOTE | 2016-09-29 00:40 | ED MAR SUMMARY ---
..... Medication Administration Record [facility] [address] [place] [address] Patient: BELEM ALONSO Visit ID: [id number] 76y, M Weight: 77.1 kg Height/Length: 70 in BMI: 24.4 ALLERGIES: No Known Drug Allergy Given 22:30 09/28/2016 Loreto Duke R.N. Medication Administered: PREDNISONE [PO], Dose: 40 mg Tablets PO. Medication Ordered: Prednisone PO 40 mg (NOW). Given 23:17 09/28/2016 Loreto Duke R.N. Medication Administered: DUONEB [NEB TX] (IPRATROPIUM-ALBUTEROL), Dose: 2 unit dose Nebulizer Neb TX. Medication Ordered: DuoNeb Neb Tx 1 unit dose (NOW). Given 23:24 09/28/2016 Loreto Duke R.N. Medication Administered: LEVOFLOXACIN [PO], Dose: 500 mg Tablets PO. Medication Ordered: Levofloxacin PO 500 mg (NOW). Given 23:46 09/28/2016 Beth Ardon, Medication Administered: LORAZEPAM [PO], Dose: 1 mg Tablets PO. Medication Ordered: LORazepam PO 1 mg (HIGH ALERT MEDICATION, NOW).
--- NOTE | 2016-09-29 00:40 | ED MAR SUMMARY ---
..... Medication Administration Record [facility] [address] [place] [address] Patient: BELEM ALONSO Visit ID: [id number] 76y, M Weight: 77.1 kg Height/Length: 70 in BMI: 24.4 ALLERGIES: No Known Drug Allergy Given 22:30 09/28/2016 Loreto Duke R.N. Medication Administered: PREDNISONE [PO], Dose: 40 mg Tablets PO. Medication Ordered: Prednisone PO 40 mg (NOW). Given 23:17 09/28/2016 Loreto Duke R.N. Medication Administered: DUONEB [NEB TX] (IPRATROPIUM-ALBUTEROL), Dose: 2 unit dose Nebulizer Neb TX. Medication Ordered: DuoNeb Neb Tx 1 unit dose (NOW). Given 23:24 09/28/2016 Loreto Duke R.N. Medication Administered: LEVOFLOXACIN [PO], Dose: 500 mg Tablets PO. Medication Ordered: Levofloxacin PO 500 mg (NOW). Given 23:46 09/28/2016 Beth Ardon, Medication Administered: LORAZEPAM [PO], Dose: 1 mg Tablets PO. Medication Ordered: LORazepam PO 1 mg (HIGH ALERT MEDICATION, NOW).
--- NOTE | 2016-09-30 10:09 | DIAGNOSTIC IMAGING REPORT ---
PROCEDURE: XR CHEST 1 VIEW INDICATION: SHORTNESS OF BREATH TECHNIQUE: Portable AP view 10:51 p.m. COMPARISON: Chest 09/07/2016 FINDINGS: Hyperinflation. Lungs are clear. Cardiovascular structures are normal. Bony thorax is unremarkable. No significant interval change. IMPRESSION: 1. No acute disease
== END 2016-09-29 00:25 | disposition home or self-care (01) ==
LOC: ED SRH 22:08
DX: J44.1 Chronic obstructive pulmonary disease with (acute) exacerbation (principal); F17.210 Nicotine dependence, cigarettes, uncomplicated
CPT/HCPCS: 90100; 95059

== ENCOUNTER 2016-10-08 06:55 | Emergency (ER) | payer OTHER ==
--- NOTE | 2016-10-08 08:14 | DIAGNOSTIC IMAGING REPORT ---
PROCEDURE: XR CHEST 2 VIEW INDICATION: SHORTNESS OF BREATH TECHNIQUE: PA and lateral views. COMPARISON: Compared to chest x-ray on 09/28/2016. FINDINGS: Lungs are clear, although hyperexpanded. Bilateral nipple shadows. Heart and mediastinum are normal. Thorax is normal. IMPRESSION: 1. Chronic obstructive pulmonary disease. 2. Otherwise negative chest.
--- NOTE | 2016-10-08 09:05 | ED NURSING NOTES ---
Clinical Report - Nurses [facility] [address] [place] [address] 10/08/2016 6:56 Patient: BELEM ALONSO TRIAGE Triage time 07:00. Acuity: LEVEL 3. Chief Complaint: SHORTNESS OF BREATH and DIFFICULTY BREATHING. 07:12. Alert. SEPSIS SCREEN: Sepsis Screen: negative. Infection suspected/documented. --07:13 Marco Ruiz R.N. 07:03 10/08/16. BP: 149/88. HR: 116. RR: 18. O2 saturation: 95% on room air. Temp: 100.1 F (oral). Pain level now: 0/10. --07:13 Marco Ruiz R.N. Weight: 72.5 kg stated. Height/Length: 70 inches Per Patient. BMI: 22.9. --07:09 Marco Ruiz R.N. Medications Albuterol Sulfate Inhalation (Nebulization Solution (2.5 MG/3ML) 0.083%) 1 unit dose, PRN. LORazepam Oral, as needed. ProAir HFA Inhalation. --07:07 Marco Ruiz R.N. Allergies No Known Drug Allergy. --07:07 Marco Ruiz R.N. Medication/allergy information source: the patient. --07:13 Marco Ruiz R.N. History Arrived by private vehicle. Historian: EMS and patient. Unaccompanied. Primary physician ([facility]). Onset. (1 hours ago). Treatment ROLL THREADER OPERATOR: EMS treatment ROLL THREADER OPERATOR verbally communicated. Medications given- (1.5 mg Solu-medrol, 2 unit doses Albuterol). PAST MEDICAL HX: Immunizations: up-to-date. SOCIAL HX: Former smoker (states he smokes maybe every 3 weeks). Alcohol use; consumes one beer a day. No drug use. No infectious disease exposure. ABUSE ASSESSMENT: No report of abuse. FALL RISK ASSESSMENT: Fall risk assessment completed. No fall risk identified. NUTRITIONAL RISK ASSESSMENT: The nutritional risk assessment revealed no deficiencies. FUNCTIONAL ASSESSMENT: Functional assessment: no impairments noted. LEARNING NEEDS ASSESSMENT: The learning needs assessment revealed no barriers. SKIN INTEGRITY ASSESSMENT: Skin integrity risk assessment completed. No skin integrity risk identified. --07:13 Marco Ruiz R.N. PROBLEMS: PVC - Premature Venticular Complex(s). COPD - Chronic Obstructive Pulmonary Disease. Substance Abuse. Depression. Pancreatitis. --07:08 Marco Ruiz R.N. ADDITIONAL SURGERIES: no known surgeries. Interventions ID band on patient. To treatment room. --07:13 Marco Ruiz R.N. <<STRICKEN ENTRY-- 06:51 10/08/2016 Site #1 started via IV in the left wrist with an 20g angiocath, with aseptic technique and good blood return. --07:06 Marco Ruiz R.N. --END STRIKE>> Correction. --07:06 Marco Ruiz R.N. 06:51 10/08/2016 Site #1 started prior to arrival by EMS via IV in the left wrist with an 20g angiocath, with aseptic technique and good blood return. --07:06 Marco Ruiz R.N. PHYSICAL ASSESSMENT 07:13. To room via stretcher. Patient gowned. GENERAL / NEURO / PSYCH: Alert. Oriented X 4. HEENT: Mucous membranes are pink. RESPIRATORY: The patient can speak in full sentences. Decreased breath sounds in the bases bilaterally. Expiratory and inspiratory wheezes in the right and left mid-lung posteriorly and upper lung posteriorly. SKIN: Skin is warm and dry. Normal skin turgor. --07:15 Marco Ruiz R.N. NURSING PROGRESS NOTES 07:13. Head of bed elevated. Two patient identifiers checked. Call light placed in reach. Bed placed in lowest position. Brakes of bed on. Patient ready for evaluation- chart flagged. --07:13 Marco Ruiz R.N. 07:13. EKG time: (713). EKG was performed by a tech and shown to the ED physician. --07:14 Marco Ruiz R.N. ( Report received RT here for breathing treatment.). --07:26 Cruz, Tino, R.N. DISPOSITION / DISCHARGE 09:13 10/08/2016 Site #1 removed upon discharge. Catheter intact. --09:13 Lul Greenberg R.N. 09:14 10/08/16. Condition at departure: improved. The goals identified in the patient's plan of care were met. No learning barriers present. Discharge instructions provided and reviewed with the patient. Reviewed warnings. Reviewed medication(s). Treatments reviewed. Patient verbalized understanding. Written instructions provided in Turkish. The patient was discharged by the physician. He was discharged home and accompanied by shop worker. He left the Emergency Department ambulatory and via private vehicle. Claims Adjuster Crop driving. FALL RISK ASSESSMENT: Fall risk assessment completed. No fall risk identified. --09:14 Lul Greenberg R.N. 09:13 10/08/16. BP: 134/76. HR: 82. RR: 16. O2 saturation: 95% on room air. Temp: 98.2 F (oral). Pain level now: 07/05. --09:14 Lul Greenberg R.N. 09:18 10/08/16. --09:18 Lul Greenberg R.N. Locked/Released at 10/08/2016 9:57 by Lul Greenberg R.N.
--- NOTE | 2016-10-08 09:05 | ED NURSING NOTES ---
Clinical Report - Nurses [facility] [address] [place] [address] 10/08/2016 6:56 Patient: BELEM ALONSO TRIAGE Triage time 07:00. Acuity: LEVEL 3. Chief Complaint: SHORTNESS OF BREATH and DIFFICULTY BREATHING. 07:12. Alert. SEPSIS SCREEN: Sepsis Screen: negative. Infection suspected/documented. --07:13 Marco Ruiz R.N. 07:03 10/08/16. BP: 149/88. HR: 116. RR: 18. O2 saturation: 95% on room air. Temp: 100.1 F (oral). Pain level now: 0/10. --07:13 Marco Ruiz R.N. Weight: 72.5 kg stated. Height/Length: 70 inches Per Patient. BMI: 22.9. --07:09 Marco Ruiz R.N. Medications Albuterol Sulfate Inhalation (Nebulization Solution (2.5 MG/3ML) 0.083%) 1 unit dose, PRN. LORazepam Oral, as needed. ProAir HFA Inhalation. --07:07 Marco Ruiz R.N. Allergies No Known Drug Allergy. --07:07 Marco Ruiz R.N. Medication/allergy information source: the patient. --07:13 Marco Ruiz R.N. History Arrived by private vehicle. Historian: EMS and patient. Unaccompanied. Primary physician ([facility]). Onset. (1 hours ago). 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 Medications given- (1.5 mg Solu-medrol, 2 unit doses Albuterol). PAST MEDICAL HX: Immunizations: up-to-date. SOCIAL HX: Former smoker (states he smokes maybe every 3 weeks). Alcohol use; consumes one beer a day. No drug use. No infectious disease exposure. ABUSE ASSESSMENT: No report of abuse. FALL RISK ASSESSMENT: Fall risk assessment completed. No fall risk identified. NUTRITIONAL RISK ASSESSMENT: The nutritional risk assessment revealed no deficiencies. FUNCTIONAL ASSESSMENT: Functional assessment: no impairments noted. LEARNING NEEDS ASSESSMENT: The learning needs assessment revealed no barriers. SKIN INTEGRITY ASSESSMENT: Skin integrity risk assessment completed. No skin integrity risk identified. --07:13 Marco Ruiz R.N. PROBLEMS: PVC - Premature Venticular Complex(s). COPD - Chronic Obstructive Pulmonary Disease. Substance Abuse. Depression. Pancreatitis. --07:08 Marco Ruiz R.N. ADDITIONAL SURGERIES: no known surgeries. Interventions ID band on patient. To treatment room. --07:13 Marco Ruiz R.N. <<STRICKEN ENTRY-- 06:51 10/08/2016 Site #1 started via IV in the left wrist with an 20g angiocath, with aseptic technique and good blood return. --07:06 Marco Ruiz R.N. --END STRIKE>> Correction. --07:06 Marco Ruiz R.N. 06:51 10/08/2016 Site #1 started prior to arrival by EMS via IV in the left wrist with an 20g angiocath, with aseptic technique and good blood return. --07:06 Marco Ruiz R.N. PHYSICAL ASSESSMENT 07:13. To room via stretcher. Patient gowned. GENERAL / NEURO / PSYCH: Alert. Oriented X 4. HEENT: Mucous membranes are pink. RESPIRATORY: The patient can speak in full sentences. Decreased breath sounds in the bases bilaterally. Expiratory and inspiratory wheezes in the right and left mid-lung posteriorly and upper lung posteriorly. SKIN: Skin is warm and dry. Normal skin turgor. --07:15 Marco Ruiz R.N. NURSING PROGRESS NOTES 07:13. Head of bed elevated. Two patient identifiers checked. Call light placed in reach. Bed placed in lowest position. Brakes of bed on. Patient ready for evaluation- chart flagged. --07:13 Marco Ruiz R.N. 07:13. EKG time: (713). EKG was performed by a tech and shown to the ED physician. --07:14 Marco Ruiz R.N. ( Report received RT here for breathing treatment.). --07:26 Cruz, Tino, R.N. DISPOSITION / DISCHARGE 09:13 10/08/2016 Site #1 removed upon discharge. Catheter intact. --09:13 Lul Greenberg R.N. 09:14 10/08/16. Condition at departure: improved. The goals identified in the patient's plan of care were met. No learning barriers present. Discharge instructions provided and reviewed with the patient. Reviewed warnings. Reviewed medication(s). Treatments reviewed. Patient verbalized understanding. Written instructions provided in Nigerian. The patient was discharged by the physician. He was discharged home and accompanied by revenue stamper. He left the Emergency Department ambulatory and via private vehicle. Diesel Stationary Engineer driving. FALL RISK ASSESSMENT: Fall risk assessment completed. No fall risk identified. --09:14 Lul Greenberg R.N. 09:13 10/08/16. BP: 134/76. HR: 82. RR: 16. O2 saturation: 95% on room air. Temp: 98.2 F (oral). Pain level now: 07/05. --09:14 Lul Greenberg R.N. 09:18 10/08/16. --09:18 Lul Greenberg R.N. Locked/Released at 10/08/2016 9:57 by Lul Greenberg R.N.
--- NOTE | 2016-10-08 09:05 | ED ORDER SUMMARY ---
..... Patient: BELEM ALONSO OrderSheet [facility] VisitID: [id number] [place] [address] 76y, M Registration Date/Time: 10/08/2016 ORDER SHEET Weight: 72.5 kg (stated) Allergies: No Known Drug Allergy GENERAL ORDERS: Chest 2V Urgent (07:49 10/08/2016 Guadalupe SCHWARTZ) (7:52 LWhalen R.N.) (Ack 7:53 LNations ER Tech1) Circular Knitter Helper (Continuous) (07:50 10/08/2016 Guadalupe SCHWARTZ) (7:52 LWhalen R.N.) (Ack 7:53 LNations ER Tech1) Blood Culture (No) (N/A) Urgent (07:50 10/08/2016 Guadalupe SCHWARTZ) (7:52 LWhalen R.N.) (Ack 7:53 LNations ER Tech1) CBC w Diff Urgent (07:50 10/08/2016 Guadalupe SCHWARTZ) (7:52 LWhalen R.N.) (Ack 7:53 LNations ER Tech1) CMP Urgent (07:50 10/08/2016 Guadalupe SCHWARTZ) (7:52 LWhalen R.N.) (Ack 7:53 LNations ER Tech1) PCT (Procalcitonin) Urgent (07:50 10/08/2016 Guadalupe SCHWARTZ) (7:52 LWhalen R.N.) (Ack 7:53 LNations ER Tech1) Pulse oximeter (07:50 10/08/2016 Guadalupe SCHWARTZ) (7:52 LWhalen R.N.) (Ack 7:53 LNations ER Tech1) MEDICATION ORDERS: IV FLUIDS: IV Saline Lock (07:50 10/08/2016 Guadalupe SCHWARTZ) (7:52 LWhalen R.N.) ORDER SHEET NOTES: [Electronically signed by Lul Greenberg R.N. (09:57 10/08/2016)] [Electronically signed by Keegan Siddiqui MD (10:23 10/10/2016)] [Electronically locked/signed by Lul Greenberg R.N. (09:57 10/08/2016)]
--- NOTE | 2016-10-08 09:05 | ED CLINICAL REPORT ---
Clinical Report - Physicians/Mid Levels [facility] [address] [place] [address] 10/08/2016 6:56 Patient: BELEM ALONSO Time Seen: 07:08. Arrived- By ambulance. Historian- patient and EMS personnel. History limited by vague historian. HISTORY OF PRESENT ILLNESS Chief Complaint: DYSPNEA and HISTORY OF CHRONIC OBSTRUCTIVE PULMONARY DISEASE. This started last night and is still present. It was abrupt in onset and has been constant. The dyspnea is severe. The patient has had a cough, wheezing and dyspnea on exertion. No sputum production, fever, sweating episodes or chills. No chest pain or discomfort, calf pain or foot swelling. REVIEW OF SYSTEMS No chills, fever, calf pain, chest pain or pedal edema. No palpitations, abdominal pain, constipation, diarrhea or nausea. No vomiting or urinary problems. All systems otherwise negative, except as recorded above. PAST HISTORY Problems: PVC - Premature Venticular Complex(s). COPD - Chronic Obstructive Pulmonary Disease. Hypoxia. Substance Abuse. Depression. Pancreatitis. Alcohol Withdrawal. Asthma. Additional Surgeries: no known surgeries. Medications: Albuterol Sulfate Inhalation (Nebulization Solution (2.5 MG/3ML) 0.083%) 1 unit dose, PRN. LORazepam Oral, as needed. ProAir HFA Inhalation. Allergies: No Known Drug Allergy. SOCIAL HISTORY Current some days smoker (cigarette). Regular alcohol use; consumes about one beer a day. FAMILY HISTORY No significant family medical history. ADDITIONAL NOTES The nursing notes have been reviewed. PHYSICAL EXAM Vital Signs: 10/08/2016 07:03 BP: 149/88. HR: 116. RR: 18. O2 saturation: 95%. Temp: 100.1 F. Pain level now: 0/10. Have been reviewed. Appearance: Alert. Eyes: Pupils equal, round and reactive to light. ENT: Pharynx normal. CVS: Tachycardia. Respiratory: Prolonged expirations. Decreased air movement. Wheezing present. No rales or rhonchi. Abdomen: Soft and nontender. No organomegaly. Back: Normal inspection. No CVA tenderness. Skin: Skin warm and dry. Normal skin color. Normal skin turgor. Extremities: Extremities exhibit normal ROM. No calf tenderness. No lower extremity edema. LABS, X-RAYS, AND EKG EKG: Rate: 114. Occasional ectopic beats. Premature ventricular contractions. Non-specific ST segment / T wave abnormalities. EKG unchanged when compared with prior EKG. (07 Sep 2016). Chest X-ray: (IMPRESSION: 1. Chronic obstructive pulmonary disease. 2. Otherwise negative chest.). The X-rays were interpreted by the radiologist and contemporaneously by me. Laboratory Tests: CBC w Diff: (CHAVA: 10/08/2016 08:21) ( MsgRcvd 10/08/2016 08:39) Final results Test Result Flag Units (Reference) WHITE BLOOD COUNT 8.5 K/uL (4.5-11.5) RED BLOOD COUNT 5.50 M/uL (4.50-5.90) HEMOGLOBIN 15.8 gm/dL (13.5-17.5) HEMATOCRIT 48.2 % (41.0-53.0) MEAN CELL VOLUME 88 fL (80-100) MEAN CORPUSCULAR HGB 29 pg (26-34) MEAN CORPUSCULAR HGB CONC 33 g/dL (31-37) RED CELL DISTRIBUTION WIDTH 21.1 H % (11.6-14.8) PLATELET COUNT 280 K/uL (150-400) NEUTROPHIL % 77.7 H % (50-75) LYMPH % 9.1 L % (25-40) MONO % 8.3 % (3-14) EOSINOPHIL % 4.9 H % (0-4) BASOPHIL % 0 % (0-2) CMP: (CHAVA: 10/08/2016 08:21) ( MsgRcvd 10/08/2016 08:49) Final results Test Result Flag Units (Reference) GLUCOSE 108 mg/dL (70-110) BUN 10 mg/dL (7-18) CREATININE 1.1 mg/dL (0.6-1.3) Estimated GFR >60 mL/min Estimated GFR- >60 mL/min Note: Persistent reduction over 3 months in eGFR<60 mL/min/1.73 m2 defines CKD. Patients with eGFR values>=60 mL/min/1.73 m2 may also have CKD if evidence ofpersistent proteinuria. Additional information may be foundat www.kidney.org. SODIUM 143 mmol/L (136-145) POTASSIUM 3.8 mmol/L (3.5-5.1) CHLORIDE 105 mmol/L (98-107) CARBON DIOXIDE 25 mmol/L (21-32) CALCIUM 9.2 mg/dL (8.5-10.1) TOTAL PROTEIN 7.1 g/dL (6.4-8.2) ALBUMIN 3.7 g/dL (3.3-5.0) BILIRUBIN, TOTAL 1.0 mg/dL (0.0-1.0) ALKALINE PHOSPHATASE 94 U/L (46-116) AST (SGOT) 27 U/L (15-37) ALT (SGPT) 25 U/L (12-78) . PROGRESS AND PROCEDURES Course of Care: Symptoms better. Vital signs have been reviewed. Physical exam findings are improved. Alert. No acute distress. Decreased breath sounds. No respiratory distress. No accessory muscle use, chest retractions or wheezes. Tachycardic. Abdomen soft and nontender. Patient/family counseled. Old medical records reviewed. Disposition: Discharged. Condition: stable. CLINICAL IMPRESSION Acute exacerbation of COPD. INSTRUCTIONS Do not smoke. Seek medical help to quit smoking. Warnings: Further evaluation is necessary. GENERAL WARNINGS: Return or contact your physician immediately if your condition worsens or changes unexpectedly, if not improving as expected, or if other problems arise. Your Current Medications: CONTINUE TAKING THE FOLLOWING MEDICATIONS: Albuterol Sulfate Inhalation : Nebulization Solution (2.5 MG/3ML) 0.083%, 1 unit dose PRN. LORazepam Oral : prn. ProAir HFA Inhalation. Prescription Medications: Prednisone 20 mg: take 3 orally every day for 5 days. Dispense fifteen (15). No refills. Zithromax 250 mg tablets: take 2 orally today, followed by 1 daily for the next 4 days. No refills. Substitution is permissible. Follow-up: Follow up with your doctor [facility] in five days. Call for an appointment. Understanding of the discharge instructions verbalized by patient. (Electronically signed by Keegan Siddiqui MD 10/10/2016 10:23)
--- NOTE | 2016-10-08 09:05 | ED ORDER SUMMARY ---
..... Patient: BELEM ALONSO OrderSheet [facility] VisitID: [id number] [place] [address] 76y, M Registration Date/Time: 10/08/2016 ORDER SHEET Weight: 72.5 kg (stated) Allergies: No Known Drug Allergy GENERAL ORDERS: Chest 2V Urgent (07:49 10/08/2016 Guadalupe SCHWARTZ) (7:52 LWhalen R.N.) (Ack 7:53 LNations ER Tech1) Mechanical Cad Drafter (Continuous) (07:50 10/08/2016 Guadalupe SCHWARTZ) (7:52 LWhalen R.N.) (Ack 7:53 LNations ER Tech1) Blood Culture (No) (N/A) Urgent (07:50 10/08/2016 Guadalupe SCHWARTZ) (7:52 LWhalen R.N.) (Ack 7:53 LNations ER Tech1) CBC w Diff Urgent (07:50 10/08/2016 Guadalupe SCHWARTZ) (7:52 LWhalen R.N.) (Ack 7:53 LNations ER Tech1) CMP Urgent (07:50 10/08/2016 Guadalupe SCHWARTZ) (7:52 LWhalen R.N.) (Ack 7:53 LNations ER Tech1) PCT (Procalcitonin) Urgent (07:50 10/08/2016 Guadalupe SCHWARTZ) (7:52 LWhalen R.N.) (Ack 7:53 LNations ER Tech1) Pulse oximeter (07:50 10/08/2016 Guadalupe SCHWARTZ) (7:52 LWhalen R.N.) (Ack 7:53 LNations ER Tech1) MEDICATION ORDERS: IV FLUIDS: IV Saline Lock (07:50 10/08/2016 Guadalupe SCHWARTZ) (7:52 LWhalen R.N.) ORDER SHEET NOTES: [Electronically signed by Lul Greenberg R.N. (09:57 10/08/2016)] [Electronically signed by Keegan Siddiqui MD (10:23 10/10/2016)] [Electronically locked/signed by Lul Greenberg R.N. (09:57 10/08/2016)]
--- NOTE | 2016-10-10 10:23 | ED MED RECONCILIATION SUMMARY ---
Patient: BELEM ALONSO Medication Reconciliation Report [facility] VisitID: [id number] [address] [place] [address] 76y, M Registration Date/Time: 10/08/2016 Weight: 72.5 kg Height/Length: 70 in. BMI: 22.9 ALLERGIES: No Known Drug Allergy The patient's Home Medications are listed below: CONTINUE TAKING THE FOLLOWING MEDICATIONS: Albuterol Sulfate Inhalation ((2.5 MG/3ML) 0.083%) 1 unit dose, PRN LORazepam Oral ProAir HFA Inhalation The source(s) of the original Home Medication information: patient The following Medications were given to the patient in the Emergency Department: None. The following Medications were prescribed to the patient: Prednisone 20 mg: take 3 orally every day for 5 days. Dispense fifteen (15). No refills. -- Keegan Siddiqui MD Zithromax 250 mg tablets: take 2 orally today, followed by 1 daily for the next 4 days. No refills. Substitution is permissible. -- Keegan Siddiqui MD
--- NOTE | 2016-10-10 10:23 | ED DISCHARGE INSTRUCTIONS ---
Patient: BELEM ALONSO General Instructions [facility] VisitID: [id number] [place] [address] 76y, M Registration Date/Time: 10/08/2016 Acute exacerbation of COPD. INSTRUCTIONS Do not smoke. Seek medical help to quit smoking. Warnings: Further evaluation is necessary. GENERAL WARNINGS: Return or contact your physician immediately if your condition worsens or changes unexpectedly, if not improving as expected, or if other problems arise. Your Current Medications: CONTINUE TAKING THE FOLLOWING MEDICATIONS: Albuterol Sulfate Inhalation : Nebulization Solution (2.5 MG/3ML) 0.083%, 1 unit dose PRN. LORazepam Oral : prn. ProAir HFA Inhalation. Prescription Medications: Prednisone 20 mg: take 3 orally every day for 5 days. Dispense fifteen (15). No refills. Zithromax 250 mg tablets: take 2 orally today, followed by 1 daily for the next 4 days. No refills. Substitution is permissible. Follow-up: Follow up with your doctor [facility] in five days. Call for an appointment. Understanding of the discharge instructions verbalized by patient. ADDITIONAL INFORMATION COPD Flare Both emphysema and chronic bronchitis are forms of chronic obstructive pulmonary disease (COPD). It is most often caused by many years of smoking tobacco. Many things can make your lung disease suddenly get worse. These causes include the common cold, pneumonia, acute bronchitis, missing doses of your regular breathing medicines, or being around smoke, dust, or other air pollutants. A COPD flare may last 7 to 14 days. Your doctor may prescribe medicineto relax your airways and prevent wheezing. Your doctor may also prescribe antibiotics if he or she thinks you havea bacterial infection. Prednisone can helpease inflammation in a severe attack. Home care Here are things you can do at home: Drink lots of water or other fluids (at least 10 glasses a day) during an attack. This will loosen lung secretions and make it easier to breathe. If you have heart or kidney disease, check with your doctor before you drink extra amounts of fluids. Take prescribed medicine exactly at the times advised. If you have a hand-held inhaler or aerosol breathing medicine, don't use it more than once every 4 hours, unless your doctor tells you to. If you were givenan antibiotic or prednisone, take all of the medicine even if you are feeling better after a few days. Don't smoke. Avoid being aroundthe smoke of others. If you were given an inhaler, use it exactly as directed. If you need to use it more often than prescribed, your condition may be getting worse. Call your doctor. Follow-up care Follow up with your health care provider.If you are 65 or older or have chronic asthma or COPD, you should get a single dose of the pneumococcal vaccine and aflu shot each year. You may need a second dose of the pneumococcal vaccine if you had the first dose at a younger age. Your health care provider will let you know if you need a second dose. For all other people, the usual dose for the pneumococcal vaccine is 1 or 2 shots. Yourprovider can discuss this with you. When to seek medical care Get prompt medical attention ifany of these occur: Increased wheezing or shortness of breath Need to use your inhalers more often than usual without relief Fever of 100.4F(38C) or higher, or as directed by your health care provider Coughing up lots of dark-colored or bloody sputum (mucus) Chest pain with each breath You do not start to improve within 24 hours How To Quit Smoking Smoking is one of the hardest habits to break. About half of all those who have ever smoked have been able to quit, and most of those (about 70%) who still smoke want to quit. Here are some of the best ways to stop smoking. Keep Trying: It takes most smokers about 8 tries before they are finally able to fully quit. So, the more often you try and fail, the better your chance of quitting the next time! So, don't give up! Go Cold [place]: Most ex-smokers quit cold turkey. Trying to cut back gradually doesn't seem to work as well, perhaps because it continues the smoking habit. Also, it is possible to fool yourself by inhaling more while smoking fewer cigarettes. This results in the same amount of nicotine in your body! Get Support: Support programs can make an important difference, especially for the heavy smoker. These groups offer lectures, methods to change your behavior and peer support. Call the free national Quitline for more information. 967-LTWN-NIQ (289-349-4602). Low-cost or free programs are offered by many hospitals, local chapters of the [place] [employer] (068-657-2895) and the [place] [employer] (656-029-3577). Support at home is important too. Non-smokers can help by offering praise and encouragement. If the smoker fails to quit, encourage them to try again! Rksv-Ghe-Fldarsc Medicines: For those who can't quit on their own, Nicotine Replacement Therapy (NRT) may make quitting much easier. Certain aids such as the nicotine patch, gum and lozenge are available without a prescription. However, it is best to use these under the guidance of your doctor. The skin patch provides a steady supply of nicotine to the body. Nicotine gum and lozenge gives temporary bursts of low levels of nicotine. Both methods take the edge off the craving for cigarettes. WARNING: If you feel symptoms of nicotine overdose, such as nausea, vomiting, dizziness, weakness, or fast heartbeat, stop using these and see your doctor. Prescription Medicines: After evaluating your smoking patterns and prior attempts at quitting, your doctor may offer a prescription medicine such as bupropion (Zyban, Wellbutrin), varenicline (Chantix, Champix), a niocotine inhaler or nasal spray. Each has its unique advantage and side effects which your doctor can review with you. Health Benefits Of Quitting: The benefits of quitting start right away and keep improving the longer you go without smokin minutes: blood pressure and pulse return to normal 8 hours: oxygen levels return to normal 2 days: ability to smell and taste begins to improve as damaged nerves start to regrow 2-3 weeks: circulation and lung function improves 1-9 months: decreased cough, congestion and shortness of breath; less tired 1 year: risk of heart attack decreases by half 5 years: risk of lung cancer decreases by half; risk of stroke becomes the same as a non-smoker For information about how to quit smoking, visit the following links: [employer] , Clearing the Air, Quit Smoking Today - an online booklet. http://www.smokefree.gov/pubs/clearing_the_air.pdf Smokefree.gov http://smokefree.gov/ QuitNet http://www.quitnet.com/ Prednisone Oral tablet What is this medicine? PREDNISONE (PRED ni sone) is a corticosteroid. It is commonly used to treat inflammation of the skin, joints, lungs, and other organs. Common conditions treated include asthma, allergies, and arthritis. It is also used for other conditions, such as blood disorders and diseases of the adrenal glands. How should I use this medicine? Take this medicine by mouth with a glass of water. Follow the directions on the prescription label. Take this medicine with food. If you are taking this medicine once a day, take it in the morning. Do not take more medicine than you are told to take. Do not suddenly stop taking your medicine because you may develop a severe reaction. Your doctor will tell you how much medicine to take. If your doctor wants you to stop the medicine, the dose may be slowly lowered over time to avoid any side effects. Talk to your army senior officer regarding the use of this medicine in children. Special care may be needed. What side effects may I notice from receiving this medicine? Side effects that you should report to your doctor or health senior caregiver as soon as possible: allergic reactions like skin rash, itching or hives, swelling of the face, lips, or tongue changes in emotions or moods changes in vision depressed mood eye pain fever or chills, cough, sore throat, pain or difficulty passing urine increased thirst swelling of ankles, feet Side effects that usually do not require medical attention (report to your doctor or health senior caregiver if they continue or are bothersome): confusion, excitement, restlessness headache nausea, vomiting skin problems, acne, thin and shiny skin trouble sleeping weight gain What may interact with this medicine? Do not take this medicine with any of the following medications: metyrapone mifepristone This medicine may also interact with the following medications: aminoglutethimide amphotericin B aspirin and aspirin-like medicines barbiturates certain medicines for diabetes, like glipizide or glyburide cholestyramine cholinesterase inhibitors cyclosporine digoxin diuretics ephedrine female hormones, like estrogens and control pills isoniazid ketoconazole NSAIDS, medicines for pain and inflammation, like ibuprofen or naproxen phenytoin rifampin toxoids vaccines warfarin What if I miss a dose? If you miss a dose, take it as soon as you can. If it is almost time for your next dose, talk to your doctor or health senior caregiver. You may need to miss a dose or take an extra dose. Do not take double or extra doses without advice. Where should I keep my medicine? Keep out of the reach of children. Store at room temperature between 15 and 30 degrees C (59 and 86 degrees F). Protect from light. Keep container tightly closed. Throw away any unused medicine after the expiration date. What should I tell my health care provider before I take this medicine? They need to know if you have any of these conditions: Chantilly's syndrome diabetes glaucoma heart disease high blood pressure infection (especially a virus infection such as chickenpox, cold sores, or herpes) kidney disease liver disease mental illness myasthenia gravis osteoporosis seizures stomach or intestine problems thyroid disease an unusual or allergic reaction to lactose, prednisone, other medicines, foods, dyes, or preservatives or trying to get breast-feeding What should I watch for while using this medicine? Visit your doctor or health senior caregiver for regular checks on your progress. If you are taking this medicine over a prolonged period, carry an identification card with your name and address, the type and dose of your medicine, and your doctor's name and address. This medicine may increase your risk of getting an infection. Tell your doctor or health senior caregiver if you are around anyone with measles or chickenpox, or if you develop sores or blisters that do not heal properly. If you are going to have surgery, tell your doctor or health senior caregiver that you have taken this medicine within the last twelve months. Ask your doctor or health senior caregiver about your diet. You may need to lower the amount of salt you eat. This medicine may affect blood sugar levels. If you have diabetes, check with your doctor or health senior caregiver before you change your diet or the dose of your diabetic medicine. Azithromycin Oral tablet What is this medicine? AZITHROMYCIN (az ith ashleigh MYE sin) is a macrolide antibiotic. It is used to treat or prevent certain kinds of bacterial infections. It will not work for colds, flu, or other viral infections. How should I use this medicine? Take this medicine by mouth with a full glass of water. Follow the directions on the prescription label. The tablets can be taken with food or on an empty stomach. If the medicine upsets your stomach, take it with food. Take your medicine at regular intervals. Do not take your medicine more often than directed. Take all of your medicine as directed even if you think your are better. Do not skip doses or stop your medicine early. Talk to your army senior officer regarding the use of this medicine in children. Special care may be needed. What side effects may I notice from receiving this medicine? Side effects that you should report to your doctor or health senior caregiver as soon as possible: allergic reactions like skin rash, itching or hives, swelling of the face, lips, or tongue confusion, nightmares or hallucinations dark urine difficulty breathing hearing loss irregular heartbeat or chest pain pain or difficulty passing urine redness, blistering, peeling or loosening of the skin, including inside the mouth white patches or sores in the mouth yellowing of the eyes or skin Side effects that usually do not require medical attention (report to your doctor or health senior caregiver if they continue or are bothersome): diarrhea dizziness, drowsiness headache stomach upset or vomiting tooth discoloration vaginal irritation What may interact with this medicine? Do not take this medicine with any of the following medications: lincomycin This medicine may also interact with the following medications: amiodarone antacids cyclosporine digoxin magnesium nelfinavir phenytoin warfarin What if I miss a dose? If you miss a dose, take it as soon as you can. If it is almost time for your next dose, take only that dose. Do not take double or extra doses. Where should I keep my medicine? Keep out of the reach of children. Store at room temperature between 15 and 30 degrees C (59 and 86 degrees F). Throw away any unused medicine after the expiration date. What should I tell my health care provider before I take this medicine? They need to know if you have any of these conditions: kidney disease liver disease irregular heartbeat or heart disease an unusual or allergic reaction to azithromycin, erythromycin, other macrolide antibiotics, foods, dyes, or preservatives or trying to get breast-feeding What should I watch for while using this medicine? Tell your doctor or health senior caregiver if your symptoms do not improve. Do not treat diarrhea with over the counter products. Contact your doctor if you have diarrhea that lasts more than 2 days or if it is severe and watery. This medicine can make you more sensitive to the sun. Keep out of the sun. If you cannot avoid being in the sun, wear protective clothing and use sunscreen. Do not use sun lamps or tanning beds/booths. You have been given the following additional information: COPD Flare Smoking Cessation Prednisone Oral tablet Azithromycin Oral tablet (Electronically signed by Keegan Siddiqui MD 10/10/2016 10:23)
--- NOTE | 2016-10-10 10:23 | ED DISCHARGE INSTRUCTIONS ---
Patient: BELEM ALONSO General Instructions [facility] VisitID: [id number] [place] [address] 76y, M Registration Date/Time: 10/08/2016 Acute exacerbation of COPD. INSTRUCTIONS Do not smoke. Seek medical help to quit smoking. Warnings: Further evaluation is necessary. GENERAL WARNINGS: Return or contact your physician immediately if your condition worsens or changes unexpectedly, if not improving as expected, or if other problems arise. Your Current Medications: CONTINUE TAKING THE FOLLOWING MEDICATIONS: Albuterol Sulfate Inhalation : Nebulization Solution (2.5 MG/3ML) 0.083%, 1 unit dose PRN. LORazepam Oral : prn. ProAir HFA Inhalation. Prescription Medications: Prednisone 20 mg: take 3 orally every day for 5 days. Dispense fifteen (15). No refills. Zithromax 250 mg tablets: take 2 orally today, followed by 1 daily for the next 4 days. No refills. Substitution is permissible. Follow-up: Follow up with your doctor [facility] in five days. Call for an appointment. Understanding of the discharge instructions verbalized by patient. ADDITIONAL INFORMATION COPD Flare Both emphysema and chronic bronchitis are forms of chronic obstructive pulmonary disease (COPD). It is most often caused by many years of smoking tobacco. Many things can make your lung disease suddenly get worse. These causes include the common cold, pneumonia, acute bronchitis, missing doses of your regular breathing medicines, or being around smoke, dust, or other air pollutants. A COPD flare may last 7 to 14 days. Your doctor may prescribe medicineto relax your airways and prevent wheezing. Your doctor may also prescribe antibiotics if he or she thinks you havea bacterial infection. Prednisone can helpease inflammation in a severe attack. Home care Here are things you can do at home: Drink lots of water or other fluids (at least 10 glasses a day) during an attack. This will loosen lung secretions and make it easier to breathe. If you have heart or kidney disease, check with your doctor before you drink extra amounts of fluids. Take prescribed medicine exactly at the times advised. If you have a hand-held inhaler or aerosol breathing medicine, don't use it more than once every 4 hours, unless your doctor tells you to. If you were givenan antibiotic or prednisone, take all of the medicine even if you are feeling better after a few days. Don't smoke. Avoid being aroundthe smoke of others. If you were given an inhaler, use it exactly as directed. If you need to use it more often than prescribed, your condition may be getting worse. Call your doctor. Follow-up care Follow up with your health care provider.If you are 65 or older or have chronic asthma or COPD, you should get a single dose of the pneumococcal vaccine and aflu shot each year. You may need a second dose of the pneumococcal vaccine if you had the first dose at a younger age. Your health care provider will let you know if you need a second dose. For all other people, the usual dose for the pneumococcal vaccine is 1 or 2 shots. Yourprovider can discuss this with you. When to seek medical care Get prompt medical attention ifany of these occur: Increased wheezing or shortness of breath Need to use your inhalers more often than usual without relief Fever of 100.4F(38C) or higher, or as directed by your health care provider Coughing up lots of dark-colored or bloody sputum (mucus) Chest pain with each breath You do not start to improve within 24 hours How To Quit Smoking Smoking is one of the hardest habits to break. About half of all those who have ever smoked have been able to quit, and most of those (about 70%) who still smoke want to quit. Here are some of the best ways to stop smoking. Keep Trying: It takes most smokers about 8 tries before they are finally able to fully quit. So, the more often you try and fail, the better your chance of quitting the next time! So, don't give up! Go Cold [place]: Most ex-smokers quit cold turkey. Trying to cut back gradually doesn't seem to work as well, perhaps because it continues the smoking habit. Also, it is possible to fool yourself by inhaling more while smoking fewer cigarettes. This results in the same amount of nicotine in your body! Get Support: Support programs can make an important difference, especially for the heavy smoker. These groups offer lectures, methods to change your behavior and peer support. Call the free national Quitline for more information. 840-YHCC-GNR (397-552-1042). Low-cost or free programs are offered by many hospitals, local chapters of the [place] [employer] (057-108-5403) and the [place] [employer] (874-814-2913). Support at home is important too. Non-smokers can help by offering praise and encouragement. If the smoker fails to quit, encourage them to try again! Lxdj-Tuz-Yjgejab Medicines: For those who can't quit on their own, Nicotine Replacement Therapy (NRT) may make quitting much easier. Certain aids such as the nicotine patch, gum and lozenge are available without a prescription. However, it is best to use these under the guidance of your doctor. The skin patch provides a steady supply of nicotine to the body. Nicotine gum and lozenge gives temporary bursts of low levels of nicotine. Both methods take the edge off the craving for cigarettes. WARNING: If you feel symptoms of nicotine overdose, such as nausea, vomiting, dizziness, weakness, or fast heartbeat, stop using these and see your doctor. Prescription Medicines: After evaluating your smoking patterns and prior attempts at quitting, your doctor may offer a prescription medicine such as bupropion (Zyban, Wellbutrin), varenicline (Chantix, Champix), a niocotine inhaler or nasal spray. Each has its unique advantage and side effects which your doctor can review with you. Health Benefits Of Quitting: The benefits of quitting start right away and keep improving the longer you go without smokin minutes: blood pressure and pulse return to normal 8 hours: oxygen levels return to normal 2 days: ability to smell and taste begins to improve as damaged nerves start to regrow 2-3 weeks: circulation and lung function improves 1-9 months: decreased cough, congestion and shortness of breath; less tired 1 year: risk of heart attack decreases by half 5 years: risk of lung cancer decreases by half; risk of stroke becomes the same as a non-smoker For information about how to quit smoking, visit the following links: National [employer] [place] , Clearing the Air, Quit Smoking Today - an online booklet. http://www.smokefree.gov/pubs/clearing_the_air.pdf Smokefree.gov http://smokefree.gov/ QuitNet http://www.quitnet.com/ Prednisone Oral tablet What is this medicine? PREDNISONE (PRED ni sone) is a corticosteroid. It is commonly used to treat inflammation of the skin, joints, lungs, and other organs. Common conditions treated include asthma, allergies, and arthritis. It is also used for other conditions, such as blood disorders and diseases of the adrenal glands. How should I use this medicine? Take this medicine by mouth with a glass of water. Follow the directions on the prescription label. Take this medicine with food. If you are taking this medicine once a day, take it in the morning. Do not take more medicine than you are told to take. Do not suddenly stop taking your medicine because you may develop a severe reaction. Your doctor will tell you how much medicine to take. If your doctor wants you to stop the medicine, the dose may be slowly lowered over time to avoid any side effects. Talk to your laser technician regarding the use of this medicine in children. Special care may be needed. What side effects may I notice from receiving this medicine? Side effects that you should report to your doctor or health director of career resources as soon as possible: allergic reactions like skin rash, itching or hives, swelling of the face, lips, or tongue changes in emotions or moods changes in vision depressed mood eye pain fever or chills, cough, sore throat, pain or difficulty passing urine increased thirst swelling of ankles, feet Side effects that usually do not require medical attention (report to your doctor or health director of career resources if they continue or are bothersome): confusion, excitement, restlessness headache nausea, vomiting skin problems, acne, thin and shiny skin trouble sleeping weight gain What may interact with this medicine? Do not take this medicine with any of the following medications: metyrapone mifepristone This medicine may also interact with the following medications: aminoglutethimide amphotericin B aspirin and aspirin-like medicines barbiturates certain medicines for diabetes, like glipizide or glyburide cholestyramine cholinesterase inhibitors cyclosporine digoxin diuretics ephedrine female hormones, like estrogens and control pills isoniazid ketoconazole NSAIDS, medicines for pain and inflammation, like ibuprofen or naproxen phenytoin rifampin toxoids vaccines warfarin What if I miss a dose? If you miss a dose, take it as soon as you can. If it is almost time for your next dose, talk to your doctor or health director of career resources. You may need to miss a dose or take an extra dose. Do not take double or extra doses without advice. Where should I keep my medicine? Keep out of the reach of children. Store at room temperature between 15 and 30 degrees C (59 and 86 degrees F). Protect from light. Keep container tightly closed. Throw away any unused medicine after the expiration date. What should I tell my health care provider before I take this medicine? They need to know if you have any of these conditions: Hickman's syndrome diabetes glaucoma heart disease high blood pressure infection (especially a virus infection such as chickenpox, cold sores, or herpes) kidney disease liver disease mental illness myasthenia gravis osteoporosis seizures stomach or intestine problems thyroid disease an unusual or allergic reaction to lactose, prednisone, other medicines, foods, dyes, or preservatives or trying to get breast-feeding What should I watch for while using this medicine? Visit your doctor or health director of career resources for regular checks on your progress. If you are taking this medicine over a prolonged period, carry an identification card with your name and address, the type and dose of your medicine, and your doctor's name and address. This medicine may increase your risk of getting an infection. Tell your doctor or health director of career resources if you are around anyone with measles or chickenpox, or if you develop sores or blisters that do not heal properly. If you are going to have surgery, tell your doctor or health director of career resources that you have taken this medicine within the last twelve months. Ask your doctor or health director of career resources about your diet. You may need to lower the amount of salt you eat. This medicine may affect blood sugar levels. If you have diabetes, check with your doctor or health director of career resources before you change your diet or the dose of your diabetic medicine. Azithromycin Oral tablet What is this medicine? AZITHROMYCIN (az ith ashleigh MYE sin) is a macrolide antibiotic. It is used to treat or prevent certain kinds of bacterial infections. It will not work for colds, flu, or other viral infections. How should I use this medicine? Take this medicine by mouth with a full glass of water. Follow the directions on the prescription label. The tablets can be taken with food or on an empty stomach. If the medicine upsets your stomach, take it with food. Take your medicine at regular intervals. Do not take your medicine more often than directed. Take all of your medicine as directed even if you think your are better. Do not skip doses or stop your medicine early. Talk to your laser technician regarding the use of this medicine in children. Special care may be needed. What side effects may I notice from receiving this medicine? Side effects that you should report to your doctor or health director of career resources as soon as possible: allergic reactions like skin rash, itching or hives, swelling of the face, lips, or tongue confusion, nightmares or hallucinations dark urine difficulty breathing hearing loss irregular heartbeat or chest pain pain or difficulty passing urine redness, blistering, peeling or loosening of the skin, including inside the mouth white patches or sores in the mouth yellowing of the eyes or skin Side effects that usually do not require medical attention (report to your doctor or health director of career resources if they continue or are bothersome): diarrhea dizziness, drowsiness headache stomach upset or vomiting tooth discoloration vaginal irritation What may interact with this medicine? Do not take this medicine with any of the following medications: lincomycin This medicine may also interact with the following medications: amiodarone antacids cyclosporine digoxin magnesium nelfinavir phenytoin warfarin What if I miss a dose? If you miss a dose, take it as soon as you can. If it is almost time for your next dose, take only that dose. Do not take double or extra doses. Where should I keep my medicine? Keep out of the reach of children. Store at room temperature between 15 and 30 degrees C (59 and 86 degrees F). Throw away any unused medicine after the expiration date. What should I tell my health care provider before I take this medicine? They need to know if you have any of these conditions: kidney disease liver disease irregular heartbeat or heart disease an unusual or allergic reaction to azithromycin, erythromycin, other macrolide antibiotics, foods, dyes, or preservatives or trying to get breast-feeding What should I watch for while using this medicine? Tell your doctor or health director of career resources if your symptoms do not improve. Do not treat diarrhea with over the counter products. Contact your doctor if you have diarrhea that lasts more than 2 days or if it is severe and watery. This medicine can make you more sensitive to the sun. Keep out of the sun. If you cannot avoid being in the sun, wear protective clothing and use sunscreen. Do not use sun lamps or tanning beds/booths. You have been given the following additional information: COPD Flare Smoking Cessation Prednisone Oral tablet Azithromycin Oral tablet (Electronically signed by Keegan Siddiqui MD 10/10/2016 10:23)
--- NOTE | 2016-10-10 10:23 | ED MAR SUMMARY ---
..... Medication Administration Record [facility] [address] [place], [place] [id number] Patient: BELEM ALONSO Visit ID: [id number] 76y, M Weight: 72.5 kg Height/Length: 70 in BMI: 22.9 ALLERGIES: No Known Drug Allergy
--- NOTE | 2016-10-10 10:23 | ED MAR SUMMARY ---
..... Medication Administration Record [facility] [address] [place], [place] [id number] Patient: BELEM ALONSO Visit ID: [id number] 76y, M Weight: 72.5 kg Height/Length: 70 in BMI: 22.9 ALLERGIES: No Known Drug Allergy
--- NOTE | 2016-10-10 10:23 | ED MED RECONCILIATION SUMMARY ---
Patient: BELEM ALONSO Medication Reconciliation Report [facility] VisitID: [id number] [address] [place] [address] 76y, M Registration Date/Time: 10/08/2016 Weight: 72.5 kg Height/Length: 70 in. BMI: 22.9 ALLERGIES: No Known Drug Allergy The patient's Home Medications are listed below: CONTINUE TAKING THE FOLLOWING MEDICATIONS: Albuterol Sulfate Inhalation ((2.5 MG/3ML) 0.083%) 1 unit dose, PRN LORazepam Oral ProAir HFA Inhalation The source(s) of the original Home Medication information: patient The following Medications were given to the patient in the Emergency Department: None. The following Medications were prescribed to the patient: Prednisone 20 mg: take 3 orally every day for 5 days. Dispense fifteen (15). No refills. -- Keegan Siddiqui MD Zithromax 250 mg tablets: take 2 orally today, followed by 1 daily for the next 4 days. No refills. Substitution is permissible. -- Keegan Siddiqui MD
== END 2016-10-08 09:18 | disposition home or self-care (01) ==
LOC: ED SRH 06:55
DX: J44.1 Chronic obstructive pulmonary disease with (acute) exacerbation (principal); J45.909 Unspecified asthma, uncomplicated; Z79.899 Other long term (current) drug therapy; F17.210 Nicotine dependence, cigarettes, uncomplicated
CPT/HCPCS: 90065; 90074; 90100; 91672; 93004; 95059

== ENCOUNTER 2016-11-02 06:01 | Emergency (ER) | payer OTHER ==
--- NOTE | 2016-11-02 06:34 | DIAGNOSTIC IMAGING REPORT ---
PROCEDURE: XR CHEST 1 VIEW INDICATION: SHORTNESS OF BREATH TECHNIQUE: Portable AP view 06:24 a.m. COMPARISON: Chest x-ray 10/08/2016 FINDINGS: Hyperexpansion but are clear. Heart and mediastinum are normal. Thorax is normal. IMPRESSION: 1. No acute changes 2. COPD
--- NOTE | 2016-11-02 07:21 | ED ORDER SUMMARY ---
..... Patient: BELEM ALONSO OrderSheet [facility] VisitID: [id number] [place] [address] 76y, M Registration Date/Time: 11/02/2016 ORDER SHEET Weight: 72.5 kg (stated) Allergies: No Known Drug Allergy GENERAL ORDERS: Chest 1V Urgent (06:14 11/02/2016 Severino Bolden) (Ack 6:19 CHagerty ER Easter Bunny) (6:23 CHagerty ER [place]unny) CBC w Diff Urgent (06:14 11/02/2016 Severino Bolden) (Ack 6:19 Hannaherty ER [place]unny) (6:26 JQuivey R.N.) CMP Urgent (06:14 11/02/2016 Severino Bolden) (Ack 6:19 CHagerty ER [place]) (6:26 JQuivey R.N.) MEDICATION ORDERS: IV FLUIDS: Levofloxacin IV 500 mg/100mL (NOW) (06:56 11/02/2016 Severino Boldne) (Ack 6:57 JQuivey R.N.) (7:02 JQuivey R.N.) ORDER SHEET NOTES: [Electronically signed by Mumtaz Llamas Dr. (07:24 11/02/2016)] [Electronically signed by Michelle River R.N. (19:07 11/02/2016)] [Electronically locked/signed by Michelle River R.N. (19:07 11/02/2016)]
--- NOTE | 2016-11-02 07:21 | ED CLINICAL REPORT ---
Clinical Report - Physicians/Mid Levels [facility] [address] [place] [address] 11/02/2016 6:02 Patient: BELEM ALONSO Time Seen: 06:12; initial patient contact. Arrived- By ambulance. Historian- patient and EMS personnel. HISTORY OF PRESENT ILLNESS Chief Complaint: DYSPNEA and HISTORY OF CHRONIC OBSTRUCTIVE PULMONARY DISEASE. This started today and is still present and worsening. It was gradual in onset. The dyspnea is described as moderate. The dyspnea is worsened by walking and cough. No improvement of dyspnea with rest. The patient has had sputum production, a cough and wheezing. No fever, sweating episodes, chills or chest pain or discomfort. No calf pain, foot swelling, anxiety, dizziness or palpitations. Similar symptoms previously: Many times. Recent medical care: Not recently seen/assessed. REVIEW OF SYSTEMS No sore throat, nasal discharge, nausea or vomiting. All systems otherwise negative, except as recorded above. PAST HISTORY PVC - Premature Venticular Complex(s). COPD - Chronic Obstructive Pulmonary Disease. Hypoxia. Depression. Pancreatitis. Alcohol Withdrawal. Asthma. Additional Surgeries: no known surgeries. Medications: Albuterol Sulfate Inhalation (Nebulization Solution (2.5 MG/3ML) 0.083%) 1 unit dose, PRN. LORazepam Oral, as needed. ProAir HFA Inhalation. Allergies: No Known Drug Allergy. SOCIAL HISTORY Current every day smoker. Heavy alcohol use. ADDITIONAL NOTES The nursing notes have been reviewed. PHYSICAL EXAM Appearance: Alert. No acute distress. ENT: Pharynx normal. Neck: Normal inspection. No jugular venous distention. CVS: Normal heart rate and rhythm. Heart sounds normal. Respiratory: Mild respiratory distress with accessory muscle use and retractions. Mildly prolonged expirations. Mildly decreased air movement diffusely over both lungs. Expiratory moderate bilateral wheezes diffusely. No rales or rhonchi. Skin: Skin warm and dry. Normal skin color. Extremities: No calf tenderness. No lower extremity edema. Neuro: Oriented X 3. LABS, X-RAYS, AND EKG Laboratory Tests: CBC w Diff: (CHAVA: 11/02/2016 06:18) ( MsgRcvd 11/02/2016 06:31) Final results Test Result Flag Units (Reference) WHITE BLOOD COUNT 6.1 K/uL (4.5-11.5) RED BLOOD COUNT 4.55 M/uL (4.50-5.90) HEMOGLOBIN 13.2 L gm/dL (13.5-17.5) HEMATOCRIT 40.2 L % (41.0-53.0) MEAN CELL VOLUME 88 fL (80-100) MEAN CORPUSCULAR HGB 29 pg (26-34) MEAN CORPUSCULAR HGB CONC 33 g/dL (31-37) RED CELL DISTRIBUTION WIDTH 19.8 H % (11.6-14.8) PLATELET COUNT 350 K/uL (150-400) NEUTROPHIL % 59.6 % (50-75) LYMPH % 17.6 L % (25-40) MONO % 13.5 % (3-14) EOSINOPHIL % 8.4 H % (0-4) BASOPHIL % 0.9 % (0-2) CMP: (CHAVA: 11/02/2016 06:18) ( MsgRcvd 11/02/2016 06:44) Final results Test Result Flag Units (Reference) GLUCOSE 106 mg/dL (70-110) BUN 8 mg/dL (7-18) CREATININE 0.8 mg/dL (0.6-1.3) Estimated GFR >60 mL/min Estimated GFR- >60 mL/min Note: Persistent reduction over 3 months in eGFR<60 mL/min/1.73 m2 defines CKD. Patients with eGFR values>=60 mL/min/1.73 m2 may also have CKD if evidence ofpersistent proteinuria. Additional information may be foundat www.kidney.org. SODIUM 146 H mmol/L (136-145) POTASSIUM 4.3 mmol/L (3.5-5.1) CHLORIDE 108 H mmol/L (98-107) CARBON DIOXIDE 26 mmol/L (21-32) CALCIUM 8.6 mg/dL (8.5-10.1) TOTAL PROTEIN 6.4 g/dL (6.4-8.2) ALBUMIN 3.2 L g/dL (3.3-5.0) BILIRUBIN, TOTAL 0.5 mg/dL (0.0-1.0) ALKALINE PHOSPHATASE 114 U/L (46-116) AST (SGOT) 34 U/L (15-37) ALT (SGPT) 23 U/L (12-78) . PROGRESS AND PROCEDURES Course of Care: Pt feeling much better after Solumedrol 125, Duoneb x 2, and Albuterol 5 mg neb en route. Disposition: Discharged home in good and improved condition. Condition: good. CLINICAL IMPRESSION Acute exacerbation of COPD. INSTRUCTIONS Do not smoke. Seek medical help to quit smoking. Your Current Medications: CONTINUE TAKING THE FOLLOWING MEDICATIONS: Albuterol Sulfate Inhalation : Nebulization Solution (2.5 MG/3ML) 0.083%, 1 unit dose PRN. LORazepam Oral : prn. ProAir HFA Inhalation. Prescription Medications: Levofloxacin 500 mg: take 1 tab orally every day for 4 days. No refills. (Start on 11/04/15) Prednisone 20 mg: take 2 orally every day for 5 days. Dispense ten (10). No refills. Follow-up: Follow up with your doctor in about two days. Call for an appointment. Screening today revealed the patient's blood pressure to be in the hypertensive range. The patient should follow up with a primary care provider for blood pressure management. (Electronically signed by Mumtaz Llamas Dr. 11/02/2016 7:24)
--- NOTE | 2016-11-02 07:21 | ED ORDER SUMMARY ---
..... Patient: BELEM ALONSO OrderSheet [facility] VisitID: [id number] [place] [address] 76y, M Registration Date/Time: 11/02/2016 ORDER SHEET Weight: 72.5 kg (stated) Allergies: No Known Drug Allergy GENERAL ORDERS: Chest 1V Urgent (06:14 11/02/2016 Severino Bolden) (Ack 6:19 CHagerty ER [place] Press Operator) (6:23 CHagerty ER [employer] Press Operator) CBC w Diff Urgent (06:14 11/02/2016 Severino Bolden) (Ack 6:19 Hannaherty ER [employer] Press Operator) (6:26 JQuivey R.N.) CMP Urgent (06:14 11/02/2016 Severino Bolden) (Ack 6:19 CHagerty ER [employer] Press Operator) (6:26 JQuivey R.N.) MEDICATION ORDERS: IV FLUIDS: Levofloxacin IV 500 mg/100mL (NOW) (06:56 11/02/2016 Severino Bolden) (Ack 6:57 JQuivey R.N.) (7:02 JQuivey R.N.) ORDER SHEET NOTES: [Electronically signed by Mumtaz Llamas Dr. (07:24 11/02/2016)] [Electronically signed by Michelle River R.N. (19:07 11/02/2016)] [Electronically locked/signed by Michelle River R.N. (19:07 11/02/2016)]
--- NOTE | 2016-11-02 07:21 | ED NURSING NOTES ---
Clinical Report - Nurses [facility] [address] [place] [address] 11/02/2016 6:02 Patient: BELEM ALONSO TRIAGE Triage time 06:05. Acuity: LEVEL 3. Chief Complaint: SHORTNESS OF BREATH and DIFFICULTY BREATHING. 06:15. Alert. SEPSIS SCREEN: Sepsis Screen. Negative (no infection suspected/documented). --06:26 Marco Ruiz R.N. 06:05 11/02/16. BP: 172/95. HR: 117. RR: 22. O2 saturation: 100%. Temp: 98.1 F (temporal). Pain level now: 0/10. Additional comments: on Albuterol HHN. --06:26 Marco Ruiz R.N. Weight: 72.5 kg stated. Height/Length: 70 inches Per Patient. BMI: 22.9. --06:13 Marco Ruiz R.N. Medications Albuterol Sulfate Inhalation (Nebulization Solution (2.5 MG/3ML) 0.083%) 1 unit dose, PRN. LORazepam Oral, as needed. ProAir HFA Inhalation. --06:11 Marco Ruiz R.N. Allergies No Known Drug Allergy. --06:11 Marco Ruiz R.N. Medication/allergy information source: the patient. --06:26 Marco Ruiz R.N. History Arrived by EMS. Historian: patient. Unaccompanied. Onset. (about 99). Treatment TALENT DEVELOPMENT MANAGER: EMS treatment TALENT DEVELOPMENT MANAGER verbally communicated. Medications given- (1 unit dose Duo-neb HHN,125mg Solu-medrol IVP). ( 200ml NS infused TALENT DEVELOPMENT MANAGER . EMS reports pt has been SOB since about 99 pt took Duo-neb inhaler at home without much relief , pt drank a beer and felt a little better when engine company arrived they gave pt 1 unit dose Duo-neb HHN and patient received 5mg Albuterol HHN in the Ambulance). PAST MEDICAL HX: Immunizations: up-to-date. SOCIAL HX: Current some days light tobacco smoker- less than 1/2 a pack per day. Alcohol use; consumes one beer a day. No drug use. No infectious disease exposure. ABUSE ASSESSMENT: No report of abuse. FALL RISK ASSESSMENT: Fall risk assessment completed. No fall risk identified. NUTRITIONAL RISK ASSESSMENT: The nutritional risk assessment revealed no deficiencies. FUNCTIONAL ASSESSMENT: Functional assessment: no impairments noted. LEARNING NEEDS ASSESSMENT: The learning needs assessment revealed no barriers. SKIN INTEGRITY ASSESSMENT: Skin integrity risk assessment completed. No skin integrity risk identified. --06:26 Marco Ruiz R.N. PROBLEMS: PVC - Premature Venticular Complex(s). COPD - Chronic Obstructive Pulmonary Disease. Hypoxia. Depression. Pancreatitis. Alcohol Withdrawal. Asthma. --06:11 Marco Ruiz R.N. ADDITIONAL SURGERIES: no known surgeries. Interventions ID band on patient. To treatment room. --06:26 Marco Ruiz R.N. 05:52 11/02/2016 Site #1 started prior to arrival by EMS via IV in the right wrist with an 20g angiocath, with aseptic technique and good blood return; one attempt. --06:07 Marco Ruiz R.N. PHYSICAL ASSESSMENT 06:10. To room via stretcher. GENERAL / NEURO / PSYCH: Alert. Oriented X 4. HEENT: Mucous membranes are pink. RESPIRATORY: Mild respiratory distress. The patient can speak in full sentences. SKIN: Skin is warm and dry. Normal skin turgor. --06:26 Marco Ruiz R.N. NURSING PROGRESS NOTES 06:10. Head of bed elevated. Two patient identifiers checked. Call light placed in reach. Side rails up x 1. Bed placed in lowest position. Brakes of bed on. Patient ready for evaluation- chart flagged. --06:16 Marco Ruiz R.N. 06:15. EKG time: (0615). EKG was performed by a tech and shown to the ED physician. --06:16 Marco Ruiz R.N. 06:19. Patient ID band checked for patient name and birthdate: patient confirmed. Blood samples drawn from the right wrist peripheral IV site with syringe by nurse ; labeled in presence of the patient and sent to lab: rainbow set. Initial blood discarded and additional blood sent to lab. Line flushed with 10 mL normal saline post blood draw. --06:22 Marco Ruiz R.N. 06:21. Portable chest x-ray performed. --06:22 Marco Ruiz R.N. The patient is calm and resting quietly. RESPIRATORY: No respiratory distress. SKIN: Skin is warm and dry. Skin color within normal limits. --06:25 Marco Ruiz R.N. 06:24 11/02/16. BP: 153/79. HR: 116. RR: 21. O2 saturation: 94% on room air. --06:25 Marco Ruiz R.N. 06:55 11/02/16. BP: 156/72. HR: 109. RR: 18. O2 saturation: 95% on room air. Pain level now: 0/10. --06:56 Marco Ruiz R.N. The patient is calm and resting quietly. RESPIRATORY: No respiratory distress. SKIN: Skin is warm and dry. Skin color within normal limits. --06:56 Marco Ruiz R.N. 07:01 11/02/2016 Started 500 mg of Levofloxacin IVPB in bag #1 100 mL; at 100 mL/hr over 1 hour(s) via site #1 via IV pump. Allergies verified and confirmed 5 rights. IV patency established. IV site checked: no pain, redness, or swelling. IV flushed thoroughly pre- and post-medication administration. --07:02 Marco Ruiz R.N. Care transferred and report received (assumed care from Marco HARE). --07:54 Michelle River R.N. DISPOSITION / DISCHARGE 08:11/02/2016 Levofloxacin IVPB Discontinued: completed. Total amount infused: 100 mL. --08:17 Michelle River R.N. 08:12 11/02/2016 Site #1 removed upon discharge. Bandaid applied. --08:17 Michelle River R.N. Departure time: 816. Discharge instructions provided and reviewed with the patient. Reviewed medication(s) side effects, precautions, dosing and course information. Prescription(s) given to the patient. Reviewed need to stop smoking- provided smoking cessation materials. Patient verbalized understanding. Written instructions provided in Wolof. The patient was discharged by the physician. He was discharged home and accompanied by friend. He left the Emergency Department ambulatory and via private vehicle. Driving (friend). --08:21 Michelle River R.N. 08:10 11/02/16. BP: 155/76. HR: 120. RR: 16. O2 saturation: 96%. Temp: 98.6 F. Pain level now: 0/10. --08:21 Michelle River R.N. Locked/Released at 11/02/2016 19:07 by Michelle River R.N.
--- NOTE | 2016-11-02 19:08 | ED MED RECONCILIATION SUMMARY ---
Patient: BELEM ALONSO Medication Reconciliation Report [facility] VisitID: [id number] [address] [place] [address] 76y, M Registration Date/Time: 11/02/2016 Weight: 72.5 kg Height/Length: 70 in. BMI: 22.9 ALLERGIES: No Known Drug Allergy The patient's Home Medications are listed below: CONTINUE TAKING THE FOLLOWING MEDICATIONS: Albuterol Sulfate Inhalation ((2.5 MG/3ML) 0.083%) 1 unit dose, PRN LORazepam Oral ProAir HFA Inhalation The source(s) of the original Home Medication information: patient The following Medications were given to the patient in the Emergency Department: Levofloxacin [IVPB] IVPB bolus 0, then 500 mg 100 mL/hr, administered: 11/02/2016 7:01:00 AM The following Medications were prescribed to the patient: Levofloxacin 500 mg: take 1 tab orally every day for 4 days. No refills.(Start on 11/04/15) -- Mumtaz Llamas Dr. Prednisone 20 mg: take 2 orally every day for 5 days. Dispense ten (10). No refills. -- Mumtaz Llamas Dr.
--- NOTE | 2016-11-02 19:08 | ED MED RECONCILIATION SUMMARY ---
Patient: BELEM ALONSO Medication Reconciliation Report [facility] VisitID: [id number] [address] [place] [address] 76y, M Registration Date/Time: 11/02/2016 Weight: 72.5 kg Height/Length: 70 in. BMI: 22.9 ALLERGIES: No Known Drug Allergy The patient's Home Medications are listed below: CONTINUE TAKING THE FOLLOWING MEDICATIONS: Albuterol Sulfate Inhalation ((2.5 MG/3ML) 0.083%) 1 unit dose, PRN LORazepam Oral ProAir HFA Inhalation The source(s) of the original Home Medication information: patient The following Medications were given to the patient in the Emergency Department: Levofloxacin [IVPB] IVPB bolus 0, then 500 mg 100 mL/hr, administered: 11/02/2016 7:01:00 AM The following Medications were prescribed to the patient: Levofloxacin 500 mg: take 1 tab orally every day for 4 days. No refills.(Start on 11/04/15) -- Mumtaz Llamas Dr. Prednisone 20 mg: take 2 orally every day for 5 days. Dispense ten (10). No refills. -- Mumtaz Llamas Dr.
--- NOTE | 2016-11-02 19:08 | ED DISCHARGE INSTRUCTIONS ---
Patient: BELEM ALONSO General Instructions [facility] VisitID: [id number] [place] [address] 76y, M Registration Date/Time: 11/02/2016 Acute exacerbation of COPD. INSTRUCTIONS Do not smoke. Seek medical help to quit smoking. Your Current Medications: CONTINUE TAKING THE FOLLOWING MEDICATIONS: Albuterol Sulfate Inhalation : Nebulization Solution (2.5 MG/3ML) 0.083%, 1 unit dose PRN. LORazepam Oral : prn. ProAir HFA Inhalation. Prescription Medications: Levofloxacin 500 mg: take 1 tab orally every day for 4 days. No refills. (Start on 11/04/15) Prednisone 20 mg: take 2 orally every day for 5 days. Dispense ten (10). No refills. Follow-up: Follow up with your doctor in about two days. Call for an appointment. Screening today revealed the patient's blood pressure to be in the hypertensive range. The patient should follow up with a primary care provider for blood pressure management. ADDITIONAL INFORMATION COPD Flare Both emphysema and chronic bronchitis are forms of chronic obstructive pulmonary disease (COPD). It is most often caused by many years of smoking tobacco. Many things can make your lung disease suddenly get worse. These causes include the common cold, pneumonia, acute bronchitis, missing doses of your regular breathing medicines, or being around smoke, dust, or other air pollutants. A COPD flare may last 7 to 14 days. Your doctor may prescribe medicineto relax your airways and prevent wheezing. Your doctor may also prescribe antibiotics if he or she thinks you havea bacterial infection. Prednisone can helpease inflammation in a severe attack. Home care Here are things you can do at home: Drink lots of water or other fluids (at least 10 glasses a day) during an attack. This will loosen lung secretions and make it easier to breathe. If you have heart or kidney disease, check with your doctor before you drink extra amounts of fluids. Take prescribed medicine exactly at the times advised. If you have a hand-held inhaler or aerosol breathing medicine, don't use it more than once every 4 hours, unless your doctor tells you to. If you were givenan antibiotic or prednisone, take all of the medicine even if you are feeling better after a few days. Don't smoke. Avoid being aroundthe smoke of others. If you were given an inhaler, use it exactly as directed. If you need to use it more often than prescribed, your condition may be getting worse. Call your doctor. Follow-up care Follow up with your health care provider.If you are 65 or older or have chronic asthma or COPD, you should get a single dose of the pneumococcal vaccine and aflu shot each year. You may need a second dose of the pneumococcal vaccine if you had the first dose at a younger age. Your health care provider will let you know if you need a second dose. For all other people, the usual dose for the pneumococcal vaccine is 1 or 2 shots. Yourprovider can discuss this with you. When to seek medical care Get prompt medical attention ifany of these occur: Increased wheezing or shortness of breath Need to use your inhalers more often than usual without relief Fever of 100.4F(38C) or higher, or as directed by your health care provider Coughing up lots of dark-colored or bloody sputum (mucus) Chest pain with each breath You do not start to improve within 24 hours How To Quit Smoking Smoking is one of the hardest habits to break. About half of all those who have ever smoked have been able to quit, and most of those (about 70%) who still smoke want to quit. Here are some of the best ways to stop smoking. Keep Trying: It takes most smokers about 8 tries before they are finally able to fully quit. So, the more often you try and fail, the better your chance of quitting the next time! So, don't give up! Go Cold Heavener: Most ex-smokers quit cold turkey. Trying to cut back gradually doesn't seem to work as well, perhaps because it continues the smoking habit. Also, it is possible to fool yourself by inhaling more while smoking fewer cigarettes. This results in the same amount of nicotine in your body! Get Support: Support programs can make an important difference, especially for the heavy smoker. These groups offer lectures, methods to change your behavior and peer support. Call the free national Quitline for more information. 108-SPJM-TFL (213-864-2766). Low-cost or free programs are offered by many hospitals, local chapters of the [place] [employer] (514-036-6250) and the [employer] (531-865-9764). Support at home is important too. Non-smokers can help by offering praise and encouragement. If the smoker fails to quit, encourage them to try again! Zajj-Dts-Lsudzmu Medicines: For those who can't quit on their own, Nicotine Replacement Therapy (NRT) may make quitting much easier. Certain aids such as the nicotine patch, gum and lozenge are available without a prescription. However, it is best to use these under the guidance of your doctor. The skin patch provides a steady supply of nicotine to the body. Nicotine gum and lozenge gives temporary bursts of low levels of nicotine. Both methods take the edge off the craving for cigarettes. WARNING: If you feel symptoms of nicotine overdose, such as nausea, vomiting, dizziness, weakness, or fast heartbeat, stop using these and see your doctor. Prescription Medicines: After evaluating your smoking patterns and prior attempts at quitting, your doctor may offer a prescription medicine such as bupropion (Zyban, Wellbutrin), varenicline (Chantix, Champix), a niocotine inhaler or nasal spray. Each has its unique advantage and side effects which your doctor can review with you. Health Benefits Of Quitting: The benefits of quitting start right away and keep improving the longer you go without smokin minutes: blood pressure and pulse return to normal 8 hours: oxygen levels return to normal 2 days: ability to smell and taste begins to improve as damaged nerves start to regrow 2-3 weeks: circulation and lung function improves 1-9 months: decreased cough, congestion and shortness of breath; less tired 1 year: risk of heart attack decreases by half 5 years: risk of lung cancer decreases by half; risk of stroke becomes the same as a non-smoker For information about how to quit smoking, visit the following links: National [employer] , Clearing the Air, Quit Smoking Today - an online booklet. http://www.smokefree.gov/pubs/clearing_the_air.pdf Smokefree.gov http://smokefree.gov/ QuitNet http://www.quitnet.com/ Levofloxacin Oral tablet What is this medicine? LEVOFLOXACIN (byron cruz) is a quinolone antibiotic. It is used to treat certain kinds of bacterial infections. It will not work for colds, flu, or other viral infections. How should I use this medicine? Take this medicine by mouth with a full glass of water. Follow the directions on the prescription label. This medicine can be taken with or without food. Take your medicine at regular intervals. Do not take your medicine more often than directed. Do not skip doses or stop your medicine early even if you feel better. Do not stop taking except on your doctor's advice. A special MedGuide will be given to you by the pharmacist with each prescription and refill. Be sure to read this information carefully each time. Talk to your wall insulation sprayer regarding the use of this medicine in children. While this drug may be prescribed for children as young as 6 months for selected conditions, precautions do apply. What side effects may I notice from receiving this medicine? Side effects that you should report to your doctor or health career and guidance counselor as soon as possible: -allergic reactions like skin rash or hives, swelling of the face, lips, or tongue -changes in vision -confusion, nightmares or hallucinations -difficulty breathing -irregular heartbeat, chest pain -joint, muscle or tendon pain -pain or difficulty passing urine -persistent headache with or without blurred vision -redness, blistering, peeling or loosening of the skin, including inside the mouth -seizures -unusual pain, numbness, tingling, or weakness -vaginal irritation, discharge Side effects that usually do not require medical attention (report to your doctor or health career and guidance counselor if they continue or are bothersome): -diarrhea -dry mouth -headache -stomach upset, nausea -trouble sleeping What may interact with this medicine? Do not take this medicine with any of the following medications: - arsenic trioxide - chloroquine - droperidol - medicines for irregular heart rhythm like amiodarone, disopyramide, dofetilide, flecainide, quinidine, procainamide, sotalol - some medicines for depression or mental problems like phenothiazines, pimozide, and ziprasidone This medicine may also interact with the following medications: - amoxapine -antacids - cisapride - dairy products - didanosine (ddI) buffered tablets or powder - haloperidol - multivitamins -NSAIDS, medicines for pain and inflammation, like ibuprofen or naproxen - retinoid products like tretinoin or isotretinoin - risperidone - some other antibiotics like clarithromycin or erythromycin - sucralfate - theophylline - warfarin What if I miss a dose? If you miss a dose, take it as soon as you remember. If it is almost time for your next dose, take only that dose. Do not take double or extra doses. Where should I keep my medicine? Keep out of the reach of children. Store at room temperature between 15 and 30 degrees C (59 and 86 degrees F). Keep in a tightly closed container. Throw away any unused medicine after the expiration date. What should I tell my health care provider before I take this medicine? They need to know if you have any of these conditions: cerebral disease irregular heartbeat kidney disease seizure disorder an unusual or allergic reaction to levofloxacin, other antibiotics or medicines, foods, dyes, or preservatives or trying to get breast-feeding What should I watch for while using this medicine? Tell your doctor or health career and guidance counselor if your symptoms do not improve or if they get worse. Drink several glasses of water a day and cut down on drinks that contain caffeine. You must not get dehydrated while taking this medicine. You may get drowsy or dizzy. Do not drive, use machinery, or do anything that needs mental alertness until you know how this medicine affects you. Do not sit or stand up quickly, especially if you are an older patient. This reduces the risk of dizzy or fainting spells. This medicine can make you more sensitive to the sun. Keep out of the sun. If you cannot avoid being in the sun, wear protective clothing and use a sunscreen. Do not use sun lamps or tanning beds/booths. Contact your doctor if you get a sunburn. If you are a diabetic monitor your blood glucose carefully. If you get an unusual reading stop taking this medicine and call your doctor right away. Do not treat diarrhea with hdhu-saf-qwtsfwv products. Contact your doctor if you have diarrhea that lasts more than 2 days or if the diarrhea is severe and watery. Avoid antacids, calcium, iron, and zinc products for 2 hours before and 2 hours after taking a dose of this medicine. Prednisone Oral tablet What is this medicine? PREDNISONE (PRED ni sone) is a corticosteroid. It is commonly used to treat inflammation of the skin, joints, lungs, and other organs. Common conditions treated include asthma, allergies, and arthritis. It is also used for other conditions, such as blood disorders and diseases of the adrenal glands. How should I use this medicine? Take this medicine by mouth with a glass of water. Follow the directions on the prescription label. Take this medicine with food. If you are taking this medicine once a day, take it in the morning. Do not take more medicine than you are told to take. Do not suddenly stop taking your medicine because you may develop a severe reaction. Your doctor will tell you how much medicine to take. If your doctor wants you to stop the medicine, the dose may be slowly lowered over time to avoid any side effects. Talk to your wall insulation sprayer regarding the use of this medicine in children. Special care may be needed. What side effects may I notice from receiving this medicine? Side effects that you should report to your doctor or health career and guidance counselor as soon as possible: allergic reactions like skin rash, itching or hives, swelling of the face, lips, or tongue changes in emotions or moods changes in vision depressed mood eye pain fever or chills, cough, sore throat, pain or difficulty passing urine increased thirst swelling of ankles, feet Side effects that usually do not require medical attention (report to your doctor or health career and guidance counselor if they continue or are bothersome): confusion, excitement, restlessness headache nausea, vomiting skin problems, acne, thin and shiny skin trouble sleeping weight gain What may interact with this medicine? Do not take this medicine with any of the following medications: metyrapone mifepristone This medicine may also interact with the following medications: aminoglutethimide amphotericin B aspirin and aspirin-like medicines barbiturates certain medicines for diabetes, like glipizide or glyburide cholestyramine cholinesterase inhibitors cyclosporine digoxin diuretics ephedrine female hormones, like estrogens and control pills isoniazid ketoconazole NSAIDS, medicines for pain and inflammation, like ibuprofen or naproxen phenytoin rifampin toxoids vaccines warfarin What if I miss a dose? If you miss a dose, take it as soon as you can. If it is almost time for your next dose, talk to your doctor or health career and guidance counselor. You may need to miss a dose or take an extra dose. Do not take double or extra doses without advice. Where should I keep my medicine? Keep out of the reach of children. Store at room temperature between 15 and 30 degrees C (59 and 86 degrees F). Protect from light. Keep container tightly closed. Throw away any unused medicine after the expiration date. What should I tell my health care provider before I take this medicine? They need to know if you have any of these conditions: [place]'s syndrome diabetes glaucoma heart disease high blood pressure infection (especially a virus infection such as chickenpox, cold sores, or herpes) kidney disease liver disease mental illness myasthenia gravis osteoporosis seizures stomach or intestine problems thyroid disease an unusual or allergic reaction to lactose, prednisone, other medicines, foods, dyes, or preservatives or trying to get breast-feeding What should I watch for while using this medicine? Visit your doctor or health career and guidance counselor for regular checks on your progress. If you are taking this medicine over a prolonged period, carry an identification card with your name and address, the type and dose of your medicine, and your doctor's name and address. This medicine may increase your risk of getting an infection. Tell your doctor or health career and guidance counselor if you are around anyone with measles or chickenpox, or if you develop sores or blisters that do not heal properly. If you are going to have surgery, tell your doctor or health career and guidance counselor that you have taken this medicine within the last twelve months. Ask your doctor or health career and guidance counselor about your diet. You may need to lower the amount of salt you eat. This medicine may affect blood sugar levels. If you have diabetes, check with your doctor or health career and guidance counselor before you change your diet or the dose of your diabetic medicine. You have been given the following additional information: COPD Flare Smoking Cessation Levofloxacin Oral tablet Prednisone Oral tablet (Electronically signed by Mumtaz Llamas Dr. 11/02/2016 7:24)
--- NOTE | 2016-11-02 19:08 | ED MAR SUMMARY ---
..... Medication Administration Record [facility] [address] [place] [address] Patient: BELEM ALONSO Visit ID: [id number] 76y, M Weight: 72.5 kg Height/Length: 70 in BMI: 22.9 ALLERGIES: No Known Drug Allergy Start 07:01 11/02/2016 Marco Ruiz RJose Luis, Stop 08:07 11/02/2016 Michelle River R.N. Medication Administered: LEVOFLOXACIN [IVPB], Dose: 500 mg IVPB over 1 hour(s), Rate: 100 mL/hr, Dispensed: 100 mL bag, Site: #1 right wrist. Medication Ordered: Levofloxacin IV 500 mg/100mL (NOW).
--- NOTE | 2016-11-02 19:08 | ED MAR SUMMARY ---
..... Medication Administration Record [facility] [address] [place] [place] [address] Patient: BELEM ALONSO Visit ID: [id number] 76y, M Weight: 72.5 kg Height/Length: 70 in BMI: 22.9 ALLERGIES: No Known Drug Allergy Start 07:01 11/02/2016 Marco Ruiz RJose Luis, Stop 08:07 11/02/2016 Michelle River R.N. Medication Administered: LEVOFLOXACIN [IVPB], Dose: 500 mg IVPB over 1 hour(s), Rate: 100 mL/hr, Dispensed: 100 mL bag, Site: #1 right wrist. Medication Ordered: Levofloxacin IV 500 mg/100mL (NOW).
--- NOTE | 2016-11-02 19:08 | ED DISCHARGE INSTRUCTIONS ---
Patient: BELEM ALONSO General Instructions [facility] VisitID: [id number] [place] [address] 76y, M Registration Date/Time: 11/02/2016 Acute exacerbation of COPD. INSTRUCTIONS Do not smoke. Seek medical help to quit smoking. Your Current Medications: CONTINUE TAKING THE FOLLOWING MEDICATIONS: Albuterol Sulfate Inhalation : Nebulization Solution (2.5 MG/3ML) 0.083%, 1 unit dose PRN. LORazepam Oral : prn. ProAir HFA Inhalation. Prescription Medications: Levofloxacin 500 mg: take 1 tab orally every day for 4 days. No refills. (Start on 11/04/15) Prednisone 20 mg: take 2 orally every day for 5 days. Dispense ten (10). No refills. Follow-up: Follow up with your doctor in about two days. Call for an appointment. Screening today revealed the patient's blood pressure to be in the hypertensive range. The patient should follow up with a primary care provider for blood pressure management. ADDITIONAL INFORMATION COPD Flare Both emphysema and chronic bronchitis are forms of chronic obstructive pulmonary disease (COPD). It is most often caused by many years of smoking tobacco. Many things can make your lung disease suddenly get worse. These causes include the common cold, pneumonia, acute bronchitis, missing doses of your regular breathing medicines, or being around smoke, dust, or other air pollutants. A COPD flare may last 7 to 14 days. Your doctor may prescribe medicineto relax your airways and prevent wheezing. Your doctor may also prescribe antibiotics if he or she thinks you havea bacterial infection. Prednisone can helpease inflammation in a severe attack. Home care Here are things you can do at home: Drink lots of water or other fluids (at least 10 glasses a day) during an attack. This will loosen lung secretions and make it easier to breathe. If you have heart or kidney disease, check with your doctor before you drink extra amounts of fluids. Take prescribed medicine exactly at the times advised. If you have a hand-held inhaler or aerosol breathing medicine, don't use it more than once every 4 hours, unless your doctor tells you to. If you were givenan antibiotic or prednisone, take all of the medicine even if you are feeling better after a few days. Don't smoke. Avoid being aroundthe smoke of others. If you were given an inhaler, use it exactly as directed. If you need to use it more often than prescribed, your condition may be getting worse. Call your doctor. Follow-up care Follow up with your health care provider.If you are 65 or older or have chronic asthma or COPD, you should get a single dose of the pneumococcal vaccine and aflu shot each year. You may need a second dose of the pneumococcal vaccine if you had the first dose at a younger age. Your health care provider will let you know if you need a second dose. For all other people, the usual dose for the pneumococcal vaccine is 1 or 2 shots. Yourprovider can discuss this with you. When to seek medical care Get prompt medical attention ifany of these occur: Increased wheezing or shortness of breath Need to use your inhalers more often than usual without relief Fever of 100.4F(38C) or higher, or as directed by your health care provider Coughing up lots of dark-colored or bloody sputum (mucus) Chest pain with each breath You do not start to improve within 24 hours How To Quit Smoking Smoking is one of the hardest habits to break. About half of all those who have ever smoked have been able to quit, and most of those (about 70%) who still smoke want to quit. Here are some of the best ways to stop smoking. Keep Trying: It takes most smokers about 8 tries before they are finally able to fully quit. So, the more often you try and fail, the better your chance of quitting the next time! So, don't give up! Go Cold Marcell: Most ex-smokers quit cold turkey. Trying to cut back gradually doesn't seem to work as well, perhaps because it continues the smoking habit. Also, it is possible to fool yourself by inhaling more while smoking fewer cigarettes. This results in the same amount of nicotine in your body! Get Support: Support programs can make an important difference, especially for the heavy smoker. These groups offer lectures, methods to change your behavior and peer support. Call the free national Quitline for more information. 717-WQMU-BOU (992-356-2488). Low-cost or free programs are offered by many hospitals, local chapters of the [place] [employer] (483-285-7050) and the [place] [employer] (391-696-8531). Support at home is important too. Non-smokers can help by offering praise and encouragement. If the smoker fails to quit, encourage them to try again! [place] Medicines: For those who can't quit on their own, Nicotine Replacement Therapy (NRT) may make quitting much easier. Certain aids such as the nicotine patch, gum and lozenge are available without a prescription. However, it is best to use these under the guidance of your doctor. The skin patch provides a steady supply of nicotine to the body. Nicotine gum and lozenge gives temporary bursts of low levels of nicotine. Both methods take the edge off the craving for cigarettes. WARNING: If you feel symptoms of nicotine overdose, such as nausea, vomiting, dizziness, weakness, or fast heartbeat, stop using these and see your doctor. Prescription Medicines: After evaluating your smoking patterns and prior attempts at quitting, your doctor may offer a prescription medicine such as bupropion (Zyban, Wellbutrin), varenicline (Chantix, Champix), a niocotine inhaler or nasal spray. Each has its unique advantage and side effects which your doctor can review with you. Health Benefits Of Quitting: The benefits of quitting start right away and keep improving the longer you go without smokin minutes: blood pressure and pulse return to normal 8 hours: oxygen levels return to normal 2 days: ability to smell and taste begins to improve as damaged nerves start to regrow 2-3 weeks: circulation and lung function improves 1-9 months: decreased cough, congestion and shortness of breath; less tired 1 year: risk of heart attack decreases by half 5 years: risk of lung cancer decreases by half; risk of stroke becomes the same as a non-smoker For information about how to quit smoking, visit the following links: National Cancer [place] , Clearing the Air, Quit Smoking Today - an online booklet. http://www.smokefree.gov/pubs/clearing_the_air.pdf Smokefree.gov http://smokefree.gov/ QuitNet http://www.quitnet.com/ Levofloxacin Oral tablet What is this medicine? LEVOFLOXACIN (byron cruz) is a quinolone antibiotic. It is used to treat certain kinds of bacterial infections. It will not work for colds, flu, or other viral infections. How should I use this medicine? Take this medicine by mouth with a full glass of water. Follow the directions on the prescription label. This medicine can be taken with or without food. Take your medicine at regular intervals. Do not take your medicine more often than directed. Do not skip doses or stop your medicine early even if you feel better. Do not stop taking except on your doctor's advice. A special MedGuide will be given to you by the pharmacist with each prescription and refill. Be sure to read this information carefully each time. Talk to your [employer] operations consultant regarding the use of this medicine in children. While this drug may be prescribed for children as young as 6 months for selected conditions, precautions do apply. What side effects may I notice from receiving this medicine? Side effects that you should report to your doctor or health healthcare economics consultant as soon as possible: -allergic reactions like skin rash or hives, swelling of the face, lips, or tongue -changes in vision -confusion, nightmares or hallucinations -difficulty breathing -irregular heartbeat, chest pain -joint, muscle or tendon pain -pain or difficulty passing urine -persistent headache with or without blurred vision -redness, blistering, peeling or loosening of the skin, including inside the mouth -seizures -unusual pain, numbness, tingling, or weakness -vaginal irritation, discharge Side effects that usually do not require medical attention (report to your doctor or health healthcare economics consultant if they continue or are bothersome): -diarrhea -dry mouth -headache -stomach upset, nausea -trouble sleeping What may interact with this medicine? Do not take this medicine with any of the following medications: - arsenic trioxide - chloroquine - droperidol - medicines for irregular heart rhythm like amiodarone, disopyramide, dofetilide, flecainide, quinidine, procainamide, sotalol - some medicines for depression or mental problems like phenothiazines, pimozide, and ziprasidone This medicine may also interact with the following medications: - amoxapine -antacids - cisapride - dairy products - didanosine (ddI) buffered tablets or powder - haloperidol - multivitamins -NSAIDS, medicines for pain and inflammation, like ibuprofen or naproxen - retinoid products like tretinoin or isotretinoin - risperidone - some other antibiotics like clarithromycin or erythromycin - sucralfate - theophylline - warfarin What if I miss a dose? If you miss a dose, take it as soon as you remember. If it is almost time for your next dose, take only that dose. Do not take double or extra doses. Where should I keep my medicine? Keep out of the reach of children. Store at room temperature between 15 and 30 degrees C (59 and 86 degrees F). Keep in a tightly closed container. Throw away any unused medicine after the expiration date. What should I tell my health care provider before I take this medicine? They need to know if you have any of these conditions: cerebral disease irregular heartbeat kidney disease seizure disorder an unusual or allergic reaction to levofloxacin, other antibiotics or medicines, foods, dyes, or preservatives or trying to get breast-feeding What should I watch for while using this medicine? Tell your doctor or health healthcare economics consultant if your symptoms do not improve or if they get worse. Drink several glasses of water a day and cut down on drinks that contain caffeine. You must not get dehydrated while taking this medicine. You may get drowsy or dizzy. Do not drive, use machinery, or do anything that needs mental alertness until you know how this medicine affects you. Do not sit or stand up quickly, especially if you are an older patient. This reduces the risk of dizzy or fainting spells. This medicine can make you more sensitive to the sun. Keep out of the sun. If you cannot avoid being in the sun, wear protective clothing and use a sunscreen. Do not use sun lamps or tanning beds/booths. Contact your doctor if you get a sunburn. If you are a diabetic monitor your blood glucose carefully. If you get an unusual reading stop taking this medicine and call your doctor right away. Do not treat diarrhea with aqxe-ygs-yncmufj products. Contact your doctor if you have diarrhea that lasts more than 2 days or if the diarrhea is severe and watery. Avoid antacids, calcium, iron, and zinc products for 2 hours before and 2 hours after taking a dose of this medicine. Prednisone Oral tablet What is this medicine? PREDNISONE (PRED ni sone) is a corticosteroid. It is commonly used to treat inflammation of the skin, joints, lungs, and other organs. Common conditions treated include asthma, allergies, and arthritis. It is also used for other conditions, such as blood disorders and diseases of the adrenal glands. How should I use this medicine? Take this medicine by mouth with a glass of water. Follow the directions on the prescription label. Take this medicine with food. If you are taking this medicine once a day, take it in the morning. Do not take more medicine than you are told to take. Do not suddenly stop taking your medicine because you may develop a severe reaction. Your doctor will tell you how much medicine to take. If your doctor wants you to stop the medicine, the dose may be slowly lowered over time to avoid any side effects. Talk to your [employer] operations consultant regarding the use of this medicine in children. Special care may be needed. What side effects may I notice from receiving this medicine? Side effects that you should report to your doctor or health healthcare economics consultant as soon as possible: allergic reactions like skin rash, itching or hives, swelling of the face, lips, or tongue changes in emotions or moods changes in vision depressed mood eye pain fever or chills, cough, sore throat, pain or difficulty passing urine increased thirst swelling of ankles, feet Side effects that usually do not require medical attention (report to your doctor or health healthcare economics consultant if they continue or are bothersome): confusion, excitement, restlessness headache nausea, vomiting skin problems, acne, thin and shiny skin trouble sleeping weight gain What may interact with this medicine? Do not take this medicine with any of the following medications: metyrapone mifepristone This medicine may also interact with the following medications: aminoglutethimide amphotericin B aspirin and aspirin-like medicines barbiturates certain medicines for diabetes, like glipizide or glyburide cholestyramine cholinesterase inhibitors cyclosporine digoxin diuretics ephedrine female hormones, like estrogens and control pills isoniazid ketoconazole NSAIDS, medicines for pain and inflammation, like ibuprofen or naproxen phenytoin rifampin toxoids vaccines warfarin What if I miss a dose? If you miss a dose, take it as soon as you can. If it is almost time for your next dose, talk to your doctor or health healthcare economics consultant. You may need to miss a dose or take an extra dose. Do not take double or extra doses without advice. Where should I keep my medicine? Keep out of the reach of children. Store at room temperature between 15 and 30 degrees C (59 and 86 degrees F). Protect from light. Keep container tightly closed. Throw away any unused medicine after the expiration date. What should I tell my health care provider before I take this medicine? They need to know if you have any of these conditions: [place]'s syndrome diabetes glaucoma heart disease high blood pressure infection (especially a virus infection such as chickenpox, cold sores, or herpes) kidney disease liver disease mental illness myasthenia gravis osteoporosis seizures stomach or intestine problems thyroid disease an unusual or allergic reaction to lactose, prednisone, other medicines, foods, dyes, or preservatives or trying to get breast-feeding What should I watch for while using this medicine? Visit your doctor or health healthcare economics consultant for regular checks on your progress. If you are taking this medicine over a prolonged period, carry an identification card with your name and address, the type and dose of your medicine, and your doctor's name and address. This medicine may increase your risk of getting an infection. Tell your doctor or health healthcare economics consultant if you are around anyone with measles or chickenpox, or if you develop sores or blisters that do not heal properly. If you are going to have surgery, tell your doctor or health healthcare economics consultant that you have taken this medicine within the last twelve months. Ask your doctor or health healthcare economics consultant about your diet. You may need to lower the amount of salt you eat. This medicine may affect blood sugar levels. If you have diabetes, check with your doctor or health healthcare economics consultant before you change your diet or the dose of your diabetic medicine. You have been given the following additional information: COPD Flare Smoking Cessation Levofloxacin Oral tablet Prednisone Oral tablet (Electronically signed by Mumtaz Llamas Dr. 11/02/2016 7:24)
== END 2016-11-02 08:17 | disposition home or self-care (01) ==
LOC: ED SRH 06:01
DX: J44.1 Chronic obstructive pulmonary disease with (acute) exacerbation (principal); J45.909 Unspecified asthma, uncomplicated; F17.200 Nicotine dependence, unspecified, uncomplicated; Z79.51 Long term (current) use of inhaled steroids
CPT/HCPCS: 90100; 95059